=== PATIENT | female | born 1950 | race Caucasian/White ===

== ENCOUNTER 2022-09-30 10:16 | Outpatient (OUT) | payer MEDICARE, OTHER, SELFPAY ==
[2022-09-30 11:22] LABS: Chol HDL Ratio 3.9; Cholesterol 167 mg/dL (<=200); HDL Cholesterol 43 mg/dL (40-60); Thyroid Stimulating Hormone 0.905 uIU/mL (0.358-3.740); Triglycerides 176 mg/dL (<=150); VLDL CHOLESTEROL 35.2 mg/dL
== END 2022-09-30 10:17 | disposition home or self-care (01) ==
LOC: LAB 10:20
PROVIDERS: PCP Family Medicine; Visit Provider Family Medicine
DX: E66.9 Obesity, unspecified (principal); Z13.220 Encounter for screening for lipoid disorders
CPT/HCPCS: 36415; 80061; 84443

== ENCOUNTER 2022-09-30 10:23 | Outpatient (OUT) | payer MEDICARE, OTHER, SELFPAY ==
[2022-09-30 11:17] LABS: Alanine Aminotransferase 31 U/L (14-59); Albumin Globulin Ratio 0.9; Albumin Level 3.4 g/dL (3.4-5.0); Alkaline Phosphatase 95 U/L (46-116); Anion Gap 13.1; Aspartate Amino Transferase 19 U/L (15-37); Bilirubin Total 0.6 mg/dL (0.2-1.0); Calcium 8.8 mg/dL (8.5-10.1); Carbon Dioxide 28.2 mmol/L (21.0-32.0); Chloride 104 mmol/L (98-107); Estimated GFR (African America >60 (>=60); Estimated GFR (Non-African Ame >60 (>=60); Globulin 3.6 g/dL; Glucose 113 mg/dL (74-106); Potassium 4.3 mmol/L (3.5-5.1); Sodium 141 mmol/L (136-145)
[2022-09-30 11:46] LABS: Erythrocyte Sedimentation Rate 42 mm/hr (<=30)
[2022-09-30 11:57] LABS: Basophils Absolute Auto 0.1 10^3/uL (0.0-0.1); Basophils Percent Auto 0.9 % (0.2-2.0); Eosinophils Absolute Auto 0.4 10^3/uL (0.0-0.7); Eosinophils Percent Auto 6.1 % (0.9-7.0); Hematocrit 45.2 % (36.0-48.0); Immature Granulocytes Abs Auto 0.01 10^3/uL (0.00-0.03); Immature Granulocytes Pct Auto 0.2 % (0.0-0.5); Lymphocytes Absolute Auto 1.2 10^3/uL (1.2-3.8); Lymphocytes Percent Auto 18.6 % (20.5-60.0); Mean Corpuscular HGB Conc 33.2 g/dL (29.9-35.2); Mean Corpuscular Hemoglobin 28.4 pg (26.7-34.0); Mean Corpuscular Volume 85.4 fL (81.0-99.0); Mean Platelet Volume 10.3 fL (9.5-13.5); Monocytes Absolute Auto 0.4 10^3/uL (0.3-0.8); Monocytes Percent Auto 6.5 % (1.7-12.0); Neutrophils Absolute Auto 4.4 10^3/uL (1.4-6.5); Neutrophils Percent Auto 67.7 % (43.0-75.0); Platelet Count 243 10^3/uL (150-450); Red Blood Count 5.29 10^6/uL (4.20-5.40); Red Cell Distribution Width 15.4 % (11.0-15.0); White Blood Count 6.4 10^3/uL (4.0-11.0)
== END 2022-09-30 10:24 | disposition home or self-care (01) ==
PROVIDERS: PCP Family Medicine
DX: M05.79 Rheumatoid arthritis with rheumatoid factor 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 (principal); M15.0 Primary generalized (osteo)arthritis; Z79.899 Other long term (current) drug therapy; E66.9 Obesity, unspecified; Z13.220 Encounter for screening for lipoid disorders
CPT/HCPCS: 36415; 80053; 80061; 84443; 85025; 85652

== ENCOUNTER 2023-03-02 09:16 | Outpatient (OUT) | payer MEDICARE, OTHER, SELFPAY ==
[2023-03-02 09:36] LABS: Basophils Absolute Auto 0.1 10^3/uL (0.0-0.1); Basophils Percent Auto 0.7 % (0.2-2.0); Eosinophils Absolute Auto 0.5 10^3/uL (0.0-0.7); Eosinophils Percent Auto 6.1 % (0.9-7.0); Hematocrit 45.3 % (36.0-48.0); Hemoglobin 14.7 g/dL (12.0-16.0); Immature Granulocytes Abs Auto 0.02 10^3/uL (0.00-0.03); Immature Granulocytes Pct Auto 0.2 % (0.0-0.5); Lymphocytes Absolute Auto 1.6 10^3/uL (1.2-3.8); Lymphocytes Percent Auto 17.5 % (20.5-60.0); Mean Corpuscular HGB Conc 32.5 g/dL (29.9-35.2); Mean Corpuscular Hemoglobin 28.5 pg (26.7-34.0); Mean Corpuscular Volume 87.8 fL (81.0-99.0); Mean Platelet Volume 9.6 fL (9.5-13.5); Monocytes Absolute Auto 0.6 10^3/uL (0.3-0.8); Monocytes Percent Auto 6.5 % (1.7-12.0); Neutrophils Absolute Auto 6.1 10^3/uL (1.4-6.5); Platelet Count 225 10^3/uL (150-450); Red Blood Count 5.16 10^6/uL (4.20-5.40); Red Cell Distribution Width 14.6 % (11.0-15.0); White Blood Count 8.9 10^3/uL (4.0-11.0)
[2023-03-02 09:43] LABS: Erythrocyte Sedimentation Rate 61 mm/hr (<=30)
[2023-03-02 10:25] LABS: Alanine Aminotransferase 45 U/L (14-59); Albumin Globulin Ratio 0.9; Albumin Level 3.3 g/dL (3.4-5.0); Alkaline Phosphatase 98 U/L (46-116); Aspartate Amino Transferase 23 U/L (15-37); Bilirubin Total 0.5 mg/dL (0.2-1.0); Calcium 9.5 mg/dL (8.5-10.1); Carbon Dioxide 30.1 mmol/L (21.0-32.0); Chloride 101 mmol/L (98-107); Estimated GFR (African America >60 (>=60); Estimated GFR (Non-African Ame >60 (>=60); Globulin 3.8 g/dL; Glucose 97 mg/dL (74-106); Potassium 4.1 mmol/L (3.5-5.1); Sodium 137 mmol/L (136-145); Total Protein 7.1 g/dL (6.4-8.2)
== END 2023-03-02 09:17 | disposition home or self-care (01) ==
LOC: LAB 09:18
PROVIDERS: PCP Family Medicine; Visit Provider Internal Medicine Rheumatology
DX: M05.79 Rheumatoid arthritis with rheumatoid factor 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 (principal); M15.0 Primary generalized (osteo)arthritis; Z79.899 Other long term (current) drug therapy
CPT/HCPCS: 36415; 80053; 85025; 85652

== ENCOUNTER 2023-05-31 14:34 | Outpatient (OUT) | payer MEDICARE, OTHER, SELFPAY ==
[2023-05-31 14:49] LABS: Basophils Absolute Auto 0.1 10^3/uL (0.0-0.1); Basophils Percent Auto 0.7 % (0.2-2.0); Eosinophils Absolute Auto 0.5 10^3/uL (0.0-0.7); Eosinophils Percent Auto 4.9 % (0.9-7.0); Hematocrit 43.6 % (36.0-48.0); Hemoglobin 14.1 g/dL (12.0-16.0); Immature Granulocytes Abs Auto 0.04 10^3/uL (0.00-0.03); Immature Granulocytes Pct Auto 0.4 % (0.0-0.5); Lymphocytes Absolute Auto 1.9 10^3/uL (1.2-3.8); Lymphocytes Percent Auto 19.3 % (20.5-60.0); Mean Corpuscular HGB Conc 32.3 g/dL (29.9-35.2); Mean Corpuscular Volume 89.7 fL (81.0-99.0); Mean Platelet Volume 9.7 fL (9.5-13.5); Monocytes Absolute Auto 0.6 10^3/uL (0.3-0.8); Monocytes Percent Auto 6.7 % (1.7-12.0); Neutrophils Absolute Auto 6.5 10^3/uL (1.4-6.5); Platelet Count 229 10^3/uL (150-450); Red Blood Count 4.86 10^6/uL (4.20-5.40); Red Cell Distribution Width 15.1 % (11.0-15.0); White Blood Count 9.6 10^3/uL (4.0-11.0)
[2023-05-31 15:22] LABS: Erythrocyte Sedimentation Rate 64 mm/hr (<=30)
[2023-05-31 15:27] LABS: Alanine Aminotransferase 37 U/L (14-59); Albumin Globulin Ratio 0.9; Albumin Level 3.2 g/dL (3.4-5.0); Alkaline Phosphatase 99 U/L (46-116); Anion Gap 11.8; Aspartate Amino Transferase 18 U/L (15-37); BUN Creatinine Ratio 21.6; Bilirubin Total 0.5 mg/dL (0.2-1.0); Calcium 9.1 mg/dL (8.5-10.1); Carbon Dioxide 28.3 mmol/L (21.0-32.0); Chloride 105 mmol/L (98-107); Estimated GFR (African America >60 (>=60); Estimated GFR (Non-African Ame >60 (>=60); Globulin 3.7 g/dL; Glucose 126 mg/dL (74-106); Potassium 4.1 mmol/L (3.5-5.1); Sodium 141 mmol/L (136-145); Total Protein 6.9 g/dL (6.4-8.2)
== END 2023-05-31 14:35 | disposition home or self-care (01) ==
LOC: LAB 14:35
PROVIDERS: PCP Family Medicine; Visit Provider Internal Medicine Rheumatology
DX: M05.79 Rheumatoid arthritis with rheumatoid factor 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 (principal); M15.0 Primary generalized (osteo)arthritis; Z79.899 Other long term (current) drug therapy
CPT/HCPCS: 36415; 80053; 85025; 85652

== ENCOUNTER 2023-09-04 10:32 | Outpatient (OUT) | payer MEDICARE, OTHER, SELFPAY ==
[2023-09-04 11:15] LABS: Alanine Aminotransferase 26 U/L (14-59); Albumin Level 3.4 g/dL (3.4-5.0); Alkaline Phosphatase 93 U/L (46-116); Anion Gap 10.5; Aspartate Amino Transferase 18 U/L (15-37); BUN Creatinine Ratio 21.4; Bilirubin Total 0.7 mg/dL (0.2-1.0); Calcium 8.6 mg/dL (8.5-10.1); Carbon Dioxide 27.8 mmol/L (21.0-32.0); Chloride 108 mmol/L (98-107); Estimated GFR (African America >60 (>=60); Estimated GFR (Non-African Ame >60 (>=60); Globulin 3.5 g/dL; Glucose 110 mg/dL (74-106); Potassium 4.3 mmol/L (3.5-5.1); Sodium 142 mmol/L (136-145); Total Protein 6.9 g/dL (6.4-8.2)
[2023-09-04 11:18] LABS: Basophils Absolute Auto 0.1 10^3/uL (0.0-0.1); Basophils Percent Auto 0.9 % (0.2-2.0); Eosinophils Absolute Auto 0.3 10^3/uL (0.0-0.7); Eosinophils Percent Auto 5.1 % (0.9-7.0); Hematocrit 43.6 % (36.0-48.0); Hemoglobin 14.1 g/dL (12.0-16.0); Immature Granulocytes Abs Auto 0.02 10^3/uL (0.00-0.03); Immature Granulocytes Pct Auto 0.3 % (0.0-0.5); Lymphocytes Absolute Auto 1.1 10^3/uL (1.2-3.8); Lymphocytes Percent Auto 16.6 % (20.5-60.0); Mean Corpuscular HGB Conc 32.3 g/dL (29.9-35.2); Mean Corpuscular Hemoglobin 28.8 pg (26.7-34.0); Mean Corpuscular Volume 89.2 fL (81.0-99.0); Mean Platelet Volume 9.8 fL (9.5-13.5); Monocytes Absolute Auto 0.6 10^3/uL (0.3-0.8); Monocytes Percent Auto 8.4 % (1.7-12.0); Neutrophils Absolute Auto 4.6 10^3/uL (1.4-6.5); Neutrophils Percent Auto 68.7 % (43.0-75.0); Platelet Count 225 10^3/uL (150-450); Red Blood Count 4.89 10^6/uL (4.20-5.40); Red Cell Distribution Width 14.6 % (11.0-15.0); White Blood Count 6.7 10^3/uL (4.0-11.0)
[2023-09-04 12:24] LABS: Erythrocyte Sedimentation Rate 54 mm/hr (<=30)
== END 2023-09-04 10:33 | disposition home or self-care (01) ==
LOC: LAB 10:34
PROVIDERS: PCP Family Medicine; Visit Provider Internal Medicine Rheumatology
DX: M05.79 Rheumatoid arthritis with rheumatoid factor 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 (principal); M15.0 Primary generalized (osteo)arthritis; Z79.899 Other long term (current) drug therapy
CPT/HCPCS: 36415; 80053; 85025; 85652

== ENCOUNTER 2023-09-29 09:29 | Outpatient (OUT) | payer MEDICARE, OTHER, SELFPAY ==
--- OUTSIDE RECORDS SUMMARY | 2023-09-29 09:36 | XMS_ITS | CCD ---
Author Organization [facility] Care Team Providers Care Equipment Processor Name Role Phone MD Gonzalez Mcneal Attending Provider ELIZABET, DR CUNHA Admitting Unavailable MCNEAL, DR CUNHA Attending Unavailable NADERER, DR TYRELL Salazar Primary Care Unavailable MCNEAL, DR CUNHA Consulting Unavailable MISC, DR BARTHOLOMEW Admitting Unavailable MISC, DR BARTHOLOMEW Attending Unavailable NADERER, DR TYRELL Salazar Primary Care Unavailable MISC, DR BARTHOLOMEW Consulting Unavailable MISC, DR BARTHOLOMEW Admitting Unavailable MISC, DR BARTHOLOMEW Attending Unavailable NADERER, DR TYRELL Salazar Primary Care Unavailable MISC, DR BARTHOLOMEW Consulting Unavailable MCNEAL, DR CUNHA Admitting Unavailable MCNEAL, DR CUNHA Attending Unavailable NADERER, DR TYRELL Salazar Primary Care Unavailable MCNEAL, DR CUNHA Consulting Unavailable NADERER, TYRELL Salazar Primary Care Unavailable Tryell Bowens MD Primary Care Provider HIEN YIN Attending Unavailable NADLUBNA, TYRELL Attending Unavailable CIERAYASSINE Attending Unavailable OBERMEYERTERRENCE Referring Unavailable HIEN YIN Attending Unavailable Allergies Allergy Classification Reported Allergen(s) Allergy Type Date of Onset Reaction(s) Facility (3 sources) Amoxicillin Drug Allergy 08-09-2022 Diarrhea [facility] Healthcare Work Phone: Medications Current Medications Medication Drug Class(es) Dates Sig (Normalized) Sig (Original) bisoprolol fumarate 5 mg / hydroCHLOROthiazide 6.25 mg oral tablet (3 sources) Thiazide Diuretic, beta-Adrenergic Krystal take 1 tablet by mouth in the morning bisoprolol-hydroCH LOROthiazide (Ziac) 5-6.25 MG tablet Take 1 tablet by mouth in the morning. 0 Active diclofenac sodium 75 mg delayed release oral tablet (3 sources) Nonsteroidal Anti-inflammatory Drug take 1 tablet by mouth every twelve hours diclofenac (Voltaren) 75 MG EC tablet Take 75 mg by mouth every 12 (twelve) hours. 0 Active 2 ml dupilumab 150 mg/ml prefilled syringe (3 sources) Interleukin-4 Receptor alpha Antagonist dupilumab (Dupixent) 300 MG/2ML injection Inject 300 mg under the skin every 14 (fourteen) days. For eczema 0 Active folic acid 1 mg oral tablet (3 sources) take 1 tablet by mouth once daily folic acid (Folvite) 1 MG tablet Take 1 mg by mouth 1 (one) time each day at the same time. 0 Active methotrexate 2.5 mg oral tablet (3 sources) Folate Analog Metabolic Inhibitor take 1 tablet by mouth every week methotrexate 2.5 MG tablet Take 2.5 mg by mouth 1 (one) time per week. 0 Active predniSONE 5 mg oral tablet (3 sources) take 1 tablet by mouth once daily predniSONE (Deltasone) 5 MG tablet Take 5 mg by mouth 1 (one) time each day at the same time. 0 Active Problems Active Problems Problem Classification Problem Date Documented Da te Episodic/Chronic Allergic reactions (4 sources) Atopic dermatitis; Translations: [Intrinsic (allergic) eczema] Onset: 04-05-2023 04-05-2023 Chronic Diabetes mellitus without complication (4 sources) Prediabetes; Translations: [Prediabetes] Onset: 04-05-2023 04-05-2023 Episodic Disorders of lipid metabolism (5 sources) Hypertriglyceridemi a; Translations: [Pure hyperglyceridemia] Onset: 04-05-2023 04-05-2023 Chronic Essential hypertension (5 sources) Benign essential hypertension; Translations: [Essential (primary) hypertension] Onset: 04-05-2023 04-05-2023 Chronic Osteoarthritis (2 sources) Primary generalized (osteo)arthritis; Translations: [Unspecified osteoarthritis, unspecified site] Onset: 12-21-2021 Chronic Other aftercare (1 source) Other jail (current) drug therapy; Translations: [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] Onset: 07-03-2022 Episodic Other aftercare (4 sources) Patient encounter status; 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] Onset: 04-05-2023 04-05-2023 Episodic Other nutritional; endocrine; and metabolic disorders (4 sources) Body mass index 30+ - obesity; Translations: [Obesity, unspecified] Onset: 04-05-2023 04-05-2023 Chronic Other skin disorders (3 sources) Seborrheic keratosis; Translations: [Other seborrheic keratosis] Onset: 04-05-2023 04-05-2023 Episodic Other upper respiratory disease (5 sources) Allergic rhinitis due to pollen; Translations: [Allergic rhinitis due to pollen] Onset: 04-05-2023 04-05-2023 Chronic Rheumatoid arthritis and related disease (13 sources) Rheumatoid arthritis with rheumatoid factor 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; Translations: [Rheumatoid arthritis, unspecified] Onset: 11-23-2021 Chronic Past or Other Problems Problem Classification Problem Date Documented Da te Episodic/Chronic Acute and chronic tonsillitis (3 sources) Tonsil asymmetry; Translations: [Other chronic diseases of tonsils and adenoids] Onset: 10-12-2022 Resolved: 04-05-2023 10-12-2022 Chronic Neoplasms of unspecified nature or uncertain behavior (3 sources) Neoplasm of lymphoid system structure; Translations: [Neoplasm of unspecified behavior of digestive system] Onset: 08-15-2022 08-15-2022 Episodic Other congenital anomalies (3 sources) Talipes valgus; 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] Onset: 08-09-2022 Resolved: 08-09-2022 08-09-2022 Chronic Other connective tissue disease (3 sources) Deformity of lower limb; Translations: [Contracture of muscle, right lower leg] Onset: 08-09-2022 Resolved: 08-09-2022 08-09-2022 Episodic Other upper respiratory disease (3 sources) Epistaxis; Translations: [Epistaxis] Onset: 08-09-2022 Resolved: 04-05-2023 08-15-2022 Episodic Other upper respiratory disease (3 sources) Lesion of nose; Translations: [Other specified disorders of nose and nasal sinuses] Onset: 08-15-2022 Resolved: 04-05-2023 08-15-2022 Episodic Results Test Name Value Interpretation Reference Range Facility NM PET/CT SKULL-THIGH INITon 10-04-2022 NM PET/CT SKULL-THIGH INIT * * *Final Report* * * DATE OF EXAM: Oct 04 2022 11:04AM NRN [id number] - NM PET/CT SKULL-THIGH INIT / PROCEDURE REASON: tonisllar neoplasm * * * * Physician Interpretation * * * * RESULT: WHOLE (OR REGIONAL) BODY PET-CT SCAN CLINICAL HISTORY: Tonsillar cancer. INDICATION: Initial treatment strategy. TECHNIQUE: PET-CT scan: Approximately 60 minutes following the IV administration of F-18 FDG (10.8 mCi of F-18 FDG), PET and non contrast CT images were acquired from the vertex through proximal thigh. PET images were reconstructed with and without attenuation correction using attenuation coefficients. The blood glucose level before FDG injection is 110 mg/dL CT Radiation dose: Integrated Dose-length product (DLP) for this visit = 343 mGy*cm. CT Dose Reduction Employed: Automatic exposure control used (AED) COMPARISON: FDG PET-CT: None CORRELATION: None. RESULTS: Topogram review: Unremarkable, no acute findings. No retained foreign body. Head and Neck: No evidence of focal uptake to suggest FDG avid neoplastic process. Soft tissue prominence in the bilateral tonsil with mild FDG uptake of max SUV 6.8, probably inflammatory in nature but not excluding neoplasm. No FDG avid lymphadenopathy. Chest: No evidence of focal uptake to suggest FDG avid neoplastic process. No significant anatomical abnormality to the limits of low dose noncontrast CT scan. Abdomen and Pelvis: There is tiny focus of increased FDG uptake of max SUV 4.8 in the anterior dome of the liver without corresponding CT abnormality. Another tiny focus of increased FDG uptake in the inferior right lobe with max SUV 5.5. The finding is indeterminant and could represent processing artifact, however early metastases not excluded. Recommend follow-up or MR scan.. Extremities/Skeleton : No evidence of focal uptake to suggest FDG avid neoplastic process. Degenerative arthritic change. IMPRESSION: 1. HEAD and NECK: Mild uptake corresponding to soft tissue prominence and bilateral tonsil, neoplastic process not excluded. No FDG avid lymphadenopathy. 2. CHEST: No evidence of focal uptake to suggest FDG avid neoplastic process.. 3. ABDOMEN/PELVIS: Nonspecific tiny foci of uptake in the liver could represent processing artifact. However, the finding cannot exclude early metastases. Recommend follow-up or dedicated MR scan. 4. EXTREMITIES/SKELETON : No evidence of focal uptake to suggest FDG avid neoplastic process.. Transcribe Date/Time: Oct 04 2022 5:12P Dictated by: SUNI NUNEZ MD This examination was interpreted and the report reviewed and electronically signed by: SUNI NUNEZ MD on Oct 04 2022 6:00PM EST Thank you for allowing us to participate in the care of your patient. Should there be any questions regarding this interpretation, please call [phone]. If you are unable to reach us at the number above, please feel free to contact [facility] at [phone]. [id number] CN Normal [facility] CBC AUTO DIFFon 06-30-2022 BASO # 0.1 103/ul Normal 0.0-0.1 [facility] Comment on above: Performed By: #### C BC #### [facility] [address] [address] [address] Norm Melendrez Basophils/100 WBC (Bld) 0.7 % Normal 0.2-2.0 [facility] Comment on above: Performed By: #### C BC #### [facility] [address] [address] [address] Norm Melendrez EO # 0.4 103/ul Normal 0.0-0.7 [facility] Comment on above: Performed By: #### C BC #### [facility] [address] [address] [address] Norm Melendrez Eosinophils/100 WBC (Bld) 4.4 % Normal 0.9-7.0 [facility] Comment on above: Performed By: #### C BC #### [facility] [address] [address] [address] Norm Melendrez Erythrocyte distribution width (RBC) [Ratio] 15.0 % Normal 11.0-15.0 [facility] Comment on above: Performed By: #### C BC #### [facility] [address] [address] [address] Nomr Melendrez Hematocrit (Bld) [Volume fraction] 45.0 % Normal 36.0-48.0 [facility] Comment on above: Performed By: #### C BC #### [facility] [address] [address] [address] Norm Melendrez Hemoglobin (Bld) [Mass/Vol] 14.5 g/dL Normal 12.0-16.0 [facility] Comment on above: Performed By: #### C BC #### [facility] [address] [place] [address] Dr. Norm Melendrez IG # 0.03 10e3/ul Normal 0.00-0.03 [facility] Comment on above: Performed By: #### C BC #### [facility] [address] [place] [address] Dr. Norm Melendrez IG % 0.4 % Normal 0.0-0.5 [facility] Comment on above: Performed By: #### C BC #### [facility] [address] [place] [address] Dr. Norm Melendrez LYMPH # 1.4 103/ul Normal 1.2-3.8 [facility] Comment on above: Performed By: #### C BC #### [facility] [address] [place] [address] Dr. Norm Melendrez Lymphocytes/100 WBC (Bld) 17.2 % Critically low 20.5-60.0 [facility] Comment on above: Performed By: #### C BC #### [facility] [address] [place] [address] Dr. Norm Melendrez MANUAL DIFF REQ NO Normal [facility] Comment on above: Performed By: #### C BC #### [facility] [address] [place] [address] Dr. Norm Melendrez MCH (RBC) [Entitic mass] 28.0 pg Normal 26.7-34.0 [facility] Comment on above: Performed By: #### C BC #### [facility] [address] [place] [address] Dr. Norm Melendrez MCHC (RBC) [Mass/Vol] 32.2 g/dL Normal 29.9-35.2 [facility] Comment on above: Performed By: #### C BC #### [facility] [address] [place] [address] Dr. Norm Melendrez MCV (RBC) [Entitic vol] 86.9 fL Normal 81.0-99.0 [facility] Comment on above: Performed By: #### C BC #### [facility] [address] [address] [address] Norm Melendrez MONO # 0.5 103/ul Normal 0.3-0.8 [facility] Comment on above: Performed By: #### C BC #### [facility] [address] [address] [address] Norm Melendrez Monocytes/100 WBC (Bld) 6.6 % Normal 1.7-12.0 [facility] Comment on above: Performed By: #### C BC #### [facility] [address] [place] [address] Dr. Norm Melendrez NEUT # 5.8 103/ul Normal 1.4-6.5 [facility] Comment on above: Performed By: #### C BC #### [facility] [address] [place] [address] Dr. Norm Melendrez Neutrophils/100 WBC (Bld) 70.7 % Normal 43.0-75.0 [facility] Comment on above: Performed By: #### C BC #### [facility] [address] [place] [address] Dr. Norm Melendrez Platelet mean volume (Bld) [Entitic vol] 9.2 fL Critically low 9.5-13.5 [facility] Comment on above: Performed By: #### C BC #### [facility] [address] [place] [address] Dr. Norm Melendrez PLT 231 103/ul Normal 150-450 [facility] Comment on above: Performed By: #### C BC #### [facility] [address] [place] [address] Dr. Norm Melendrez RBC 5.18 106/ul Normal 4.20-5.40 [facility] Comment on above: Performed By: #### C BC #### [facility] [address] [place] [address] Dr. Norm Melendrez WBC 8.2 103/ul Normal 4.0-11.0 [facility] Comment on above: Performed By: #### C BC #### [facility] [address] [place] [address] Dr. Norm Melendrez PROF 14(COMP METB)on 023 Albumin [Mass/Vol] 3.4 g/dL Normal 3.4-5.0 [facility] Comment on above: Performed By: #### C MP #### [facility] [address] [place] [address] Dr. Norm Melendrez Albumin/Globulin [Mass ratio] 0.9 {ratio} Normal [facility] Comment on above: Performed By: #### C MP #### [facility] [address] [place] [address] Dr. Norm Melendrez ALP [Catalytic activity/Vol] 105 U/L Normal 46-116 [facility] Comment on above: Performed By: #### C MP #### [facility] [address] [place] [address] Dr. Norm Melendrez ALT [Catalytic activity/Vol] 48 U/L Normal 14-59 [facility] Comment on above: Performed By: #### C MP #### [facility] [address] [place] [address] Dr. Norm Melendrez Anion gap [Moles/Vol] 7.9 mmol/L Normal [facility] Comment on above: Performed By: #### C MP #### [facility] [address] [place] [address] Dr. Norm Melendrez AST [Catalytic activity/Vol] 22 U/L Normal 15-37 [facility] Comment on above: Performed By: #### C MP #### [facility] [address] [place] [address] Dr. Norm Melendrez Bilirubin [Mass/Vol] 0.4 mg/dL Normal 0.2-1.0 [facility] Comment on above: Performed By: #### C MP #### [facility] [address] [place] [address] Dr. Norm Melendrez Calcium [Mass/Vol] 8.9 mg/dL Normal 8.5-10.1 [facility] Comment on above: Performed By: #### C MP #### [facility] [address] [place], [place] [id number] Dr. Norm Melendrez Chloride [Moles/Vol] 108 mmol/L Critically high 98-107 [facility] Comment on above: Performed By: #### C MP #### [facility] [address] [address] [address] Norm Melendrez CO2 [Moles/Vol] 31.1 mmol/L Normal 21.0-32.0 [facility] Comment on above: Performed By: #### C MP #### [facility] [address] [place] [address] Dr. Norm Melendrez Creatinine [Mass/Vol] 0.88 mg/dL Normal 0.55-1.02 [facility] Comment on above: Performed By: #### C MP #### [facility] [address] [place] [address] Dr. Norm Melendrez EGFR-AF WALLISIAN >60 Normal >=60 [facility] Comment on above: Performed By: #### C MP #### [facility] [address] [place] [address] Dr. Norm Melendrez EGFR-NON AF WALLISIAN >60 Normal >=60 [facility] Comment on above: Performed By: #### C MP #### [facility] [address] [place] [address] Dr. Norm Melendrez Globulin (S) [Mass/Vol] 3.8 g/dL Normal [facility] Comment on above: Performed By: #### C MP #### [facility] [address] [place] [address] Dr. Norm Melendrez Glucose [Mass/Vol] 109 mg/dL Critically high 74-106 [facility] Comment on above: Performed By: #### C MP #### [facility] [address] [address] [address] Norm Melendrez Potassium [Moles/Vol] 4.0 mmol/L Normal 3.5-5.1 [facility] Comment on above: Performed By: #### C MP #### [facility] [address] [place] [address] Dr. Norm Melendrez Protein [Mass/Vol] 7.2 g/dL Normal 6.4-8.2 [facility] Comment on above: Performed By: #### C MP #### [facility] [address] [place] [address] Dr. Norm Melendrez Sodium [Moles/Vol] 143 mmol/L Normal 136-145 [facility] Comment on above: Performed By: #### C MP #### [facility] [address] [place] [address] Dr. Norm Melendrez Urea nitrogen [Mass/Vol] 16.0 mg/dL Normal 7.0-18.0 [facility] Comment on above: Performed By: #### C MP #### [facility] [address] [place] [address] Dr. Nomr Melendrez Urea nitrogen/Creatinine [Mass ratio] 18.2 mg/mg Normal [facility] Comment on above: Performed By: #### C MP #### [facility] [address] [place] [address] Dr. Norm Melendrez SED RATE WESTERGREN 2022 SED RATE 17 mm/hr Normal <=30 [facility] Comment on above: Performed By: #### S EDR #### [facility] [address] [place] [address] Dr. Norm Melendrez CBC AUTO DIFFon 03-31-2022 BASO # 0.1 103/ul Normal 0.0-0.1 [facility] Comment on above: Performed By: #### C BC #### [facility] [address] [place] [address] Dr. Norm Melendrez Basophils/100 WBC (Bld) 0.7 % Normal 0.2-2.0 [facility] Comment on above: Performed By: #### C BC #### [facility] [address] [place] [address] Dr. Norm Melendrez EO # 0.2 103/ul Normal 0.0-0.7 [facility] Comment on above: Performed By: #### C BC #### [facility] [address] [place] [address] Dr. Norm Melendrez Eosinophils/100 WBC (Bld) 3.0 % Normal 0.9-7.0 [facility] Comment on above: Performed By: #### C BC #### [facility] [address] [place] [address] Dr. Norm Melendrez Erythrocyte distribution width (RBC) [Ratio] 15.4 % Critically high 11.0-15.0 [facility] Comment on above: Performed By: #### C BC #### [facility] [address] [place] [address] Dr. Norm Melendrez Hematocrit (Bld) [Volume fraction] 44.8 % Normal 36.0-48.0 [facility] Comment on above: Performed By: #### C BC #### [facility] [address] [place] [address] Dr. Norm Melendrez Hemoglobin (Bld) [Mass/Vol] 14.6 g/dL Normal 12.0-16.0 [facility] Comment on above: Performed By: #### C BC #### [facility] [address] [place] [address] Dr. Norm Melendrez IG # 0.02 10e3/ul Normal 0.00-0.03 [facility] Comment on above: Performed By: #### C BC #### [facility] [address] [place] [address] Dr. Norm Melendrez IG % 0.3 % Normal 0.0-0.5 [facility] Comment on above: Performed By: #### C BC #### [facility] [address] [place] [address] Dr. Norm Melendrez LYMPH # 1.2 103/ul Normal 1.2-3.8 [facility] Comment on above: Performed By: #### C BC #### [facility] [address] [place] [address] Dr. Norm Melendrez Lymphocytes/100 WBC (Bld) 16.8 % Critically low 20.5-60.0 [facility] Comment on above: Performed By: #### C BC #### [facility] [address] [place] [address] Dr. Norm Melendrez MANUAL DIFF REQ NO Normal [facility] Comment on above: Performed By: #### C BC #### [facility] [address] [address] [address] Norm Melendrez MCH (RBC) [Entitic mass] 27.6 pg Normal 26.7-34.0 [facility] Comment on above: Performed By: #### C BC #### [facility] [address] [address] [address] Norm Melendrez MCHC (RBC) [Mass/Vol] 32.6 g/dL Normal 29.9-35.2 [facility] Comment on above: Performed By: #### C BC #### [facility] [address] [place] [address] Dr. Norm Melendrez MCV (RBC) [Entitic vol] 84.7 fL Normal 81.0-99.0 [facility] Comment on above: Performed By: #### C BC #### [facility] [address] [place] [address] Dr. Norm Melendrez MONO # 0.6 103/ul Normal 0.3-0.8 [facility] Comment on above: Performed By: #### C BC #### [facility] [address] [place] [address] Dr. Norm Melendrez Monocytes/100 WBC (Bld) 8.0 % Normal 1.7-12.0 [facility] Comment on above: Performed By: #### C BC #### [facility] [address] [place] [address] Dr. Norm Melendrez NEUT # 5.2 103/ul Normal 1.4-6.5 [facility] Comment on above: Performed By: #### C BC #### [facility] [address] [place] [address] Dr. Norm Melendrez Neutrophils/100 WBC (Bld) 71.2 % Normal 43.0-75.0 [facility] Comment on above: Performed By: #### C BC #### [facility] [address] [place] [address] Dr. Nrom Melendrez Platelet mean volume (Bld) [Entitic vol] 9.2 fL Critically low 9.5-13.5 [facility] Comment on above: Performed By: #### C BC #### [facility] [address] [place] [address] Dr. Norm Melendrez PLT 231 103/ul Normal 150-450 [facility] Comment on above: Performed By: #### C BC #### [facility] [address] [place] [address] Dr. Norm Melendrez RBC 5.29 106/ul Normal 4.20-5.40 [facility] Comment on above: Performed By: #### C BC #### [facility] [address] [place] [address] Dr. Norm Melendrez WBC 7.3 103/ul Normal 4.0-11.0 [facility] Comment on above: Performed By: #### C BC #### [facility] [address] [place] [address] Dr. Norm Melendrez PROF 14(COMP METB)on 023 Albumin [Mass/Vol] 3.5 g/dL Normal 3.4-5.0 [facility] Comment on above: Performed By: #### C MP #### [facility] [address] [place] [address] Dr. Norm Melendrez Albumin/Globulin [Mass ratio] 0.9 {ratio} Normal [facility] Comment on above: Performed By: #### C MP #### [facility] [address] [place] [address] Dr. Norm Melendrez ALP [Catalytic activity/Vol] 98 U/L Normal 46-116 [facility] Comment on above: Performed By: #### C MP #### [facility] [address] [place] [address] Dr. Norm Melendrez ALT [Catalytic activity/Vol] 33 U/L Normal 14-59 [facility] Comment on above: Performed By: #### C MP #### [facility] [address] [place] [address] Dr. Norm Melendrez Anion gap [Moles/Vol] 12.4 mmol/L Normal [facility] Comment on above: Performed By: #### C MP #### [facility] [address] [address] [address] Norm Melendrez AST [Catalytic activity/Vol] 29 U/L Normal 15-37 [facility] Comment on above: Performed By: #### C MP #### [facility] [address] [address] [address] Norm Melendrez Bilirubin [Mass/Vol] 0.4 mg/dL Normal 0.2-1.0 [facility] Comment on above: Performed By: #### C MP #### [facility] [address] [address] [address] Norm Melendrez Calcium [Mass/Vol] 9.5 mg/dL Normal 8.5-10.1 [facility] Comment on above: Performed By: #### C MP #### [facility] [address] [place] [address] Dr. Norm Melendrez Chloride [Moles/Vol] 103 mmol/L Normal 98-107 [facility] Comment on above: Performed By: #### C MP #### [facility] [address] [address] [address] Norm Melendrez CO2 [Moles/Vol] 28.6 mmol/L Normal 21.0-32.0 [facility] Comment on above: Performed By: #### C MP #### [facility] [address] [place] [address] Dr. Norm Melendrez Creatinine [Mass/Vol] 0.77 mg/dL Normal 0.55-1.02 [facility] Comment on above: Performed By: #### C MP #### [facility] [address] [place] [address] Dr. Norm Melendrez EGFR-AF WALLISIAN >60 Normal >=60 [facility] Comment on above: Performed By: #### C MP #### [facility] [address] [address] [address] Norm Melendrez EGFR-NON AF WALLISIAN >60 Normal >=60 [facility] Comment on above: Performed By: #### C MP #### [facility] [address] [place] [address] Dr. Norm Melendrez Globulin (S) [Mass/Vol] 3.7 g/dL Normal [facility] Comment on above: Performed By: #### C MP #### [facility] [address] [address] [address] Norm Melendrez Glucose [Mass/Vol] 97 mg/dL Normal 74-106 [facility] Comment on above: Performed By: #### C MP #### [facility] [address] [address] [address] Norm Melendrez Potassium [Moles/Vol] 4.0 mmol/L Normal 3.5-5.1 [facility] Comment on above: Performed By: #### C MP #### [facility] [address] [place] [address] Dr. Norm Melendrez Protein [Mass/Vol] 7.2 g/dL Normal 6.4-8.2 [facility] Comment on above: Performed By: #### C MP #### [facility] [address] [place] [address] Dr. Norm Melendrez Sodium [Moles/Vol] 140 mmol/L Normal 136-145 [facility] Comment on above: Performed By: #### C MP #### [facility] [address] [place] [address] Dr. Norm Melendrez Urea nitrogen [Mass/Vol] 11.0 mg/dL Normal 7.0-18.0 [facility] Comment on above: Performed By: #### C MP #### [facility] [address] [address] [address] Norm Melendrez Urea nitrogen/Creatinine [Mass ratio] 14.3 mg/mg Normal [facility] Comment on above: Performed By: #### C MP #### [facility] [address] [place] [address] Dr. Norm Melendrez SED RATE WESTERGRENon 2022 SED RATE 53 mm/hr Critically high <=30 [facility] Comment on above: Performed By: #### C MP #### [facility] [address] [place] [address] Dr. Norm Melendrez CBC AUTO DIFFon 11-23-2021 BASO # 0.1 103/ul Normal 0.0-0.1 [facility] Comment on above: Performed By: #### C BC #### [facility] [address] [address] [address] Norm Melendrez Basophils/100 WBC (Bld) 0.9 % Normal 0.2-2.0 [facility] Comment on above: Performed By: #### C BC #### [facility] [address] [place] [address] Dr. Norm Melendrez EO # 0.3 103/ul Normal 0.0-0.7 [facility] Comment on above: Performed By: #### C BC #### [facility] [address] [place] [address] Dr. Norm Melendrez Eosinophils/100 WBC (Bld) 4.1 % Normal 0.9-7.0 [facility] Comment on above: Performed By: #### C BC #### [facility] [address] [place] [address] Dr. Norm Melendrez Erythrocyte distribution width (RBC) [Ratio] 15.9 % Critically high 11.0-15.0 [facility] Comment on above: Performed By: #### C BC #### [facility] [address] [place] [address] Dr. Norm Melendrez Hematocrit (Bld) [Volume fraction] 44.9 % Normal 36.0-48.0 [facility] Comment on above: Performed By: #### C BC #### [facility] [address] [place] [address] Dr. Norm Melendrez Hemoglobin (Bld) [Mass/Vol] 14.2 g/dL Normal 12.0-16.0 [facility] Comment on above: Performed By: #### C BC #### [facility] [address] [place] [address] Dr. Norm Melendrez IG # 0.04 10e3/ul Critically high 0.00-0.03 [facility] Comment on above: Performed By: #### C BC #### [facility] [address] [place] [address] Dr. Norm Melendrez IG % 0.6 % Critically high 0.0-0.5 [facility] Comment on above: Performed By: #### C BC #### [facility] [address] [place] [address] Dr. Norm Melendrez LYMPH # 1.6 103/ul Normal 1.2-3.8 [facility] Comment on above: Performed By: #### C BC #### [facility] [address] [place] [address] Dr. Norm Melendrez Lymphocytes/100 WBC (Bld) 22.0 % Normal 20.5-60.0 [facility] Comment on above: Performed By: #### C BC #### [facility] [address] [place] [address] Dr. Norm Melendrez MANUAL DIFF REQ NO Normal [facility] Comment on above: Performed By: #### C BC #### [facility] [address] [place] [address] Dr. Norm Melendrez MCH (RBC) [Entitic mass] 27.5 pg Normal 26.7-34.0 [facility] Comment on above: Performed By: #### C BC #### [facility] [address] [place] [address] Dr. Norm Melendrez MCHC (RBC) [Mass/Vol] 31.6 g/dL Normal 29.9-35.2 [facility] Comment on above: Performed By: #### C BC #### [facility] [address] [place] [address] Dr. Norm Melendrez MCV (RBC) [Entitic vol] 86.8 fL Normal 81.0-99.0 [facility] Comment on above: Performed By: #### C BC #### [facility] [address] [place] [address] Dr. Norm Melendrez MONO # 0.5 103/ul Normal 0.3-0.8 [facility] Comment on above: Performed By: #### C BC #### [facility] [address] [place] [address] Dr. Norm Melendrez Monocytes/100 WBC (Bld) 7.4 % Normal 1.7-12.0 [facility] Comment on above: Performed By: #### C BC #### [facility] [address] [place] [address] Dr. Norm Melendrez NEUT # 4.6 103/ul Normal 1.4-6.5 [facility] Comment on above: Performed By: #### C BC #### [facility] [address] [place] [address] Dr. Norm Melendrez Neutrophils/100 WBC (Bld) 65.0 % Normal 43.0-75.0 [facility] Comment on above: Performed By: #### C BC #### [facility] [address] [place] [address] Dr. Norm Melendrez Platelet mean volume (Bld) [Entitic vol] 9.6 fL Normal 9.5-13.5 [facility] Comment on above: Performed By: #### C BC #### [facility] [address] [place] [address] Dr. Norm Melendrez PLT 237 103/ul Normal 150-450 [facility] Comment on above: Performed By: #### C BC #### [facility] [address] [place] [address] Dr. Norm Melendrez RBC 5.17 106/ul Normal 4.20-5.40 [facility] Comment on above: Performed By: #### C BC #### [facility] [address] [place] [address] Dr. Norm Melendrez WBC 7.0 103/ul Normal 4.0-11.0 [facility] Comment on above: Performed By: #### C BC #### [facility] [address] [place] [address] Dr. Norm Melendrez PROF 14(COMP METB)on 022 Albumin [Mass/Vol] 3.4 g/dL Normal 3.4-5.0 [facility] Comment on above: Performed By: #### C MP #### [facility] [address] [place] [address] Dr. Norm Melendrez Albumin/Globulin [Mass ratio] 0.9 {ratio} Normal [facility] Comment on above: Performed By: #### C MP #### [facility] [address] [address] [address] Norm Melendrez ALP [Catalytic activity/Vol] 101 U/L Normal 46-116 [facility] Comment on above: Performed By: #### C MP #### [facility] [address] [address] [address] Norm Melendrez ALT [Catalytic activity/Vol] 28 U/L Normal 14-59 [facility] Comment on above: Performed By: #### C MP #### [facility] [address] [address] [address] Norm Melendrez Anion gap [Moles/Vol] 12.9 mmol/L Normal [facility] Comment on above: Performed By: #### C MP #### [facility] [address] [address] [address] Norm Melendrez AST [Catalytic activity/Vol] 17 U/L Normal 15-37 [facility] Comment on above: Performed By: #### C MP #### [facility] [address] [address] [address] Norm Melendrez Bilirubin [Mass/Vol] 0.4 mg/dL Normal 0.2-1.0 [facility] Comment on above: Performed By: #### C MP #### [facility] [address] [address] [address] Norm Melendrez Calcium [Mass/Vol] 8.9 mg/dL Normal 8.5-10.1 [facility] Comment on above: Performed By: #### C MP #### [facility] [address] [address] [address] Norm Melendrez Chloride [Moles/Vol] 104 mmol/L Normal 98-107 [facility] Comment on above: Performed By: #### C MP #### [facility] [address] [address] [address] Norm Melendrez CO2 [Moles/Vol] 27.1 mmol/L Normal 21.0-32.0 [facility] Comment on above: Performed By: #### C MP #### [facility] [address] [address] [address] Norm Melendrez Creatinine [Mass/Vol] 0.86 mg/dL Normal 0.55-1.02 [facility] Comment on above: Performed By: #### C MP #### [facility] [address] [address] [address] Norm Melendrez EGFR-AF WALLISIAN >60 Normal >=60 [facility] Comment on above: Performed By: #### C MP #### [facility] [address] [address] [address] Norm Melendrez EGFR-NON AF WALLISIAN >60 Normal >=60 [facility] Comment on above: Performed By: #### C MP #### [facility] [address] [address] [address] Norm Melendrez Globulin (S) [Mass/Vol] 3.7 g/dL Normal [facility] Comment on above: Performed By: #### C MP #### [facility] [address] [place] [address] Dr. Norm Melendrez Glucose [Mass/Vol] 114 mg/dL Critically high 74-106 [facility] Comment on above: Performed By: #### C MP #### [facility] [address] [place] [address] Dr. Norm Melendrez Potassium [Moles/Vol] 4.0 mmol/L Normal 3.5-5.1 [facility] Comment on above: Performed By: #### C MP #### [facility] [address] [address] [address] Norm Melendrez Protein [Mass/Vol] 7.1 g/dL Normal 6.4-8.2 [facility] Comment on above: Performed By: #### C MP #### [facility] [address] [place] [address] Dr. Norm Melendrez Sodium [Moles/Vol] 140 mmol/L Normal 136-145 [facility] Comment on above: Performed By: #### C MP #### [facility] [address] [address] [address] Norm Melendrez Urea nitrogen [Mass/Vol] 13.0 mg/dL Normal 7.0-18.0 [facility] Comment on above: Performed By: #### C MP #### [facility] [address] [place] [address] Dr. Norm Melendrez Urea nitrogen/Creatinine [Mass ratio] 15.1 mg/mg Normal [facility] Comment on above: Performed By: #### C MP #### [facility] [address] [place] [address] Dr. Norm Melendrez SED RATE WESTERGRENon 2021 SED RATE 44 mm/hr Critically high <=30 [facility] Comment on above: Performed By: #### S EDR #### [facility] [address] [place] [address] Dr. Norm Melendrez CBC AUTO DIFFon 09-13-2021 BASO # 0.1 103/ul Normal 0.0-0.1 [facility] Comment on above: Performed By: #### C BC #### [facility] [address] [place] [address] Dr. Norm Melendrez Basophils/100 WBC (Bld) 0.8 % Normal 0.2-2.0 [facility] Comment on above: Performed By: #### C BC #### [facility] [address] [place] [address] Dr. Norm Melendrez EO # 0.2 103/ul Normal 0.0-0.7 [facility] Comment on above: Performed By: #### C BC #### [facility] [address] [place] [address] Dr. Norm Melendrez Eosinophils/100 WBC (Bld) 2.6 % Normal 0.9-7.0 [facility] Comment on above: Performed By: #### C BC #### [facility] [address] [place] [address] Dr. Norm Melendrez Erythrocyte distribution width (RBC) [Ratio] 16.6 % Critically high 11.0-15.0 [facility] Comment on above: Performed By: #### C BC #### [facility] [address] [place] [address] Dr. Norm Melendrez Hematocrit (Bld) [Volume fraction] 44.1 % Normal 36.0-48.0 [facility] Comment on above: Performed By: #### C BC #### [facility] [address] [place] [address] Dr. Norm Melendrez Hemoglobin (Bld) [Mass/Vol] 14.3 g/dL Normal 12.0-16.0 [facility] Comment on above: Performed By: #### C BC #### [facility] [address] [place] [address] Dr. Norm eMlendrez IG # 0.04 10e3/ul Critically high 0.00-0.03 [facility] Comment on above: Performed By: #### C BC #### [facility] [address] [place] [address] Dr. Norm Melendrez IG % 0.5 % Normal 0.0-0.5 [facility] Comment on above: Performed By: #### C BC #### [facility] [address] [place] [address] Dr. Norm Melendrez LYMPH # 1.5 103/ul Normal 1.2-3.8 [facility] Comment on above: Performed By: #### C BC #### [facility] [address] [place] [address] Dr. Norm Melendrez Lymphocytes/100 WBC (Bld) 17.2 % Critically low 20.5-60.0 [facility] Comment on above: Performed By: #### C BC #### [facility] [address] [place] [address] Dr. Norm Melendrez MANUAL DIFF REQ NO Normal [facility] Comment on above: Performed By: #### C BC #### [facility] [address] [place] [address] Dr. Norm Melendrez MCH (RBC) [Entitic mass] 27.0 pg Normal 26.7-34.0 [facility] Comment on above: Performed By: #### C BC #### [facility] [address] [place] [address] Dr. Norm Melendrez MCHC (RBC) [Mass/Vol] 32.4 g/dL Normal 29.9-35.2 [facility] Comment on above: Performed By: #### C BC #### [facility] [address] [place] [address] Dr. Norm Melendrez MCV (RBC) [Entitic vol] 83.4 fL Normal 81.0-99.0 [facility] Comment on above: Performed By: #### C BC #### [facility] [address] [place] [address] Dr. Norm Melendrez MONO # 0.6 103/ul Normal 0.3-0.8 [facility] Comment on above: Performed By: #### C BC #### [facility] [address] [place] [address] Dr. Norm Melendrez Monocytes/100 WBC (Bld) 7.0 % Normal 1.7-12.0 [facility] Comment on above: Performed By: #### C BC #### [facility] [address] [place] [address] Dr. Norm Melendrez NEUT # 6.1 103/ul Normal 1.4-6.5 [facility] Comment on above: Performed By: #### C BC #### [facility] [address] [place] [address] Dr. Norm Melendrez Neutrophils/100 WBC (Bld) 71.9 % Normal 43.0-75.0 [facility] Comment on above: Performed By: #### C BC #### [facility] [address] [place] [address] Dr. Norm Melendrez Platelet mean volume (Bld) [Entitic vol] 9.3 fL Critically low 9.5-13.5 [facility] Comment on above: Performed By: #### C BC #### [facility] [address] [place] [address] Dr. Norm Melendrez PLT 239 103/ul Normal 150-450 [facility] Comment on above: Performed By: #### C BC #### [facility] [address] [place] [address] Dr. Norm Melendrez RBC 5.29 106/ul Normal 4.20-5.40 [facility] Comment on above: Performed By: #### C BC #### [facility] [address] [place] [address] Dr. Norm Melendrez WBC 8.5 103/ul Normal 4.0-11.0 [facility] Comment on above: Performed By: #### C BC #### [facility] [address] [place] [address] Dr. Norm Melendrez PROF 14(COMP METB)on 022 Albumin [Mass/Vol] 3.4 g/dL Normal 3.4-5.0 [facility] Comment on above: Performed By: #### C MP #### [facility] [address] [place] [address] Dr. Norm Melendrez Albumin/Globulin [Mass ratio] 0.9 {ratio} Normal [facility] Comment on above: Performed By: #### C MP #### [facility] [address] [place] [address] Dr. Norm Melendrez ALP [Catalytic activity/Vol] 90 U/L Normal 46-116 [facility] Comment on above: Performed By: #### C MP #### [facility] [address] [place] [address] Dr. Norm Melendrez ALT [Catalytic activity/Vol] 25 U/L Normal 14-59 [facility] Comment on above: Performed By: #### C MP #### [facility] [address] [place] [address] Dr. Norm Melendrez Anion gap [Moles/Vol] 11.4 mmol/L Normal [facility] Comment on above: Performed By: #### C MP #### [facility] [address] [place] [address] Dr. Norm Melendrez AST [Catalytic activity/Vol] 17 U/L Normal 15-37 [facility] Comment on above: Performed By: #### C MP #### [facility] [address] [place] [address] Dr. Norm Melendrez Bilirubin [Mass/Vol] 0.4 mg/dL Normal 0.2-1.0 [facility] Comment on above: Performed By: #### C MP #### [facility] [address] [place] [address] Dr. Norm Melendrez Calcium [Mass/Vol] 9.1 mg/dL Normal 8.5-10.1 [facility] Comment on above: Performed By: #### C MP #### [facility] [address] [place] [address] Dr. Norm Melendrez Chloride [Moles/Vol] 106 mmol/L Normal 98-107 [facility] Comment on above: Performed By: #### C MP #### [facility] [address] [place] [address] Dr. Norm Melendrez CO2 [Moles/Vol] 26.8 mmol/L Normal 21.0-32.0 [facility] Comment on above: Performed By: #### C MP #### [facility] [address] [place] [address] Dr. Norm Melendrez Creatinine [Mass/Vol] 0.80 mg/dL Normal 0.55-1.02 [facility] Comment on above: Performed By: #### C MP #### [facility] [address] [place] [address] Dr. Norm Melendrez EGFR-AF WALLISIAN >60 Normal >=60 [facility] Comment on above: Performed By: #### C MP #### [facility] [address] [place] [address] Dr. Norm Melendrez EGFR-NON AF WALLISIAN >60 Normal >=60 [facility] Comment on above: Performed By: #### C MP #### [facility] [address] [place] [address] Dr. Norm Melendrez Globulin (S) [Mass/Vol] 3.7 g/dL Normal [facility] Comment on above: Performed By: #### C MP #### [facility] [address] [place] [address] Dr. Norm Melendrez Glucose [Mass/Vol] 110 mg/dL Critically high 74-106 [facility] Comment on above: Performed By: #### C MP #### [facility] [address] [address] [address] Norm Melendrez Potassium [Moles/Vol] 4.2 mmol/L Normal 3.5-5.1 [facility] Comment on above: Performed By: #### C MP #### [facility] [address] [address] [address] Norm Melendrez Protein [Mass/Vol] 7.1 g/dL Normal 6.4-8.2 [facility] Comment on above: Performed By: #### C MP #### [facility] [address] [address] [address] Norm Melendrez Sodium [Moles/Vol] 140 mmol/L Normal 136-145 [facility] Comment on above: Performed By: #### C MP #### [facility] [address] [address] [address] Norm Melendrez Urea nitrogen [Mass/Vol] 14.0 mg/dL Normal 7.0-18.0 [facility] Comment on above: Performed By: #### C MP #### [facility] [address] [address] [address] Norm Melendrez Urea nitrogen/Creatinine [Mass ratio] 17.5 mg/mg Normal [facility] Comment on above: Performed By: #### C MP #### [facility] [address] [address] [address] Norm Melendrez SED RATE [facility] 2021 SED RATE 31 mm/hr Critically high <=30 [facility] Comment on above: Performed By: #### C MP #### [facility] [address] [address] [address] Norm Melendrez LINO Antinuclear Antibodieson 05-31-2021 Antinuclear Abs, IFA Negative Normal . [facility] Comment on above: Result Comment: Nega tive <1:80 Borderline 1:80 Positive >1:80 ICAP nomenclature: AC-0 For more information about Hep-2 cell patterns use ANApatterns.org, the official website for the International Consensus on Antinuclear Antibody (ILNO) Patterns (ICAP). Performed at: [facility] Lab[address] [id number] Sub Arc Operator: Alin Negron PhD, Phone: [phone] PERFORMED BY: [place] [address] PATHOLOGIST PERISHABLE FREIGHT INSPECTOR TYRONE HOOPER M.D. Performed By: #### T 4F, CRP, TSH3, URIC, CBC, ESR, CMP, CK #### [address] #### LINO #### [facility] , Albumin [Mass/volume] in Ser um or PlasmaOrdered By: Alphonse Mcneal on 05-31-2021 Albumin [Mass/Vol] 3.5 g/dL 3.2-5.5 [facility] Aldolaseon 05-31-2021 Aldolase 2.6 U/L Low 3.3-10.3 [facility] Comment on above: Result Comment: Perf ormed at: [facility] Lab[address] [id number] Sub Arc Operator: Alin Negron PhD, Phone: [phone] PERFORMED BY: [place] [address] PATHOLOGIST PERISHABLE FREIGHT INSPECTOR TYRONE HOOPER M.D. Performed By: #### T 4F, CRP, TSH3, URIC, CBC, ESR, CMP, CK #### [address] #### LINO #### [facility] , Basophils Auto (Bld) [#/Vol] Ordered By: Alphonse Mcneal on 05-31-2021 Basophils (Bld) [#/Vol] 0.1 10*3/uL 0.0-0.2 [facility] Basophils/100 WBC Auto (Bld) Ordered By: Alphonse Mcneal on 05-31-2021 Basophils/100 WBC (Bld) 1.1 % [facility] Blood hemoglobin measurement (mass/volume)Ordered By: Alphonse Mcneal on 05-31-2021 Hemoglobin (Bld) [Mass/Vol] 13.7 g/dL 11.8-15.4 [facility] Blood leukocytes automated c ount (number/volume)Ordered By: Alphonse Mcneal on 05-31-2021 WBC (Bld) [#/Vol] 7.9 10*3/uL 4.5-11.0 [facility] C-Reactive Proteinon 022 C-Reactive Protein 1.4 mg/dL High 0.0-1.0 [facility] Comment on above: Performed By: #### T 4F, CRP, TSH3, URIC, CBC, ESR, CMP, CK #### [facility] [address] [place] [address] #### LINO #### [facility] , Complete Blood Count Auto Di ffon 05-31-2021 Basophils (Bld) [#/Vol] 0.1 10*3/uL Normal 0.0-0.2 [facility] Comment on above: Performed By: #### T 4F, CRP, TSH3, URIC, CBC, ESR, CMP, CK #### [facility] [address] [place] [address] [place] #### LINO #### [facility] , Basophils/100 WBC (Bld) 1.1 % Normal . [facility] Comment on above: Performed By: #### T 4F, CRP, TSH3, URIC, CBC, ESR, CMP, CK #### [facility] [address] [place] [address] [place] #### LINO #### [facility] , Eosinophils (Bld) [#/Vol] 0.6 10*3/uL High 0.0-0.45 [facility] Comment on above: Performed By: #### T 4F, CRP, TSH3, URIC, CBC, ESR, CMP, CK #### [facility] [address] [place] [address] [place] #### LINO #### [facility] , Eosinophils/100 WBC (Bld) 7.9 % Normal . [facility] Comment on above: Performed By: #### T 4F, CRP, TSH3, URIC, CBC, ESR, CMP, CK #### [address] #### LINO #### [facility] , Erythrocyte distribution width (RBC) [Ratio] 16.0 % High 11.9-15.3 [facility] Comment on above: Performed By: #### T 4F, CRP, TSH3, URIC, CBC, ESR, CMP, CK #### [address] #### LINO #### [facility] , Hematocrit (Bld) [Volume fraction] 42.1 % Normal 34.0-46.4 [facility] Comment on above: Performed By: #### T 4F, CRP, TSH3, URIC, CBC, ESR, CMP, CK #### [address] #### LINO #### [facility] , Hemoglobin (Bld) [Mass/Vol] 13.7 g/dL Normal 11.8-15.4 [facility] Comment on above: Performed By: #### T 4F, CRP, TSH3, URIC, CBC, ESR, CMP, CK #### [address] #### LINO #### [facility] , Lymphocytes (Bld) [#/Vol] 1.1 10*3/uL Normal 1.00-4.8 [facility] Comment on above: Performed By: #### T 4F, CRP, TSH3, URIC, CBC, ESR, CMP, CK #### [place] [address] [place] #### LINO #### [facility] , Lymphocytes/100 WBC (Bld) 14.3 % Normal . [facility] Comment on above: Performed By: #### T 4F, CRP, TSH3, URIC, CBC, ESR, CMP, CK #### [address] #### LINO #### [facility] , MCH (RBC) [Entitic mass] 25.7 pg Normal 24.7-34.3 [facility] Comment on above: Performed By: #### T 4F, CRP, TSH3, URIC, CBC, ESR, CMP, CK #### [facility] [address] [place] [address] #### LINO #### [facility] , MCV (RBC) [Entitic vol] 79.2 fL Low 80-100 [facility] Comment on above: Performed By: #### T 4F, CRP, TSH3, URIC, CBC, ESR, CMP, CK #### [address] #### LINO #### [facility] , Mean Corpuscular HGB Conc 32.4 g/dL Normal 32.0-35.0 [facility] Comment on above: Performed By: #### T 4F, CRP, TSH3, URIC, CBC, ESR, CMP, CK #### [address] #### LINO #### [facility] , Monocytes (Bld) [#/Vol] 0.5 10*3/uL Normal 0.0-0.8 [facility] Comment on above: Performed By: #### T 4F, CRP, TSH3, URIC, CBC, ESR, CMP, CK #### [place] [address] [place] #### LINO #### [facility] , Monocytes/100 WBC (Bld) 6.2 % Normal . [facility] Comment on above: Performed By: #### T 4F, CRP, TSH3, URIC, CBC, ESR, CMP, CK #### [place] [address] [place] #### LINO #### [facility] , Neutrophils (Bld) [#/Vol] 5.6 10*3/uL Normal 1.8-7.7 [facility] Comment on above: Performed By: #### T 4F, CRP, TSH3, URIC, CBC, ESR, CMP, CK #### [address] #### LINO #### [facility] , Neutrophils/100 WBC (Bld) 70.5 % Normal . [facility] Comment on above: Performed By: #### T 4F, CRP, TSH3, URIC, CBC, ESR, CMP, CK #### [address] #### LINO #### [facility] , Nucleated RBC/100 WBC (Bld) [Ratio] 0.1 % Normal 0-0.5 [facility] Comment on above: Performed By: #### T 4F, CRP, TSH3, URIC, CBC, ESR, CMP, CK #### [address] #### LINO #### [facility] , Platelet mean volume (Bld) [Entitic vol] 7.6 fL Normal 6.3-10.7 [facility] Comment on above: Performed By: #### T 4F, CRP, TSH3, URIC, CBC, ESR, CMP, CK #### [place] [address] [place] #### LINO #### [facility] , Platelets (Bld) [#/Vol] 283 10*3/uL Normal 150-450 [facility] Comment on above: Performed By: #### T 4F, CRP, TSH3, URIC, CBC, ESR, CMP, CK #### [place] [address] [place] #### LINO #### [facility] , RBC (Bld) [#/Vol] 5.32 10*6/uL High 3.60-5.00 [facility] Comment on above: Performed By: #### T 4F, CRP, TSH3, URIC, CBC, ESR, CMP, CK #### [facility] [address] [place] [address] [place] #### LINO #### [facility] , WBC (Bld) [#/Vol] 7.9 10*3/uL Normal 4.5-11.0 [facility] Comment on above: Performed By: #### T 4F, CRP, TSH3, URIC, CBC, ESR, CMP, CK #### [facility] [address] [place] [address] #### LINO #### [facility] , Comprehensive Metabolic Pane bianca 05-31-2021 Albumin [Mass/Vol] 3.5 g/dL Normal 3.2-5.5 [facility] Comment on above: Performed By: #### T 4F, CRP, TSH3, URIC, CBC, ESR, CMP, CK #### [facility] [address] [place] [address] #### LINO #### [facility] , Albumin/Globulin [Mass ratio] 1.1 {ratio} Normal [facility] Comment on above: Performed By: #### T 4F, CRP, TSH3, URIC, CBC, ESR, CMP, CK #### [facility] [address] [place] [address] [place] #### LINO #### [facility] , ALP [Catalytic activity/Vol] 92 U/L Normal 32-92 [facility] Comment on above: Performed By: #### T 4F, CRP, TSH3, URIC, CBC, ESR, CMP, CK #### [facility] [address] [place] [address] [place] #### LINO #### [facility] , ALT [Catalytic activity/Vol] 22 U/L Normal 10-60 [facility] Comment on above: Performed By: #### T 4F, CRP, TSH3, URIC, CBC, ESR, CMP, CK #### [facility] [address] [place] [address] #### LINO #### [facility] , AST [Catalytic activity/Vol] 19 U/L Normal 10-42 [facility] Comment on above: Performed By: #### T 4F, CRP, TSH3, URIC, CBC, ESR, CMP, CK #### [facility] [address] [place] [address] [place] #### LINO #### [facility] , Bilirubin [Mass/Vol] 0.3 mg/dL Normal 0.3-1.2 [facility] Comment on above: Performed By: #### T 4F, CRP, TSH3, URIC, CBC, ESR, CMP, CK #### [address] #### LINO #### [facility] , Calcium [Mass/Vol] 9.1 mg/dL Normal 8.2-10.2 [facility] Comment on above: Performed By: #### T 4F, CRP, TSH3, URIC, CBC, ESR, CMP, CK #### [facility] [address] [place] [address] [place] #### LINO #### [facility] , Chloride [Moles/Vol] 104 mmol/L Normal 95-114 [facility] Comment on above: Performed By: #### T 4F, CRP, TSH3, URIC, CBC, ESR, CMP, CK #### [facility] [address] [place] [address] [place] #### LINO #### [facility] , CO2 [Moles/Vol] 25.8 mmol/L Normal 22.0-30.0 [facility] Comment on above: Performed By: #### T 4F, CRP, TSH3, URIC, CBC, ESR, CMP, CK #### [facility] [address] [place] [address] [place] #### LINO #### [facility] , Creatinine [Mass/Vol] 0.69 mg/dL Normal 0.44-1.03 [facility] Comment on above: Performed By: #### T 4F, CRP, TSH3, URIC, CBC, ESR, CMP, CK #### [place] [address] [place] #### LINO #### [facility] , Estimated GFR ( Kaylee > 60 Normal [facility] Comment on above: Result Comment: GFR estimated reference range: According to KDOQI guidelines, <60 ml/min/1.73m2 is sufficient to diagnose a patient with chronic kidney disease. Performed By: #### T 4F, CRP, TSH3, URIC, CBC, ESR, CMP, CK #### [address] #### LINO #### [facility] , Estimated GFR (Non- Am > 60 [facility] Comment on above: Performed By: #### T 4F, CRP, TSH3, URIC, CBC, ESR, CMP, CK #### [address] #### LINO #### [facility] , Globulin (S) [Mass/Vol] 3.2 g/dL Normal [facility] Comment on above: Performed By: #### T 4F, CRP, TSH3, URIC, CBC, ESR, CMP, CK #### [place] [address] [place] #### LINO #### [facility] , Glucose [Mass/Vol] 91 mg/dL Normal 70-100 [facility] Comment on above: Result Comment: Hannah Glucose Reference Range is dependent on time and content of last meal. Glucose of more than 200 mg/dL in a nonstressed, ambulatory subject supports the diagnosis of Diabetes Mellitus. ADA recommended reference range Performed By: #### T 4F, CRP, TSH3, URIC, CBC, ESR, CMP, CK #### [address] [id number] [place] #### LINO #### [facility] , Potassium [Moles/Vol] 4.4 mmol/L Normal 3.5-5.1 [facility] Comment on above: Performed By: #### T 4F, CRP, TSH3, URIC, CBC, ESR, CMP, CK #### [facility] [address] [place] [address] [place] #### LINO #### [facility] , Protein [Mass/Vol] 6.7 g/dL Normal 6.1-7.9 [facility] Comment on above: Performed By: #### T 4F, CRP, TSH3, URIC, CBC, ESR, CMP, CK #### [facility] [address] [place] [address] #### LINO #### [facility] , Sodium [Moles/Vol] 138 mmol/L Normal 136-146 [facility] Comment on above: Performed By: #### T 4F, CRP, TSH3, URIC, CBC, ESR, CMP, CK #### [facility] [address] [place] [address] [place] #### LINO #### [facility] , Urea nitrogen [Mass/Vol] 20 mg/dL Normal 9-23 [facility] Comment on above: Performed By: #### T 4F, CRP, TSH3, URIC, CBC, ESR, CMP, CK #### [facility] [address] [place] [address] [place] #### LINO #### [facility] , Creatine Kinaseon 05-31-2021 CK [Catalytic activity/Vol] 42 U/L Normal 22-269 [facility] Comment on above: Result Comment: PERF ORMED BY: [place] [address] PATHOLOGIST PERISHABLE FREIGHT INSPECTOR TYRONE HOOPER M.D. Performed By: #### T 4F, CRP, TSH3, URIC, CBC, ESR, CMP, CK #### [facility] [address] [place] [address] #### LINO #### [facility] , Creatine kinase [Enzymatic a ctivity/volume] in Serum or PlasmaOrdered By: Alphonse Mcneal on 05-31-2021 CK [Catalytic activity/Vol] 42 U/L 22-269 [facility] Creatinine and Glomerular fi ltration rate.predicted panel (S/P/Bld)Ordered By: Alphonse Mcneal on 05-31-2021 Creatinine [Mass/Vol] 0.69 mg/dL 0.44-1.03 [facility] Eosinophils Auto (Bld) [#/Vo l]Ordered By: Alphonse Mcneal on 05-31-2021 Eosinophils (Bld) [#/Vol] 0.6 10*3/uL 0.0-0.45 [facility] Eosinophils/100 WBC Auto (Bl d)Ordered By: Alphonse Mcneal on 05-31-2021 Eosinophils/100 WBC (Bld) 7.9 % [facility] Erythrocyte Sedimentation Ra lakshmi 05-31-2021 ESR (Bld) [Velocity] 53 mm/h High 0-29 [facility] Comment on above: Result Comment: PERF ORMED BY: [place] [address] PATHOLOGIST PERISHABLE FREIGHT INSPECTOR TYRONE HOOPER M.D. Performed By: #### T 4F, CRP, TSH3, URIC, CBC, ESR, CMP, CK #### [facility] [address] [place] [address] #### LINO #### [facility] , Erythrocyte distribution wid th Auto (RBC) [Ratio]Ordered By: Alphonse Mcneal on 05-31-2021 Erythrocyte distribution width (RBC) [Ratio] 16.0 % 11.9-15.3 [facility] Erythrocyte sedimentation ra te by Photometric methodOrdered By: Alphonse Mcneal on 05-31-2021 ESR Photometric method (Bld) [Velocity] 53 mm/hr 0-29 [facility] Estimated glomerular filtrat ion rate (GFR) non- AmericanOrdered By: Alphonse Mcneal on 05-31-2021 GFR/1.73 sq M.predicted among non-blacks MDRD (S/P/Bld) [Vol rate/Area] > 60 mL/Min [facility] Free T4 (Free Thyroxine)on 0 05-31-2021 Free T4 [Mass/Vol] 1.02 ng/dL Normal 0.61-1.12 [facility] Comment on above: Performed By: #### T 4F, CRP, TSH3, URIC, CBC, ESR, CMP, CK #### [facility] [address] #### LINO #### [facility] , Globulin Calc (S) [Mass/Vol] Ordered By: Alphonse Mcneal on 05-31-2021 Globulin (S) [Mass/Vol] 3.2 g/dL [facility] Hematocrit Auto (Bld) [Volum e fraction]Ordered By: Alphonse Mcneal on 05-31-2021 Hematocrit (Bld) [Volume fraction] 42.1 % 34.0-46.4 [facility] - Hematology and Cell countsOrdered By: Alphonse Mcneal on 05-31-2021 Nucleated RBC/100 WBC (Bld) [Ratio] 0.1 % 0-0.5 [facility] Lymphocytes Auto (Bld) [#/Vo l]Ordered By: Alphonse Mcneal on 05-31-2021 Lymphocytes (Bld) [#/Vol] 1.1 10*3/uL 1.00-4.8 [facility] Lymphocytes/100 WBC Auto (Bl d)Ordered By: Alphonse Mcneal on 05-31-2021 Lymphocytes/100 WBC (Bld) 14.3 % [facility] MCH Auto (RBC) [Entitic mass ]Ordered By: Alphonse Mcneal on 05-31-2021 MCH (RBC) [Entitic mass] 25.7 pg 24.7-34.3 [facility] MCHC Auto (RBC) [Mass/Vol]Or dered By: Alphonse Mcneal on 05-31-2021 MCHC (RBC) [Mass/Vol] 32.4 g/dL 32.0-35.0 [facility] MCV Auto (RBC) [Entitic vol] Ordered By: Alphonse Mcneal on 05-31-2021 MCV (RBC) [Entitic vol] 79.2 fL 80-100 F [facility] Monocytes Auto (Bld) [#/Vol] Ordered By: Alphonse Mcneal on 05-31-2021 Monocytes (Bld) [#/Vol] 0.5 10*3/uL 0.0-0.8 [facility] Monocytes/100 WBC Auto (Bld) Ordered By: Alphonse Mcneal on 05-31-2021 Monocytes/100 WBC (Bld) 6.2 % F [facility] Neutrophils Auto (Bld) [#/Vo l]Ordered By: Alphonse Mcneal on 05-31-2021 Neutrophils (Bld) [#/Vol] 5.6 10*3/uL 1.8-7.7 [facility] Neutrophils/100 WBC Auto (Bl d)Ordered By: Alphonse Mcneal on 05-31-2021 Neutrophils/100 WBC (Bld) 70.5 % [facility] No Panel InformationOrdered By: Alphonse Mcneal on 05-31-2021 Estimated GFR () > 60 mL/Min [facility] Comment on above: GFR estimated refere nce range: According to KDOQI guidelines, <60 ml/min/1.73m2 is sufficient to diagnose a patient with chronic kidney disease. Pharmacy Creatinine Clearance (Chem N/A [facility] Platelet mean volume Auto (B ld) [Entitic vol]Ordered By: Alphonse Mcneal on 05-31-2021 Platelet mean volume (Bld) [Entitic vol] 7.6 fL 6.3-10.7 [facility] Platelets Auto (Bld) [#/Vol] Ordered By: Alphonse Mcneal on 05-31-2021 Platelets (Bld) [#/Vol] 283 10*3/uL 150-450 [facility] Protein [Mass/volume] in Ser um or PlasmaOrdered By: Alphonse Mcneal on 05-31-2021 Protein [Mass/Vol] 6.7 g/dL 6.1-7.9 [facility] RBC Auto (Bld) [#/Vol]Ordere d By: Alphonse Mcneal on 05-31-2021 RBC (Bld) [#/Vol] 5.32 10*6/uL 3.60-5.00 [facility] Serum or plasma C reactive p rotein measurement (mass/volume)Ordered By: Alphonse Mcneal on 05-31-2021 CRP [Mass/Vol] 1.4 mg/dL 0.0-1.0 [facility] Serum or plasma alanine kwan otransferase measurement without P-5'-P (enzymatic activiOrdered By: Alphonse Mcneal on 05-31-2021 ALT No additional P-5'-P [Catalytic activity/Vol] 22 U/L 10-60 [facility] Serum or plasma albumin/glob ulin mass ratioOrdered By: Alphonse Mcneal on 05-31-2021 Albumin/Globulin [Mass ratio] 1.1 {ratio} [facility] Serum or plasma alkaline lisa sphatase measurement (enzymatic activity/volume)Ordered By: Alphonse Mcneal on 05-31-2021 ALP [Catalytic activity/Vol] 92 U/L 32-92 [facility] Serum or plasma aspartate am inotransferase measurement (enzymatic activity/volume)Ordered By: Alphonse Mcneal on 05-31-2021 AST [Catalytic activity/Vol] 19 U/L 10-42 [facility] Serum or plasma calcium sharad urement (mass/volume)Ordered By: Alphonse Mcneal on 05-31-2021 Calcium [Mass/Vol] 9.1 mg/dL 8.2-10.2 [facility] Serum or plasma chloride sonya surement (moles/volume)Ordered By: Alphonse Mcneal on 05-31-2021 Chloride [Moles/Vol] 104 mmol/L 95-114 [facility] Serum or plasma glucose sharad urement (mass/volume)Ordered By: Alphonse Mcneal on 05-31-2021 Glucose [Mass/Vol] 91 mg/dL 70-100 [facility] Comment on above: ADA recommended refe rence rangeRandom Glucose Reference Range is dependent on time and content of last meal. Glucose of more than 200 mg/dL in a nonstressed, ambulatory subject supports the diagnosis of Diabetes Mellitus. Serum or plasma potassium me asurement (moles/volume)Ordered By: Alphosne Mcneal on 05-31-2021 Potassium [Moles/Vol] 4.4 mmol/L 3.5-5.1 [facility] Serum or plasma sodium measu rement (moles/volume)Ordered By: Alphonse Mcneal on 05-31-2021 Sodium [Moles/Vol] 138 mmol/L 136-146 [facility] Serum or plasma total biliru bin measurement (mass/volume)Ordered By: Alphonse Mcneal on 05-31-2021 Bilirubin [Mass/Vol] 0.3 mg/dL 0.3-1.2 [facility] Serum or plasma total carbon dioxide measurement (moles/volume)Ordered By: Alphonse Mcneal on 05-31-2021 CO2 [Moles/Vol] 25.8 mmol/L 22.0-30.0 [facility] Serum or plasma urea nitroge n measurement (mass/volume)Ordered By: Alphonse Mcneal on 05-31-2021 Urea nitrogen [Mass/Vol] 20 mg/dL 9-23 [facility] Serum or plasma uric acid me asurement (mass/volume)Ordered By: Alphonse Mcneal on 05-31-2021 Urate [Mass/Vol] 4.6 mg/dL 2.6-7.2 [facility] TSH DL <= 0.005 mIU/L QnOrde red By: Alphonse Mcneal on 05-31-2021 TSH Qn 1.44 m[IU]/L 0.45-5.33 [facility] Thyroid Stimulating Hormoneo n 05-31-2021 TSH Qn 1.44 m[IU]/L Normal 0.45-5.33 [facility] Comment on above: Result Comment: PERF ORMED BY: [place] [address] PATHOLOGIST PERISHABLE FREIGHT INSPECTOR TYRONE HOOPER M.D. Performed By: #### T 4F, CRP, TSH3, URIC, CBC, ESR, CMP, CK #### [place] [address] [place] #### LINO #### [facility] , Thyroxine (T4) free [Mass/vo lume] in Serum or PlasmaOrdered By: Alphonse Mcneal on 05-31-2021 Free T4 [Mass/Vol] 1.02 ng/dL 0.61-1.12 [facility] Uric Acidon 05-31-2021 Urate [Mass/Vol] 4.6 mg/dL Normal 2.6-7.2 [facility] Comment on above: Performed By: #### T 4F, CRP, TSH3, URIC, CBC, ESR, CMP, CK #### [place] [address] [place] #### LINO #### [facility] , XR hand BI 2Von 05-31-2021 XR hand BI 2V [facility] [place] [address] [place] [address] XRay Report Signed Patient: Cayetano Weeks MR#: [id number] : 1950 Acct:[id number] Age/Sex: 70 / F ADM Date: 05/31/21 Loc: ICXD Room: Type: [facility] Attending Dr: Gonzalez Mcneal MD Ordering Provider: Alphonse Mcneal MD Date of Service: 05/31/21 XR/XR hand BI 2V: POLYARTHRITIS,MEDS ([id number]) XR/XR wrist BI 2V: POLYARTHRITIS,MEDS ([id number]) XR/XR ankle BI 2V: POLYARTHRITIS,MEDS ([id number]) XR/XR chest 2V*: POLYARTHRITIS,MEDS Copies to: Alphonse Mcneal MD Chest, bilateral wrists, bilateral hands, and bilateral ankles 05/31/2021. CLINICAL DATA: Polyarthritis. CHEST FINDINGS: 2 views of the chest were obtained. No prior study is available for comparison. The cardiac silhouette is normal in size. The pulmonary vasculature is within normal limits. No pulmonary consolidation or collapse is identified. No pneumothorax or pleural effusion is seen. XR/XR chest 2V* IMPRESSION: No acute cardiopulmonary disease. BILATERAL WRISTS FINDINGS: 2 views of each of the right and left wrist were obtained. No acute fracture or dislocation is identified. Relatively mild and symmetrical degenerative changes are seen at both wrists. There is no evidence of carpal instability. No bony erosion or destruction is visualized. BILATERAL HANDS FINDINGS: 2 views of each of the right and left hands were obtained. No acute fracture or dislocation is identified. Mild and symmetrical degenerative changes are seen in both hands. No bony erosion or destruction is visualized. No significant soft tissue swelling is noted. IMPRESSION: Mild and symmetrical degenerative changes in the right and left wrists and hands. BILATERAL ANKLES FINDINGS: 2 views of each of the right and left ankles were obtained. No acute fracture or dislocation is identified. There are mild and symmetrical degenerative changes at both ankles. There is bilateral calcaneal spurring. No bony erosion or destruction is visualized. No localized soft tissue swelling is noted. IMPRESSION: Mild and symmetrical degenerative changes at the right and left ankles. Bilateral calcaneal spurring. Impression dictated by: Fox Fenton Jr., M.D.05/31/2021 2:44 PM Dictation Location: [place] [address] Transcribed By: [facility] 05/31/21 1444 Dictated By: Fox Fenton Jr, MD 05/31/21 1433 Signed By: 05/31/21 1444 [facility] Nursing Record Summary Primary Physician: Zora Stafford MD Finalized Date/Time: 06/11/20 12:29:23 Pt. Name: CAYETANO WEEKS/Sex: 1950 Female Med Rec #: [id number] Physician: Financial #: [id number] Pt. Type: A Room/Bed: / Admit/Disch: 06/10/20 05:45:00 - 06/10/20 10:06:00 Institution: [facility] OR Case Times Entry 1 Patient Times Patient In Room 06/10/20 07:27:00 Patient Out Room 06/10/20 08:15:00 Surgical Times Start Time 06/10/20 07:53:00 Stop Time 06/10/20 08:08:00 Last Modified By: Dottie Quintanilla RN 06/10/20 08:18:57 General Comments: IN ROOM TIME OUT AND BED CHECK COMPLETED [facility] OR Case Attendees Entry 1 Entry 2 Entry 3 Case Attendee Rivera CHURCHILL , Zora Freire MD , Tristin Baeza Role Performed Primary Surgeon Anesthesiologist [employer] Time In 06/10/20 07:27:00 06/10/20 07:27:00 06/10/20 07:27:00 Time Out 06/10/20 08:15:00 06/10/20 08:15:00 06/10/20 08:15:00 Procedure D and C Hysteroscopy(N/A) D and C Hysteroscopy(N/A) D and C Hysteroscopy(N/A) Attendee Comment Relief Reason Last Modified By: Dwight RN , Dottie Quintanilla RN , Dottie Shannon RN 06/10/20 08:20:42 06/10/20 08:20:42 06/10/20 08:20:42 Entry 4 Entry 5 Entry 6 Case Attendee Dwight BERNARD , Carson Finch Meagen B Role Performed transmission inspector First Scrub Assistive Personnel Time In 06/10/20 07:27:00 06/10/20 07:27:00 06/10/20 07:27:00 Time Out 06/10/20 08:15:00 06/10/20 08:15:00 06/10/20 08:15:00 Procedure D and C Hysteroscopy(N/A) D and C Hysteroscopy(N/A) D and C Hysteroscopy(N/A) Attendee Comment Relief Reason Last Modified By: Dwight RN Dottie RN, Jill E Mull RN, Jill E 06/10/20 08:20:42 06/10/20 08:20:42 06/10/20 08:20:42 Entry 7 Case Attendee Nayeli Sosa MD Role Performed Resident Time In 06/10/20 07:27:00 Time Out 06/10/20 08:15:00 Procedure D and C Hysteroscopy(N/A) Attendee Comment Relief Reason Last Modified By: Dottie Quintanilla RN 06/10/20 08:20:42 CO SA OR General Case Parimutuel Clerk 1 OR CO SA 12 ASA Class 2 Case Wound Class Clean Contaminated Specialty Gynecology Surgery Case Level Sales Support Specialist Major Diagnosis Preop Diagnosis N95.0 N85.00 N84 Postop Same As Preop Yes POSTMENOPAUSAL BLEEDING THICKENED ENDOMETRIUM ENDOMETRIAL POLYP Postop Diagnosis N95.0 N85.00 N84 POSTMENOPAUSAL BLEEDING THICKENED ENDOMETRIUM ENDOMETRIAL POLYP This is a down time No record. 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 CO SA OR Surgical Procedures Entry 1 Procedure D and C Hysteroscopy Primary Procedure Yes Modifiers N/A Procedure Wound Clean Contaminated Class Primary Surgeon Zora Stafford MD Surgical Service Gynecology Surgery Anesthesia Type General Procedure Performed HYSTEROSCOPIC POLYPECTOMY WITH MYOSURE, DILATION AND CURETTAGE Start 06/10/20 07:53:00 Stop 06/10/20 08:08:00 Last Modified By: Shannan Mayes RN 06/11/20 12:29:20 CO SA OR Catheters, Drains, and Tubes Entry 1 Device Type RED RUBBER Present on Arrival? No Location BLADDER Inserted By Dottie Quintanilla RN Comments 100ML URINE OBTAINED DC'd at End of Case? n/a Last Modified By: Dottie Quintanilla RN 06/10/20 07:45:50 CO SA OR Patient Positioning Entry 1 Abdomen Pre N/A Skin Condition Warm, Dry, Intact Procedure Before Body Position Lithotomy Pressure Points Yes Assessed? Right Arm Position On armboard Left Arm Position On armboard Arm Secured Right, Left Positioning Device Stirrups Fin Yellow Right Leg Position Other Left Leg Position Other Safety Strap Applied Yes Safety Strap Abdomen Location Positioned By Zora Stafford MD, Procedure D and C Hysteroscopy(N/A) Tristin Hurley Stiles MD [facility] Last Modified By: Dottie Quintanilla RN 06/10/20 08:20:02 CO SA OR Antithrombolytic Devices Entry 1 IPC Intermittent Right, Left IPC Size Knee Pneumatic Compression Unit ID Number [id number] JOSE DANIEL Hose Foot Pump Last Modified By: Dottie Quintanilla RN 06/10/20 07:34:24 CO SA OR Skin Prep Entry 1 Hair Removal Method None Skin Prep Prep Agents Chlorhexidine Gluconate Prep Site PERINEUM 4% Prep by Dottie Quintanilla RN Procedure D and C Hysteroscopy(N/A) Last Modified By: Dottie Quintanilla RN 06/10/20 07:34:48 CO SA OR Fire Risk Assessment Entry 1 Alcohol Based Prep n/a Solution Dry Time >3 Minutes or According to Manufactures Instructions. No Pooling Observed. (No Alcohol Prep used Select N/A) Fire Risk Factors Yes = 1, No or N/A = 0 Procedure No Open O2 Source No Site/Incision Above (Face Mask/Nasal Xyphoid Process Cannula) Ignition source Yes Fire Risk Total 1 (Cautery, Laser, Score Fiberoptic Light Source) Last Modified By: Dottie Quintanilla RN 06/10/20 07:43:53 Post-Care Text: Standard Fire Safety precautions - Score 1 or 2 Prep drying time - mi (more content not included)... Normal [facility] Glucose POCT (Uploaded)on Glucose [Mass/Vol] 127 mg/dL High 70-99 [facility] Comment on above: Result Comment: Suzanne tment ranges and critical values established by Patient Care Services. All follow-up actions were taken by Patient Care Services. Performed By: #### 2 430-8 #### [facility] POINT OF CARE PACU I Nursingon 06-10-2020 PACU I Nursing CO SA PACU I Nursing Record Summary Primary Physician: Zora Stafford MD Finalized Date/Time: 06/10/20 09:20:44 Pt. Name: CAYETANO WEEKS/Sex: 1950 Female Med Rec #: [id number] Physician: Financial #: [id number] Pt. Type: A Room/Bed: / Admit/Disch: 06/10/20 05:45:00 - Institution: CO SA OR Main PACU I Case Times Entry 1 In PACU I 06/10/20 08:16:00 Ready for PACU I 06/10/20 09:00:00 Discharge Discharge from PACU 06/10/20 09:10:00 PACU I Discharge NA I Delay Reason Last Modified By: Willow Rain RN 06/10/20 09:20:42 CO SA OR Main PACU I Case Attendees Entry 1 Case Attendee Willow Rain RN Role Performed RN Last Modified By: Willow Rain RN 06/10/20 08:35:44 Finalized By: Willow Rain RN Document Signatures Signed By: Willow Rain RN 06/10/20 09:20 Normal [facility] Patient Summaryon 06-10-2020 Patient Summary PATIENT DISCHARGE INSTRUCTIONS If you are having an emergency and are not able to reach your physician, CALL 911 or go to the nearest emergency room and take this document with you. [facility] Ann 06/10/20 08:38 [address] [place]. [address] PATIENT INFORMATION Name: CAYETANO WEEKS Address: [address] [place] [id number] Age: 69 Years Phone: [phone] : 1950 12:00 MRN: [id number] Sex: Female Race: White Ethnicity: Not Hispan/Lat Admitted From: Clinic or [facility] Medical Service: Obstetric Nurse Unit/Bed: (UT) [facility] N/A Admit Date: 06/10/2020 05:45 PCP: PhysicianJOSIE Unknown PHYSICIANS INVOLVED WITH CARE -------- Attending Physicians: Zora Stafford MD - Obstetrics, Gynecology Admitting Physician: None found Primary Care Physician:Physician, PCP Unknown,Family Practice,,, - Consults: None found YOU WERE TREATED IN THE HOSPITAL FOR: Endometrial polyp; Postmenopausal vaginal bleeding FOLLOW-UP APPOINTMENTS: Provider: Specialty: Address: Date: Zora Stafford MD Gynecology; Obstetrics [address] [place] [phone] (1) Two Weeks Provider: Specialty: Address: Date: PCP Unknown Physician Family Practice Follow-up as needed ALLERGIES: No Known Medication Allergies No Known Allergies MEASUREMENTS: Last Charted: Weight: Admission 94.90 kg /209 lbs 3 oz ( 06/10/20 06:34:00 ) MEDICATIONS For: CAYETANO WEEKS This is your list of medication(s). Keep it with you at all times. Your doctor may have changed doses, add, held or stopped some of your medications. Please share this information with your family doctor. Carry this list of medications with you in case of an emergency. Update it when medications are stopped, doses are changed, or new medications (including fuzd-zpb-hhnnqje products) are added. Ask your doctor if you have any questions. THESE ARE THE MEDICATIONS YOU SHOULD BE TAKING bisoprolol-hydroCHLO ROthiazide (Bisoprolol/hydroCHL OROthiazide 5 mg/6.25 mg) 1 Tab(s) By Mouth once a day. ibuprofen (ibuprofen 600 mg oral tablet) 1 Tab(s) By Mouth One Time Only as needed Pain - Mild. Refills: 0. loratadine (Claritin 24 Hour Allergy 10 mg oral tablet) 1 Tab(s) By Mouth once a day. multivitamin 1 Tab(s) By Mouth once a day. MEDICATION CHANGE DETAILS (Not your Final Home Medication List) During the course of your visit, your home medication list was updated with the most current information. The details of those changes are shown below: NEW MEDICATIONS [facility]/pharmacy #[id number], [address], [place] [id number], [phone] ibuprofen (ibuprofen 600 mg oral tablet) 1 Tab(s) By Mouth One Time Only as needed Pain - Mild. Refills: 0. Comment UPDATED MEDICATIONS None UNCHANGED MEDICATIONS Other Medications bisoprolol-hydroCHLO ROthiazide (Bisoprolol/hydroCHL OROthiazide 5 mg/6.25 mg) 1 Tab(s) By Mouth once a day. Comment loratadine (Claritin 24 Hour Allergy 10 mg oral tablet) 1 Tab(s) By Mouth once a day. Comment multivitamin 1 Tab(s) By Mouth once a day. Comment STOP TAKING THESE MEDICATIONS None DO NOT TAKE UNTIL YOU TALK TO YOUR DOCTOR None NON-MEDICATION PRESCRIPTION SCHEDULING PHONE NUMBER: ADVANCE DIRECTIVE/HEALTH CARE DECISIONS: Advance Directive/Health Care Decisions Executed by Patient: Yes Advance Directive/Health Care Decisions Type: Living Will, Medical Power of Qual Research Manager Copy of Advance Directive/Health Care Decisions on Chart: Patient/Family asked to provide copy SUICIDE HOTLINE: Your mental and emotional well-being are important. If you are in a mental health crisis, or having thoughts of suicide, please call the nationwide suicide hotline, anytime day or night, at 9-520-340-JPSH. It's easy to sign up for CO Everywhere: 1. Visit [email or web address] /CO Everywhere 2. Click on [place] for CO Everywhere 3. Verify your identity by entering your last name and date of (MM/DD/YYYY). 4. You'll be asked to set up a username and password. 5. Next, you'll create three security questions. Be sure to supply answers that are not easy for others to guess or discover. 6. If all information (first name, last name and date of ) matches what we have on file, we'll then send a PIN to your phone that you will be asked to enter. 7. When your Identity is verified, you'll be able to access your patient record 8. Once all of this is complete and you've successfully activated your account, you'll be redirected to the CO Everywhere login page. Login and check to see your results Questions? For help with account enrollment, call CO Everywhere Customer Support at [phone] (toll-free) PATIENT EDUCATI (more content not included)... Normal [facility] Post PACU Nursingon 06-11-19 Post PACU Nursing CO SA PACU II Nursing Record Summary Primary Physician: Zora Stafford MD Finalized Date/Time: 06/10/20 09:40:04 Pt. Name: CAYETANO WEEKS/Sex: 1950 Female Med Rec #: [id number] Physician: Financial #: [id number] Pt. Type: A Room/Bed: / Admit/Disch: 06/10/20 05:45:00 - Institution: CO SA OR PACU II Case Times Entry 1 In PACU II 06/10/20 09:15:00 Ready for PACU II 06/10/20 09:34:00 Discharge Discharge from PACU 06/10/20 09:35:00 II Last Modified By: Juliane Mcduffie RN 06/10/20 09:37:42 CO SA OR PACU II Case Attendees Entry 1 Case Attendee Juliane Mcduffie RN Role Performed RN Last Modified By: Juliane Mcduffie RN 06/10/20 09:37:54 Finalized By: Juliane Mcduffie RN Document Signatures Signed By: Juliane Mcduffie RN 06/10/20 09:40 Normal [facility] PreOp Nursingon 06-10-2020 PreOp Nursing CO SA PreOp Nursing Record Summary Primary Physician: Zora Stafford MD Finalized Date/Time: 06/10/20 07:30:51 Pt. Name: CAYETANO WEEKS/Sex: 1950 Female Med Rec #: [id number] Physician: Financial #: [id number] Pt. Type: A Room/Bed: / Admit/Disch: 06/10/20 05:45:00 - Institution: CO SA OR PreOp Case Times Entry 1 PreOp Case Times In Room Time 06/10/20 05:40:00 Out Room Time 06/10/20 07:26:00 Last Modified By: Dottie Quintanilla RN 06/10/20 07:30:44 CO SA OR PreOp Case Attendees Entry 1 Case Attendee Melinda Alexander RN Role Performed RN Last Modified By: Melinda Alexander RN 06/10/20 06:56:11 Finalized By: Dottie Quintanilla RN Document Signatures Signed By: Dottie Quintanilla RN 06/10/20 07:30 Normal [facility] Surgical Pathology Final Rep the medical center 06-10-2020 Pathology study CAYETANO WEEKS [id number] YRS F [id number] /BD SD93 01 ORDERING PHYSICIAN: ZORA STAFFORD 288 RESULT TRANSMITTED: 06/11/20 1505 S U R G I C A L P A T H O L O G Y R E P O R T CLINICAL INFORMATION: PREOP DIAGNOSIS: Postmenopausal bleeding. Endometrial polyp. POSTOP DIAGNOSIS: PROCEDURE: D AND C hysteroscopy, polypectomy with Myosure. TISSUE REMOVED: (A) Endometrial polyp. (B) Endometrial curettings. GROSS DESCRIPTION: (A) Received in formalin, labeled with the patient's identification and endometrial polyp is a 2.5 cm aggregate of newman-pink soft tissue. The specimen is submitted in toto in block A1. (ES/1C/MS/RT-BAG) (B) Received in formalin, labeled with the patient's identification and endometrial curettings is a Telfa pad containing a 3 cm aggregate of newman-pink soft tissue and blood-tinged mucoid material. The specimen is entirely submitted in block B1. (ES/1C/MS/RT-BAG) ZW :KEN 06/10/20 By: JAY ARGUETA M.D. (Electronic Signature) MICROSCOPIC: The technical component was performed at [facility], [address] [place] [address]. Microscopic examination was performed. Case resulted at [facility]. DIAGNOSIS: (A) Endometrial polyp, polypectomy: -- BENIGN ENDOMETRIAL POLYP. -- NEGATIVE FOR ATYPICAL HYPERPLASIA AND MALIGNANCY. (B) Endometrium, curettage: -- FRAGMENTS OF ENDOMETRIAL POLYP AND FOCAL SIMPLE ENDOMETRIAL HYPERPLASIA WITHOUT ATYPIA/BENIGN HYPERPLASIA. -- NEGATIVE FOR ATYPICAL HYPERPLASIA AND MALIGNANCY. JH2:JH2:JH204 END OF REPORT END OF REPORT Normal [facility] Coronavirus (COVID-19/SARS-C oV-2) [facility] 06-08-2020 Device Identifier [place] Fusion SARS-CoV-2 assay_Cortus SA. EUA Normal [facility] Comment on above: Performed By: #### 9 4532-9x6 #### 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 [facility] Comment on above: Performed By: #### 9 4532-9x6 #### [facility] [address] [place] [address] First test Y [facility] Comment on above: Performed By: #### 9 4532-9x6 #### [facility] [address] [place] [address] ICU N [facility] Comment on above: Performed By: #### 9 4532-9x6 #### [facility] [address] [place] [address] Illness or injury onset date and time N [facility] Comment on above: Performed By: #### 9 4532-9x6 #### [facility] [address] [place] [address] Patient was hospitalized because of this condition N [facility] Comment on above: Performed By: #### 9 4532-9x6 #### [facility] [address] [place] [address] status N [facility] Comment on above: Performed By: #### 9 4532-9x6 #### [facility] [address] [place] [address] Resides in congregate care setting N [facility] Comment on above: Performed By: #### 9 4532-9x6 #### ALSari [address] [address] SARS-CoV-2 (COVID-19) RNA CLEMENTINE+probe Ql (Resp) Not detected Normal NOTDET [facility] Comment on above: Result Comment: This test was performed via the Aptima SARS-CoV-2 Assay (Fitwall), a Nucleic Acid Amplification Test (NAAT), and has been authorized by the FDA under an Emergency Use Authorization (EUA). The assay is validated for nasopharyngeal (LAP POLISHER), nasal, and oropharyngeal (OP) swab specimens. The Limit of Detection is 600 NDU/mL (NAAT Detectable Units/mL) which is comparable to other nucleic acid amplification tests (rt-PCR,NAAT) currently being used to test for SARS-CoV-2. Detection of SARS-CoV-2 may be affected by the sample collection, transport methods and patient factors (e.g., presence of symptoms, and/or stage of infection); therefore a negative result does not rule out the possibility of infection. For updated information, refer to the Center for Disease Control website: www.cdc.gov/coronavirus. Performed By: #### 9 4532-9x6 #### [facility] [address] [place] [address] Symptomatic as defined by CDC N Normal [facility] Comment on above: Performed By: #### 9 4532-9x6 #### [facility] [address] [place] [address] Basic metabolic 2000 panelon 05-27-2020 Anion gap [Moles/Vol] 6.0 mmol/L Normal 6.0-18.0 [facility] Comment on above: Performed By: #### 2 4321-2, 34411-4, 61229-5k0 ####[facility], [address], [place]. Calcium [Mass/Vol] 9.0 mg/dL Normal 8.9-10.3 [facility] Comment on above: Performed By: #### 2 4321-2, 33405-7, 87760-5s4 ####[facility], [address] [place], [place]. Chloride [Moles/Vol] 105 mmol/L Normal 98-107 [facility] Comment on above: Performed By: #### 2 4321-2, 22652-8, 42131-0a4 ####[facility], [address], [place]. CO2 [Moles/Vol] 27 mmol/L Normal 22-32 [facility] Comment on above: Performed By: #### 2 4321-2, 96442-2, 44818-3e1 ####[facility], [address], [place]. Creatinine [Mass/Vol] 0.74 mg/dL Normal 0.66-1.30 [facility] Comment on above: Performed By: #### 2 4321-2, 64781-6, 76543-3n7 ####[facility], [address] [place], [place]. Glucose [Mass/Vol] 106 mg/dL High 70-99 [facility] Comment on above: Result Comment: U pdated ADA Reference Range A normal fasting glucose concentration is less than 100 mg/dL. An impaired fasting glucose concentration is 100-125 mg/dL. A provisional diagnosis of diabetes mellitus can be made when a fasting glucose concentration is greater than 125 mg/dL. Performed By: #### 2 432-2, 30100-6, 08433-3k1 ####[facility], [address] [place], [place]. Potassium [Moles/Vol] 3.9 mmol/L Normal 3.6-5.1 [facility] Comment on above: Performed By: #### 2 4321-2, 49684-7, 10849-9j2 ####[facility], [address] [place], [place]. Sodium [Moles/Vol] 138 mmol/L Normal 136-145 [facility] Comment on above: Performed By: #### 2 4321-2, 45252-7, 86229-9c3 ####[facility], [address] [place], [place]. Urea nitrogen (BldV) [Mass/Vol] 13 mg/dL Normal 8-20 [facility] Comment on above: Performed By: #### 2 4321-2, 46228-4, 18846-9p9 ####[facility], [address] [place], [place]. GFR/1.73 sq M.predicted (S/P /Bld) [Vol rate/Area]on 05-27-2020 GFR/1.73 sq M.predicted among blacks MDRD (S/P/Bld) [Vol rate/Area] mL/min/{1.73_m2} Normal [facility] Comment on above: Result Comment: The MDRD equation has not been validated for those over 70 years, women, patients with serious co-morbid conditions, or with extremes of body size, muscle mass of nutritional status. Performed By: #### 2 4321-2, 30095-4, 02141-9s7 #### [facility], [address] [place], [place]. GFRbbon 05-27-2020 GFR/1.73 sq M.predicted among non-blacks MDRD (S/P/Bld) [Vol rate/Area] mL/min/{1.73_m2} Normal [facility] Comment on above: Performed By: #### 2 4321-2, 70835-6, 58319-6d4 #### [facility], [address] [place] [address]. Hemogram and platelets WO di fferential panel (Bld)on 05-27-2020 Erythrocyte distribution width (RBC) [Entitic vol] 14.6 % Normal 11.0-14.8 [facility] Comment on above: Performed By: #### 2 4317-0 #### [facility], [address] [place], [place]. Hematocrit (Bld) [Volume fraction] 46.5 % High 35.0-45.0 [facility] Comment on above: Performed By: #### 2 4317-0 #### [facility], [address] [place], [place]. Hemoglobin (Bld) [Mass/Vol] 15.4 g/dL Normal 12.0-16.0 [facility] Comment on above: Performed By: #### 2 4317-0 #### [facility], [address] [place], [place]. MCH (RBC) [Entitic mass] 27.4 Picograms Normal 27.0-34.0 [facility] Comment on above: Performed By: #### 2 4317-0 #### [facility], [address] [place], [place]. MCHC (RBC) [Mass/Vol] 33.0 g/dL Normal 32.0-36.0 [facility] Comment on above: Performed By: #### 2 4316-0 #### [facility], [address] [place], [place]. MCV (RBC) [Entitic vol] 82.9 fL Normal 80.0-97.0 [facility] Comment on above: Performed By: #### 2 4316-0 #### [facility], [address], [place]. Platelet mean volume (Bld) [Entitic vol] 7.5 fL Normal 6.2-12.1 [facility] Comment on above: Performed By: #### 2 4316-0 #### [facility], [address] [place], [place]. Platelets (Bld) [#/Vol] 218 thou/mcL Normal 142-424 [facility] Comment on above: Performed By: #### 2 7-0 #### [facility], [address] [place], [place]. RBC (Bld) [#/Vol] 5.61 million/mcL High 3.80-5.10 [facility] Comment on above: Performed By: #### 2 7-0 #### [facility], [address] [place], [place]. WBC (Bld) [#/Vol] 7.5 thou/mcL Normal 4.6-10.2 [facility] Comment on above: Performed By: #### 2 4317-0 #### [facility], [address] [place], [place]. PT Coag (PPP) [Time]on 05-27 INR Coag (Bld) [Relative time] 1.08 {INR} Normal [facility] Comment on above: Result Comment: The recommended therapeutic INR range for most cardiac indications is 2.0-3.0. For high intensity therapy(ie.mechanical heart valves), the recommended range is 2.5-3.5. Performed By: #### 3 173-2, 5902-2 ####[facility], [facility] [address] [place], [place]. Prothrombin Timeon PT Coag (PPP) [Time] 14.3 s Normal 11.9-14.7 [facility] Comment on above: Performed By: #### 3 173-2, 5902-2 ####[facility], [facility] [address] [place], [place]. aPTT Coag (Bld) [Time]on aPTT Coag (PPP) [Time] 31.9 s Normal 23.3-35.3 [facility] Comment on above: Performed By: #### 3 173-2, 5902-2 ####[facility], [address] [place] [address]. Vital Signs Date Time Vital Sign Value Performing Clinician Allyssa ingram 04-05-2023 08:24-0500 Body height 154.9 cm Tyrell Bowens MD Work Phone: [facility] 04-05-2023 08:24-0500 Body mass index (BMI) [Ratio] 37.98 kg/m2 Tyrell Bowens MD Work Phone: [facility] 04-05-2023 08:24-0500 Body temperature 97.11 [degF] Tyrell Bowens MD Work Phone: [facility] 04-05-2023 08:24-0500 Body weight 91.17 kg Tyrell Bowens MD Work Phone: [facility] 04-05-2023 08:24-0500 Diastolic blood pressure 80 mm[Hg] Tyrell Bowens MD Work Phone: [facility] 04-05-2023 08:24-0500 Heart rate 86 /min Tyrell Bowens MD Work Phone: [facility] 04-05-2023 08:24-0500 SaO2% (BldA) [Mass fraction] 96 % Tyrell Bowens MD Work Phone: [facility] 04-05-2023 08:24-0500 Systolic blood pressure 130 mm[Hg] Tyrell Bowens MD Work Phone: [facility] Encounters Encounter Date Encounter Type Care Provider Facility Start: 08-02-2023 End: 08-02-2023 ambulatory HIEN H TIMMIS Not Available Start: 06-28-2023 End: 06-28-2023 ambulatory YASSINE VANG Not Available Start: 04-05-2023 Bamboo flowsheet Tyrell Bowens MD Work Phone: [facility] Start: 04-05-2023 Bamboo flowsheet Tyrell Bowens MD Work Phone: [facility] Start: 04-05-2023 End: 04-05-2023 Office outpatient visit 25 minutes Tyrell Bowens MD Work Phone: [facility] Comment on above: Essential hypertensi on, benign (CMS/HCC) (Primary Dx); Rheumatoid arthritis involving both hands with positive rheumatoid factor (CMS/HCC); Intrinsic eczema; Seasonal allergic rhinitis due to pollen; Dyslipidemia (CMS/HCC); Encounter for long-term (current) use of medications; Prediabetes; Obesity (BMI 30-39.9) Start: 04-05-2023 End: 04-05-2023 ambulatory TYRELL BOWENS Not Available Start: 01-04-2023 End: 01-04-2023 ambulatory HIEN H TIMMIS Not Available Start: 10-04-2022 End: 10-04-2022 ambulatory TYRELL BOWENS Facility:[facility] Start: 06-30-2022 End: 07-01-[address] DOCTOR GREEN Facility: Start: 03-31-2022 End: 04-01-[address] DOCTOR GREEN Facility:[facility] Start: 11-23-2021 End: 12-20-[address] ALPHONSE MCNEAL Facility:H1 Start: 09-13-2021 End: 09-17-[address] ALPHONSE MCNEAL Facility:[facility]1 Start: 05-31-2021 End: 05-31-2021 Patient encounter procedure MD Gonzalez Mcneal Work Phone: [facility] [address] Procedures Date Procedure Procedure Detail Performing Clinician Start: 05-31-2021 Plain X-ray of bilat eral wrists MD Gonzalez Mcneal Work Phone: Start: 05-31-2021 X-ray of both ankles MD Gonzalez Mcneal Work Phone: Start: 05-31-2021 Plain chest X-ray MD Kalli Mcneal Work Phone: Start: 05-31-2021 Plain X-ray of bilat eral hands MD Gonzalez Mcneal Work Phone: Start: 12-26-2017 Mammography Tyrell painting MD Work Phone: Plan of Treatment Date Care Activity Detail Author Start: 10-04-2023 End: 10-04-2023 Patient encounter procedure 10/04/2023 8:15 AM EDT Office Visit [facility] [address] [place] [phone] Tyrell Bowens MD [address] [place] [address] [facility] Start: 08-02-2023 End: 08-02-2023 Patient encounter procedure 08/02/2023 9:10 AM EDT Office Visit [facility] [address] [facility] [address] [place] [address] Hien Yin MD [address] [facility] [address] [place] [address] [facility] Start: 04-05-2023 End: 04-05-2024 Basic metabolic 1998 panel - Serum or Plasma Basic metabolic panel Lab Routine Essential hypertension, benign (CMS/HCC) Expected: 04/05/2023 (Approximate), Expires: 04/05/2024 [facility] Comment on above: Expected: 04/05/2023 (Approximate), Expires: 04/05/2024 Start: 04-05-2023 End: 04-05-2024 CBC W Auto Differential panel - Blood CBC and differential Lab Routine Encounter for long-term (current) use of medications Expected: 04/05/2023 (Approximate), Expires: 04/05/2024 [facility] Comment on above: Expected: 04/05/2023 (Approximate), Expires: 04/05/2024 Start: 04-05-2023 End: 04-05-2024 Hemoglobin A1c measurement Hemoglobin A1c Lab Routine Prediabetes Expected: 04/05/2023 (Approximate), Expires: 04/05/2024 [facility] Work Phone: Comment on above: Expected: 04/05/2023 (Approximate), Expires: 04/05/2024 Start: 04-05-2023 End: 04-05-2024 Hepatic function 2000 panel - Serum or Plasma Hepatic function panel Lab Routine Encounter for long-term (current) use of medications Expected: 04/05/2023 (Approximate), Expires: 04/05/2024 [facility] Comment on above: Expected: 04/05/2023 (Approximate), Expires: 04/05/2024 Start: 04-05-2023 End: 04-05-2024 Lipid 1996 panel - Serum or Plasma Lipid panel Lab Routine Encounter for long-term (current) use of medications Expected: 04/05/2023 (Approximate), Expires: 04/05/2024 [facility] Comment on above: Expected: 04/05/2023 (Approximate), Expires: 04/05/2024 Start: 04-05-2023 End: 04-05-2024 Thyrotropin [Units/volume] in Serum or Plasma TSH Lab Routine Obesity (BMI 30-39.9) Expected: 04/05/2023 (Approximate), Expires: 04/05/2024 [facility] Comment on above: Expected: 04/05/2023 (Approximate), Expires: 04/05/2024 Start: 04-05-2023 End: 04-05-2023 Patient encounter procedure 04/05/2023 8:15 AM EST Office Visit [facility] [address] [place] [address] Tyrell Bowens MD [address] [place] [phone] Arrived [facility] Comment on above: Arrived Start: 12-26-2018 Screening for malign ant neoplasm of breast Mammogram [facility] Start: 1950 Medicare Annual Wellness (AWV) Medicare Annual Wellness (AWV) [facility] Start: 1950 Screening for malign ant neoplasm of colon [facility] Aldolase measurement [facility] Work Phone: Homogenous nuclear A b pattern [Titer] in Serum [facility] Work Phone: Nuclear Ab [Titer] i n Serum [facility] Work Phone: Payers Date Payer Category Payer Unknown [employer] [id number] 2021-Present [address] [place] [address] [id number] 2013 Medicare MEDICARE MEDICAR E PART B [id number] 2013-Present [address] [address] [place] [address] Medicare [id number] 1959 Medicare [id number] 1959 Unknown [id number] 1950 Unknown [id number] 1948 Unknown [id number] 1948 Unknown [id number] 1948 Unknown [id number] 1948 Unknown [id number] 1948 Unknown [id number] 1948 Unknown [id number] 1948 Unknown [id number] Self-pay Self Pay [id number] Social History Date Type Detail Facility Tobacco smoking stat us ARIS Unknown if ever smoked [facility] Work Phone: Start: 1950 Sex Assigned At Female [facility] Start: 08-09-2022 Tobacco smoking status ARIS Never smoked tobacco [facility] Start: 08-09-2022 Tobacco use and exposure Smokeless tobacco non-user [facility] Start: 03-14-2023 End: 04-05-2023 Alcohol intake Ex-drinker (finding) [facility] Start: 03-29-2023 End: 04-05-2023 History of Social function [facility] Start: 03-29-2023 End: 04-05-2023 Humiliation, Afraid, Rape, and Kick questionnaire [HARK] [facility] Within the last year , have you been afraid of your partner or ex-partner? No [facility] Do you belong to any clubs or organizations such as religious groups, unions, fraternal or athletic groups, or school groups? Yes [facility] Are you now , , , , never or living with a partner? [facility] How often to you hav e a drink containing alcohol? 2-4 times a month [facility] How many standard dr inks containing alcohol do you have on a typical day? 1 or 2 [facility] How often do you hav e 6 or more drinks on 1 occasion? Never [facility] How hard is it for y ou to pay for the very basics like food, housing, medical care, and heating Not hard at all [facility] Do you feel stress - tense, restless, nervous, or anxious, or unable to sleep at night because your mind is troubled all the time - these days [OSQ] Not at all [facility] (I/We) worried wheth er (my/our) food would run out before (I/we) got money to buy more. Never true [facility] Start: 08-08-2022 Gender identity Identifies as female gender (finding) [facility] History of Present illness Narrative 04-05-2023 Tyrell Bowens MD - 04/05/2023 9:14 AM Mango Bowens MD - 04/05/2023 9:14 AM Mango Bowens MD - 04/05/2023 9:14 AM Mango Bowens MD - 04/05/2023 9:14 AM EST Note Date & Type Note Facility 04-05-2023 History of Presen t illness Narrative Associated Problem(s): Rheumatoid arthritis involving both hands with positive rheumatoid factor (CMS/HCC) Occasional flares and use prednisone PRN. Follow up with rheumatology. Associated Problem(s): Intrinsic eczema Skin clear with dupixent and follow with dermatology. Associated Problem(s): Essential hypertension, benign (CMS/HCC) BP controlled and monitor PRN. Associated Problem(s): Allergic rhinitis due to pollen Symptoms controlled with medication and continue. Subjective Patient ID: Sherry Weeks is a 72 y.o. female who presents for Follow-up (6 m). F/u HTN, allergies, arthritis, and eczema. Patient feels well today. Checking BP PRN and typically controlled. BP normal today. Taking medication daily and tolerating without side effects. Allergies controlled with medication. No congestion or rhinorrhea. No DILLON or sinus pressure. Ears not plugged or popping. Eczema stable. Following with dermatology and on dupixent which works well to clear skin. Occasional rashes and flares but mild. Uses steroid cream PRN which helps. RA stable. Occasional stiffness and pain in multiple joints. Taking methotrexate and much less pain. Following with rheumatology. Review of Systems Respiratory: Negative for cough, shortness of breath and wheezing. Cardiovascular: Negative for chest pain and palpitations. Gastrointestinal: Negative for abdominal pain, diarrhea, nausea and vomiting. Genitourinary: Negative for dysuria. Objective Physical Exam Constitutional: General: She is not in acute distress. Appearance: Normal appearance. HENT: Head: Normocephalic. Right Ear: Tympanic membrane normal. Left Ear: Tympanic membrane normal. Eyes: Extraocular Movements: Extraocular movements intact. Pupils: Pupils are equal, round, and reactive to light. Cardiovascular: Rate and Rhythm: Normal rate and regular rhythm. Heart sounds: No murmur heard. No friction rub. No gallop. Pulmonary: Effort: Pulmonary effort is normal. Breath sounds: Normal breath sounds. No wheezing, rhonchi or rales. Abdominal: General: Bowel sounds are normal. There is no distension. Palpations: Abdomen is soft. Tenderness: There is no abdominal tenderness. There is no guarding or rebound. Musculoskeletal: Cervical back: Neck supple. Right lower leg: No edema. Left lower leg: No edema. Neurological: Mental Status: She is alert. Assessment/Plan Problem List Items Addressed This Visit Essential hypertension, benign (CMS/HCC) - Primary BP controlled and monitor PRN. Relevant Orders Basic metabolic panel Dyslipidemia (CMS/HCC) Rheumatoid arthritis involving both hands with positive rheumatoid factor (CMS/HCC) Occasional flares and use prednisone PRN. Follow up with rheumatology. Allergic rhinitis due to pollen Symptoms controlled with medication and continue. Intrinsic eczema Skin clear with dupixent and follow with dermatology. Prediabetes Relevant Orders Hemoglobin A1c Encounter for long-term (current) use of medications Relevant Orders CBC and differential Hepatic function panel Lipid panel Obesity (BMI 30-39.9) Relevant Orders TSH documented in this encounter [facility] Progress note 10-04-2022 Note Date & Type Note Facility 10-04-2022 Note HNO ID: [id number] Author: Nory Slade RN Service: ? Author Type: Registered Nurse Type: Progress Notes Filed: 10/04/2022 9:14 AM Note Text: Radiology Service Progress Note DATE OF SERVICE: October 04, 2022 TIME: 9:13 AM PATIENT IDENTITY VERIFICATION COMPLETED USING TWO (2) STANDARD IDENTIFIERS: Name and Date of confirmed by patient verbally. FALL SCREENING: Has the patient had 2 falls in the last year or 1 fall with injury or currently using an Ambulatory Assistive Device (Walker, Cane, Wheelchair, Crutches, etc.)? No PATIENT GENDER DATA: Female. status: : No status: NO. EXAM: CT -CONTRAST INDUCED NEPHROPATHY RISK FACTORS: Not applicable CREATININE: No results found for: CREAT , EGFROTH , EGFRAA P.O.C.T. RESULTS: N/A October 04, 2022 TREATMENT: N/A IV SITE: Ambulatory: A peripheral IV was started in the Right antecubital site with a Angio cath: 22 gauge. IV SITE APPEARANCE: Clean,Dry and Intact SIGNATURE: Nory Slade RN PATIENT NAME: Cayetano Weeks DATE: October 04, 2022 TIME: 9:13 AM [facility] Progress note 10-04-2022 Note Date & Type Note Facility 10-04-2022 Note HNO ID: [id number] Author: Rimma Rey RT(R) Service: ? Author Type: Technologist Type: Progress Notes Filed: 10/04/2022 9:40 AM Note Text: RADIOLOGY SERVICE PROGRESS NOTE SERVICE DATE: 10/04/2022 SERVICE TIME: 9:38 AM PATIENT IDENTITY VERIFICATION COMPLETED USING TWO (2) STANDARD IDENTIFIERS: Name and Date of confirmed by patient verbally POST EXAM PIV STATUS: Discontinued PROCEDURE TYPE: NM INJECT: PET/CT BODY SCAN. 10.8 mCi F18 FDG. No other medications given.. ADMINISTRATION TIME: 911 PATIENT DISCHARGED TO: Ambulatory patient, left [place] department area. A Diagnostic radioactive procedure has taken place, with no further precautions necessary other than routine body substance precautions. More information regarding radiation safety can be found using this link: [email or web address] SIGNATURE: RT Bo(R) PATIENT NAME: Cayetano Weeks DATE: October 04, 2022 TIME: 9:38 AM PAGER/CONTACT #: [facility] Surgery Surgical operation note 06-10-2020 Note Date & Type Note Facility 06-10-2020 Surgery Surgical operation note DICTATED BY:ZORA STAFFORD MD SERVICE DATE:06/10/2020 PREOPERATIVE DIAGNOSES: 1. Postmenopausal bleeding. 2. Endometrial polyp. POSTOPERATIVE DIAGNOSES: 1. Postmenopausal bleeding. 2. Endometrial polyp. PROCEDURES: 1. Dilatation and curettage, hysteroscopy. 2. Polypectomy with MyoSure. SURGEON: Zora Stafford MD ANESTHESIA: General per LMA. LAP POLISHER: Nayeli Sosa MD ESTIMATED BLOOD LOSS: 5 mL INTRAVENOUS FLUIDS: 500 LR. FINDINGS: Endometrial polyp at the left cornua of the uterus. Otherwise, normal-appearing uterine cavity. The uterus sounded to approximately 8.5 cm. COMPLICATIONS: None. DESCRIPTION OF PROCEDURE: The patient was taken to the operating room. She was placed under general anesthesia and found to be adequate. She was then placed in the dorsal lithotomy position. The vagina and perineum were prepped and draped in usual sterile fashion. A weighted speculum was placed in the posterior fornix of the vagina and the cervix visualized. The anterior lip of the cervix was grasped with a single-tooth tenaculum. The uterus was sounded to approximately 8.5 cm. The cervix was then serially dilated with Cheng dilators to allow passage of an operative hysteroscope. The hysteroscope was then inserted and the uterine cavity surveyed. She did have a medium-sized endometrial polyp arising from the left cornua of the uterus. Otherwise, the cavity appeared rather atrophic. The MyoSure morcellator was then inserted into the operative channel and a polypectomy was performed. This specimen was sent for permanent pathology. The hysteroscope was then withdrawn and a sharp curettage was performed and this specimen was sent for permanent pathology as endometrial curettings. The hysteroscope was then inserted one additional time and the uterine cavity appeared normal. The hysteroscope was withdrawn and the tenaculum was removed under direct visualization. Tenaculum sites were hemostatic. All instruments were removed from the vagina. The patient tolerated the procedure well. Sponge, lap and needle counts were correct. CAYETANO WEEKS Birthdate: 1950 #: [id number] D/06/10/2020 08:23:39 T/06/10/2020 09:15:53 VOICE JOB ID:[id number] Austin thanks you for the opportunity to care for your patient. DID: [id number] [facility] Discharge summary 06-10-2020 Note Date & Type Note Facility 06-10-2020 Physician [facility] Discharge summary CLINICAL SUMMARY Please take this summary document to your follow up appointments. [facility] 06/10/20 08:38 [address] [place]. [address] PATIENT INFORMATION Name: CAYETANO WEEKS Address: [address] [place] [address] Age: 69 Years Phone: [phone] : 1950 12:00 MRN: [id number] Sex: Female Race: White Ethnicity: Not Hispan/Lat Admitted From: Clinic or [facility] Medical Service: Obstetric Nurse Unit/Bed: (UT) [facility] N/A Admit Date: 06/10/2020 05:45 PCP: Physician, PCP Unknown PHYSICIANS INVOLVED WITH CARE Attending Physicians: Rivera CHURCHILL , Zora Mckeon - Obstetrics, Gynecology Admitting Physician: None found Primary Care Physician:Physician, PCP Unknown,Family Practice,,, - Consults: None found DIAGNOSES: Endometrial polyp; Postmenopausal vaginal bleeding Problems Active Eczema HTN (hypertension) Allergies No Known Medication Allergies NKA Procedures Polypectomy (06/10/2020) MEASUREMENTS: Last Charted: Weight: Admission 94.90 kg /209 lbs 3 oz ( 06/10/20 06:34:00 ) VITAL SIGNS: Last Charted: Pulse Rate: 72 BPM (06/10 08:16) Blood Pressure: 123/86 mm Hg (06/10 08:16) Pain Score: 0(06/10 08:16) MENTAL STATUS: Level of Conciousness: Alert, Drowsy (06/10 08:16) Orientation: Oriented to person, Oriented to place, Oriented to purpose/situation (06/10 08:16) HOSPITAL COURSE SUMMARY: 06/10/20 07:26 Pt is a 69 yo woman with PMB and found to have an endometrial polyp. She underwent D and C/hysteroscopy and polypectomy with Myosure without complications. EBL 5. DC home from PACU in good condition. MEDICATIONS ORDERED / RECOMMENDED TO BE CONTINUED for: CAYETANO WEEKS bisoprolol-hydroCHLOROthiazide (Bisoprolol/hydroCHLOROthiazide 5 mg/6.25 mg) 1 Tab(s) By Mouth once a day. ibuprofen (ibuprofen 600 mg oral tablet) 1 Tab(s) By Mouth One Time Only as needed Pain - Mild. Refills: 0. loratadine (Claritin 24 Hour Allergy 10 mg oral tablet) 1 Tab(s) By Mouth once a day. multivitamin 1 Tab(s) By Mouth once a day. MEDICATION CHANGE DETAILS NEW MEDICATIONS [id number], [address], [place] [phone], [phone] ibuprofen (ibuprofen 600 mg oral tablet) 1 Tab(s) By Mouth One Time Only as needed Pain - Mild. Refills: 0. Comment UPDATED MEDICATIONS None UNCHANGED MEDICATIONS Other Medications bisoprolol-hydroCHLOROthiazide (Bisoprolol/hydroCHLOROthiazide 5 mg/6.25 mg) 1 Tab(s) By Mouth once a day. Comment loratadine (Claritin 24 Hour Allergy 10 mg oral tablet) 1 Tab(s) By Mouth once a day. Comment multivitamin 1 Tab(s) By Mouth once a day. Comment STOP TAKING THESE MEDICATIONS None DO NOT TAKE UNTIL YOU TALK TO YOUR DOCTOR None RECONCILING PROVIDER(S) 06/10/20 08:21:02 EDT Electronically Signed by Nayeli Sosa MD bisoprolol-hydroCHLOROthiazide (Bisoprolol/hydroCHLOROthiazide 5 mg/6.25 mg) ibuprofen (ibuprofen 600 mg oral tablet) loratadine (Claritin 24 Hour Allergy 10 mg oral tablet) multivitamin Inpatient Medication History (active at the time of summary): Do not administer these medications until re-evaluated by a provider at the next level of care. oxygen Nasal Cannula, FIO2/LPM: 2, Supplemental oxygen titration to maintain saturation greater than 90% Vasopressin (vasopressin) 20 Unit = 1 mL, Vag, Dedicated Regional Driver, x 30 Day(s) COMMENTS and SPECIAL INSTRUCTIONS: Send to OR 12 Lidocaine 1% Inj 2 mL PF (Xylocaine GEq) (lidocaine) 2 mg = 0.2 mL, IntraDermal, Inject, preop, PRN, See Comments Last Dose: 06/10/20 06:33:00 COMMENTS and SPECIAL INSTRUCTIONS: For skin wheal (intradermal) injection 0.2 mL PRN prior to starting IV Acetaminophen 325 mg Tab (Tylenol GEq) (Tylenol*) 650 mg = 2 Tab, PO, Tab, Q4h, PRN, Pain-Mild/Fever greater than 100. 4 (38C), x 30 Day(s), 06/10/20 8:19:00 EDT COMMENTS and SPECIAL INSTRUCTIONS: Maximum 4 Gm Acetaminophen/Day for Adults Ibuprofen 600 mg Tab (Motrin GEq) (Motrin*) 600 mg = 1 Tab, PO, Tab, Once, PRN, Pain - Mild, 06/10/20 8:19:00 EDT COMMENTS and SPECIAL INSTRUCTIONS: Maximum of 3200 mg / 24 hr FentaNYL 50 mcg/mL Inj 2 mL (Sublimaze GEq) (Sublimaze) 25 mcg = 0.5 mL, IV Push, Inject, Q5min, PRN, Pain - Moderate, x 6 Time(s)/Dose(s), 06/10/20 7:12:00 EDT COMMENTS and SPECIAL INSTRUCTIONS: in PACU ONLY - Maximum cumulative dose 150 mcg HYDROmorphone 0.5 mg/0.5 mL INJ 0.5 mL (Dilaudid GEq) (Dilaudid Inj*) 0.5 mg = 0.5 mL, IV Push, Inject, Q5min, PRN, Pain - Severe, x 6 Time(s)/Dose(s), 06/10/20 7:12:00 EDT COMMENTS and SPECIAL INSTRUCTIONS: in PACU ONLY; Ondansetron 2 mg/mL Inj 2 mL (Zofran GEq) (Zofran (more content not included)... [facility] Surgery Postoperative evaluation and management note 06-10-2020 Note Date & Type Note Facility 06-10-2020 Surgery Postoperative evaluation and management note Patient: CAYETANO WEEKS Age: 69 years Sex: Female : 1950 Associated Diagnoses: None Author: Nayeli Sosa MD Supervising Physician Comments Documentation By: Resident Physician. Operative Information Date of surgery: 06/10/20 07:53 . Preoperative Diagnosis: N95.0 N85.00 N84 POSTMENOPAUSAL BLEEDING THICKENED ENDOMETRIUM ENDOMETRIAL POLYP . Postoperative Diagnosis: N95.0 N85.00 N84 POSTMENOPAUSAL BLEEDING THICKENED ENDOMETRIUM ENDOMETRIAL POLYP . Procedure Performed: Primary Procedure: HYSTEROSCOPIC POLYPECTOMY WITH MYOSURE, DILATION AND CURETTAGE . Surgeon: Primary Surgeon: Zora Stafford MD Commanding Officer Motorized Squad(s): Nayeli Sosa MD , . Type of Anesthesia: Anesthesia Type: General . Estimated Blood Loss: Minimal less than 10mL. Procedure Findings: intrauterine polyp. Drain(s): Collection Device: RED RUBBER . Specimen(s) Removed: Specimen: 1. ENDOMETRIAL POLYP - PERMANENT - 2. ENDOMETRIAL CURETTINGS - PERMANENT . [facility] Anesthesiology Preoperative evaluation and management note 06-10-2020 Note Date & Type Note Facility 06-10-2020 Anesthesiology Preoperative evaluation and management note Patient: CAYETANO WEEKS MRN: [id number] Age: 69 years Sex: Female : 1950 Associated Diagnoses: None Author: Mouna CHURCHILL , William Mckeon Preoperative Information Diagnosis No diagnoses charted Planned Procedure Hysteroscopy Histories Past Medical History: Active Eczema HTN (hypertension) Social History: Smoking Status: Never smoked E-Cig/Vaped Last 90 Day..: No Surgical/Procedure History: Surgical/Procedure Hx Polypectomy ([id number]). Comments: 05/27/2020 09:32 NATHANIEL Ziegler RN , Nory Curry, 2008 Anesthesia History: No previous anesthetic complications Review of Systems Constitutional Cardiovascular Ear/Nose/Mouth/Throat Respiratory Gastrointestinal Hematology/Lymphatics Genitourinary Obstetric Neurologic Psychiatric Medications Allergies No Known Medication Allergies NKA All Medications Admission Med Reconciliation: Not Complete Home Medications: loratadine 10 mg = 1 Tab, PO, Daily,, Last Dose: 06/03/20 00:00 Still taking, as prescribed multivitamin 1 Tab, PO, Daily,,, Tab Last Dose: 06/03/20 00:00 Still taking, as prescribed bisoprolol-hydroCHLOROthiazide 1 Tab, PO, Tab, Daily,,, Tab Last Dose: 06/10/20 05:00 Still taking, as prescribed Inpatient Medications: Vasopressin 20 Unit = 1 mL, Vag, Dedicated Regional Driver x 30 Day(s) , Comment: Send to OR 12 Last Dose: Not Given Lidocaine 1% Inj 2 mL PF (Xylocaine GEq) 2 mg = 0.2 mL, IntraDermal, Inject, preop, PRN, See Comments , Comment: For skin wheal (intradermal) injection 0.2 mL PRN prior to starting IV Last Dose: 06/10/20 06:33:00 Current IV Orders: Lactated Ringers 1,000 mL 1,000 mL, 1,000 mL, 25 mL/hr, IV, Infusion Last Dose: 06/10/20 06:33:00 PONV Risk Factors (for General using volatile anesthetics) 1. Female ( x ) 2. Hx of PONV ( ) 3. Hx of motion sickness ( ) 4. Non smoker ( x ) 5. Opioids for post op pain ( x ) Physical Examination VS/Measurements: Last Charted Vital Signs Temperature: 98.9 (06/10 06:00) Pulse: 83 (06/10 06:00) Respiration: 18 (06/10 06:00) BP: 152/84 (06/10 06:00) Pulse Ox: 95 (06/10 06:00) Oxygen Delivery: Room air (06/10 06:00) Pain Score: 0 (06/10 06:00) , Measurements Height: 154.94 cm /61.00 in (Pt reported) (06/10/2020 06:34:00) Weight: 94.9 kg/ 209 lbs 3.5 oz (Actual) (06/10/2020 06:34:00) Body Surface Area: 2.02 m2 Body Mass Index: 39.53 . Mouth/Airway: Dental (from Forms) No dental information charted . Mallampati: Class 2. Respiratory: Right lung: Clear to auscultation. Left lung: Clear to auscultation. Cardiovascular: Rhythm: Regular. Arterial pulses: Positive. Results Review General results Laboratory Last 90 Days Chemistry 05/27/20 09:07, Sodium = 138 mMol/L 05/27/20 09:07, Potassium = 3.9 mMol/L 05/27/20 09:07, Chloride = 105 mMol/L 05/27/20 09:07, CO2 = 27 mMol/L 05/27/20 09:07, Glucose = 106 mg/dL H 05/27/20 09:07, BUN = 13 mg/dL 05/27/20 09:07, Creatinine = 0.74 mg/dL 05/27/20 09:07, Calcium Total = 9.0 mg/dL Hematology 05/27/20 09:07, WBC = 7.5 thou/mcL 05/27/20 09:07, RBC = 5.61 million/mcL H 05/27/20 09:07, Hb = 15.4 gm/dL 05/27/20 09:07, Hematocrit = 46.5 % H 05/27/20 09:07, Platelets = 218 thou/mcL 05/27/20 09:07, MCV = 82.9 FL 05/27/20 09:07, MCH = 27.4 Picograms 05/27/20 09:07, RDW = 14.6 % 05/27/20 09:07, MCHC = 33.0 gm/dL Coagulation 05/27/20 09:14, Partial Thromboplastin (aPTT) = 31.9 Sec 05/27/20 09:14, INR = 1.08 05/27/20 09:14, Prothrombintime (PT) = 14.3 Sec Other Labs 05/27/20 09:07, Anion Gap = 6.0 mMol/L 05/27/20 09:07, MPV = 7.5 FL 05/27/20 09:07, GFR Est. Non = >60 mL/min 05/27/20 09:07, GFR Est. = >60 mL/min 06/07/20 13:25, SARS-CoV-2 = NOTDET 06/07/20 13:25, First test = Y 06/07/20 13:25, Employed in healthcare = N 06/07/20 13:25, Symptomatic as defined by CDC = N 06/07/20 13:25, Date of onset = N 06/07/20 13:25, Hospitalized = N 06/07/20 13:25, ICU = N 06/07/20 13:25, Resides in congregate care setting = N 06/07/20 13:25, = N 06/07/20 13:25, Device Identifier = [employer] Fusion SARS-CoV-2 assay_[employer]. [facility] Point Of Care Tests Blood 06/10/20 06:27:00 Glucose POCT-LAB: 127 Comment: Diagnostic Tests Assessment ASA Classification 2. Oral intake status Nothing after midnight. Plan Anesthesia Discussion The patient was interviewed:: Yes. The patient was examined:: Yes. Informed Consent:: Obtained. The anesthetic plan, options, risks, and benefits were discussed:: With the patient. Anesthesia Preoperative Plan Proposed Anesthesia Type: General with Laryngeal Mask Airway. Monitoring/Anesthesia Considerations: Standard monitoring. [facility] Evaluation note Note Date & Type Note Facility Evaluation note No assessment information availa junior [facility] Work Phone: Evaluation note Note Date & Type Note Facility Evaluation note Diagnosis Essential hypertension, benign ([facility]/H[facility])- Primary Essential hypertension, benign Rheumatoid arthritis involving both hands with positive rheumatoid factor ([facility]/HCC) Intrinsic eczema Seasonal allergic rhinitis due to pollen Dyslipidemia ([facility]/HCC) Other and unspecified hyperlipidemia Encounter for long-term (current) use of medications Encounter for long-term (current) use of other medications Prediabetes Other abnormal glucose Obesity (BMI 30-39.9) documented in this encounter [facility] Summary Purpose Family History No Family History Records FoundNo Family History Records FoundNo Family History Records FoundNo Family History Records FoundNo Family History Records Found Advance Directives No Advanced Directives Records FoundNo Advanced Directives Records FoundNo Advanced Directives Records FoundNo Advanced Directives Records FoundNo Advanced Directives Records Found Procedure Findings Note Patient: PATRICIA WEEKSBelinda Viveros RN: ([facility])-[id number] Age: 69 years Sex: Female : 1950 Associated Diagnoses: None Author: Mouna CHURCHILL , William Mckeon Supervising Physician Comments Documentation By: Attending Physician. Subjective Subjective: Patient participated in the evaluation: Yes. Nausea: not present. Vomiting: not present. Pain: acceptable pain control. Objective Objective: Vital Signs: Last Charted Vital Signs Temperature: 97.5 (06/10 09:20) Pulse: 71 (06/10 09:20) Respiration: 15 (06/10 09:20) BP: 124/67 (06/10 09:20) Pulse Ox: 96 (06/10 09:20) Oxygen Delivery: Room air (06/10 09:00) Pain Score: 0 (06/10 09:00) . Mental Status: Unchanged from preanesthesia assessment. Postoperative hydration: adequate. Assessment Assessment: Airway patent: yes. Plan Plan: Postanesthesia Plan: post anesthetic surveillance concluded. Chief Complaint and Reason for Visit Chief Complaint POLYARTHRITIS,MEDS Additional Source Comments INFORMATION SOURCE (unrecogn ized section and content) DATE CREATED AUTHOR 06/13/2020 [facility] DATE CREATED AUTHOR AUTHOR'S ORGANIZ ИРИНА 06/17/2021 [facility] DATE CREATED AUTHOR AUTHOR'S ORGANIZ ATION 07/04/2022 [facility] DATE CREATED AUTHOR AUTHOR'S ORGANIZ ATION 10/05/2022 [facility] DATE CREATED AUTHOR AUTHOR'S ORGANIZ ATION 08/03/2023 [facility] EPIC Care Teams (unrecognized sec tion and content) Team Status: Inactive Member Role Status Dates Gonzalez Mcneal MD Attending Provider Active Equipment Processor Relationship Specialty Start Date End Date Tyrell Bowens MD [address] [place] [id number] PCP - General Family Medicine 03/13/23 Equipment Processor Relationship Specialty Start Date End Date Tyrell Bowens MD [address] [place] [id number] PCP - General Family Medicine 03/13/23 Goals (unrecognized section and content) Goals may be documented in a n alternate section Reason for Visit (unrecogniz ed section and content) Reason Comments Follow-up 6 m FOR RECORDS PERTAINING TO PATIENTS WHO ARE OR HAVE BEEN ENROLLED IN A CHEMICAL DEPENDENCY/SUBSTANCEABUSE PROGRAM, SOME INFORMATION MAY BE OMITTED. This clinical summary was aggregated from multiple sources. Caution should be exercised in using it in the provision of clinical care. This summary normalizes information from multiple sources, and as a consequence, information in this document may materially change the coding, format and clinical context of patient data. In addition, data may be omitted in some cases. CLINICAL DECISIONS SHOULD BE BASED ON THE PRIMARY CLINICAL RECORDS. [facility] [employer] provides no warranty or guarantee of the accuracy or completeness of information in this document.
[2023-09-29 10:17] LABS: Basophils Absolute Auto 0.1 10^3/uL (0.0-0.1); Basophils Percent Auto 0.8 % (0.2-2.0); Eosinophils Absolute Auto 0.5 10^3/uL (0.0-0.7); Eosinophils Percent Auto 7.2 % (0.9-7.0); Hematocrit 44.1 % (36.0-48.0); Hemoglobin 14.2 g/dL (12.0-16.0); Immature Granulocytes Abs Auto 0.02 10^3/uL (0.00-0.03); Immature Granulocytes Pct Auto 0.3 % (0.0-0.5); Lymphocytes Absolute Auto 1.2 10^3/uL (1.2-3.8); Lymphocytes Percent Auto 18.7 % (20.5-60.0); Mean Corpuscular HGB Conc 32.2 g/dL (29.9-35.2); Mean Corpuscular Hemoglobin 28.8 pg (26.7-34.0); Mean Corpuscular Volume 89.5 fL (81.0-99.0); Mean Platelet Volume 9.8 fL (9.5-13.5); Monocytes Absolute Auto 0.4 10^3/uL (0.3-0.8); Monocytes Percent Auto 6.4 % (1.7-12.0); Neutrophils Absolute Auto 4.2 10^3/uL (1.4-6.5); Neutrophils Percent Auto 66.6 % (43.0-75.0); Platelet Count 203 10^3/uL (150-450); Red Blood Count 4.93 10^6/uL (4.20-5.40); Red Cell Distribution Width 14.5 % (11.0-15.0); White Blood Count 6.3 10^3/uL (4.0-11.0)
[2023-09-29 11:17] LABS: Estimated Average Glucose 114 mg/dL; Glycohemoglobin A1C 5.6 % (4.5-6.2)
[2023-09-29 12:03] LABS: Alanine Aminotransferase 44 U/L (14-59); Albumin Level 3.2 g/dL (3.4-5.0); Alkaline Phosphatase 90 U/L (46-116); Anion Gap 11.2; Aspartate Amino Transferase 20 U/L (15-37); BUN Creatinine Ratio 25.6; Bilirubin Direct 0.1 mg/dL (0.0-0.2); Bilirubin Total 0.6 mg/dL (0.2-1.0); Calcium 8.9 mg/dL (8.5-10.1); Carbon Dioxide 27.8 mmol/L (21.0-32.0); Chloride 105 mmol/L (98-107); Chol HDL Ratio 3.8; Cholesterol 169 mg/dL (<=200); Estimated GFR (African America >60 (>=60); Estimated GFR (Non-African Ame >60 (>=60); Globulin 3.3 g/dL; Glucose 99 mg/dL (74-106); HDL Cholesterol 45 mg/dL (40-60); Sodium 140 mmol/L (136-145); Thyroid Stimulating Hormone 0.767 uIU/mL (0.358-3.740); Total Protein 6.5 g/dL (6.4-8.2); Triglycerides 160 mg/dL (<=150)
== END 2023-09-29 09:30 | disposition home or self-care (01) ==
LOC: LAB 09:31
PROVIDERS: PCP Family Medicine; Visit Provider Family Medicine
DX: R73.03 Prediabetes (principal); I10 Essential (primary) hypertension; Z79.899 Other long term (current) drug therapy; E66.9 Obesity, unspecified
CPT/HCPCS: 36415; 80048; 80061; 80076; 83036; 84443; 85025

== ENCOUNTER 2023-12-26 10:35 | Outpatient (OUT) | payer MEDICARE, OTHER, SELFPAY ==
--- OUTSIDE RECORDS SUMMARY | 2023-12-26 10:58 | XMS_ITS | CCD ---
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 Name Role Phone MD Gonzalez Mcneal Attending Provider ELIZABET, DR CUNHA Admitting Unavailable MCNEAL, DR CUNHA Attending Unavailable NADERER, DR TYRELL Salazar Primary Care Unavailable MCNEAL, DR CUNHA Consulting Unavailable MISC, DR BARTHOLOMEW Admitting Unavailable MISC, DR BARTHOLOMEW Attending Unavailable NADERER, DR TYRELL Salazar Primary Care Unavailable MISC, DR BARTHOLOMEW Consulting Unavailable MISC, DR BARTHOLOMEW Admitting Unavailable MISC, DR BARTHOLOMEW Attending Unavailable NADEREChula, DR TYRELL Salazar Primary Care Unavailable MISC, DR BARTHOLOMEW Consulting Unavailable MCNEAL, DR CUNHA Admitting Unavailable MCNEAL, DR CUNHA Attending Unavailable NADERER, DR TYRELL Salazar Primary Care Unavailable MCNEAL, DR CUNHA Consulting Unavailable NADEREChula, TYRELL Salazar Primary Care Unavailable Tyrell Bowens MD Primary Care Provider [phone] JIMI YIN Attending Unavailable TYRELL BOWENS Attending Unavailable YASSINE VANG Attending Unavailable OBERMEYTERRENCE JAY Referring Unavailable JIMI YIN Attending Unavailable JR. BEATRIZ, ZACKARY Vieira Attending TYRELL Shaw Attending Unavailable JR. BEATRIZ, ZACKARY Vieira Attending Unavaila Tyrell Hendrix Primary Care Provider [phone] TYRELL BOWENS Referring Unavailable TYRELL BOWENS Primary Care Unavailable Allergies Allergy Classification Reported Allergen(s) Allergy Type Date of Onset Reaction(s) Facility (3 sources) Amoxicillin Drug Allergy 08-09-2022 Diarrhea [facility] Work Phone: Medications Current Medications Medication Drug Class(es) Dates Sig (Normalized) Sig (Original) bisoprolol fumarate 5 mg / hydroCHLOROthiazide 6.25 mg oral tablet (3 sources) Thiazide Diuretic, beta-Adrenergic Krsytal take 1 tablet by mouth in the [...] 12-21-2021 Chronic Other aftercare (1 source) Other long term care phlebotomist (current) drug therapy; Translations: [OTH 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 CURRENT DRUG THERAPY] Onset: 07-03-2022 Episodic Other aftercare (4 sources) Patient encounter status; Translations: [Other long term care phlebotomist (current) drug therapy] Onset: 04-05-2023 04-05-2023 Episodic Other nutritional; endocrine; and metabolic disorders (4 sources) Body mass index 30+ - obesity; Translations: [Obesity, unspecified] Onset: 04-05-2023 04-05-2023 Chronic Other screening for suspected conditions (not mental disorders or infectious disease) (1 source) Encounter for screening mammogram for malignant neoplasm of breast; Translations: [Encounter for screening mammogram for malignant neoplasm of breast] Onset: 11-27-2023 Episodic Other skin disorders (3 sources) Seborrheic keratosis; [...] Test Name Value Interpretation Reference Range Facility MAMM SCREENING 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 Computer aided detection was utilized. FINDINGS: There are scattered areas of fibroglandular density. There are no suspicious masses, calcifications, or areas of architectural distortion. IMPRESSION: No mammographic evidence of malignancy. BI-RADS: BI-RADS 1 - Negative Recommendation: Routine screening mammogram in 1 year. Finalized by Dawna Awad MD on 11/27/2023 11:25 AM 1 b MAMM 1 YR Normal [facility] GLUCOSE, BLOOD (POC)on 10-04 Glucose [Mass/Vol] 110 mg/dL Abnormal 74 - 99 mg/dL [facility] Comment on above: Location:[facility], [address] [place] [address] , [place], [place], [facility] The Accu-Chek Inform II glucose meter has not been approved for testing on patients receiving intensive medical intervention or therapy and results from this point of care glucose test should not be used for patient management decisions in these cases. Inaccurate results may also occur from other interfering factors, such as N-acetylcysteine (blood concentrations of greater than 5mg/dL), galactose, extremes of hematocrit (<10 or >65), or high doses of ascorbic acid (vitamin C) greater than 3mg/dL. Consider alternate testing mechanisms (e.g. core lab, blood gas instrument) in the above situations. Interpretation and review of laboratory results Abnormal [facility] NM PET/CT SKULL-THIGH INITon 10-04-2022 NM PET/CT [...] any questions regarding this interpretation, please call [phone]. If you are unable to reach us at the number above, please feel free to contact [facility] at [phone]. [id number] CN Normal [facility] PET+CT Guidance for localiza tion of tumor of Skull base to mid-thigh-- W 18F-FDG Zan 10-04-2022 IMPRESSION: 1. HEAD and NECK: Mild uptake [...] any questions regarding this interpretation, please call [phone]. If you are unable to reach us at the number above, please feel free to contact [facility] at [phone]. DIVISION OF RADIOLOGY * * *Final Report* * * DATE [...] FDG avid neoplastic process. Degenerative arthritic change. DIVISION OF RADIOLOGY Provider, [facility] - 10/04/2022 * * *Final Report* * * DATE [...] FDG avid neoplastic process. Degenerative arthritic change. IMPRESSION IMPRESSION: 1. HEAD and NECK: Mild uptake [...] any questions regarding this interpretation, please call [phone]. If you are unable to reach us at the number above, please feel free to contact [facility] at [phone]. [facility] Radiology Study observation (narrative) Lala willoughby [facility] PET+CT Guidance for localiza tion of tumor of Skull base to mid-thigh-- W 18F-FDG IVOrdered By: Ccf Provider on 10-04-2022 [facility] CBC AUTO DIFFon 06-30-2022 BASO # 0.1 103/ul Normal 0.0-0.1 [facility] Comment on above: Performed By: #### C BC #### [facility] [address] [place] [address] Dr. Norm Melendrez Basophils/100 WBC (Bld) 0.7 % Normal 0.2-2.0 [facility] Comment on above: Performed By: #### C BC #### [facility] [address] [place] [address] Dr. Norm Melendrez EO # 0.4 103/ul Normal 0.0-0.7 [facility] Comment on above: Performed By: #### C BC #### [facility] [address] [place] [address] Dr. Norm Melendrez Eosinophils/100 WBC (Bld) 4.4 % Normal 0.9-7.0 [facility] Comment on above: Performed By: #### C BC #### [facility] [address] [place] [address] Dr. Norm Melendrez Erythrocyte distribution width (RBC) [Ratio] 15.0 % Normal 11.0-15.0 [facility] Comment on above: Performed By: #### C BC #### [facility] [address] [place] [address] Dr. Norm Melendrez Hematocrit (Bld) [Volume fraction] 45.0 % Normal 36.0-48.0 [facility] Comment on above: Performed By: #### C BC #### [facility] [address] [place] [address] Dr. Norm Melendrez Hemoglobin (Bld) [Mass/Vol] 14.5 g/dL Normal 12.0-16.0 [facility] Comment on above: Performed By: #### C BC #### [facility] [address] [place] [address] Dr. Norm Melendrez IG # 0.03 10e3/ul Normal 0.00-0.03 [facility] Comment on above: Performed By: #### C BC #### [facility] [address] [place] [address] Dr. Norm Melendrez IG % 0.4 % Normal 0.0-0.5 [facility] Comment on above: Performed By: #### C BC #### [facility] [address] [place] [address] Dr. Norm Melendrez LYMPH # 1.4 103/ul Normal 1.2-3.8 [facility] Comment on above: Performed By: #### C BC #### [facility] [address] [place] [address] Dr. Norm Melendrez Lymphocytes/100 WBC (Bld) 17.2 % Critically low 20.5-60.0 [facility] Comment on above: Performed By: #### C BC #### [facility] [address] [place] [address] Dr. Norm Melendrez MANUAL DIFF REQ NO Normal [facility] Comment on above: Performed By: #### C BC #### [facility] [address] [place] [address] Dr. Norm Melendrez MCH (RBC) [Entitic mass] 28.0 pg Normal 26.7-34.0 [facility] Comment on above: Performed By: #### C BC #### [facility] [address] [place] [address] Dr. Norm Melendrez MCHC (RBC) [Mass/Vol] 32.2 g/dL Normal 29.9-35.2 [facility] Comment on above: Performed By: #### C BC #### [facility] [address] [place] [address] Dr. Norm Melendrez MCV (RBC) [Entitic vol] 86.9 fL Normal 81.0-99.0 [facility] Comment on above: Performed By: #### C BC #### [facility] [address] [place] [address] Dr. Norm Melendrez MONO # 0.5 103/ul Normal 0.3-0.8 [facility] Comment on above: Performed By: #### C BC #### [facility] [address] [place] [address] Dr. Norm Melendrez Monocytes/100 WBC (Bld) 6.6 % Normal 1.7-12.0 [facility] Comment on above: Performed By: #### C BC #### [facility] [address] [place] [address] Dr. Norm Melendrez NEUT # 5.8 103/ul Normal 1.4-6.5 [facility] Comment on above: Performed By: #### C BC #### [facility] [address] [place] [address] Dr. Norm Melendrez Neutrophils/100 WBC (Bld) 70.7 % Normal 43.0-75.0 [facility] Comment on above: Performed By: #### C BC #### [facility] [address] [place] [address] Dr. Norm Melendrez Platelet mean volume (Bld) [Entitic vol] 9.2 fL Critically low 9.5-13.5 [facility] Comment on above: Performed By: #### C BC #### [facility] [address] [place] [address] Dr. Norm Melendrez PLT 231 103/ul Normal 150-450 [facility] Comment on above: Performed By: #### C BC #### [facility] [address] [place] [address] Dr. Norm Melendrez RBC 5.18 106/ul Normal 4.20-5.40 [facility] Comment on above: Performed By: #### C BC #### [facility] [address] [place] [address] Dr. Norm Melendrez WBC 8.2 103/ul Normal 4.0-11.0 [facility] Comment on above: Performed By: #### C BC #### [facility] [address] [place] [address] Dr. Norm Melendrez PROF 14(COMP METB)on 023 Albumin [Mass/Vol] 3.4 g/dL Normal 3.4-5.0 [facility] Comment on above: Performed By: #### C MP #### [facility] [address] [place] [address] Dr. Norm Melendrez Albumin/Globulin [Mass ratio] 0.9 {ratio} Normal [facility] Comment on above: Performed By: #### C MP #### [facility] [address] [address] [address] Norm Melendrez ALP [Catalytic activity/Vol] 105 U/L Normal 46-116 [facility] Comment on above: Performed By: #### C MP #### [facility] [address] [address] [address] Norm Melendrez ALT [Catalytic activity/Vol] 48 U/L Normal 14-59 [facility] Comment on above: Performed By: #### C MP #### [facility] [address] [address] [address] Norm Melendrez Anion gap [Moles/Vol] 7.9 mmol/L Normal [facility] Comment on above: Performed By: #### C MP #### [facility] [address] [place] [address] Dr. Norm Melendrez AST [Catalytic activity/Vol] 22 U/L Normal 15-37 [facility] Comment on above: Performed By: #### C MP #### [facility] [address] [address] [address] Norm Melendrez Bilirubin [Mass/Vol] 0.4 mg/dL Normal 0.2-1.0 [facility] Comment on above: Performed By: #### C MP #### [facility] [address] [address] [address] Norm Melendrez Calcium [Mass/Vol] 8.9 mg/dL Normal 8.5-10.1 [facility] Comment on above: Performed By: #### C MP #### [facility] [address] [address] [address] Norm Melendrez Chloride [Moles/Vol] 108 mmol/L Critically high 98-107 [facility] Comment on above: Performed By: #### C MP #### [facility] [address] [address] [address] Norm Melendrez CO2 [Moles/Vol] 31.1 mmol/L Normal 21.0-32.0 [facility] Comment on above: Performed By: #### C MP #### [facility] [address] [address] [address] Norm Melendrez Creatinine [Mass/Vol] 0.88 mg/dL Normal 0.55-1.02 [facility] Comment on above: Performed By: #### C MP #### [facility] [address] [address] [address] Norm Melendrez EGFR-AF FRENCH >60 Normal >=60 [facility] Comment on above: Performed By: #### C MP #### [facility] [address] [address] [address] Norm Melendrez EGFR-NON AF FRENCH >60 Normal >=60 [facility] Comment on above: Performed By: #### C MP #### [facility] [address] [address] [address] Norm Melendrez Globulin (S) [Mass/Vol] 3.8 g/dL Normal [facility] Comment on above: Performed By: #### C MP #### [facility] [address] [place] [address] Dr. Norm Melendrez Glucose [Mass/Vol] 109 mg/dL Critically high 74-106 [facility] Comment on above: Performed By: #### C MP #### [facility] [address] [place] [address] Dr. Norm Melendrez Potassium [Moles/Vol] 4.0 mmol/L Normal 3.5-5.1 [facility] Comment on above: Performed By: #### C MP #### [facility] [address] [place] [address] Dr. Norm Melendrez Protein [Mass/Vol] 7.2 g/dL Normal 6.4-8.2 [facility] Comment on above: Performed By: #### C MP #### [facility] [address] [place] [address] Dr. Norm Melendrez Sodium [Moles/Vol] 143 mmol/L Normal 136-145 [facility] Comment on above: Performed By: #### C MP #### [facility] [address] [place] [address] Dr. Norm Melendrez Urea nitrogen [Mass/Vol] 16.0 mg/dL Normal 7.0-18.0 [facility] Comment on above: Performed By: #### C MP #### [facility] [address] [place] [address] Dr. Norm Melendrez Urea nitrogen/Creatinine [Mass ratio] 18.2 mg/mg Normal [facility] Comment on above: Performed By: #### C MP #### [facility] [address] [place] [address] Dr. Norm Melendrez SED RATE WESTERGRENon 2022 SED RATE 17 mm/hr Normal <=30 [facility] Comment on above: Performed By: #### S EDR #### [facility] [address] [place] [address] Dr. Norm Melendrez CBC AUTO DIFFon 03-31-2022 BASO # 0.1 103/ul Normal 0.0-0.1 [facility] Comment on above: Performed By: #### C BC #### [facility] [address] [place] [address] Dr. Norm Melendrez Basophils/100 WBC (Bld) 0.7 % Normal 0.2-2.0 [facility] Comment on above: Performed By: #### C BC #### [facility] [address] [place] [address] Dr. Norm Melendrez EO # 0.2 103/ul Normal 0.0-0.7 [facility] Comment on above: Performed By: #### C BC #### [facility] [address] [place] [address] Dr. Norm Melendrez Eosinophils/100 WBC (Bld) 3.0 % Normal 0.9-7.0 [facility] Comment on above: Performed By: #### C BC #### [facility] [address] [place] [address] Dr. Norm Melendrez Erythrocyte distribution width (RBC) [Ratio] 15.4 % Critically high 11.0-15.0 [facility] Comment on above: Performed By: #### C BC #### [facility] [address] [place] [address] Dr. Norm Melendrez Hematocrit (Bld) [Volume fraction] 44.8 % Normal 36.0-48.0 [facility] Comment on above: Performed By: #### C BC #### [facility] [address] [place] [address] Dr. Norm Melendrez Hemoglobin (Bld) [Mass/Vol] 14.6 g/dL Normal 12.0-16.0 [facility] Comment on above: Performed By: #### C BC #### [facility] [address] [place] [address] Dr. oNrm Melendrez IG # 0.02 10e3/ul Normal 0.00-0.03 [facility] Comment on above: Performed By: #### C BC #### [facility] [address] [place] [address] Dr. Norm Melendrez IG % 0.3 % Normal 0.0-0.5 [facility] Comment on above: Performed By: #### C BC #### [facility] [address] [place] [address] Dr. Norm Melendrez LYMPH # 1.2 103/ul Normal 1.2-3.8 [facility] Comment on above: Performed By: #### C BC #### [facility] [address] [place] [address] Dr. Norm Melendrez Lymphocytes/100 WBC (Bld) 16.8 % Critically low 20.5-60.0 [facility] Comment on above: Performed By: #### C BC #### [facility] [address] [place] [address] Dr. Norm Melendrez MANUAL DIFF REQ NO Normal [facility] Comment on above: Performed By: #### C BC #### [facility] [address] [place] [address] Dr. Norm Melendrez MCH (RBC) [Entitic mass] 27.6 pg Normal 26.7-34.0 [facility] Comment on above: Performed By: #### C BC #### [facility] [address] [place] [address] Dr. Norm Melendrez MCHC (RBC) [Mass/Vol] 32.6 g/dL Normal 29.9-35.2 [facility] Comment on above: Performed By: #### C BC #### [facility] [address] [place] [address] Dr. Norm Melendrez MCV (RBC) [Entitic vol] 84.7 fL Normal 81.0-99.0 [facility] Comment on above: Performed By: #### C BC #### [facility] [address] [place] [address] Dr. Norm Melendrez MONO # 0.6 103/ul Normal 0.3-0.8 [facility] Comment on above: Performed By: #### C BC #### [facility] [address] [place] [address] Dr. Norm Melendrez Monocytes/100 WBC (Bld) 8.0 % Normal 1.7-12.0 [facility] Comment on above: Performed By: #### C BC #### [facility] [address] [place] [address] Dr. Norm Melendrez NEUT # 5.2 103/ul Normal 1.4-6.5 [facility] Comment on above: Performed By: #### C BC #### [facility] [address] [place] [address] Dr. Norm Melendrez Neutrophils/100 WBC (Bld) 71.2 % Normal 43.0-75.0 [facility] Comment on above: Performed By: #### C BC #### [facility] [address] [place] [address] Dr. Norm Melendrez Platelet mean volume (Bld) [Entitic vol] 9.2 fL Critically low 9.5-13.5 [facility] Comment on above: Performed By: #### C BC #### [facility] [address] [place] [address] Dr. Norm Melendrez PLT 231 103/ul Normal 150-450 [facility] Comment on above: Performed By: #### C BC #### [facility] [address] [place] [address] Dr. Norm Melendrez RBC 5.29 106/ul Normal 4.20-5.40 [facility] Comment on above: Performed By: #### C BC #### [facility] [address] [place] [address] Dr. Norm Melednrez WBC 7.3 103/ul Normal 4.0-11.0 [facility] Comment on above: Performed By: #### C BC #### [facility] [address] [place] [address] Dr. Norm Melendrez PROF 14(COMP METB)on 023 Albumin [Mass/Vol] 3.5 g/dL Normal 3.4-5.0 [facility] Comment on above: Performed By: #### C MP #### [facility] [address] [place] [address] Dr. Norm Melendrez Albumin/Globulin [Mass ratio] 0.9 {ratio} Normal [facility] Comment on above: Performed By: #### C MP #### [facility] [address] [place] [address] Dr. Norm Melendrez ALP [Catalytic activity/Vol] 98 U/L Normal 46-116 [facility] Comment on above: Performed By: #### C MP #### [facility] [address] [place] [address] Dr. Norm Melendrez ALT [Catalytic activity/Vol] 33 U/L Normal 14-59 [facility] Comment on above: Performed By: #### C MP #### [facility] [address] [place] [address] Dr. Norm Melendrez Anion gap [Moles/Vol] 12.4 mmol/L Normal [facility] Comment on above: Performed By: #### C MP #### [facility] [address] [place] [address] Dr. Norm Melendrez AST [Catalytic activity/Vol] 29 U/L Normal 15-37 [facility] Comment on above: Performed By: #### C MP #### [facility] [address] [place] [address] Dr. Norm Melendrez Bilirubin [Mass/Vol] 0.4 mg/dL Normal 0.2-1.0 [facility] Comment on above: Performed By: #### C MP #### [facility] [address] [place] [address] Dr. Norm Melendrez Calcium [Mass/Vol] 9.5 mg/dL Normal 8.5-10.1 [facility] Comment on above: Performed By: #### C MP #### [facility] [address] [place] [address] Dr. Norm Melendrez Chloride [Moles/Vol] 103 mmol/L Normal 98-107 [facility] Comment on above: Performed By: #### C MP #### [facility] [address] [place] [address] Dr. Norm Melendrez CO2 [Moles/Vol] 28.6 mmol/L Normal 21.0-32.0 [facility] Comment on above: Performed By: #### C MP #### [facility] [address] [place] [address] Dr. Norm Melendrez Creatinine [Mass/Vol] 0.77 mg/dL Normal 0.55-1.02 [facility] Comment on above: Performed By: #### C MP #### [facility] [address] [place] [address] Dr. Norm Melendrez EGFR-AF FRENCH >60 Normal >=60 [facility] Comment on above: Performed By: #### C MP #### [facility] [address] [place] [address] Dr. Norm Melendrez EGFR-NON AF FRENCH >60 Normal >=60 [facility] Comment on above: Performed By: #### C MP #### [facility] [address] [place] [address] Dr. Norm Melendrez Globulin (S) [Mass/Vol] 3.7 g/dL Normal [facility] Comment on above: Performed By: #### C MP #### [facility] [address] [place] [address] Dr. Norm Melendrez Glucose [Mass/Vol] 97 mg/dL Normal 74-106 [facility] Comment on above: Performed By: #### C MP #### [facility] [address] [address] [address] Norm Melendrez Potassium [Moles/Vol] 4.0 mmol/L Normal 3.5-5.1 [facility] Comment on above: Performed By: #### C MP #### [facility] [address] [address] [address] Norm Melendrez Protein [Mass/Vol] 7.2 g/dL Normal 6.4-8.2 [facility] Comment on above: Performed By: #### C MP #### [facility] [address] [address] [address] Norm Melendrez Sodium [Moles/Vol] 140 mmol/L Normal 136-145 [facility] Comment on above: Performed By: #### C MP #### [facility] [address] [address] [address] Norm Melendrez Urea nitrogen [Mass/Vol] 11.0 mg/dL Normal 7.0-18.0 [facility] Comment on above: Performed By: #### C MP #### [facility] [address] [address] [address] Norm Melendrez Urea nitrogen/Creatinine [Mass ratio] 14.3 mg/mg Normal [facility] Comment on above: Performed By: #### C MP #### [facility] [address] [address] [address] Norm Melendrez [facility] SED RATE 53 mm/hr Critically high <=30 [facility] Comment on above: Performed By: #### C MP #### [facility] [address] [address] [address] Norm Melendrez CBC AUTO DIFFon 11-23-2021 BASO # 0.1 103/ul Normal 0.0-0.1 [facility] Comment on above: Performed By: #### C BC #### [facility] [address] [address] [address] Norm Melendrez Basophils/100 WBC (Bld) 0.9 % Normal 0.2-2.0 [facility] Comment on above: Performed By: #### C BC #### [facility] [address] [address] [address] Norm Melendrez EO # 0.3 103/ul Normal 0.0-0.7 [facility] Comment on above: Performed By: #### C BC #### [facility] [address] [address] [address] Norm Melendrez Eosinophils/100 WBC (Bld) 4.1 % Normal 0.9-7.0 [facility] Comment on above: Performed By: #### C BC #### [facility] [address] [place] [address] Dr. Norm Melendrez Erythrocyte distribution width (RBC) [Ratio] 15.9 % Critically high 11.0-15.0 [facility] Comment on above: Performed By: #### C BC #### [facility] [address] [place] [address] Dr. Norm Melendrez Hematocrit (Bld) [Volume fraction] 44.9 % Normal 36.0-48.0 [facility] Comment on above: Performed By: #### C BC #### [facility] [address] [place] [address] Dr. Norm Melendrez Hemoglobin (Bld) [Mass/Vol] 14.2 g/dL Normal 12.0-16.0 [facility] Comment on above: Performed By: #### C BC #### [facility] [address] [place] [address] Dr. Norm Melendrez IG # 0.04 10e3/ul Critically high 0.00-0.03 [facility] Comment on above: Performed By: #### C BC #### [facility] [address] [place] [address] Dr. Norm Melendrez IG % 0.6 % Critically high 0.0-0.5 [facility] Comment on above: Performed By: #### C BC #### [facility] [address] [place] [address] Dr. Norm Melendrez LYMPH # 1.6 103/ul Normal 1.2-3.8 [facility] Comment on above: Performed By: #### C BC #### [facility] [address] [place] [address] Dr. Norm Melendrez Lymphocytes/100 WBC (Bld) 22.0 % Normal 20.5-60.0 [facility] Comment on above: Performed By: #### C BC #### [facility] [address] [place] [address] Dr. Norm Melendrez MANUAL DIFF REQ NO Normal [facility] Comment on above: Performed By: #### C BC #### [facility] [address] [place] [address] Dr. Norm Melendrez MCH (RBC) [Entitic mass] 27.5 pg Normal 26.7-34.0 [facility] Comment on above: Performed By: #### C BC #### [facility] [address] [place] [address] Dr. Norm Melendrez MCHC (RBC) [Mass/Vol] 31.6 g/dL Normal 29.9-35.2 [facility] Comment on above: Performed By: #### C BC #### [facility] [address] [place] [address] Dr. Norm Melendrez MCV (RBC) [Entitic vol] 86.8 fL Normal 81.0-99.0 [facility] Comment on above: Performed By: #### C BC #### [facility] [address] [place] [address] Dr. Norm Melendrez MONO # 0.5 103/ul Normal 0.3-0.8 [facility] Comment on above: Performed By: #### C BC #### [facility] [address] [place] [address] Dr. Norm Melendrez Monocytes/100 WBC (Bld) 7.4 % Normal 1.7-12.0 [facility] Comment on above: Performed By: #### C BC #### [facility] [address] [place] [address] Dr. Norm Melendrez NEUT # 4.6 103/ul Normal 1.4-6.5 [facility] Comment on above: Performed By: #### C BC #### [facility] [address] [place] [address] Dr. Norm Melendrez Neutrophils/100 WBC (Bld) 65.0 % Normal 43.0-75.0 [facility] Comment on above: Performed By: #### C BC #### [facility] [address] [place] [address] Dr. Norm Melendrez Platelet mean volume (Bld) [Entitic vol] 9.6 fL Normal 9.5-13.5 [facility] Comment on above: Performed By: #### C BC #### [facility] [address] [place] [address] Dr. Norm Melendrez PLT 237 103/ul Normal 150-450 [facility] Comment on above: Performed By: #### C BC #### [facility] [address] [place] [address] Dr. Norm Melendrez RBC 5.17 106/ul Normal 4.20-5.40 [facility] Comment on above: Performed By: #### C BC #### [facility] [address] [place] [address] Dr. Norm Melendrez WBC 7.0 103/ul Normal 4.0-11.0 [facility] Comment on above: Performed By: #### C BC #### [facility] [address] [place] [address] Dr. Norm Melendrez PROF 14(COMP METB)on 022 Albumin [Mass/Vol] 3.4 g/dL Normal 3.4-5.0 [facility] Comment on above: Performed By: #### C MP #### [facility] [address] [place] [address] Dr. Norm Melendrez Albumin/Globulin [Mass ratio] 0.9 {ratio} Normal [facility] Comment on above: Performed By: #### C MP #### [facility] [address] [place] [address] Dr. Norm Melendrez ALP [Catalytic activity/Vol] 101 U/L Normal 46-116 [facility] Comment on above: Performed By: #### C MP #### [facility] [address] [address] [address] Norm Melendrez ALT [Catalytic activity/Vol] 28 U/L Normal 14-59 [facility] Comment on above: Performed By: #### C MP #### [facility] [address] [place] [address] Dr. Norm Melendrez Anion gap [Moles/Vol] 12.9 mmol/L Normal [facility] Comment on above: Performed By: #### C MP #### [facility] [address] [address] [address] Norm Melendrez AST [Catalytic activity/Vol] 17 U/L Normal 15-37 [facility] Comment on above: Performed By: #### C MP #### [facility] [address] [place] [address] Dr. Norm Melendrez Bilirubin [Mass/Vol] 0.4 mg/dL Normal 0.2-1.0 [facility] Comment on above: Performed By: #### C MP #### [facility] [address] [place] [address] Dr. Norm Melendrez Calcium [Mass/Vol] 8.9 mg/dL Normal 8.5-10.1 [facility] Comment on above: Performed By: #### C MP #### [facility] [address] [place] [address] Dr. Norm Melendrez Chloride [Moles/Vol] 104 mmol/L Normal 98-107 [facility] Comment on above: Performed By: #### C MP #### [facility] [address] [place] [address] Dr. Norm Melendrez CO2 [Moles/Vol] 27.1 mmol/L Normal 21.0-32.0 [facility] Comment on above: Performed By: #### C MP #### [facility] [address] [place] [address] Dr. Norm Melendrez Creatinine [Mass/Vol] 0.86 mg/dL Normal 0.55-1.02 [facility] Comment on above: Performed By: #### C MP #### [facility] [address] [place] [address] Dr. Norm Melendrez EGFR-AF FRENCH >60 Normal >=60 [facility] Comment on above: Performed By: #### C MP #### [facility] [address] [address] [address] Norm Melendrez EGFR-NON AF FRENCH >60 Normal >=60 [facility] Comment on above: Performed By: #### C MP #### [facility] [address] [address] [address] Norm Melendrez Globulin (S) [Mass/Vol] 3.7 g/dL Normal [facility] Comment on above: Performed By: #### C MP #### [facility] [address] [address] [address] Norm Melendrez Glucose [Mass/Vol] 114 mg/dL Critically high 74-106 [facility] Comment on above: Performed By: #### C MP #### [facility] [address] [address] [address] Norm Melendrez Potassium [Moles/Vol] 4.0 mmol/L Normal 3.5-5.1 [facility] Comment on above: Performed By: #### C MP #### [facility] [address] [address] [address] Norm Melendrez Protein [Mass/Vol] 7.1 g/dL Normal 6.4-8.2 [facility] Comment on above: Performed By: #### C MP #### [facility] [address] [address] [address] Norm Melendrez Sodium [Moles/Vol] 140 mmol/L Normal 136-145 [facility] Comment on above: Performed By: #### C MP #### [facility] [address] [address] [address] Norm Melendrez Urea nitrogen [Mass/Vol] 13.0 mg/dL Normal 7.0-18.0 [facility] Comment on above: Performed By: #### C MP #### [facility] [address] [address] [address] Norm Melendrez Urea nitrogen/Creatinine [Mass ratio] 15.1 mg/mg Normal [facility] Comment on above: Performed By: #### C MP #### [facility] [address] [place] [address] Dr. Norm Melendrez SED RATE [facility] 2021 SED RATE 44 mm/hr Critically high <=30 [facility] Comment on above: Performed By: #### S EDR #### [facility] [address] [place] [address] Dr. Norm Melendrez CBC AUTO DIFFon 09-13-2021 BASO # 0.1 103/ul Normal 0.0-0.1 [facility] Comment on above: Performed By: #### C BC #### [facility] [address] [place] [address] Dr. Norm Melendrez Basophils/100 WBC (Bld) 0.8 % Normal 0.2-2.0 [facility] Comment on above: Performed By: #### C BC #### [facility] [address] [place] [address] Dr. Norm Melendrez EO # 0.2 103/ul Normal 0.0-0.7 [facility] Comment on above: Performed By: #### C BC #### [facility] [address] [place] [address] Dr. Norm Melendrez Eosinophils/100 WBC (Bld) 2.6 % Normal 0.9-7.0 [facility] Comment on above: Performed By: #### C BC #### [facility] [address] [place] [address] Dr. Norm Melendrez Erythrocyte distribution width (RBC) [Ratio] 16.6 % Critically high 11.0-15.0 [facility] Comment on above: Performed By: #### C BC #### [facility] [address] [place] [address] Dr. Norm Melendrez Hematocrit (Bld) [Volume fraction] 44.1 % Normal 36.0-48.0 [facility] Comment on above: Performed By: #### C BC #### [facility] [address] [place] [address] Dr. Norm Melendrez Hemoglobin (Bld) [Mass/Vol] 14.3 g/dL Normal 12.0-16.0 [facility] Comment on above: Performed By: #### C BC #### [facility] [address] [place] [address] Dr. Norm Melendrez IG # 0.04 10e3/ul Critically high 0.00-0.03 [facility] Comment on above: Performed By: #### C BC #### [facility] [address] [place] [address] Dr. Norm Melendrez IG % 0.5 % Normal 0.0-0.5 [facility] Comment on above: Performed By: #### C BC #### [facility] [address] [place] [address] Dr. Norm Melendrez LYMPH # 1.5 103/ul Normal 1.2-3.8 [facility] Comment on above: Performed By: #### C BC #### [facility] [address] [place] [address] Dr. Norm Melendrez Lymphocytes/100 WBC (Bld) 17.2 % Critically low 20.5-60.0 [facility] Comment on above: Performed By: #### C BC #### [facility] [address] [place] [address] Dr. Norm Melendrez MANUAL DIFF REQ NO Normal [facility] Comment on above: Performed By: #### C BC #### [facility] [address] [place] [address] Dr. Norm Melendrez MCH (RBC) [Entitic mass] 27.0 pg Normal 26.7-34.0 [facility] Comment on above: Performed By: #### C BC #### [facility] [address] [place] [address] Dr. Norm Melendrez MCHC (RBC) [Mass/Vol] 32.4 g/dL Normal 29.9-35.2 [facility] Comment on above: Performed By: #### C BC #### [facility] [address] [place] [address] Dr. Norm Melendrez MCV (RBC) [Entitic vol] 83.4 fL Normal 81.0-99.0 [facility] Comment on above: Performed By: #### C BC #### [facility] [address] [address] [address] Norm Melendrez MONO # 0.6 103/ul Normal 0.3-0.8 [facility] Comment on above: Performed By: #### C BC #### [facility] [address] [place] [address] Dr. Norm Melendrez Monocytes/100 WBC (Bld) 7.0 % Normal 1.7-12.0 [facility] Comment on above: Performed By: #### C BC #### [facility] [address] [place] [address] Dr. Norm Melendrez NEUT # 6.1 103/ul Normal 1.4-6.5 [facility] Comment on above: Performed By: #### C BC #### [facility] [address] [place] [address] Dr. Norm Melendrez Neutrophils/100 WBC (Bld) 71.9 % Normal 43.0-75.0 [facility] Comment on above: Performed By: #### C BC #### [facility] [address] [place] [address] Dr. Norm Melendrez Platelet mean volume (Bld) [Entitic vol] 9.3 fL Critically low 9.5-13.5 [facility] Comment on above: Performed By: #### C BC #### [facility] [address] [place] [address] Dr. Norm Melendrez PLT 239 103/ul Normal 150-450 [facility] Comment on above: Performed By: #### C BC #### [facility] [address] [place] [address] Dr. Norm Melendrez RBC 5.29 106/ul Normal 4.20-5.40 [facility] Comment on above: Performed By: #### C BC #### [facility] [address] [place] [address] Dr. Norm Melendrez WBC 8.5 103/ul Normal 4.0-11.0 [facility] Comment on above: Performed By: #### C BC #### [facility] [address] [place] [address] Dr. Norm Melendrez PROF 14(COMP METB)on 022 Albumin [Mass/Vol] 3.4 g/dL Normal 3.4-5.0 [facility] Comment on above: Performed By: #### C MP #### [facility] [address] [place] [address] Dr. Norm Melendrez Albumin/Globulin [Mass ratio] 0.9 {ratio} Normal [facility] Comment on above: Performed By: #### C MP #### [facility] [address] [place] [address] Dr. Norm Melendrez ALP [Catalytic activity/Vol] 90 U/L Normal 46-116 [facility] Comment on above: Performed By: #### C MP #### [facility] [address] [place] [address] Dr. Norm Melendrez ALT [Catalytic activity/Vol] 25 U/L Normal 14-59 [facility] Comment on above: Performed By: #### C MP #### [facility] [address] [place] [address] Dr. Norm Melendrez Anion gap [Moles/Vol] 11.4 mmol/L Normal [facility] Comment on above: Performed By: #### C MP #### [facility] [address] [place] [address] Dr. Norm Melendrez AST [Catalytic activity/Vol] 17 U/L Normal 15-37 [facility] Comment on above: Performed By: #### C MP #### [facility] [address] [place] [address] Dr. Norm Melendrez Bilirubin [Mass/Vol] 0.4 mg/dL Normal 0.2-1.0 [facility] Comment on above: Performed By: #### C MP #### [facility] [address] [place] [address] Dr. Norm Melendrez Calcium [Mass/Vol] 9.1 mg/dL Normal 8.5-10.1 [facility] Comment on above: Performed By: #### C MP #### [facility] [address] [address] [address] Norm Melendrez Chloride [Moles/Vol] 106 mmol/L Normal 98-107 [facility] Comment on above: Performed By: #### C MP #### [facility] [address] [address] [address] Norm Melendrez CO2 [Moles/Vol] 26.8 mmol/L Normal 21.0-32.0 [facility] Comment on above: Performed By: #### C MP #### [facility] [address] [address] [address] Norm Melendrez Creatinine [Mass/Vol] 0.80 mg/dL Normal 0.55-1.02 [facility] Comment on above: Performed By: #### C MP #### [facility] [address] [place] [address] Dr. Norm Melendrez EGFR-AF FRENCH >60 Normal >=60 [facility] Comment on above: Performed By: #### C MP #### [facility] [address] [place] [address] Dr. Norm Melendrez EGFR-NON AF FRENCH >60 Normal >=60 [facility] Comment on above: Performed By: #### C MP #### [facility] [address] [address] [address] Norm Melendrez Globulin (S) [Mass/Vol] 3.7 g/dL Normal [facility] Comment on above: Performed By: #### C MP #### [facility] [address] [address] [address] Norm Melendrez Glucose [Mass/Vol] 110 mg/dL Critically high 74-106 [facility] Comment on above: Performed By: #### C MP #### [facility] [address] [place] [address] Dr. Norm Melendrez Potassium [Moles/Vol] 4.2 mmol/L Normal 3.5-5.1 [facility] Comment on above: Performed By: #### C MP #### [facility] [address] [address] [address] Norm Melendrez Protein [Mass/Vol] 7.1 g/dL Normal 6.4-8.2 [facility] Comment on above: Performed By: #### C MP #### [facility] [address] [address] [address] Norm Melendrez Sodium [Moles/Vol] 140 mmol/L Normal 136-145 [facility] Comment on above: Performed By: #### C MP #### [facility] [address] [address] [address] Norm Melendrez Urea nitrogen [Mass/Vol] 14.0 mg/dL Normal 7.0-18.0 [facility] Comment on above: Performed By: #### C MP #### [facility] [address] [address] [address] Norm Melendrez Urea nitrogen/Creatinine [Mass ratio] 17.5 mg/mg Normal [facility] Comment on above: Performed By: #### C MP #### [facility] [address] [address] [address] Norm Melendrez SED RATE [facility] 2021 SED RATE 31 mm/hr Critically high <=30 [facility] Comment on above: Performed By: #### C MP #### [facility] [address] [place] [address] Dr. Norm Melendrez LINO Antinuclear Antibodieson 05-31-2021 Antinuclear Abs, IFA Negative Normal . [facility] Comment on above: Result Comment: Nega tive <1:80 Borderline 1:80 Positive >1:80 ICAP nomenclature: AC-0 For more information about Hep-2 cell patterns use ANApatterns.org, the official website for the International Consensus on Antinuclear Antibody (LINO) Patterns (ICAP). Performed at: - [facility] [id number] Carton Folder: Alin Negron PhD, Phone: [phone] PERFORMED BY: [facility] [place] [address] PATHOLOGIST STAFF ANTISUBMARINE OFFICER TYRONE HOOPER M.D. Performed By: #### T 4F, CRP, TSH3, URIC, CBC, ESR, CMP, CK #### [facility] [address] [place] [address] [place] #### LINO #### [facility] , Albumin [Mass/volume] in Ser um or PlasmaOrdered By: Alphonse Mcneal on 05-31-2021 Albumin [Mass/Vol] 3.5 g/dL 3.2-5.5 [facility] Aldolaseon 05-31-2021 Aldolase 2.6 U/L Low 3.3-10.[address] [facility] Comment on above: Result Comment: Perf ormed at: CB - [facility] [address] [id number] Carton Folder: Alin Negron PhD, Phone: [phone] PERFORMED BY: [place] [address] PATHOLOGIST STAFF ANTISUBMARINE OFFICER TYRONE HOOPER M.D. Performed By: #### T 4F, CRP, TSH3, URIC, CBC, ESR, CMP, CK #### [facility] [address] [place] [address] #### LINO #### [facility] , Basophils Auto (Bld) [#/Vol] Ordered By: Alphonse Mcneal on 05-31-2021 Basophils (Bld) [#/Vol] 0.1 10*3/uL 0.0-0.[address] [facility] Basophils/100 WBC Auto (Bld) Ordered By: Alphonse Mcneal on 05-31-2021 Basophils/100 WBC (Bld) 1.1 % F [facility] Blood hemoglobin measurement (mass/volume)Ordered By: Alphonse Mcneal on 05-31-2021 Hemoglobin (Bld) [Mass/Vol] 13.7 g/dL 11.8-15.[address] [facility] Blood leukocytes automated c ount (number/volume)Ordered By: Alphonse Mcneal on 05-31-2021 WBC (Bld) [#/Vol] 7.9 10*3/uL 4.5-11.0 [facility] C-Reactive Proteinon 022 C-Reactive Protein 1.4 mg/dL High 0.0-1.0 [facility] Comment on above: Performed By: #### T 4F, CRP, TSH3, URIC, CBC, ESR, CMP, CK #### [place] [address] [place] #### LINO #### [facility] , Complete Blood Count Auto Di ffon 05-31-2021 Basophils (Bld) [#/Vol] 0.1 10*3/uL Normal 0.0-0.[address] [facility] Comment on above: Performed By: #### T 4F, CRP, TSH3, URIC, CBC, ESR, CMP, CK #### [address] #### LINO #### [facility] , Basophils/100 WBC (Bld) 1.1 % Normal . [facility] Comment on above: Performed By: #### T 4F, CRP, TSH3, URIC, CBC, ESR, CMP, CK #### [address] #### LINO #### [facility] , Eosinophils (Bld) [#/Vol] 0.6 10*3/uL High 0.0-0.[address] [facility] Comment on above: Performed By: #### T 4F, CRP, TSH3, URIC, CBC, ESR, CMP, CK #### [place] [address] [place] #### LINO #### [facility] , Eosinophils/100 WBC (Bld) 7.9 % Normal . [facility] Comment on above: Performed By: #### T 4F, CRP, TSH3, URIC, CBC, ESR, CMP, CK #### [address] #### LINO #### [facility] , Erythrocyte distribution width (RBC) [Ratio] 16.0 % High 11.9-15.[address] [facility] Comment on above: Performed By: #### T 4F, CRP, TSH3, URIC, CBC, ESR, CMP, CK #### [facility] [address] [place] [address] #### LINO #### [facility] , Hematocrit (Bld) [Volume fraction] 42.1 % Normal 34.0-46.[address] [facility] Comment on above: Performed By: #### T 4F, CRP, TSH3, URIC, CBC, ESR, CMP, CK #### [address] #### LINO #### [facility] , Hemoglobin (Bld) [Mass/Vol] 13.7 g/dL Normal 11.8-15.[address] [facility] Comment on above: Performed By: #### T 4F, CRP, TSH3, URIC, CBC, ESR, CMP, CK #### [address] #### LINO #### [facility] , Lymphocytes (Bld) [#/Vol] 1.1 10*3/uL Normal 1.00-4.[address] [facility] Comment on above: Performed By: #### T 4F, CRP, TSH3, URIC, CBC, ESR, CMP, CK #### [address] #### LINO #### [facility] , Lymphocytes/100 WBC (Bld) 14.3 % Normal . [facility] Comment on above: Performed By: #### T 4F, CRP, TSH3, URIC, CBC, ESR, CMP, CK #### [place] [address] [place] #### LINO #### [facility] , MCH (RBC) [Entitic mass] 25.7 pg Normal 24.7-34.[address] [facility] Comment on above: Performed By: #### T 4F, CRP, TSH3, URIC, CBC, ESR, CMP, CK #### [facility] [address] [place] [address] #### LINO #### [facility] , MCV (RBC) [Entitic vol] 79.2 fL Low 80-100 F [facility] Comment on above: Performed By: #### T 4F, CRP, TSH3, URIC, CBC, ESR, CMP, CK #### [facility] [address] [place] [address] [place] #### LINO #### [facility] , Mean Corpuscular HGB Conc 32.4 g/dL Normal 32.0-35.[address] [facility] Comment on above: Performed By: #### T 4F, CRP, TSH3, URIC, CBC, ESR, CMP, CK #### [address] #### LINO #### [facility] , Monocytes (Bld) [#/Vol] 0.5 10*3/uL Normal 0.0-0.[address] [facility] Comment on above: Performed By: #### T 4F, CRP, TSH3, URIC, CBC, ESR, CMP, CK #### [facility] [address] [place] [address] #### LINO #### [facility] , Monocytes/100 WBC (Bld) 6.2 % Normal . [facility] Comment on above: Performed By: #### T 4F, CRP, TSH3, URIC, CBC, ESR, CMP, CK #### [place] [address] [place] #### LINO #### [facility] , Neutrophils (Bld) [#/Vol] 5.6 10*3/uL Normal 1.8-7.[address] [facility] Comment on above: Performed By: #### T 4F, CRP, TSH3, URIC, CBC, ESR, CMP, CK #### [place] [address] [place] #### LINO #### [facility] , Neutrophils/100 WBC (Bld) 70.5 % Normal . [facility] Comment on above: Performed By: #### T 4F, CRP, TSH3, URIC, CBC, ESR, CMP, CK #### [facility] [address] [place] [address] #### LINO #### [facility] , Nucleated RBC/100 WBC (Bld) [Ratio] 0.1 % Normal 0-0.[address] [facility] Comment on above: Performed By: #### T 4F, CRP, TSH3, URIC, CBC, ESR, CMP, CK #### [address] #### LINO #### [facility] , Platelet mean volume (Bld) [Entitic vol] 7.6 fL Normal 6.3-10.[address] [facility] Comment on above: Performed By: #### T 4F, CRP, TSH3, URIC, CBC, ESR, CMP, CK #### [address] #### LINO #### [facility] , Platelets (Bld) [#/Vol] 283 10*3/uL Normal 150-[address] [facility] Comment on above: Performed By: #### T 4F, CRP, TSH3, URIC, CBC, ESR, CMP, CK #### [facility] [address] [place] [address] [place] #### LINO #### [facility] , RBC (Bld) [#/Vol] 5.32 10*6/uL High 3.60-5.00 [facility] Comment on above: Performed By: #### T 4F, CRP, TSH3, URIC, CBC, ESR, CMP, CK #### [place] [address] [place] #### LINO #### [facility] , WBC (Bld) [#/Vol] 7.9 10*3/uL Normal 4.5-11.0 [facility] Comment on above: Performed By: #### T 4F, CRP, TSH3, URIC, CBC, ESR, CMP, CK #### [facility] [address] [place] [address] #### LINO #### [facility] , Comprehensive Metabolic Pane bianca 05-31-2021 Albumin [Mass/Vol] 3.5 g/dL Normal 3.2-5.5 [facility] Comment on above: Performed By: #### T 4F, CRP, TSH3, URIC, CBC, ESR, CMP, CK #### [address] #### LINO #### [facility] , Albumin/Globulin [Mass ratio] 1.1 {ratio} Normal [facility] Comment on above: Performed By: #### T 4F, CRP, TSH3, URIC, CBC, ESR, CMP, CK #### [address] #### LINO #### [facility] , ALP [Catalytic activity/Vol] 92 U/L Normal 32-[address] [facility] Comment on above: Performed By: #### T 4F, CRP, TSH3, URIC, CBC, ESR, CMP, CK #### [address] #### LINO #### [facility] , ALT [Catalytic activity/Vol] 22 U/L Normal 10-[address] [facility] Comment on above: Performed By: #### T 4F, CRP, TSH3, URIC, CBC, ESR, CMP, CK #### [facility] [address] [place] [address] [place] #### LINO #### [facility] , AST [Catalytic activity/Vol] 19 U/L Normal 10-[address] [facility] Comment on above: Performed By: #### T 4F, CRP, TSH3, URIC, CBC, ESR, CMP, CK #### [facility] [address] [place] [address] [place] #### LINO #### [facility] , Bilirubin [Mass/Vol] 0.3 mg/dL Normal 0.3-1.2 [facility] Comment on above: Performed By: #### T 4F, CRP, TSH3, URIC, CBC, ESR, CMP, CK #### [facility] [address] [place] [address] [place] #### LINO #### [facility] , Calcium [Mass/Vol] 9.1 mg/dL Normal 8.2-10.2 [facility] Comment on above: Performed By: #### T 4F, CRP, TSH3, URIC, CBC, ESR, CMP, CK #### [facility] [address] [place] [address] [place] #### LINO #### [facility] , Chloride [Moles/Vol] 104 mmol/L Normal 95-114 [facility] Comment on above: Performed By: #### T 4F, CRP, TSH3, URIC, CBC, ESR, CMP, CK #### [facility] [address] [place] [address] [place] #### LINO #### [facility] , CO2 [Moles/Vol] 25.8 mmol/L Normal 22.0-30.[address] [facility] Comment on above: Performed By: #### T 4F, CRP, TSH3, URIC, CBC, ESR, CMP, CK #### [facility] [address] [place] [address] [place] #### LINO #### [facility] , Creatinine [Mass/Vol] 0.69 mg/dL Normal 0.44-1.03 [facility] Comment on above: Performed By: #### T 4F, CRP, TSH3, URIC, CBC, ESR, CMP, CK #### [facility] [address] [place] [address] [place] #### LINO #### [facility] , Estimated GFR ( Kaylee > [address] [facility] Comment on above: Result Comment: GFR estimated reference range: According to KDOQI guidelines, <60 ml/min/1.73m2 is sufficient to diagnose a patient with chronic kidney disease. Performed By: #### T 4F, CRP, TSH3, URIC, CBC, ESR, CMP, CK #### [facility] [address] [place] [address] [place] #### LINO #### [facility] , Estimated GFR (Non- Am > 60 [facility] Comment on above: Performed By: #### T 4F, CRP, TSH3, URIC, CBC, ESR, CMP, CK #### [facility] [address] [place] [address] [place] #### LINO #### [facility] , Globulin (S) [Mass/Vol] 3.2 g/dL Normal [facility] Comment on above: Performed By: #### T 4F, CRP, TSH3, URIC, CBC, ESR, CMP, CK #### [place] [address] [place] #### LINO #### [facility] , Glucose [Mass/Vol] 91 mg/dL Normal 70-100 [facility] Comment on above: Result Comment: [place] Glucose Reference Range is dependent on time and content of last meal. Glucose of more than 200 mg/dL in a nonstressed, ambulatory subject supports the diagnosis of Diabetes Mellitus. ADA recommended reference range Performed By: #### T 4F, CRP, TSH3, URIC, CBC, ESR, CMP, CK #### [place] [address] [place] #### LINO #### [facility] , Potassium [Moles/Vol] 4.4 mmol/L Normal 3.5-5.1 [facility] Comment on above: Performed By: #### T 4F, CRP, TSH3, URIC, CBC, ESR, CMP, CK #### [place] [address] [place] #### LINO #### [facility] , Protein [Mass/Vol] 6.7 g/dL Normal 6.1-7.9 [facility] Comment on above: Performed By: #### T 4F, CRP, TSH3, URIC, CBC, ESR, CMP, CK #### [facility] [address] [place] [address] #### LINO #### [facility] , Sodium [Moles/Vol] 138 mmol/L Normal 136-146 [facility] Comment on above: Performed By: #### T 4F, CRP, TSH3, URIC, CBC, ESR, CMP, CK #### [facility] [address] [place] [address] #### LINO #### [facility] , Urea nitrogen [Mass/Vol] 20 mg/dL Normal 9-[address] [facility] Comment on above: Performed By: #### T 4F, CRP, TSH3, URIC, CBC, ESR, CMP, CK #### [facility] [address] [place] [address] #### LINO #### [facility] , Creatine Kinaseon 05-31-2021 CK [Catalytic activity/Vol] 42 U/L Normal 22-[address] [facility] Comment on above: Result Comment: PERF ORMED BY: [place] [address] PATHOLOGIST STAFF ANTISUBMARINE OFFICER TYRONE HOOPER M.D. Performed By: #### T 4F, CRP, TSH3, URIC, CBC, ESR, CMP, CK #### [facility] [address] [place] [address] [place] #### LINO #### [facility] , Creatine kinase [Enzymatic a ctivity/volume] in Serum or PlasmaOrdered By: Alphonse Mcneal on 05-31-2021 CK [Catalytic activity/Vol] 42 U/L 22-[address] [facility] Creatinine and Glomerular fi ltration rate.predicted panel (S/P/Bld)Ordered By: Alphonse Mcneal on 05-31-2021 Creatinine [Mass/Vol] 0.69 mg/dL 0.44-1.03 [facility] Eosinophils Auto (Bld) [#/Vo l]Ordered By: Alphonse Mcneal on 05-31-2021 Eosinophils (Bld) [#/Vol] 0.6 10*3/uL 0.0-0.[address] [facility] Eosinophils/100 WBC Auto (Bl d)Ordered By: Alphonse Mcneal on 05-31-2021 Eosinophils/100 WBC (Bld) 7.9 % [facility] Erythrocyte Sedimentation Ra lakshmi 05-31-2021 ESR (Bld) [Velocity] 53 mm/h High [facility] Comment on above: Result Comment: PERF ORMED BY: [place] [address] PATHOLOGIST STAFF ANTISUBMARINE OFFICER TYRONE HOOPER M.D. Performed By: #### T 4F, CRP, TSH3, URIC, CBC, ESR, CMP, CK #### [facility] [address] [place] [address] #### LINO #### [facility] , Erythrocyte distribution wid th Auto (RBC) [Ratio]Ordered By: Alphonse Mcneal on 05-31-2021 Erythrocyte distribution width (RBC) [Ratio] 16.0 % 11.9-15.[address] [facility] Erythrocyte sedimentation ra te by Photometric methodOrdered By: Alphonse Mcneal on 05-31-2021 ESR Photometric method (Bld) [Velocity] 53 mm/hr [facility] Estimated glomerular filtrat ion rate (GFR) non- AmericanOrdered By: Alphonse Mcneal on 05-31-2021 GFR/1.73 sq M.predicted among non-blacks MDRD (S/P/Bld) [Vol rate/Area] > 60 mL/Min [facility] Free T4 (Free Thyroxine)on 0 05-31-2021 Free T4 [Mass/Vol] 1.02 ng/dL Normal 0.61-1.12 [facility] Comment on above: Performed By: #### T 4F, CRP, TSH3, URIC, CBC, ESR, CMP, CK #### [facility] [address] #### LINO #### [facility] , Globulin Calc (S) [Mass/Vol] Ordered By: Alphonse Mcneal on 05-31-2021 Globulin (S) [Mass/Vol] 3.2 g/dL F [facility] Hematocrit Auto (Bld) [Volum e fraction]Ordered By: Alphonse Mcneal on 05-31-2021 Hematocrit (Bld) [Volume fraction] 42.1 % 34.0-46.[address] [facility] Laboratory - Hematology and Cell countsOrdered By: Alphonse Mcneal on 05-31-2021 Nucleated RBC/100 WBC (Bld) [Ratio] 0.1 % 0-0.[address] [facility] Lymphocytes Auto (Bld) [#/Vo l]Ordered By: Alphonse Mcneal on 05-31-2021 Lymphocytes (Bld) [#/Vol] 1.1 10*3/uL 1.00-4.[address] [facility] Lymphocytes/100 WBC Auto (Bl d)Ordered By: Alphonse Mcneal on 05-31-2021 Lymphocytes/100 WBC (Bld) 14.3 % [facility] MCH Auto (RBC) [Entitic mass ]Ordered By: Alphonse Mcneal on 05-31-2021 MCH (RBC) [Entitic mass] 25.7 pg 24.7-34.[address] [facility] MCHC Auto (RBC) [Mass/Vol]Or dered By: Alphonse Mcneal on 05-31-2021 MCHC (RBC) [Mass/Vol] 32.4 g/dL 32.0-35.0 [facility] MCV Auto (RBC) [Entitic vol] Ordered By: Alphonse Mcneal on 05-31-2021 MCV (RBC) [Entitic vol] 79.2 fL 80-100 F [facility] Monocytes Auto (Bld) [#/Vol] Ordered By: Alphonse Mcneal on 05-31-2021 Monocytes (Bld) [#/Vol] 0.5 10*3/uL 0.0-0.[address] [facility] Monocytes/100 WBC Auto (Bld) Ordered By: Alphonse Mcneal on 05-31-2021 Monocytes/100 WBC (Bld) 6.2 % F [facility] Neutrophils Auto (Bld) [#/Vo l]Ordered By: Alphonse Mcneal on 05-31-2021 Neutrophils (Bld) [#/Vol] 5.6 10*3/uL 1.8-7.[address] [facility] Neutrophils/100 WBC Auto (Bl d)Ordered By: Alphonse Mcneal on 05-31-2021 Neutrophils/100 WBC (Bld) 70.5 % [facility] No Panel InformationOrdered By: Alphonse Mcneal on 05-31-2021 Estimated GFR () > 60 mL/Min [facility] Comment on above: GFR estimated refere nce range: According to KDOQI guidelines, <60 ml/min/1.73m2 is sufficient to diagnose a patient with chronic kidney disease. Pharmacy Creatinine Clearance (Chem N/A [facility] Platelet mean volume Auto (B ld) [Entitic vol]Ordered By: Alphonse Mcneal on 05-31-2021 Platelet mean volume (Bld) [Entitic vol] 7.6 fL 6.3-10.[address] [facility] Platelets Auto (Bld) [#/Vol] Ordered By: Alphonse Mcneal on 05-31-2021 Platelets (Bld) [#/Vol] 283 10*3/uL 150-[address] [facility] Protein [Mass/volume] in Ser um or PlasmaOrdered By: Alphonse Mcneal on 05-31-2021 Protein [Mass/Vol] 6.7 g/dL 6.1-7.9 [facility] RBC Auto (Bld) [#/Vol]Ordere d By: Alphonse Mcneal on 05-31-2021 RBC (Bld) [#/Vol] 5.32 10*6/uL 3.60-5.00 [facility] Serum or plasma C reactive p rotein measurement (mass/volume)Ordered By: Alphonse Mcneal on 05-31-2021 CRP [Mass/Vol] 1.4 mg/dL 0.0-1.[address] [facility] Serum or plasma alanine kwan otransferase measurement without P-5'-P (enzymatic activiOrdered By: Alphonse Mcneal on 05-31-2021 ALT No additional P-5'-P [Catalytic activity/Vol] 22 U/L 10-[address] [facility] Serum or plasma albumin/glob ulin mass ratioOrdered By: Alphonse Mcneal on 05-31-2021 Albumin/Globulin [Mass ratio] 1.1 {ratio} [facility] Serum or plasma alkaline lisa sphatase measurement (enzymatic activity/volume)Ordered By: Alphonse Mcneal on 05-31-2021 ALP [Catalytic activity/Vol] 92 U/L 32-[address] [facility] Serum or plasma aspartate am inotransferase measurement (enzymatic activity/volume)Ordered By: Alphonse Mcneal on 05-31-2021 AST [Catalytic activity/Vol] 19 U/L 10-[address] [facility] Serum or plasma calcium sharad urement (mass/volume)Ordered By: Alphonse Mcneal on 05-31-2021 Calcium [Mass/Vol] 9.1 mg/dL 8.2-10.2 [facility] Serum or plasma chloride sonya surement (moles/volume)Ordered By: Alphonse Mcneal on 05-31-2021 Chloride [Moles/Vol] 104 mmol/L 95-114 [facility] Serum or plasma glucose sharad urement (mass/volume)Ordered By: Alphonse Mcnela on 05-31-2021 Glucose [Mass/Vol] 91 mg/dL 70-100 [facility] Comment on above: ADA recommended refe rence rangeRandom Glucose Reference Range is dependent on time and content of last meal. Glucose of more than 200 mg/dL in a nonstressed, ambulatory subject supports the diagnosis of Diabetes Mellitus. Serum or plasma potassium me asurement (moles/volume)Ordered By: Aplhonse Mcneal on 05-31-2021 Potassium [Moles/Vol] 4.4 mmol/L 3.5-5.1 [facility] Serum or plasma sodium measu rement (moles/volume)Ordered By: Alphonse Mcneal on 05-31-2021 Sodium [Moles/Vol] 138 mmol/L 136-146 [facility] Serum or plasma total biliru bin measurement (mass/volume)Ordered By: Alphonse Grijalvarow on 05-31-2021 Bilirubin [Mass/Vol] 0.3 mg/dL 0.3-1.2 [facility] Serum or plasma total carbon dioxide measurement (moles/volume)Ordered By: Alphonse Grijalvarow on 05-31-2021 CO2 [Moles/Vol] 25.8 mmol/L 22.0-30.[address] [facility] Serum or plasma urea nitroge n measurement (mass/volume)Ordered By: Alphonse Grijalvarow on 05-31-2021 Urea nitrogen [Mass/Vol] 20 mg/dL [address] [facility] Serum or plasma uric acid me asurement (mass/volume)Ordered By: Alphonse Elizabet on 05-31-2021 Urate [Mass/Vol] 4.6 mg/dL 2.6-7.[address] [facility] TSH DL <= 0.005 mIU/L QnOrde red By: Alphonsebella Mcneal on 05-31-2021 TSH Qn 1.44 m[IU]/L 0.45-5.[address] [facility] Thyroid Stimulating Hormoneo n 05-31-2021 TSH Qn 1.44 m[IU]/L Normal 0.45-5.[address] [facility] Comment on above: Result Comment: PERF ORMED BY: [place] [address] PATHOLOGIST STAFF ANTISUBMARINE OFFICER TYRONE HOOPER M.D. Performed By: #### T 4F, CRP, TSH3, URIC, CBC, ESR, CMP, CK #### [facility] [address] [place] [address] #### LINO #### [facility] , Thyroxine (T4) free [Mass/vo lume] in Serum or PlasmaOrdered By: Alphonse Grijalvarow on 05-31-2021 Free T4 [Mass/Vol] 1.02 ng/dL 0.61-1.12 [facility] Uric Acidon 05-31-2021 Urate [Mass/Vol] 4.6 mg/dL Normal 2.6-7.[address] [facility] Comment on above: Performed By: #### T 4F, CRP, TSH3, URIC, CBC, ESR, CMP, CK #### [facility] [address] [place] [address] [place] #### LINO #### [facility] , XR hand BI 2Von 05-31-2021 XR hand BI 2V [facility] [address] [place] [address] XRay Report Signed Patient: Cayetano Weeks MR#: [id number] : 1950 Acct:[id number] Age/Sex: 70 / F ADM Date: 05/31/21 Loc: ICXD Room: Type: [facility] Attending Dr: Gonzalez Mcneal MD Ordering Provider: Alphonse Mcneal MD Date of Service: 05/31/21 XR/XR hand BI 2V: POLYARTHRITIS,MEDS ([id number]) XR/XR wrist BI 2V: POLYARTHRITIS,MEDS ([id number]) XR/XR ankle BI 2V: POLYARTHRITIS,MEDS ([id number]) XR/XR chest 2V*: POLYARTHRITIS,MEDS Copies to: Alphonse [...] Fenton Jr., M.D.05/31/2021 2:44 PM Dictation Location: [place] [address] Transcribed By: [facility] 05/31/21 1444 Dictated By: Fox Fenton Jr, MD 05/31/21 1433 Signed By: 05/31/21 1444 [facility] OR Nursingon 06-11-2020 OR Nursing [facility] OR Nursing Record Summary Primary Physician: Chato Stafford MD Finalized Date/Time: 06/11/20 12:29:23 Pt. Name: CAYETANO WEEKS/Sex: 1950 Female Med Rec #: [id number] Physician: Financial #: [id number] Pt. Type: A Room/Bed: / Admit/Disch: 06/10/20 05:45:00 - 06/10/20 10:06:00 Institution: [facility] OR Case Times Entry 1 Patient Times Patient In Room 06/10/20 07:27:00 Patient Out Room 06/10/20 08:15:00 Surgical Times Start Time 06/10/20 07:53:00 Stop Time 06/10/20 08:08:00 Last Modified By: Dwight BERNARD , Dottie Quick 06/10/20 08:18:57 General Comments: IN ROOM TIME OUT AND BED CHECK COMPLETED [facility] OR Case Attendees Entry 1 Entry 2 Entry 3 Case Attendee Rivera CHURCHILL , Chato Freire MD , Tristin Baeza Role Performed Primary Surgeon Anesthesiologist Software Release Engineer Time In 06/10/20 07:27:00 06/10/20 07:27:00 06/10/20 07:27:00 Time Out 06/10/20 08:15:00 06/10/20 08:15:00 06/10/20 08:15:00 Procedure D and C Hysteroscopy(N/A) D and C Hysteroscopy(N/A) D and C Hysteroscopy(N/A) Attendee Comment Relief Reason Last Modified By: Dottie Quintanilla RN, RN , Dottie Quintanilla RN , Dottie Quick 06/10/20 08:20:42 06/10/20 08:20:42 06/10/20 08:20:42 Entry 4 Entry 5 Entry 6 Case Attendee Dottie Quintanilla RN, Sarkees Thomas, Meagen B Role Performed soaking pit operator First Scrub Assistive Personnel Time In 06/10/20 07:27:00 06/10/20 07:27:00 06/10/20 07:27:00 Time Out 06/10/20 08:15:00 06/10/20 08:15:00 06/10/20 08:15:00 Procedure D and C Hysteroscopy(N/A) D and C Hysteroscopy(N/A) D and C Hysteroscopy(N/A) Attendee Comment Relief Reason Last Modified By: Dottie Quintanilla RN, RN , Dottie Quintanilla RN , Dottie Quick 06/10/20 08:20:42 06/10/20 08:20:42 06/10/20 08:20:42 Entry 7 Case Attendee Nayeli Sosa MD Role Performed Resident Time In 06/10/20 07:27:00 Time Out 06/10/20 08:15:00 Procedure D and C Hysteroscopy(N/A) Attendee Comment Relief Reason Last Modified By: Dottie Quintanilla RN 06/10/20 08:20:42 [facility] OR General Case Weasand Trimmer 1 OR [facility] 12 ASA Class 2 Case Wound Class Clean Contaminated Specialty Gynecology Surgery Case Level Seater Grinder Major Diagnosis Preop Diagnosis N95.0 N85.00 N84 Postop Same As Preop Yes POSTMENOPAUSAL BLEEDING THICKENED ENDOMETRIUM ENDOMETRIAL POLYP Postop Diagnosis N95.0 N85.00 N84 POSTMENOPAUSAL BLEEDING THICKENED ENDOMETRIUM ENDOMETRIAL POLYP This is a down time No record. 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 [facility] OR Surgical Procedures Entry 1 Procedure D and C Hysteroscopy Primary Procedure Yes Modifiers N/A Procedure Wound Clean Contaminated Class Primary Surgeon Chato Stafford MD Surgical Service Gynecology Surgery Anesthesia [...] Yes Safety Strap Abdomen Location Positioned By Chato Stafford MD, Procedure D and C Hysteroscopy(N/A) Tristin Hurley Stiles MD [facility] Last Modified By: Dottie Quintanilla RN 06/10/20 08:20:02 [facility] OR Antithrombolytic Devices Entry 1 IPC Intermittent Right, Left IPC Size Knee Pneumatic Compression Unit ID Number [id number] JOSE DANIEL Hose Foot Pump Last Modified [...] - mi (more content not included)... Normal [facility] Glucose POCT (Uploaded)on Glucose [Mass/Vol] 127 mg/dL High 70-99 [facility] Comment on above: Result Comment: Suzanne tment ranges and critical values established by Patient Care Services. All follow-up actions were taken by Patient Care Services. Performed By: #### 2 430-8 #### [facility] PACU I Nursingon 06-10-2020 PACU I Nursing [facility] PACU I Nursing Record Summary Primary Physician: Chato Stafford MD Finalized Date/Time: 06/10/20 09:20:44 Pt. Name: PATRICIA WEEKSBelinda Carrillo/Sex: 1950 Female Med Rec #: [id number] Physician: Financial #: [id number] Pt. Type: A Room/Bed: / Admit/Disch: 06/10/20 [...] By: Willow Rain RN 06/10/20 09:20 Normal [facility] Patient Summaryon 06-10-2020 Patient Summary PATIENT DISCHARGE INSTRUCTIONS If you are having an emergency and are not able to reach your physician, CALL 911 or go to the nearest emergency room and take this document with you. [facility] 06/10/20 08:38 [address] [place] [address] PATIENT INFORMATION Name: CAYETANO WEEKS Address: [address] [place] [id number] Age: 69 Years Phone: [phone] : 1950 12:00 MRN: ([id number] Sex: Female Race: White Ethnicity: Not Hispan/Lat Admitted From: Clinic or [facility] Medical Service: Obstetric Nurse Unit/Bed: ([place]) [facility] N/A Admit Date: 06/10/2020 05:45 PCP: Physician, PCP Unknown PHYSICIANS INVOLVED WITH CARE -------- Attending Physicians: Rivera CHURCHILL , Chato Henriquez Obstetrics, Gynecology Admitting Physician: None found Primary Care Physician:Physician, PCP Unknown,Family Practice,,, - Consults: None found YOU WERE TREATED IN THE HOSPITAL FOR: Endometrial polyp; Postmenopausal vaginal bleeding FOLLOW-UP APPOINTMENTS: Provider: Specialty: Address: Date: Chato Stafford MD Gynecology; Obstetrics [address] [place] [phone] (1) Two Weeks Provider: Specialty: Address: [...] doses are changed, or new medications (including [id number] products) are added. Ask your doctor if [...] those changes are shown below: NEW MEDICATIONS [facility]/pharmacy #[id number], [address] [place], [place] [id number], [phone] ibuprofen (ibuprofen 600 mg oral tablet) 1 [...] Decisions Type: Living Will, Medical Power of Hat Blocking Operator Copy of Advance Directive/Health Care Decisions on Chart: Patient/Family asked to provide copy SUICIDE HOTLINE: Your mental and emotional well-being are important. If you are in a mental health crisis, or having thoughts of suicide, please call the nationwide suicide hotline, anytime day or night, at 5-136-950-CZBX. It's easy to sign up for [employer]: 1. Visit [facility] /[employer] 2. Click on [place] for [employer] 3. Verify your identity by entering your [...] your account, you'll be redirected to the [employer] login page. Login and check to see your results Questions? For help with account enrollment, call [employer] Customer Support at [phone] (toll-free) PATIENT EDUCATI (more content not included)... Normal [facility] Post PACU Nursingon 06-11-19 21 Post PACU Nursing [facility] PACU II Nursing Record Summary Primary Physician: Chato Stafford MD Finalized Date/Time: 06/10/20 09:40:04 Pt. Name: CAYETANO WEEKS/Sex: 1950 Female Med Rec #: [id number] Physician: Financial #: [id number] Pt. Type: A Room/Bed: / Admit/Disch: 06/10/20 05:45:00 - Institution: [facility] OR PACU II Case Times Entry 1 In PACU II 04/21/21 09:15:00 Ready for PACU II 06/10/20 09:34:00 Discharge Discharge from PACU 06/10/20 09:35:00 II Last Modified By: Juliane Mcduffie RN 06/10/20 09:37:42 [facility] OR PACU II Case Attendees Entry 1 Case Attendee Juliane Mcduffie RN Role Performed RN Last Modified By: Juliane Mcduffie RN 06/10/20 09:37:54 Finalized By: Juliane Mcduffie RN Document Signatures Signed By: Juliane Mcduffie RN 06/10/20 09:40 Normal [facility] PreOp Nursingon 06-10-2020 PreOp Nursing [facility] PreOp Nursing Record Summary Primary Physician: Chato Stafford MD Finalized Date/Time: 06/10/20 07:30:51 Pt. Name: CAYETANO WEEKS/Sex: 1950 Female Med Rec #: [id number] Physician: Financial #: [id number] Pt. Type: A Room/Bed: / Admit/Disch: 06/10/20 [...] By: Dottie Quintanilla RN 06/10/20 07:30 Normal [facility] Surgical Pathology Final Rep [facility] 06-10-2020 Pathology study CAYETANO WEEKS [id number] YRS F [id number] RM/BD SD93 01 ORDERING PHYSICIAN: CHATO STAFFORD 288 RESULT TRANSMITTED: 06/11/20 1505 S [...] was performed at [facility], [address] [place] [address]. Microscopic examination was performed. Case resulted at [facility]. DIAGNOSIS: (A) Endometrial polyp, polypectomy: -- BENIGN ENDOMETRIAL POLYP. -- NEGATIVE FOR ATYPICAL HYPERPLASIA AND MALIGNANCY. (B) Endometrium, curettage: -- FRAGMENTS OF ENDOMETRIAL POLYP AND FOCAL SIMPLE ENDOMETRIAL HYPERPLASIA WITHOUT ATYPIA/BENIGN HYPERPLASIA. -- NEGATIVE FOR ATYPICAL HYPERPLASIA AND MALIGNANCY. JH2:JH2:[id number] END OF REPORT END OF REPORT Normal [facility] Coronavirus (COVID-19/SARS-C oV-2) [facility] 06-08-2020 Device Identifier Sundance Fusion SARS-CoV-2 assay_[place]. EUA Normal [facility] Comment on above: Performed By: #### 9 4532-9x6 #### 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 [address] [place] [address] First test Y Normal [facility] Comment on above: Performed By: #### 9 4532-9x6 #### [facility] [address] [place] [address] ICU N [facility] Comment on above: Performed By: #### 9 4532-9x6 #### [facility] [address] [place] [address] Illness or injury onset date and time N [facility] Comment on above: Performed By: #### 9 4532-9x6 #### [facility] [address] [place] [address] Patient was hospitalized because of this condition N [facility] Comment on above: Performed By: #### 9 4532-9x6 #### [facility] [address] [place] [address] status N [facility] Comment on above: Performed By: #### 9 4532-9x6 #### [facility] [address] [place] [address] Resides in congregate care setting N [facility] Comment on above: Performed By: #### 9 4532-9x6 #### [facility] [address] [place], [place] [id number] SARS-CoV-2 (COVID-19) RNA CLEMENTINE+probe Ql (Resp) Not detected [facility] Comment on above: Result Comment: This test was performed via the Aptima SARS-CoV-2 Assay (Education Everytime), a Nucleic Acid Amplification Test (NAAT), and has been authorized by the FDA under an Emergency Use Authorization (EUA). The assay is validated for nasopharyngeal (ASSEMBLY MACHINE FEEDER), nasal, and oropharyngeal (OP) swab specimens. The [...] www.cdc.gov/coronavirus. Performed By: #### 9 4532-9x6 #### [facility] [address] [place] [address] Symptomatic as defined by CDC N Normal [facility] Comment on above: Performed By: #### 9 4532-9x6 #### [facility] [address] [place] [address] Basic metabolic 2000 panelon 05-27-2020 Anion gap [Moles/Vol] 6.0 mmol/L Normal 6.0-18.0 [facility] Comment on above: Performed By: #### 2 4321-2, 58881-0, 02740-2x4 ####[facility], [address], [place]. Calcium [Mass/Vol] 9.0 mg/dL Normal 8.9-10.3 [facility] Comment on above: Performed By: #### 2 4321-2, 51224-2, 50852-4i5 ####[facility], [address], [place]. Chloride [Moles/Vol] 105 mmol/L Normal 98-107 [facility] Comment on above: Performed By: #### 2 4321-2, 01624-3, 09415-3u5 ####[facility], [address], [place]. CO2 [Moles/Vol] 27 mmol/L Normal 22-32 [facility] Comment on above: Performed By: #### 2 4321-2, 51856-9, 84361-2o4 ####[facility], [address], [place]. Creatinine [Mass/Vol] 0.74 mg/dL Normal 0.66-1.30 [facility] Comment on above: Performed By: #### 2 4321-2, 66457-5, 53420-3s4 ####[facility], [address] [place], [place]. Glucose [Mass/Vol] 106 mg/dL High 70-99 [facility] Comment on above: Result Comment: U pdated ADA Reference Range A normal fasting glucose concentration is less than 100 mg/dL. An impaired fasting glucose concentration is 100-125 mg/dL. A provisional diagnosis of diabetes mellitus can be made when a fasting glucose concentration is greater than 125 mg/dL. Performed By: #### 2 4321-2, 19512-6, 37860-9k8 ####[facility], [address], [place]. Potassium [Moles/Vol] 3.9 mmol/L Normal 3.6-5.1 [facility] Comment on above: Performed By: #### 2 4321-2, 12010-1, 24798-7w0 ####[facility], [address], [place]. Sodium [Moles/Vol] 138 mmol/L Normal 136-145 [facility] Comment on above: Performed By: #### 2 4321-2, 24666-1, 79880-4v7 ####[facility], [address], [place]. Urea nitrogen (BldV) [Mass/Vol] 13 mg/dL Normal 8-20 [facility] Comment on above: Performed By: #### 2 4321-2, 79411-6, 18926-1j7 ####[facility], [address], [place]. GFR/1.73 sq M.predicted (S/P /Bld) [Vol rate/Area]on 05-27-2020 GFR/1.73 sq M.predicted among blacks MDRD (S/P/Bld) [Vol rate/Area] mL/min/{1.73_m2} Normal [facility] Comment on above: Result Comment: The MDRD equation has not been validated for those over 70 years, women, patients with serious co-morbid conditions, or with extremes of body size, muscle mass of nutritional status. Performed By: #### 2 4321-2, 88901-8, 20264-2b0 #### [facility], [address] [place], [place]. GFRbbon 05-27-2020 GFR/1.73 sq M.predicted among non-blacks MDRD (S/P/Bld) [Vol rate/Area] mL/min/{1.73_m2} Normal [facility] Comment on above: Performed By: #### 2 4321-2, 84683-0, 21204-2v6 #### [facility], [address] [place], [place]. Hemogram and platelets WO di fferential panel (Bld)on 05-27-2020 Erythrocyte distribution width (RBC) [Entitic vol] 14.6 % Normal 11.0-14.8 [facility] Comment on above: Performed By: #### 2 4317-0 #### [facility], [address] [place] [address]. Hematocrit (Bld) [Volume fraction] 46.5 % High 35.0-45.0 [facility] Comment on above: Performed By: #### 2 4317-0 #### [facility], [address] [place] [address]. Hemoglobin (Bld) [Mass/Vol] 15.4 g/dL Normal 12.0-16.0 [facility] Comment on above: Performed By: #### 2 4317-0 #### [facility], [facility] [place]. MCH (RBC) [Entitic mass] 27.4 Picograms Normal 27.0-34.0 [facility] Comment on above: Performed By: #### 2 4317-0 #### [facility], [address] [place]. MCHC (RBC) [Mass/Vol] 33.0 g/dL Normal 32.0-36.0 [facility] Comment on above: Performed By: #### 2 4317-0 #### [facility], [address], [place]. MCV (RBC) [Entitic vol] 82.9 fL Normal 80.0-97.0 M [facility] Comment on above: Performed By: #### 2 4317-0 #### [facility], [address]. Platelet mean volume (Bld) [Entitic vol] 7.5 fL Normal 6.2-12.1 [facility] Comment on above: Performed By: #### 2 4317-0 #### [facility], [address]. Platelets (Bld) [#/Vol] 218 thou/mcL Normal 142-424 [facility] Comment on above: Performed By: #### 2 4317-0 #### [facility], [address]. RBC (Bld) [#/Vol] 5.61 million/mcL High 3.80-5.10 [facility] Comment on above: Performed By: #### 2 4317-0 #### [facility], [address] [facility] [facility] [place]. WBC (Bld) [#/Vol] 7.5 thou/mcL Normal 4.6-10.2 [facility] Comment on above: Performed By: #### 2 4317-0 #### [facility], [address]. PT Coag (PPP) [Time]on 05-27 INR Coag (Bld) [Relative time] 1.08 {INR} Normal [facility] Comment on above: Result Comment: The recommended therapeutic INR range for most cardiac indications is 2.0-3.0. For high intensity therapy(ie.mechanical heart valves), the recommended range is 2.5-3.5. Performed By: #### 3 173-2, 5902-2 ####[facility], [address] [place], [place]. Prothrombin Timeon PT Coag (PPP) [Time] 14.3 s Normal 11.9-14.7 [facility] Comment on above: Performed By: #### 3 173-2, 5902-2 ####[facility], [address] [place], [place]. aPTT Coag (Bld) [Time]on aPTT Coag (PPP) [Time] 31.9 s Normal 23.3-35.[address] [facility] Comment on above: Performed By: #### 3 173-2, 5902-2 ####[facility], [address] [place], [place]. Vital Signs Date Time Vital Sign Value Performing Clinician Faci lity 04-05-2023 08:24-0500 Body height 154.9 cm Tyrell Bowens MD Work Phone: [facility] 04-05-2023 08:24-0500 Body mass index (BMI) [Ratio] 37.98 kg/m2 Tyrell Bowens MD Work Phone: [facility] 04-05-2023 08:24-0500 Body temperature 97.11 [degF] Tyrell Bowens MD Work Phone: [facility] 04-05-2023 08:24-0500 Body weight 91.17 kg Tyrell Bowens MD Work Phone: [facility] 04-05-2023 08:24-0500 Diastolic blood pressure 80 mm[Hg] Tyrell Bowens MD Work Phone: [facility] 04-05-2023 08:24-0500 Heart rate 86 /min Tyrell Bowens MD Work Phone: [facility] 04-05-2023 08:24-0500 SaO2% (BldA) [Mass fraction] 96 % Tyrell Bowens MD Work Phone: [facility] 04-05-2023 08:24-0500 Systolic blood pressure 130 mm[Hg] Tyrell Bowens MD Work Phone: [facility] Encounters Encounter Date Encounter Type Care Provider Facility Start: 11-27-2023 End: 11-27-2023 ambulatory TYRELL BOWENS [facility] Start: 10-30-2023 End: 10-30-2023 ambulatory ZACKARY GRAY Not Available Start: 10-04-2023 End: 10-04-2023 ambulatory TYRELL BOWENS Not Available Start: 10-02-2023 End: 10-02-2023 ambulatory ZACKARY GRAY Not Available Start: 08-02-2023 End: 08-02-2023 ambulatory JIMI H TIMMIS Not Available Start: 06-28-2023 End: 06-28-2023 ambulatory YASSINE THAPANER Not Available Start: 04-05-2023 [employer] flowsheet Tyrell Bowens MD Work Phone: [facility] Start: 04-05-2023 [facility] [employer] [facility] Tyrell Bowens MD Work Phone: [facility] Start: 04-05-2023 End: 04-05-2023 Office outpatient visit 25 minutes Tyrell Bowens MD Work Phone: [facility] Comment on above: Essential hypertensi on, benign (CMS/HCC) (Primary Dx); Rheumatoid arthritis involving both hands with positive rheumatoid factor (CMS/HCC); Intrinsic eczema; Seasonal allergic rhinitis due to pollen; Dyslipidemia (CMS/HCC); Encounter for long-term (current) use of medications; Prediabetes; Obesity (BMI 30-39.9) Start: 04-05-2023 End: 04-05-2023 ambulatory TYRELL BOWENS Not Available Start: 01-04-2023 End: 01-04-2023 ambulatory JIMI H TIMMIS Not Available Start: 10-04-2022 End: 10-04-2022 ambulatory TYRELL BOWENS Facility:[facility] Start: 10-04-2022 End: 10-04-2022 Subsequent hospital visit by physician Arrival Time Radiology Work Phone: [facility]iology [facility] Start: 06-30-2022 End: 07-01-[address] DOCTOR GREEN Facility:[facility] Start: 03-31-2022 End: 04-01-[address] DOCTOR GREEN Facility:[facility] Start: 11-23-2021 End: 12-20-[address] ALPHONSE MCNEAL Facility:[facility] Start: 09-13-2021 End: 09-17-[address] ALPHONSE MCNEAL Facility:[facility] Start: 05-31-2021 End: 05-31-2021 Patient encounter procedure MD Gonzalez Mcneal Work Phone: [facility] [address] Procedures Date Procedure Procedure Detail Performing Clinician Start: 10-04-[address] atten uation skull base mid-thigh [facility] Provider Start: 10-04-2022 Gluc bld gluc mntr d ev cleared fda spec home use [facility] Provider Start: 05-31-2021 Plain X-ray of bilat eral wrists MD Gonzalez Mcneal Work Phone: Start: 05-31-2021 X-ray of both ankles MD Gonzalez Mcneal Work Phone: Start: 05-31-2021 Plain chest X-ray MD Kalli Mcneal Work Phone: Start: 05-31-2021 Plain X-ray of bilat eral hands MD Gonzalez Mcneal Work Phone: Start: 12-26-2017 Mammography Tyrell jay MD Work Phone: Plan of Treatment Date Care Activity Detail Author Start: 10-22-2023 Covid-19 Vaccine ( season) Covid-19 Vaccine ( season) [facility] Start: 10-22-2023 Influenza vaccination Influenza Vacc ine (#1) [facility] Start: 10-04-2023 End: 10-04-2023 Patient encounter procedure 10/04/2023 8:15 AM EDT Office Visit [facility] [address] [place] [address] Tyrell Bowens MD [address] [place] [address] [facility] Start: 08-02-2023 End: 08-02-2023 Patient encounter procedure 08/02/2023 9:10 AM EDT [facility] [address] [place] [address] Jimi Yin MD [address] [place] [address] [facility] Start: 04-05-2023 End: 04-05-2024 Basic metabolic 1998 panel - Serum or Plasma Basic metabolic panel Lab Routine Essential hypertension, benign (CMS/HCC) Expected: 04/05/2023 (Approximate), Expires: 04/05/2024 [facility] Comment on above: Expected: 04/05/2023 (Approximate), Expires: 04/05/2024 Start: 04-05-2023 End: 04-05-2024 CBC W Auto Differential panel - Blood CBC and differential Lab Routine Encounter for long-term (current) use of medications Expected: 04/05/2023 (Approximate), Expires: 04/05/2024 [facility] Comment on above: Expected: 04/05/2023 (Approximate), Expires: 04/05/2024 Start: 04-05-2023 End: 04-05-2024 Hemoglobin A1c measurement Hemoglobin A1c Lab Routine Prediabetes Expected: 04/05/2023 (Approximate), Expires: 04/05/2024 [facility] Work Phone: Comment on above: Expected: 04/05/2023 (Approximate), Expires: 04/05/2024 Start: 04-05-2023 End: 04-05-2024 Hepatic function 2000 panel - Serum or Plasma Hepatic function panel Lab Routine Encounter for long-term (current) use of medications Expected: 04/05/2023 (Approximate), Expires: 04/05/2024 [facility] Comment on above: Expected: 04/05/2023 (Approximate), Expires: 04/05/2024 Start: 04-05-2023 End: 04-05-2024 Lipid 1996 panel - Serum or Plasma Lipid panel Lab Routine Encounter for long-term (current) use of medications Expected: 04/05/2023 (Approximate), Expires: 04/05/2024 [facility] Comment on above: Expected: 04/05/2023 (Approximate), Expires: 04/05/2024 Start: 04-05-2023 End: 04-05-2024 Thyrotropin [Units/volume] in Serum or Plasma TSH Lab Routine Obesity (BMI 30-39.9) Expected: 04/05/2023 (Approximate), Expires: 04/05/2024 [facility] Comment on above: Expected: 04/05/2023 (Approximate), Expires: 04/05/2024 Start: 04-05-2023 End: 04-05-2023 Patient encounter procedure 04/05/2023 8:15 AM EST Office [facility] [address] [place] [address] Tyrell Bowens MD [address] [place] [address] Arrived [facility] Comment on above: Arrived Start: 02-20-2023 Advance Directive Discussion Advance Directive Discussion [facility] Start: 07-11-2021 Urine microalbumin profile DTaP,Tdap,Td Vaccine (2 - Td or Tdap) [facility] Start: 12-26-2018 Screening for malign ant neoplasm of breast Mammogram [facility] Start: 2013 Screening for osteoporosis Bone Density Screening [facility] Start: 2008 RSV Vaccine (1 - 1-d ose 60+ series) RSV Vaccine (1 - 1-dose 60+ series) [facility] Start: 1993 Diabetes Screening Diabetes Screenin g [facility] Start: 1993 Lipid panel Lipid Screening [facility] Start: 1993 Screening for malign ant neoplasm of colon [facility] Start: 1988 Screening for malign ant neoplasm of breast Mammogram Screening [facility] Start: 1966 Anxiety Screening Anxiety Screening [facility] Start: 1966 Depression Screening Depression Scre ening [facility] Start: 1966 Hepatitis C screening Hepatitis C Sc rachelle [facility] Start: 1948 Medicare Annual Wellness (AWV) Medicare Annual Wellness (AWV) [facility] Start: 1948 Screening for malign ant neoplasm of colon [facility] Aldolase measurement [facility] Work Phone: Homogenous nuclear A b pattern [Titer] in Serum [facility] Work Phone: Nuclear Ab [Titer] i n Serum [facility] Work Phone: Immunizations Immunization Date Immunization Notes Care Provider Fa cility 11-13-2021 influenza virus vacc ine, unspecified formulation Arrival Radiology Work Phone: [facility] Payers Date Payer Category Payer Unknown [id number] 2013 Medicare [id number] 1959 Medicare [id number] 1959 Unknown [id number] 1948 Unknown [id number] 2.16.84 [id number] 1948 Unknown [id number] 2.16.84 0.1.159996.3.579.2.593 1948 Unknown [id number] 2.16.84 0.1.225557.3.579.2.593 1948 Unknown [id number] 2.16.84 0.1.601856.3.579.2.593 1948 Unknown [id number] 2.16.84 0.1.991840.3.579.2.1259 1948 Unknown [id number] 2.16.84 0.1.130549.3.579.2.1259 1948 Unknown [id number] 2.16.84 0.1.188663.3.579.2.1259 1948 Unknown [id number] 2.16.84 0.1.603199.3.579.2.9 1948 Unknown [id number] 2.16.84 0.1.211554.3.579.2.9 1948 Unknown [id number] 2.16.84 0.1.562856.3.579.2.1258 1948 Unknown [id number] 2.16.840. 1.748814.3.579.2.9 1948 Unknown [id number] 2.16.8 [id number] Self-pay Self Pay [id number] Social History Date Type Detail Facility Tobacco smoking stat us DEIS Unknown if ever smoked [facility] Work Phone: Start: 1950 Sex Assigned At Female [facility] Start: 08-09-2022 Tobacco smoking status DEIS Never smoked tobacco [facility] Start: 08-09-2022 [...] to any clubs or organizations such as jew groups, unions, fraternal or athletic groups, or [...] Identifies as female gender (finding) [facility] Tobacco smoking stat [facility] Tobacco smoking consumption unknown [facility] Start: 1950 Sex assigned at Not on file [facility] History of Present illness Narrative 04-05-2023 Tyrell [...] Relevant Orders TSH documented in this encounter [facility] Progress note 10-04-2022 Note Date & Type Note Facility 10-04-2022 Note HNO ID: [id number] Author: Nory Slade RN Service: ? Author [...] DATE: October 04, 2022 TIME: 9:13 AM [facility] Progress note 10-04-2022 Note Date & Type Note Facility 10-04-2022 Note HNO ID: [id number] Author: Rimma eRy RT(R) Service: ? Author Type: Technologist Type: [...] 911 PATIENT DISCHARGED TO: Ambulatory patient, left [place] department area. A Diagnostic radioactive procedure has taken place, with no further precautions necessary other than routine body substance precautions. More information regarding radiation safety can be found using this link: [email or web address] %[email or web address]-%20Diagnostic%20Nuclear%20Medicine%20 Procedures.[email or web address] SIGNATURE: RT Bo(R) PATIENT NAME: Caeytano Weeks DATE: October 04, 2022 TIME: 9:38 AM PAGER/CONTACT #: [facility] History of Present illness Narrative 10-04-2022 Nory Slade RN - 10/04/2022 9:15 AM Rimma Dobbs RT(R) - 10/04/2022 9:15 AM EDT Note Date & Type Note Facility 10-04-2022 History of Presen t illness Narrative Radiology Service Progress Note DATE OF SERVICE: [...] DATE: October 04, 2022 TIME: 9:13 AM RADIOLOGY SERVICE PROGRESS NOTE SERVICE DATE: 10/04/2022 SERVICE TIME: 9:38 AM PATIENT IDENTITY VERIFICATION COMPLETED USING TWO (2) STANDARD IDENTIFIERS: Name and Date of confirmed by patient verbally POST EXAM PIV STATUS: Discontinued PROCEDURE TYPE: NM INJECT: PET/CT BODY SCAN. 10.8 mCi F18 FDG. No other medications given.. ADMINISTRATION TIME: 0912 PATIENT DISCHARGED TO: Ambulatory patient, left [place] department area. A Diagnostic radioactive procedure has taken place, with no further precautions necessary other than routine body substance precautions. More information regarding radiation safety can be found using this link: [email or web address] [email or web address]-%20Diagnostic%20Nuclear%20Med icine%20Procedures.pdf SIGNATURE: RT Bo(R) PATIENT NAME: Cayetano Weeks DATE: October 04, 2022 TIME: 9:38 AM PAGER/CONTACT #: documented in this encounter [facility] Surgery Surgical operation note 06-10-2020 Note Date & Type Note Facility 06-10-2020 Surgery Surgical operation note DICTATED BY:CHATO STAFFORD MD SERVICE DATE:06/10/2020 PREOPERATIVE DIAGNOSES: 1. Postmenopausal bleeding. 2. Endometrial polyp. POSTOPERATIVE DIAGNOSES: 1. Postmenopausal bleeding. 2. Endometrial polyp. PROCEDURES: 1. Dilatation and curettage, hysteroscopy. 2. Polypectomy with MyoSure. SURGEON: Chato Stafford MD ANESTHESIA: General per LMA. CAFETERIA ASSISTANT: Nayeli Sosa MD ESTIMATED BLOOD LOSS: 5 [...] were correct. CAYETANO WEEKS Birthdate: 1950 #: [id number] D/06/10/2020 08:23:39 T/06/10/2020 09:15:53 VOICE JOB ID:[id number] Grimes thanks you for the opportunity to care for your patient. DID: [id number] [facility] Discharge summary 06-10-2020 Note Date & Type Note Facility 06-10-2020 Physician Hospital Discharge summary CLINICAL SUMMARY Please take this summary document to your follow up appointments. [facility] 06/10/20 08:38 [address] [place]. [address] PATIENT INFORMATION Name: TYRELL WEEKSJENNIE Address: [address] [place] [address] Age: 69 Years Phone: [phone] : 1950 12:00 MRN: [id number] Sex: Female Race: White Ethnicity: Not Hispan/Lat Admitted From: Clinic or [facility] Medical Service: Obstetric Nurse Unit/Bed: ([facility]) [facility] N[facility]A Admit Date: 06/10/2020 05:45 PCP: Physician, PCP Unknown PHYSICIANS INVOLVED WITH CARE Attending Physicians: Chato Stafford MD Obstetrics, Gynecology Admitting Physician: None found Primary [...] day. MEDICATION CHANGE DETAILS NEW MEDICATIONS [id number], [address] [place], [place] [id number], [phone] ibuprofen (ibuprofen 600 mg oral tablet) 1 [...] (vasopressin) 20 Unit = 1 mL, Vag, Director Of Psychiatry, x 30 Day(s) COMMENTS and SPECIAL INSTRUCTIONS: [...] (Zofran GEq) (Zofran (more content not included)... [facility] Surgery Postoperative evaluation and management note 06-10-2020 [...] DILATION AND CURETTAGE . Surgeon: Primary Surgeon: Chato Stafford MD . Pen Tender(s): Nayeli Sosa MD , . Type of Anesthesia: Anesthesia Type: General . Estimated Blood Loss: Minimal less than 10mL. Procedure Findings: intrauterine polyp. Drain(s): Collection Device: RED RUBBER . Specimen(s) Removed: Specimen: 1. ENDOMETRIAL POLYP - PERMANENT - 2. ENDOMETRIAL CURETTINGS - PERMANENT . [facility] Anesthesiology Preoperative evaluation and management note 06-10-2020 Note Date & Type Note Facility 06-10-2020 Anesthesiology Preoperative evaluation and management note Patient: CAYETANO WEEKS MRN: [id number] Age: 69 years Sex: Female : 1950 Associated Diagnoses: None Author: Mouna CHURCHILL , William Mckeon Preoperative Information Diagnosis No diagnoses charted Planned Procedure Hysteroscopy Histories Past Medical History: Active Eczema HTN (hypertension) Social History: Smoking Status: Never smoked E-Cig/Vaped Last 90 Day..: No Surgical/Procedure History: Surgical/Procedure Hx Polypectomy ([id number]). Comments: 05/27/2020 09:32 NATHANIEL Ziegler RN , [...] Vasopressin 20 Unit = 1 mL, Vag, Director Of Psychiatry x 30 Day(s) , Comment: Send to [...] = N 06/07/20 13:25, Device Identifier = Sundance Fusion SARS-CoV-2 assay_[place]. [facility] Point Of Care Tests Blood 06/10/20 [...] Laryngeal Mask Airway. Monitoring/Anesthesia Considerations: Standard monitoring. [facility] Evaluation note Note Date & Type Note Facility Evaluation note [facility] Work Phone: Evaluation note Note Date & Type Note Facility Evaluation note Diagnosis Essential hypertension, benign (CMS/HCC)- Primary Essential hypertension, benign Rheumatoid arthritis involving both hands with positive rheumatoid factor (CMS/HCC) Intrinsic eczema Seasonal allergic rhinitis due to pollen Dyslipidemia (CMS/HCC) Other and unspecified hyperlipidemia Encounter for long-term [...] Directives Records Found Procedure Findings Note Patient: CAYETANO WEEKS RN: ([id number] Age: 69 years Sex: Female : 1950 [...] section and content) DATE CREATED AUTHOR 06/13/2020 [facility] DATE CREATED AUTHOR AUTHOR'S ORGANIZ ATION 06/17/2021 [facility] DATE CREATED AUTHOR AUTHOR'S ORGANIZ ATION 07/04/2022 [facility] DATE CREATED AUTHOR AUTHOR'S ORGANIZ ATION 10/05/2022 [facility] DATE CREATED AUTHOR AUTHOR'S ORGANIZ ATION 10/31/2023 [facility] DATE CREATED AUTHOR AUTHOR'S ORGANIZ ATION 11/29/2023 [facility] Care Teams (unrecognized sec tion and content) Team Status: Inactive Member Role Status Dates Gonzalez Mcneal MD Attending Provider Active 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 Start Date End Date Tyrell Bowens MD [address] [place] [id number] PCP - General Family Medicine 03/13/23 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 Start Date End Date Tyrell Bowens MD [address] [place] [id number] PCP - General Family Medicine 03/13/23 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 Start Date End Date Tyrell Bowens [address] [place] [address] PCP - General Family Medicine 09/15/22 Goals (unrecognized section and content) Goals may be documented in a n alternate section Reason for Visit (unrecogniz ed section and content) Reason Comments Follow-up 6 m Reason Comments Radiology [place] Source Comments (unrecognize d section and content) In the event this informatio n is protected by the Federal Confidentiality of Alcohol and Drug Abuse Patient Records regulations: The Federal rules restrict any use of the information to criminally investigate or prosecute any alcohol or drug abuse patient.[facility] FOR RECORDS PERTAINING TO PATIENTS WHO ARE [...] BE BASED ON THE PRIMARY CLINICAL RECORDS. [facility]. provides no warranty or guarantee of the accuracy or completeness of information in this document.
[2023-12-26 11:04] LABS: Basophils Absolute Auto 0.1 10^3/uL (0.0-0.1); Basophils Percent Auto 1.3 % (0.2-2.0); Eosinophils Absolute Auto 0.5 10^3/uL (0.0-0.7); Hematocrit 41.8 % (36.0-48.0); Hemoglobin 13.5 g/dL (12.0-16.0); Immature Granulocytes Abs Auto 0.02 10^3/uL (0.00-0.03); Immature Granulocytes Pct Auto 0.3 % (0.0-0.5); Lymphocytes Absolute Auto 1.2 10^3/uL (1.2-3.8); Lymphocytes Percent Auto 18.7 % (20.5-60.0); Mean Corpuscular HGB Conc 32.3 g/dL (29.9-35.2); Mean Corpuscular Volume 89.7 fL (81.0-99.0); Mean Platelet Volume 9.7 fL (9.5-13.5); Monocytes Absolute Auto 0.8 10^3/uL (0.3-0.8); Monocytes Percent Auto 12.1 % (1.7-12.0); Neutrophils Absolute Auto 3.8 10^3/uL (1.4-6.5); Neutrophils Percent Auto 59.6 % (43.0-75.0); Platelet Count 210 10^3/uL (150-450); Red Blood Count 4.66 10^6/uL (4.20-5.40); Red Cell Distribution Width 15.3 % (11.0-15.0); White Blood Count 6.4 10^3/uL (4.0-11.0)
[2023-12-26 11:16] LABS: Erythrocyte Sedimentation Rate 113 mm/hr (<=30)
[2023-12-26 15:23] LABS: Alanine Aminotransferase 28 U/L (14-59); Albumin Level 3.4 g/dL (3.4-5.0); Alkaline Phosphatase 94 U/L (46-116); Anion Gap 13.7; Aspartate Amino Transferase 16 U/L (15-37); BUN Creatinine Ratio 23.3; Bilirubin Total 0.5 mg/dL (0.2-1.0); Carbon Dioxide 26.3 mmol/L (21.0-32.0); Chloride 107 mmol/L (98-107); Estimated GFR (African America >60 (>=60 mL/min/1.73m^2); Estimated GFR (Non-African Ame >60 (>=60 mL/min/1.73m^2); Globulin 3.4 g/dL; Glucose 107 mg/dL (74-106); Sodium 143 mmol/L (136-145); Total Protein 6.8 g/dL (6.4-8.2)
== END 2023-12-26 10:36 | disposition home or self-care (01) ==
LOC: LAB 10:39
PROVIDERS: PCP Family Medicine; Visit Provider Internal Medicine Rheumatology
DX: M05.79 Rheumatoid arthritis with rheumatoid factor 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 (principal); M15.0 Primary generalized (osteo)arthritis; Z79.899 Other long term (current) drug therapy
CPT/HCPCS: 36415; 80053; 85025; 85652

== ENCOUNTER 2024-04-11 10:43 | Outpatient (OUT) | payer MEDICARE, OTHER, SELFPAY ==
[2024-04-11 11:04] LABS: Basophils Percent Auto 0.3 % (0.2-2.0); Eosinophils Absolute Auto 0.2 10^3/uL (0.0-0.7); Eosinophils Percent Auto 1.8 % (0.9-7.0); Hematocrit 43.8 % (36.0-48.0); Hemoglobin 14.4 g/dL (12.0-16.0); Immature Granulocytes Abs Auto 0.04 10^3/uL (0.00-0.03); Immature Granulocytes Pct Auto 0.4 % (0.0-0.5); Lymphocytes Absolute Auto 1.3 10^3/uL (1.2-3.8); Lymphocytes Percent Auto 12.9 % (20.5-60.0); Mean Corpuscular HGB Conc 32.9 g/dL (29.9-35.2); Mean Corpuscular Hemoglobin 29.2 pg (26.7-34.0); Mean Corpuscular Volume 88.8 fL (81.0-99.0); Mean Platelet Volume 9.8 fL (9.5-13.5); Monocytes Absolute Auto 0.4 10^3/uL (0.3-0.8); Monocytes Percent Auto 4.2 % (1.7-12.0); Neutrophils Absolute Auto 7.9 10^3/uL (1.4-6.5); Neutrophils Percent Auto 80.4 % (43.0-75.0); Platelet Count 214 10^3/uL (150-450); Red Blood Count 4.93 10^6/uL (4.20-5.40); Red Cell Distribution Width 14.4 % (11.0-15.0); White Blood Count 9.8 10^3/uL (4.0-11.0)
--- OUTSIDE RECORDS SUMMARY | 2024-04-11 11:06 | XMS_ITS | CCD ---
Author Organization [facility] Care Team Providers Care Track Watchman Name Role Phone MD Gonzalez Mcneal Attending [...] Unavailable NADERER, TYRELL Salazar Primary Care Unavailable Tyrell Bowens MD Primary Care Provider Tyrell Bowens Primary Care Provider TYRELL BOWENS Referring Unavailable TYRELL BOWENS Primary Care Unavailable JIMI YIN Attending Unavailable NADLUBNA, TYRELL Attending Unavailable YASSINE VANG Attending Unavailable OBERMEYTERRENCE JAY Referring Unavailable JIMI YIN Attending Unavailable JR. BRANDON GEORGE C Attending Unavaila TYRELL Echeverria Attending Unavailable JR. BRANDON GEORGE C Attending Unavaila junior BRANDON JR., GEORGE C Attending Unavaila ble Allergies Allergy Classification Reported Allergen(s) Allergy Type Date of Onset Reaction(s) Facility (13 sources) Amoxicillin Drug Allergy 08-09-2022 Diarrhea [facility] Work Phone: Medications Current Medications Medication Drug Class(es) Dates Sig (Normalized) Sig (Original) bisoprolol fumarate 5 mg / hydroCHLOROthiazide 6.25 mg oral tablet (13 sources) Thiazide Diuretic, beta-Adrenergic Krystal Start: 01-08-2024 take 1 tablet by mouth once daily bisoprolol-hydroC HLOROthiazide (Ziac) 5-6.25 MG tablet Indications: Benign essential hypertension (CMS/HCC) , Essential (primary) hypertension (CMS/HCC) TAKE 1 TABLET BY MOUTH EVERY DAY 90 tablet 3 01/08/2024 Active End: 01-08-2024 take 1 tablet by mouth in the morning bisoprolol-hydroCHLOROthiazide (Ziac) 5- 6.25 MG tablet Take 1 tablet by mouth in the morning. 01/08/2024 Discontinued diclofenac sodium 75 mg delayed release oral tablet (13 sources) Nonsteroidal Anti-inflammatory Drug take 1 tablet by mouth every twelve hours diclofenac (Voltaren) 75 MG EC tablet Take 75 mg by mouth every 12 (twelve) hours. Active 2 ml dupilumab 150 mg/ml prefilled syringe (13 sources) Interleukin-4 Receptor alpha Antagonist dupilumab (Dupixent) 300 MG/2ML injection Inject 300 mg under the skin every 14 (fourteen) days. For eczema Active folic acid 1 mg oral tablet (13 sources) take 1 tablet by mouth once daily folic acid (Folvite) 1 MG tablet Take 1 mg by mouth 1 (one) time each day at the same time. Active methotrexate 2.5 mg oral tablet (13 sources) Folate Analog Metabolic Inhibitor take 1 tablet by mouth every week methotrexate 2.5 MG tablet Take 2.5 mg by mouth 1 (one) time per week. Active predniSONE 5 mg oral tablet (13 sources) take 1 tablet by mouth once daily predniSONE (Deltasone) 5 MG tablet Take 5 mg by mouth 1 (one) time each day at the same time. Active Problems Active Problems Problem Classification Problem Date Documented Da te Episodic/Chronic Allergic reactions (14 sources) Atopic dermatitis; Translations: [Intrinsic (allergic) eczema] Onset: 04-05-2023 04-05-2023 Chronic Disorders of lipid metabolism (15 sources) Hypertriglyceridemi a; Translations: [Pure hyperglyceridemia] Onset: 04-05-2023 04-05-2023 Chronic Essential hypertension (15 sources) Benign essential hypertension; Translations: [Essential (primary) hypertension] Onset: 04-05-2023 04-05-2023 Chronic Osteoarthritis (2 sources) Primary generalized (osteo)arthritis; Translations: [Unspecified osteoarthritis, unspecified site] Onset: 12-21-2021 Chronic Other aftercare (1 source) Other mcfp (current) drug therapy; Translations: [OTH INTERPRETIVE NATURALIST CURRENT DRUG THERAPY] Onset: 07-03-2022 Episodic Other nervous system disorders (6 sources) Carpal tunnel syndrome of right wrist; Translations: [Carpal tunnel syndrome, right upper limb] 01-02-2024 Chronic Other nutritional; endocrine; and metabolic disorders (14 sources) Body mass index 30+ - obesity; Translations: [Obesity, unspecified] Onset: 04-05-2023 04-05-2023 Chronic Other screening for suspected conditions (not mental disorders or infectious disease) (1 source) Encounter for screening mammogram for malignant neoplasm of breast; Translations: [Encounter for screening mammogram for malignant neoplasm of breast] Onset: 11-27-2023 Episodic Other upper respiratory disease (15 sources) Allergic rhinitis due to pollen; Translations: [Allergic rhinitis due to pollen] Onset: 04-05-2023 04-05-2023 Chronic Rheumatoid arthritis and related disease (20 sources) Rheumatoid arthritis with rheumatoid factor 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; Translations: [Rheumatoid arthritis, unspecified] Onset: 11-23-2021 Chronic Past or Other Problems Problem Classification Problem Date Documented Da te Episodic/Chronic Acute and chronic tonsillitis (13 sources) Tonsil asymmetry; Translations: [Other chronic diseases of tonsils and adenoids] Onset: 10-12-2022 Resolved: 04-05-2023 10-12-2022 Chronic Diabetes mellitus without complication (14 sources) Prediabetes; Translations: [Prediabetes] Onset: 04-05-2023 04-05-2023 Episodic Mood disorders (2 sources) Mood disorders Onset: 01-25-2024 01-25-2024 Neoplasms of unspecified nature or uncertain behavior (13 sources) Neoplasm of lymphoid system structure; Translations: [Neoplasm of unspecified behavior of digestive system] Onset: 08-15-2022 08-15-2022 Episodic Other aftercare (7 sources) Patient encounter status; Translations: [Other remote computer terminal operator (current) drug therapy] Onset: 04-05-2023 04-05-2023 Episodic Other aftercare (7 sources) Long-term current use of drug therapy; Translations: [Other mcfp (current) drug therapy] Onset: 04-05-2023 04-05-2023 Episodic Other congenital anomalies (3 sources) Talipes valgus; 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] Onset: 08-09-2022 Resolved: 08-09-2022 08-09-2022 Chronic Other congenital anomalies (10 sources) Talipes valgus of right foot; 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] Onset: 08-09-2022 Resolved: 08-09-2022 08-09-2022 Chronic Other connective tissue disease (13 sources) Deformity of lower limb; Translations: [Contracture of muscle, right lower leg] Onset: 08-09-2022 Resolved: 08-09-2022 08-09-2022 Episodic Other skin disorders (13 sources) Seborrheic keratosis; Translations: [Other seborrheic keratosis] Onset: 04-05-2023 04-05-2023 Episodic Other upper respiratory disease (13 sources) Epistaxis; Translations: [Epistaxis] Onset: 08-09-2022 Resolved: 04-05-2023 08-15-2022 Episodic Other upper respiratory disease (13 sources) Lesion of nose; Translations: [Other specified disorders of nose and nasal sinuses] Onset: 08-15-2022 Resolved: 04-05-2023 08-15-2022 Episodic Results Test Name Value Interpretation Reference Range Facility 36on 01-11-2024 36 Patient called to schedule a new patient appointment with our office. 03/05/24 Patient wants to be seen for: Right hand Patient had EMG done at Dr. Smith @ [facility] Patient has Not had any surgery or procedures on this body part Patient saw Dr. Brandon for this issues. They were referred to us from this provider. This appointment is not a second opionion This appointment IS NOT related to a work related injury Normal [facility] ALL CBC WITH AUTO DIFFon [facility]OPHILS ABSOLUTE [facility] Basophils/100 WBC (Bld) 1.3 % 0.2 - 2.0 % [facility] Eosinophils/100 WBC (Bld) 8 % High 0.9 - 7.0 % [facility] Erythrocyte distribution width (RBC) [Ratio] 15.3 % High 11.0 - 15.0 % [facility] Hematocrit (Bld) [Volume fraction] 41.8 % 36.0 - 48.0 % [facility] Hemoglobin (Bld) [Mass/Vol] 13.5 g/dL 12.0 - 16.0 g/dL [facility] IMMATURE GRANULOCYTES ABS AUTO 0.02 [facility] Immature granulocytes/100 WBC (Bld) 0.3 % 0.0 - 0.5 % [facility] Interpretation and review of laboratory results Abnormal [facility] LYMPHOCYTES ABSOLUTE AUTO 1.2 [facility] Lymphocytes/100 WBC (Bld) 18.7 % Low 20.5 - 60.0 % [facility] MCH (RBC) [Entitic mass] 29 pg 26.7 - 34.0 pg [facility] MCHC (RBC) [Mass/Vol] 32.3 g/dL 29.9 - 35.2 g/dL [facility] MCV (RBC) [Entitic vol] 89.7 fL 81.0 - 99.0 fL [facility] MONOCYTES ABSOLUTE AUTO 0.8 [facility] Monocytes/100 WBC (Bld) 12.1 % High 1.7 - 12.0 % [facility] NEUTROPHILS ABSOLUTE AUTO 3.8 [facility] Neutrophils/100 WBC (Bld) 59.6 % 43.0 - 75.0 % [facility] Platelet mean volume (Bld) [Entitic vol] 9.7 fL 9.5 - 13.5 fL [facility]H EO # 0.5 [facility] PLT 210 [facility] RBC 4.66 [facility] WBC 6.4 [facility] MAMM SCREENING BILATERAL W C medical administrative 11-27-2023 MAMM SCREENING BILATERAL W CAD MAMM SCREENING BILATERAL W CAD CAYETANO DIAZSHAWNA 1950 [id number] EXAM: MAMM SCREENING BILATERAL W CAD, 11/27/2023 [...] AM 1 b MAMM 1 YR Normal [facility] GLUCOSE, BLOOD (POC)on 10-04 Glucose [Mass/Vol] 110 mg/dL Abnormal 74 - 99 mg/dL [facility] Comment on above: Location:[facility], [address] [place] [address] [place], [place], [facility] The Accu-Chek Inform II glucose [...] Interpretation and review of laboratory results Abnormal [facility] NM PET/CT SKULL-THIGH INITon 10-04-2022 NM PET/CT [...] any questions regarding this interpretation, please call [phone]. If you are unable to reach us at the number above, please feel free to contact [facility]iology at [phone]. [id number] CN [facility] PET+CT Guidance for localiza tion of [...] any questions regarding this interpretation, please call [phone]. If you are unable to reach us at the number above, please feel [facility] [phone]. DIVISION OF RADIOLOGY * * *Final Report* [...] Degenerative arthritic change. DIVISION OF RADIOLOGY Provider, [facility] [place] - 10/04/2022 * * *Final Report* * [...] any questions regarding this interpretation, please call [phone]. If you are unable to reach us at the number above, please feel free to contact [facility] at [phone]. [facility] Radiology Study observation (narrative) [facility] PET+CT Guidance for localiza tion of tumor of Skull base to mid-thigh-- W [id number] IVOrdered By: Ccf Provider on 10-04-2022 [facility] CBC AUTO DIFFon 06-30-2022 BASO # 0.1 103/ul Normal 0.0-0.[address] [facility] Comment on above: Performed By: #### C BC #### [facility] [address] [place] [address] Dr. Norm Melendrez Basophils/100 WBC (Bld) 0.7 % Normal 0.2-2.[address] [facility] Comment on above: Performed By: #### C BC #### [facility] [address] [address] [address] Norm Melendrez EO # 0.4 103/ul Normal 0.0-0.[address] [facility] Comment on above: Performed By: #### C BC #### [facility] [address] [address] [address] Norm Melendrez Eosinophils/100 WBC (Bld) 4.4 % Normal 0.9-7.[address] [facility] Comment on above: Performed By: #### C BC #### [facility] [address] [place] [address] Dr. Norm Melendrez Erythrocyte distribution width (RBC) [Ratio] 15.0 % Normal 11.0-15.[address] [facility] Comment on above: Performed By: #### C BC #### [facility] [address] [place] [address] Dr. Norm Melendrez Hematocrit (Bld) [Volume fraction] 45.0 % Normal 36.0-48.[address] [facility] Comment on above: Performed By: #### C BC #### [facility] [address] [place] [address] Dr. Norm Melendrez Hemoglobin (Bld) [Mass/Vol] 14.5 g/dL Normal 12.0-16.[address] [facility] Comment on above: Performed By: #### C BC #### [facility] [address] [place] [address] Dr. Norm Melendrez IG # 0.03 10e3/ul Normal 0.00-0.[address] [facility] Comment on above: Performed By: #### C BC #### [facility] [address] [place] [address] Dr. Norm Melendrez IG % 0.4 % Normal 0.0-0.[address] [facility] Comment on above: Performed By: #### C BC #### [facility] [address] [place] [address] Dr. Norm Melendrez LYMPH # 1.4 103/ul Normal 1.2-3.[address] [facility] Comment on above: Performed By: #### C BC #### [facility] [address] [place] [address] Dr. Norm Melendrez Lymphocytes/100 WBC (Bld) 17.2 % Critically low 20.5-60.[address] [facility] Comment on above: Performed By: #### C BC #### [facility] [address] [place] [address] Dr. Norm Melendrez MANUAL DIFF REQ NO Normal [facility] Comment on above: Performed By: #### C BC #### [facility] [address] [address] [address] Norm Melendrez MCH (RBC) [Entitic mass] 28.0 pg Normal 26.7-34.[address] [facility] Comment on above: Performed By: #### C BC #### [facility] [address] [address] [address] Norm Melendrez MCHC (RBC) [Mass/Vol] 32.2 g/dL Normal 29.9-35.[address] [facility] Comment on above: Performed By: #### C BC #### [facility] [address] [address] [address] Norm Melendrez MCV (RBC) [Entitic vol] 86.9 fL Normal 81.0-99.[address] [facility] Comment on above: Performed By: #### C BC #### [facility] [address] [place] [address] Dr. Norm Melendrez MONO # 0.5 103/ul Normal 0.3-0.[address] [facility] Comment on above: Performed By: #### C BC #### [facility] [address] [place] [address] Dr. Norm Melendrez Monocytes/100 WBC (Bld) 6.6 % Normal 1.7-12.[address] [facility] Comment on above: Performed By: #### C BC #### [facility] [address] [place] [address] Dr. Norm Melendrez NEUT # 5.8 103/ul Normal 1.4-6.[address] [facility] Comment on above: Performed By: #### C BC #### [facility] [address] [place] [address] Dr. Norm Melendrez Neutrophils/100 WBC (Bld) 70.7 % Normal 43.0-75.0 [facility] Comment on above: Performed By: #### C BC #### [facility] [address] [place] [address] Dr. Norm Melendrez Platelet mean volume (Bld) [Entitic vol] 9.2 fL Critically low 9.5-13.5 [facility] Comment on above: Performed By: #### C BC #### [facility] [address] [address] [address] Norm Melendrez PLT 231 103/ul Normal 150-[address] [facility] Comment on above: Performed By: #### C BC #### [facility] [address] [place] [address] Dr. Norm Melendrez RBC 5.18 106/ul Normal 4.20-5.[address] [facility] Comment on above: Performed By: #### C BC #### [facility] [address] [place] [address] Dr. Norm Melendrez WBC 8.2 103/ul Normal 4.0-11.[address] [facility] Comment on above: Performed By: #### C BC #### [facility] [address] [place] [address] Dr. Norm Melendrez PROF 14(COMP METB)on 023 Albumin [Mass/Vol] 3.4 g/dL Normal 3.4-5.0 [facility] Comment on above: Performed By: #### C MP #### [facility] [address] [place] [address] Dr. Norm Melendrez Albumin/Globulin [Mass ratio] 0.9 {ratio} Normal [facility] Comment on above: Performed By: #### C MP #### [facility] [address] [place] [address] Dr. Norm Melendrez ALP [Catalytic activity/Vol] 105 U/L Normal 46-116 [facility] Comment on above: Performed By: #### C MP #### [facility] [address] [place] [address] Dr. Norm Melendrez ALT [Catalytic activity/Vol] 48 U/L Normal 14-59 [facility] Comment on above: Performed By: #### C MP #### [facility] [address] [place] [address] Dr. Norm Melendrez Anion gap [Moles/Vol] 7.9 mmol/L Normal [facility] Comment on above: Performed By: #### C MP #### [facility] [address] [address] [address] Norm Melendrez AST [Catalytic activity/Vol] 22 U/L Normal 15-[address] [facility] Comment on above: Performed By: #### C MP #### [facility] [address] [place] [address] Dr. Norm Melendrez Bilirubin [Mass/Vol] 0.4 mg/dL Normal 0.2-1.[address] [facility] Comment on above: Performed By: #### C MP #### [facility] [address] [place] [address] Dr. Norm Melendrez Calcium [Mass/Vol] 8.9 mg/dL Normal 8.5-10.1 [facility] Comment on above: Performed By: #### C MP #### [facility] [address] [place] [address] Dr. Norm Melendrez Chloride [Moles/Vol] 108 mmol/L Critically high 98-[address] [facility] Comment on above: Performed By: #### C MP #### [facility] [address] [place] [address] Dr. Norm Melendrez CO2 [Moles/Vol] 31.1 mmol/L Normal 21.0-32.0 [facility] Comment on above: Performed By: #### C MP #### [facility] [address] [place] [address] Dr. Norm Melendrez Creatinine [Mass/Vol] 0.88 mg/dL Normal 0.55-1.[address] [facility] Comment on above: Performed By: #### C MP #### [facility] [address] [place] [address] Dr. Norm Melendrez EGFR-AF LITHUANIAN >60 Normal >=60 [facility] Comment on above: Performed By: #### C MP #### [facility] [address] [place] [address] Dr. Norm Melendrez EGFR-NON AF LITHUANIAN >60 Normal >=[address] [facility] Comment on above: Performed By: #### C MP #### [facility] [address] [place] [address] Dr. Norm Melendrez Globulin (S) [Mass/Vol] 3.8 g/dL Normal [facility] Comment on above: Performed By: #### C MP #### [facility] [address] [address] [address] Norm Melendrez Glucose [Mass/Vol] 109 mg/dL Critically high 74-106 [facility] Comment on above: Performed By: #### C MP #### [facility] [address] [address] [address] Norm Melendrez Potassium [Moles/Vol] 4.0 mmol/L Normal 3.5-5.[address] [facility] Comment on above: Performed By: #### C MP #### [facility] [address] [place] [address] Dr. Norm Melendrez Protein [Mass/Vol] 7.2 g/dL Normal 6.4-8.2 [facility] Comment on above: Performed By: #### C MP #### [facility] [address] [place] [address] Dr. Norm Melendrez Sodium [Moles/Vol] 143 mmol/L Normal 136-145 [facility] Comment on above: Performed By: #### C MP #### [facility] [address] [place] [address] Dr. Norm Melendrez Urea nitrogen [Mass/Vol] 16.0 mg/dL Normal 7.0-18.[address] [facility] Comment on above: Performed By: #### C MP #### [facility] [address] [address] [address] Norm Melendrez Urea nitrogen/Creatinine [Mass ratio] 18.2 mg/mg Normal [facility] Comment on above: Performed By: #### C MP #### [facility] [address] [address] [address] Norm Melendrez SED RATE WESTERGRENon 2022 SED RATE 17 mm/hr Normal <=[address] [facility] Comment on above: Performed By: #### S EDR #### [facility] [address] [place] [address] Dr. Norm Melendrez CBC AUTO DIFFon 03-31-2022 BASO # 0.1 103/ul Normal 0.0-0.[address] [facility] Comment on above: Performed By: #### C BC #### [facility] [address] [place] [address] Dr. Norm Melendrez Basophils/100 WBC (Bld) 0.7 % Normal 0.2-2.[address] [facility] Comment on above: Performed By: #### C BC #### [facility] [address] [place] [address] Dr. Norm Melendrez EO # 0.2 103/ul Normal 0.0-0.7 [facility] Comment on above: Performed By: #### C BC #### [facility] [address] [place] [address] Dr. Norm Melendrez Eosinophils/100 WBC (Bld) 3.0 % Normal 0.9-7.[address] [facility] Comment on above: Performed By: #### C BC #### [facility] [address] [place] [address] Dr. Norm Melendrez Erythrocyte distribution width (RBC) [Ratio] 15.4 % Critically high 11.0-15.[address] [facility] Comment on above: Performed By: #### C BC #### [facility] [address] [place] [address] Dr. Norm Melendrez Hematocrit (Bld) [Volume fraction] 44.8 % Normal 36.0-48.[address] [facility] Comment on above: Performed By: #### C BC #### [facility] [address] [place] [address] Dr. Norm Melendrez Hemoglobin (Bld) [Mass/Vol] 14.6 g/dL Normal 12.0-16.0 [facility] Comment on above: Performed By: #### C BC #### [facility] [address] [place] [address] Dr. Norm Melendrez IG # 0.02 10e3/ul Normal 0.00-0.[address] [facility] Comment on above: Performed By: #### C BC #### [facility] [address] [place] [address] Dr. Norm Melendrez IG % 0.3 % Normal 0.0-0.[address] [facility] Comment on above: Performed By: #### C BC #### [facility] [address] [place] [address] Dr. Norm Melendrez LYMPH # 1.2 103/ul Normal 1.2-3.[address] [facility] Comment on above: Performed By: #### C BC #### [facility] [address] [place] [address] Dr. Norm Melendrez Lymphocytes/100 WBC (Bld) 16.8 % Critically low 20.5-60.[address] [facility] Comment on above: Performed By: #### C BC #### [facility] [address] [place] [address] Dr. Norm Melendrez MANUAL DIFF REQ NO Normal [facility] Comment on above: Performed By: #### C BC #### [facility] [address] [place] [address] Dr. Norm Melendrez MCH (RBC) [Entitic mass] 27.6 pg Normal 26.7-34.[address] [facility] Comment on above: Performed By: #### C BC #### [facility] [address] [place] [address] Dr. Norm Melendrez MCHC (RBC) [Mass/Vol] 32.6 g/dL Normal 29.9-35.[address] [facility] Comment on above: Performed By: #### C BC #### [facility] [address] [place] [address] Dr. Norm Melendrez MCV (RBC) [Entitic vol] 84.7 fL Normal 81.0-99.[address] [facility] Comment on above: Performed By: #### C BC #### [facility] [address] [place] [address] Dr. Norm Melendrez MONO # 0.6 103/ul Normal 0.3-0.[address] [facility] Comment on above: Performed By: #### C BC #### [facility] [address] [place] [address] Dr. Norm Melendrez Monocytes/100 WBC (Bld) 8.0 % Normal 1.7-12.[address] [facility] Comment on above: Performed By: #### C BC #### [facility] [address] [place] [address] Dr. Norm Melendrez NEUT # 5.2 103/ul Normal 1.4-6.[address] [facility] Comment on above: Performed By: #### C BC #### [facility] [address] [place] [address] Dr. Norm Melendrez Neutrophils/100 WBC (Bld) 71.2 % Normal 43.0-75.[address] [facility] Comment on above: Performed By: #### C BC #### [facility] [address] [place] [address] Dr. Norm Melendrez Platelet mean volume (Bld) [Entitic vol] 9.2 fL Critically low 9.5-13.[address] [facility] Comment on above: Performed By: #### C BC #### [facility] [address] [place] [address] Dr. Norm Melendrez PLT 231 103/ul Normal 150-[address] [facility] Comment on above: Performed By: #### C BC #### [facility] [address] [place] [address] Dr. Norm Melendrez RBC 5.29 106/ul Normal 4.20-5.[address] [facility] Comment on above: Performed By: #### C BC #### [facility] [address] [place] [address] Dr. Norm Melendrez WBC 7.3 103/ul Normal 4.0-11.[address] [facility] Comment on above: Performed By: #### C BC #### [facility] [address] [place] [address] Dr. Norm Melendrez PROF 14(COMP METB)on 023 Albumin [Mass/Vol] 3.5 g/dL Normal 3.4-5.0 [facility] Comment on above: Performed By: #### C MP #### [facility] [address] [place] [address] Dr. Norm Melendrez Albumin/Globulin [Mass ratio] 0.9 {ratio} Normal [facility] Comment on above: Performed By: #### C MP #### [facility] [address] [address] [address] Norm Melendrez ALP [Catalytic activity/Vol] 98 U/L Normal 46-[address] [facility] Comment on above: Performed By: #### C MP #### [facility] [address] [address] [address] Norm Melendrez ALT [Catalytic activity/Vol] 33 U/L Normal 14-[address] [facility] Comment on above: Performed By: #### C MP #### [facility] [address] [address] [address] Norm Melednrez Anion gap [Moles/Vol] 12.4 mmol/L Normal Th e [facility] Comment on above: Performed By: #### C MP #### [facility] [address] [place] [address] Dr. Norm Melendrez AST [Catalytic activity/Vol] 29 U/L Normal 15-[address] [facility] Comment on above: Performed By: #### C MP #### [facility] [address] [place] [address] Dr. Norm Melendrez Bilirubin [Mass/Vol] 0.4 mg/dL Normal 0.2-1.[address] [facility] Comment on above: Performed By: #### C MP #### [facility] [address] [place] [address] Dr. Norm Melendrez Calcium [Mass/Vol] 9.5 mg/dL Normal 8.5-10.1 [facility] Comment on above: Performed By: #### C MP #### [facility] [address] [place] [address] Dr. Norm Melendrez Chloride [Moles/Vol] 103 mmol/L Normal 98-[address] [facility] Comment on above: Performed By: #### C MP #### [facility] [address] [address] [address] Norm Melendrez CO2 [Moles/Vol] 28.6 mmol/L Normal 21.0-32.0 [facility] Comment on above: Performed By: #### C MP #### [facility] [address] [address] [address] Norm Melendrez Creatinine [Mass/Vol] 0.77 mg/dL Normal 0.55-1.02 [facility] Comment on above: Performed By: #### C MP #### [facility] [address] [address] [address] Norm Melendrez EGFR-AF LITHUANIAN >60 Normal >=60 [facility] Comment on above: Performed By: #### C MP #### [facility] [address] [address] [address] Norm Melendrez EGFR-NON AF LITHUANIAN >60 Normal >=[address] [facility] Comment on above: Performed By: #### C MP #### [facility] [address] [place] [address] Dr. Norm Melendrez Globulin (S) [Mass/Vol] 3.7 g/dL Normal [facility] Comment on above: Performed By: #### C MP #### [facility] [address] [place] [address] Dr. Norm Melendrez Glucose [Mass/Vol] 97 mg/dL Normal 74-106 [facility] Comment on above: Performed By: #### C MP #### [facility] [address] [place] [address] Dr. Norm Melendrez Potassium [Moles/Vol] 4.0 mmol/L Normal 3.5-5.1 [facility] Comment on above: Performed By: #### C MP #### [facility] [address] [address] [address] Norm Melendrez Protein [Mass/Vol] 7.2 g/dL Normal 6.4-8.2 [facility] Comment on above: Performed By: #### C MP #### [facility] [address] [place] [address] Dr. Norm Melendrez Sodium [Moles/Vol] 140 mmol/L Normal 136-145 [facility] Comment on above: Performed By: #### C MP #### [facility] [address] [place] [address] Dr. Norm Melendrez Urea nitrogen [Mass/Vol] 11.0 mg/dL Normal 7.0-18.[address] [facility] Comment on above: Performed By: #### C MP #### [facility] [address] [place] [address] Dr. Norm Melendrez Urea nitrogen/Creatinine [Mass ratio] 14.3 mg/mg Normal [facility] Comment on above: Performed By: #### C MP #### [facility] [address] [place] [address] Dr. Norm Melendrez SED RATE WESTERGRENon 2022 SED RATE 53 mm/hr Critically high <=30 [facility] Comment on above: Performed By: #### C MP #### [facility] [address] [place] [address] Dr. Norm Melendrez CBC AUTO DIFFon 11-23-2021 BASO # 0.1 103/ul Normal 0.0-0.[address] [facility] Comment on above: Performed By: #### C BC #### [facility] [address] [place] [address] Dr. Norm Melendrez Basophils/100 WBC (Bld) 0.9 % Normal 0.2-2.[address] [facility] Comment on above: Performed By: #### C BC #### [facility] [address] [place] [address] Dr. Norm Melendrez EO # 0.3 103/ul Normal 0.0-0.[address] [facility] Comment on above: Performed By: #### C BC #### [facility] [address] [place] [address] Dr. Norm Melendrez Eosinophils/100 WBC (Bld) 4.1 % Normal 0.9-7.[address] [facility] Comment on above: Performed By: #### C BC #### [facility] [address] [place] [address] Dr. Norm Melendrez Erythrocyte distribution width (RBC) [Ratio] 15.9 % Critically high 11.0-15.[address] [facility] Comment on above: Performed By: #### C BC #### [facility] [address] [place] [address] Dr. Norm Melendrez Hematocrit (Bld) [Volume fraction] 44.9 % Normal 36.0-48.[address] [facility] Comment on above: Performed By: #### C BC #### [facility] [address] [place] [address] Dr. Norm Melendrez Hemoglobin (Bld) [Mass/Vol] 14.2 g/dL Normal 12.0-16.0 [facility] Comment on above: Performed By: #### C BC #### [facility] [address] [place] [address] Dr. Norm Melendrez IG # 0.04 10e3/ul Critically high 0.00-0.03 [facility] Comment on above: Performed By: #### C BC #### [facility] [address] [place] [address] Dr. Norm Melendrez IG % 0.6 % Critically high 0.0-0.5 [facility] Comment on above: Performed By: #### C BC #### [facility] [address] [place] [address] Dr. Norm Melendrez LYMPH # 1.6 103/ul Normal 1.2-3.[address] [facility] Comment on above: Performed By: #### C BC #### [facility] [address] [place] [address] Dr. Norm Melendrez Lymphocytes/100 WBC (Bld) 22.0 % Normal 20.5-60.0 [facility] Comment on above: Performed By: #### C BC #### [facility] [address] [place] [address] Dr. Norm Melendrez MANUAL DIFF REQ NO Normal [facility] Comment on above: Performed By: #### C BC #### [facility] [address] [place] [address] Dr. Norm Melendrez MCH (RBC) [Entitic mass] 27.5 pg Normal 26.7-34.[address] [facility] Comment on above: Performed By: #### C BC #### [facility] [address] [place] [address] Dr. Norm Melendrez MCHC (RBC) [Mass/Vol] 31.6 g/dL Normal 29.9-35.[address] [facility] Comment on above: Performed By: #### C BC #### [facility] [address] [place] [address] Dr. Norm Melendrez MCV (RBC) [Entitic vol] 86.8 fL Normal 81.0-99.[address] [facility] Comment on above: Performed By: #### C BC #### [facility] [address] [place] [address] Dr. Norm Melendrez MONO # 0.5 103/ul Normal 0.3-0.[address] [facility] Comment on above: Performed By: #### C BC #### [facility] [address] [place] [address] Dr. Norm Melendrez Monocytes/100 WBC (Bld) 7.4 % Normal 1.7-12.[address] [facility] Comment on above: Performed By: #### C BC #### [facility] [address] [place] [address] Dr. Norm Melendrez NEUT # 4.6 103/ul Normal 1.4-6.[address] [facility] Comment on above: Performed By: #### C BC #### [facility] [address] [place] [address] Dr. Norm Melendrez Neutrophils/100 WBC (Bld) 65.0 % Normal 43.0-75.[address] [facility] Comment on above: Performed By: #### C BC #### [facility] [address] [place] [address] Dr. Norm Melendrez Platelet mean volume (Bld) [Entitic vol] 9.6 fL Normal 9.5-13.5 [facility] Comment on above: Performed By: #### C BC #### [facility] [address] [place] [address] Dr. Norm eMlendrez PLT 237 103/ul Normal 150-450 [facility] Comment on above: Performed By: #### C BC #### [facility] [address] [place] [address] Dr. Norm Melendrez RBC 5.17 106/ul Normal 4.20-5.40 [facility] Comment on above: Performed By: #### C BC #### [facility] [address] [place] [address] Dr. Norm Melendrez WBC 7.0 103/ul Normal 4.0-11.[address] [facility] Comment on above: Performed By: #### C BC #### [facility] [address] [place] [address] Dr. Norm Melendrez PROF 14(COMP METB)on 022 Albumin [Mass/Vol] 3.4 g/dL Normal 3.4-5.0 [facility] Comment on above: Performed By: #### C MP #### [facility] [address] [place] [address] Dr. Norm Melendrez Albumin/Globulin [Mass ratio] 0.9 {ratio} Normal [facility] Comment on above: Performed By: #### C MP #### [facility] [address] [place] [address] Dr. Norm Melendrez ALP [Catalytic activity/Vol] 101 U/L Normal 46-[address] [facility] Comment on above: Performed By: #### C MP #### [facility] [address] [place] [address] Dr. Norm Melendrez ALT [Catalytic activity/Vol] 28 U/L Normal 14-[address] [facility] Comment on above: Performed By: #### C MP #### [facility] [address] [place] [address] Dr. Norm Melendrez Anion gap [Moles/Vol] 12.9 mmol/L Normal [facility] Comment on above: Performed By: #### C MP #### [facility] [address] [place] [address] Dr. Norm Melendrez AST [Catalytic activity/Vol] 17 U/L Normal 15-[address] [facility] Comment on above: Performed By: #### C MP #### [facility] [address] [place] [address] Dr. Norm Melendrez Bilirubin [Mass/Vol] 0.4 mg/dL Normal 0.2-1.[address] [facility] Comment on above: Performed By: #### C MP #### [facility] [address] [address] [address] Norm Melendrez Calcium [Mass/Vol] 8.9 mg/dL Normal 8.5-10.1 [facility] Comment on above: Performed By: #### C MP #### [facility] [address] [address] [address] Norm Melendrez Chloride [Moles/Vol] 104 mmol/L Normal 98-[address] [facility] Comment on above: Performed By: #### C MP #### [facility] [address] [address] [address] Norm Melendrez CO2 [Moles/Vol] 27.1 mmol/L Normal 21.0-32.0 [facility] Comment on above: Performed By: #### C MP #### [facility] [address] [address] [address] Norm Melendrez Creatinine [Mass/Vol] 0.86 mg/dL Normal 0.55-1.[address] [facility] Comment on above: Performed By: #### C MP #### [facility] [address] [address] [address] Norm Melendrez EGFR-AF LITHUANIAN >60 Normal >=60 [facility] Comment on above: Performed By: #### C MP #### [facility] [address] [place] [address] Dr. Norm Melendrez EGFR-NON AF LITHUANIAN >60 Normal >=[address] [facility] Comment on above: Performed By: #### C MP #### [facility] [address] [address] [address] Norm Melendrez Globulin (S) [Mass/Vol] 3.7 g/dL Normal [facility] Comment on above: Performed By: #### C MP #### [facility] [address] [place] [address] Dr. Norm Melendrez Glucose [Mass/Vol] 114 mg/dL Critically high 74-106 [facility] Comment on above: Performed By: #### C MP #### [facility] [address] [address] [address] Norm Melendrez Potassium [Moles/Vol] 4.0 mmol/L Normal 3.5-5.[address] [facility] Comment on above: Performed By: #### C MP #### [facility] [address] [address] [address] Norm Melendrez Protein [Mass/Vol] 7.1 g/dL Normal 6.4-8.2 [facility] Comment on above: Performed By: #### C MP #### [facility] [address] [address] [address] Norm Melendrez Sodium [Moles/Vol] 140 mmol/L Normal 136-145 [facility] Comment on above: Performed By: #### C MP #### [facility] [address] [address] [address] Norm Melendrez Urea nitrogen [Mass/Vol] 13.0 mg/dL Normal 7.0-18.[address] [facility] Comment on above: Performed By: #### C MP #### [facility] [address] [address] [address] Norm Melendrez Urea nitrogen/Creatinine [Mass ratio] 15.1 mg/mg Normal [facility] Comment on above: Performed By: #### C MP #### [facility] [address] [address] [address] Norm Melendrez SED RATE [facility] 2021 SED RATE 44 mm/hr Critically high <=30 [facility] Comment on above: Performed By: #### S EDR #### [facility] [address] [address] [address] Norm Melendrez CBC AUTO DIFFon 09-13-2021 BASO # 0.1 103/ul Normal 0.0-0.[address] [facility] Comment on above: Performed By: #### C BC #### [facility] [address] [address] [address] Norm Melendrez Basophils/100 WBC (Bld) 0.8 % Normal 0.2-2.[address] [facility] Comment on above: Performed By: #### C BC #### [facility] [address] [place] [address] Dr. Norm Melendrez EO # 0.2 103/ul Normal 0.0-0.7 [facility] Comment on above: Performed By: #### C BC #### [facility] [address] [place] [address] Dr. Norm Melendrez Eosinophils/100 WBC (Bld) 2.6 % Normal 0.9-7.[address] [facility] Comment on above: Performed By: #### C BC #### [facility] [address] [place] [address] Dr. Norm Melendrez Erythrocyte distribution width (RBC) [Ratio] 16.6 % Critically high 11.0-15.[address] [facility] Comment on above: Performed By: #### C BC #### [facility] [address] [place] [address] Dr. Norm Melendrez Hematocrit (Bld) [Volume fraction] 44.1 % Normal 36.0-48.[address] [facility] Comment on above: Performed By: #### C BC #### [facility] [address] [place] [address] Dr. Norm Melendrez Hemoglobin (Bld) [Mass/Vol] 14.3 g/dL Normal 12.0-16.[address] [facility] Comment on above: Performed By: #### C BC #### [facility] [address] [place] [address] Dr. Norm Melendrez IG # 0.04 10e3/ul Critically high 0.00-0.03 [facility] Comment on above: Performed By: #### C BC #### [facility] [address] [place] [address] Dr. Norm Melendrez IG % 0.5 % Normal 0.0-0.5 [facility] Comment on above: Performed By: #### C BC #### [facility] [address] [place] [address] Dr. Norm Melendrez LYMPH # 1.5 103/ul Normal 1.2-3.8 [facility] Comment on above: Performed By: #### C BC #### [facility] [address] [place] [address] Dr. Norm Melendrez Lymphocytes/100 WBC (Bld) 17.2 % Critically low 20.5-60.0 [facility] Comment on above: Performed By: #### C BC #### [facility] [address] [place] [address] Dr. Norm Melendrez MANUAL DIFF REQ NO Normal [facility] Comment on above: Performed By: #### C BC #### [facility] [address] [place] [address] Dr. Norm Melendrez MCH (RBC) [Entitic mass] 27.0 pg Normal 26.7-34.0 [facility] Comment on above: Performed By: #### C BC #### [facility] [address] [place] [address] Dr. Norm Melendrez MCHC (RBC) [Mass/Vol] 32.4 g/dL Normal 29.9-35.2 [facility] Comment on above: Performed By: #### C BC #### [facility] [address] [place] [address] Dr. Norm Melendrez MCV (RBC) [Entitic vol] 83.4 fL Normal 81.0-99.0 [facility] Comment on above: Performed By: #### C BC #### [facility] [address] [place] [address] Dr. Norm Melendrez MONO # 0.6 103/ul Normal 0.3-0.8 [facility] Comment on above: Performed By: #### C BC #### [facility] [address] [place] [address] Dr. Norm Melendrez Monocytes/100 WBC (Bld) 7.0 % Normal 1.7-12.0 [facility] Comment on above: Performed By: #### C BC #### [facility] [address] [place] [address] Dr. Norm Melendrez NEUT # 6.1 103/ul Normal 1.4-6.5 [facility] Comment on above: Performed By: #### C BC #### [facility] [address] [place] [address] Dr. Norm Melendrez Neutrophils/100 WBC (Bld) 71.9 % Normal 43.0-75.[address] [facility] Comment on above: Performed By: #### C BC #### [facility] [address] [place] [address] Dr. Norm Melendrez Platelet mean volume (Bld) [Entitic vol] 9.3 fL Critically low 9.5-13.[address] [facility] Comment on above: Performed By: #### C BC #### [facility] [address] [place] [address] Dr. Norm Melendrez PLT 239 103/ul Normal 150-450 [facility] Comment on above: Performed By: #### C BC #### [facility] [address] [place] [address] Dr. Norm Melendrez RBC 5.29 106/ul Normal 4.20-5.40 [facility] Comment on above: Performed By: #### C BC #### [facility] [address] [place] [address] Dr. Norm Melendrez WBC 8.5 103/ul Normal 4.0-11.0 [facility] Comment on above: Performed By: #### C BC #### [facility] [address] [place] [address] Dr. Norm Melendrez PROF 14(COMP METB)on 022 Albumin [Mass/Vol] 3.4 g/dL Normal 3.4-5.0 [facility] Comment on above: Performed By: #### C MP #### [facility] [address] [place] [address] Dr. Norm Melendrez Albumin/Globulin [Mass ratio] 0.9 {ratio} Normal [facility] Comment on above: Performed By: #### C MP #### [facility] [address] [place] [address] Dr. Norm Melendrez ALP [Catalytic activity/Vol] 90 U/L Normal 46-116 [facility] Comment on above: Performed By: #### C MP #### [facility] [address] [place] [address] Dr. Norm Melendrez ALT [Catalytic activity/Vol] 25 U/L Normal 14-[address] [facility] Comment on above: Performed By: #### C MP #### [facility] [address] [place] [address] Dr. Norm Melendrez Anion gap [Moles/Vol] 11.4 mmol/L Normal Th e [facility] Comment on above: Performed By: #### C MP #### [facility] [address] [address] [address] Norm Melendrez AST [Catalytic activity/Vol] 17 U/L Normal 15-[address] [facility] Comment on above: Performed By: #### C MP #### [facility] [address] [address] [address] Norm Melendrez Bilirubin [Mass/Vol] 0.4 mg/dL Normal 0.2-1.[address] [facility] Comment on above: Performed By: #### C MP #### [facility] [address] [place] [address] Dr. Norm Melendrez Calcium [Mass/Vol] 9.1 mg/dL Normal 8.5-10.1 [facility] Comment on above: Performed By: #### C MP #### [facility] [address] [place] [address] Dr. Norm Melendrez Chloride [Moles/Vol] 106 mmol/L Normal 98-[address] [facility] Comment on above: Performed By: #### C MP #### [facility] [address] [address] [address] Norm Melendrez CO2 [Moles/Vol] 26.8 mmol/L Normal 21.0-32.0 [facility] Comment on above: Performed By: #### C MP #### [facility] [address] [address] [address] Norm Melendrez Creatinine [Mass/Vol] 0.80 mg/dL Normal 0.55-1.[address] [facility] Comment on above: Performed By: #### C MP #### [facility] [address] [address] [address] Norm Melendrez EGFR-AF LITHUANIAN >60 Normal >=60 [facility] Comment on above: Performed By: #### C MP #### [facility] [address] [address] [address] Norm Melendrez EGFR-NON AF LITHUANIAN >60 Normal >=[address] [facility] Comment on above: Performed By: #### C MP #### [facility] [address] [address] [address] Norm Melendrez Globulin (S) [Mass/Vol] 3.7 g/dL Normal [facility] Comment on above: Performed By: #### C MP #### [facility] [address] [address] [address] Norm Melendrez Glucose [Mass/Vol] 110 mg/dL Critically high 74-106 [facility] Comment on above: Performed By: #### C MP #### [facility] [address] [address] [address] Norm Melendrez Potassium [Moles/Vol] 4.2 mmol/L Normal 3.5-5.[address] [facility] Comment on above: Performed By: #### C MP #### [facility] [address] [address] [address] Norm Melendrez Protein [Mass/Vol] 7.1 g/dL Normal 6.4-8.2 [facility] Comment on above: Performed By: #### C MP #### [facility] [address] [address] [address] Norm Melendrez Sodium [Moles/Vol] 140 mmol/L Normal 136-145 [facility] Comment on above: Performed By: #### C MP #### [facility] [address] [address] [address] Norm Melendrez Urea nitrogen [Mass/Vol] 14.0 mg/dL Normal 7.0-18.[address] [facility] Comment on above: Performed By: #### C MP #### [facility] [address] [address] [address] Norm Melendrez Urea nitrogen/Creatinine [Mass ratio] 17.5 mg/mg Normal [facility] Comment on above: Performed By: #### C MP #### [facility] [address] [address] [address] Norm Melendrez [facility] SED RATE 31 mm/hr Critically high <=30 [facility] Comment on above: Performed By: #### C #### [facility] [address] [address] [address] Norm Melendrez LNIO Antinuclear Antibodieson 05-31-2021 Antinuclear Abs, IFA Negative Normal . [facility] Comment on above: Result Comment: Nega tive <1:80 Borderline 1:80 Positive >1:80 ICAP nomenclature: AC-0 For more information about Hep-2 cell patterns use ANApatterns.org, the official website for the International Consensus on Antinuclear Antibody (LINO) Patterns (ICAP). Performed at: [address] [id number] Case Packer: Alin Negron PhD, Phone: [phone] PERFORMED BY: [place] [address] PATHOLOGIST REGISTERED NURSE CARDIOVASCULAR ICU TYRONE HOOPER M.D. Performed By: #### T 4F, CRP, TSH3, URIC, CBC, ESR, CMP, CK #### [address] #### LINO #### [facility] , Albumin [Mass/volume] in Ser um or PlasmaOrdered By: Alphonse Mcneal on 05-31-2021 Albumin [Mass/Vol] 3.5 g/dL 3.2-5.5 [facility] Aldolaseon 05-31-2021 Aldolase 2.6 U/L Low 3.3-10.3 [facility] Comment on above: Result Comment: Perf ormed at: [facility] [address] [id number] Case Packer: Alin Negron PhD, Phone: [phone] PERFORMED BY: [place] [address] PATHOLOGIST REGISTERED NURSE CARDIOVASCULAR ICU TYRONE HOOPER M.D. Performed By: #### T 4F, CRP, TSH3, URIC, CBC, ESR, CMP, CK #### [facility] [address] [place] [address] [place] #### LINO #### [facility] , Basophils Auto (Bld) [#/Vol] Ordered By: Alphonse Elizabet on 05-31-2021 Basophils (Bld) [#/Vol] 0.1 10*3/uL 0.0-0.2 [facility] Basophils/100 WBC Auto (Bld) Ordered By: Alphonse Mcneal on 05-31-2021 Basophils/100 WBC (Bld) 1.1 % [facility] Blood hemoglobin measurement (mass/volume)Ordered By: Alphonse Grijalvarow on 05-31-2021 Hemoglobin (Bld) [Mass/Vol] 13.7 g/dL 11.8-15.4 [facility] Blood leukocytes automated c ount (number/volume)Ordered By: Alphonsebella Mcneal on 05-31-2021 WBC (Bld) [#/Vol] 7.9 10*3/uL 4.5-11.0 [facility] C-Reactive Proteinon 022 C-Reactive Protein 1.4 mg/dL High 0.0-1.0 [facility] Comment on above: Performed By: #### T 4F, CRP, TSH3, URIC, CBC, ESR, CMP, CK #### [facility] [address] [place] [address] [place] #### LINO #### [facility] , Complete Blood Count Auto Di ffon 05-31-2021 Basophils (Bld) [#/Vol] 0.1 10*3/uL Normal 0.0-0.2 [facility] Comment on above: Performed By: #### T 4F, CRP, TSH3, URIC, CBC, ESR, CMP, CK #### [facility] [address] [place] [address] [place] #### LINO #### [facility] , Basophils/100 WBC (Bld) 1.1 % Normal . [facility] Comment on above: Performed By: #### T 4F, CRP, TSH3, URIC, CBC, ESR, CMP, CK #### [place] [address] [place] #### LINO #### [facility] , Eosinophils (Bld) [#/Vol] 0.6 10*3/uL High 0.0-0.45 [facility] Comment on above: Performed By: #### T 4F, CRP, TSH3, URIC, CBC, ESR, CMP, CK #### [place] [address] [place] #### LINO #### [facility] , Eosinophils/100 WBC (Bld) 7.9 % Normal . [facility] Comment on above: Performed By: #### T 4F, CRP, TSH3, URIC, CBC, ESR, CMP, CK #### [place] [address] [place] #### LINO #### [facility] , Erythrocyte distribution width (RBC) [Ratio] 16.0 % High 11.9-15.3 [facility] Comment on above: Performed By: #### T 4F, CRP, TSH3, URIC, CBC, ESR, CMP, CK #### [address] #### LINO #### [facility] , Hematocrit (Bld) [Volume fraction] 42.1 % Normal 34.0-46.4 [facility] Comment on above: Performed By: #### T 4F, CRP, TSH3, URIC, CBC, ESR, CMP, CK #### [place] [address] [place] #### LINO #### [facility] , Hemoglobin (Bld) [Mass/Vol] 13.7 g/dL Normal 11.8-15.4 [facility] Comment on above: Performed By: #### T 4F, CRP, TSH3, URIC, CBC, ESR, CMP, CK #### [address] #### LINO #### [facility] , Lymphocytes (Bld) [#/Vol] 1.1 10*3/uL Normal 1.00-4.8 [facility] Comment on above: Performed By: #### T 4F, CRP, TSH3, URIC, CBC, ESR, CMP, CK #### [place] [address] [place] #### LINO #### [facility] , Lymphocytes/100 WBC (Bld) 14.3 % Normal . [facility] Comment on above: Performed By: #### T 4F, CRP, TSH3, URIC, CBC, ESR, CMP, CK #### [address] #### LINO #### [facility] , MCH (RBC) [Entitic mass] 25.7 pg Normal 24.7-34.3 [facility] Comment on above: Performed By: #### T 4F, CRP, TSH3, URIC, CBC, ESR, CMP, CK #### [address] #### LINO #### [facility] , MCV (RBC) [Entitic vol] 79.2 fL Low 80-100 [facility] Comment on above: Performed By: #### T 4F, CRP, TSH3, URIC, CBC, ESR, CMP, CK #### [address] #### LINO #### [facility] , Mean Corpuscular HGB Conc 32.4 g/dL Normal 32.0-35.0 [facility] Comment on above: Performed By: #### T 4F, CRP, TSH3, URIC, CBC, ESR, CMP, CK #### [place] [address] [place] #### LINO #### [facility] , Monocytes (Bld) [#/Vol] 0.5 10*3/uL Normal 0.0-0.8 [facility] Comment on above: Performed By: #### T 4F, CRP, TSH3, URIC, CBC, ESR, CMP, CK #### [address] #### LINO #### [facility] , Monocytes/100 WBC (Bld) 6.2 % Normal . [facility] Comment on above: Performed By: #### T 4F, CRP, TSH3, URIC, CBC, ESR, CMP, CK #### [place] [address] [place] #### LINO #### [facility] , Neutrophils (Bld) [#/Vol] 5.6 10*3/uL Normal 1.8-7.7 [facility] Comment on above: Performed By: #### T 4F, CRP, TSH3, URIC, CBC, ESR, CMP, CK #### [address] #### LINO #### [facility] , Neutrophils/100 WBC (Bld) 70.5 % Normal . [facility] Comment on above: Performed By: #### T 4F, CRP, TSH3, URIC, CBC, ESR, CMP, CK #### [facility] [address] [place] [address] [place] #### LINO #### [facility] , Nucleated RBC/100 WBC (Bld) [Ratio] 0.1 % Normal 0-0.5 [facility] Comment on above: Performed By: #### T 4F, CRP, TSH3, URIC, CBC, ESR, CMP, CK #### [facility] [address] [place] [address] [place] #### LINO #### [facility] , Platelet mean volume (Bld) [Entitic vol] 7.6 fL Normal 6.3-10.7 [facility] Comment on above: Performed By: #### T 4F, CRP, TSH3, URIC, CBC, ESR, CMP, CK #### [facility] [address] [place] [address] [place] #### LINO #### [facility] , Platelets (Bld) [#/Vol] 283 10*3/uL Normal 150-450 [facility] Comment on above: Performed By: #### T 4F, CRP, TSH3, URIC, CBC, ESR, CMP, CK #### [facility] [address] [place] [address] [place] #### LINO #### [facility] , RBC (Bld) [#/Vol] 5.32 10*6/uL High 3.60-5.00 [facility] Comment on above: Performed By: #### T 4F, CRP, TSH3, URIC, CBC, ESR, CMP, CK #### [facility] [address] [place] [address] [place] #### LINO #### [facility] , WBC (Bld) [#/Vol] 7.9 10*3/uL Normal 4.5-11.0 [facility] Comment on above: Performed By: #### T 4F, CRP, TSH3, URIC, CBC, ESR, CMP, CK #### [address] #### LINO #### [facility] , Comprehensive Metabolic Pane bianca 05-31-2021 Albumin [Mass/Vol] 3.5 g/dL Normal 3.2-5.5 [facility] Comment on above: Performed By: #### T 4F, CRP, TSH3, URIC, CBC, ESR, CMP, CK #### [facility] [address] [place] [address] [place] #### LINO #### [facility] , Albumin/Globulin [Mass ratio] 1.1 {ratio} Normal [facility] Comment on above: Performed By: #### T 4F, CRP, TSH3, URIC, CBC, ESR, CMP, CK #### [facility] [address] [place] [address] #### LINO #### [facility] , ALP [Catalytic activity/Vol] 92 U/L Normal 32-92 [facility] Comment on above: Performed By: #### T 4F, CRP, TSH3, URIC, CBC, ESR, CMP, CK #### [facility] [address] [place] [address] [place] #### LINO #### [facility] , ALT [Catalytic activity/Vol] 22 U/L Normal 10-60 [facility] Comment on above: Performed By: #### T 4F, CRP, TSH3, URIC, CBC, ESR, CMP, CK #### [address] #### LINO #### [facility] , AST [Catalytic activity/Vol] 19 U/L Normal 10-42 [facility] Comment on above: Performed By: #### T 4F, CRP, TSH3, URIC, CBC, ESR, CMP, CK #### [facility] [address] [place] [address] [place] #### LINO #### [facility] , Bilirubin [Mass/Vol] 0.3 mg/dL Normal 0.3-1.2 [facility] Comment on above: Performed By: #### T 4F, CRP, TSH3, URIC, CBC, ESR, CMP, CK #### [facility] [address] [place] [address] [place] #### LION #### [facility] , Calcium [Mass/Vol] 9.1 mg/dL Normal 8.2-10.2 [facility] Comment on above: Performed By: #### T 4F, CRP, TSH3, URIC, CBC, ESR, CMP, CK #### [facility] [address] [place] [address] [place] #### LINO #### [facility] , Chloride [Moles/Vol] 104 mmol/L Normal 95-114 [facility] Comment on above: Performed By: #### T 4F, CRP, TSH3, URIC, CBC, ESR, CMP, CK #### [facility] [address] [place] [address] [place] #### LINO #### [facility] , CO2 [Moles/Vol] 25.8 mmol/L Normal 22.0-30.0 [facility] Comment on above: Performed By: #### T 4F, CRP, TSH3, URIC, CBC, ESR, CMP, CK #### [facility] [address] [place] [address] [place] #### LINO #### [facility] , Creatinine [Mass/Vol] 0.69 mg/dL Normal 0.44-1.03 [facility] Comment on above: Performed By: #### T 4F, CRP, TSH3, URIC, CBC, ESR, CMP, CK #### [place] [address] [place] #### LINO #### [facility] , Estimated GFR ( Kaylee > 60 [facility] Comment on above: Result Comment: GFR estimated reference range: According to KDOQI guidelines, <60 ml/min/1.73m2 is sufficient to diagnose a patient with chronic kidney disease. Performed By: #### T 4F, CRP, TSH3, URIC, CBC, ESR, CMP, CK #### [facility] [address] [place] [address] [place] #### LINO #### [facility] , Estimated GFR (Non- Am > 60 [facility] Comment on above: Performed By: #### T 4F, CRP, TSH3, URIC, CBC, ESR, CMP, CK #### [facility] [address] [place] [address] [place] #### LINO #### [facility] , Globulin (S) [Mass/Vol] 3.2 g/dL [facility] Comment on above: Performed By: #### T 4F, CRP, TSH3, URIC, CBC, ESR, CMP, CK #### [facility] [address] [place] [address] [place] #### LINO #### [facility] , Glucose [Mass/Vol] 91 mg/dL Normal 70-100 [facility] Comment on above: Result Comment: [facility] Glucose Reference Range is dependent on time and content of last meal. Glucose of more than 200 mg/dL in a nonstressed, ambulatory subject supports the diagnosis of Diabetes Mellitus. ADA recommended reference range Performed By: #### T 4F, CRP, TSH3, URIC, CBC, ESR, CMP, CK #### [place] [address] [place] #### LINO #### [facility] , Potassium [Moles/Vol] 4.4 mmol/L Normal 3.5-5.1 [facility] Comment on above: Performed By: #### T 4F, CRP, TSH3, URIC, CBC, ESR, CMP, CK #### [address] #### LINO #### [facility] , Protein [Mass/Vol] 6.7 g/dL Normal 6.1-7.9 [facility] Comment on above: Performed By: #### T 4F, CRP, TSH3, URIC, CBC, ESR, CMP, CK #### [facility] [address] [place] [address] [place] #### LINO #### [facility] , Sodium [Moles/Vol] 138 mmol/L Normal 136-146 [facility] Comment on above: Performed By: #### T 4F, CRP, TSH3, URIC, CBC, ESR, CMP, CK #### [place] [address] [place] #### LINO #### [facility] , Urea nitrogen [Mass/Vol] 20 mg/dL Normal 9-23 [facility] Comment on above: Performed By: #### T 4F, CRP, TSH3, URIC, CBC, ESR, CMP, CK #### [facility] [address] [place] [address] #### LINO #### [facility] , Creatine Kinaseon 05-31-2021 CK [Catalytic activity/Vol] 42 U/L Normal [facility] Comment on above: Result Comment: PERF ORMED BY: [place] [address] PATHOLOGIST REGISTERED NURSE CARDIOVASCULAR ICU TYRONE HOOPER M.D. Performed By: #### T 4F, CRP, TSH3, URIC, CBC, ESR, CMP, CK #### [facility] [address] [place] [address] #### LINO #### [facility] , Creatine kinase [Enzymatic a ctivity/volume] in Serum or PlasmaOrdered By: Alphonse Mcneal on 05-31-2021 CK [Catalytic activity/Vol] 42 U/L [facility] Creatinine and Glomerular fi ltration rate.predicted panel (S/P/Bld)Ordered By: Alphonse Mcneal on 05-31-2021 Creatinine [Mass/Vol] 0.69 mg/dL 0.44-1.03 [facility] Eosinophils Auto (Bld) [#/Vo l]Ordered By: Alphonse Mcneal on 05-31-2021 Eosinophils (Bld) [#/Vol] 0.6 10*3/uL 0.0-0.45 [facility] Eosinophils/100 WBC Auto (Bl d)Ordered By: Alphonse Mcneal on 05-31-2021 Eosinophils/100 WBC (Bld) 7.9 % [facility] Erythrocyte Sedimentation Ra lakshmi 05-31-2021 ESR (Bld) [Velocity] 53 mm/h High 0-29 [facility] Comment on above: Result Comment: PERF ORMED BY: [place] [address] PATHOLOGIST REGISTERED NURSE CARDIOVASCULAR ICU TYRONE HOOPER M.D. Performed By: #### T 4F, CRP, TSH3, URIC, CBC, ESR, CMP, CK #### [facility] [address] [place] [address] [place] #### LINO #### [facility] , Erythrocyte distribution wid th Auto (RBC) [Ratio]Ordered By: Alphonse Mcneal on 05-31-2021 Erythrocyte distribution width (RBC) [Ratio] 16.0 % 11.9-15.3 [facility] Erythrocyte sedimentation ra te by Photometric methodOrdered By: Alphonse Mcneal on 05-31-2021 ESR Photometric method (Bld) [Velocity] 53 mm/hr 0-29 [facility] Estimated glomerular filtrat ion rate (GFR) non- AmericanOrdered By: Alphonse Mcneal on 05-31-2021 GFR/1.73 sq M.predicted among non-blacks MDRD (S/P/Bld) [Vol rate/Area] > 60 mL/Min [facility] Free T4 (Free Thyroxine)on 0 05-31-2021 Free T4 [Mass/Vol] 1.02 ng/dL Normal 0.61-1.12 [facility] Comment on above: Performed By: #### T 4F, CRP, TSH3, URIC, CBC, ESR, CMP, CK #### [facility] [address] [place] [address] #### LINO #### [facility] , Globulin Calc (S) [Mass/Vol] Ordered By: Alphonse Mcneal on 05-31-2021 Globulin (S) [Mass/Vol] 3.2 g/dL [facility] Hematocrit Auto (Bld) [Volum e fraction]Ordered By: Alphonse Mcneal on 05-31-2021 Hematocrit (Bld) [Volume fraction] 42.1 % 34.0-46.4 [facility] - Hematology and Cell countsOrdered By: Alphonse Mcneal on 05-31-2021 Nucleated RBC/100 WBC (Bld) [Ratio] 0.1 % 0-0.5 [facility] Lymphocytes Auto (Bld) [#/Vo l]Ordered By: Alphonse Mcneal on 05-31-2021 Lymphocytes (Bld) [#/Vol] 1.1 10*3/uL 1.00-4.8 [facility] Lymphocytes/100 WBC Auto (Bl d)Ordered By: Alphonse Mcneal on 05-31-2021 Lymphocytes/100 WBC (Bld) 14.3 % [facility] MCH Auto (RBC) [Entitic mass ]Ordered By: Alphonse Mcneal on 05-31-2021 MCH (RBC) [Entitic mass] 25.7 pg 24.7-34.3 [facility] MCHC Auto (RBC) [Mass/Vol]Or dered By: Alphonse Mcneal on 05-31-2021 MCHC (RBC) [Mass/Vol] 32.4 g/dL 32.0-35.0 [facility] MCV Auto (RBC) [Entitic vol] Ordered By: Alphonse Mcneal on 05-31-2021 MCV (RBC) [Entitic vol] 79.2 fL 80-100 [facility] Monocytes Auto (Bld) [#/Vol] Ordered By: Alphonse Mcneal on 05-31-2021 Monocytes (Bld) [#/Vol] 0.5 10*3/uL 0.0-0.8 [facility] Monocytes/100 WBC Auto (Bld) Ordered By: Alphonse Mcneal on 05-31-2021 Monocytes/100 WBC (Bld) 6.2 % [facility] Neutrophils Auto (Bld) [#/Vo l]Ordered By: Alphonse Mcneal on 05-31-2021 Neutrophils (Bld) [#/Vol] 5.6 10*3/uL 1.8-7.7 [facility] Neutrophils/100 WBC Auto (Bl d)Ordered By: Alphonse Mcneal on 05-31-2021 Neutrophils/100 WBC (Bld) 70.5 % [facility] No Panel InformationOrdered By: Alphonse Mcneal on 05-31-2021 Estimated GFR () > 60 mL/Min [facility] Comment on above: GFR estimated refere nce range: According to KDOQI guidelines, <60 ml/min/1.73m2 is sufficient to diagnose a patient with chronic kidney disease. Pharmacy Creatinine Clearance (Chem N/A [facility] Platelet mean volume Auto (B ld) [Entitic vol]Ordered By: Alphonse Mcneal on 05-31-2021 Platelet mean volume (Bld) [Entitic vol] 7.6 fL 6.3-10.7 [facility] Platelets Auto (Bld) [#/Vol] Ordered By: Alphonse Mcneal on 05-31-2021 Platelets (Bld) [#/Vol] 283 10*3/uL 150-450 [facility] Protein [Mass/volume] in Ser um or PlasmaOrdered By: Alphonse Mcneal on 05-31-2021 Protein [Mass/Vol] 6.7 g/dL 6.1-7.9 [facility] RBC Auto (Bld) [#/Vol]Ordere d By: Alphonse Mcneal on 05-31-2021 RBC (Bld) [#/Vol] 5.32 10*6/uL 3.60-5.00 [facility] Serum or plasma C reactive p rotein measurement (mass/volume)Ordered By: Alphonse Mcneal on 05-31-2021 CRP [Mass/Vol] 1.4 mg/dL 0.0-1.0 [facility] Serum or plasma alanine kwan otransferase measurement without P-5'-P (enzymatic activiOrdered By: Alphonse Mcneal on 05-31-2021 ALT No additional P-5'-P [Catalytic activity/Vol] 22 U/L 10-60 [facility] Serum or plasma albumin/glob ulin mass ratioOrdered By: Alphonse Mcneal on 05-31-2021 Albumin/Globulin [Mass ratio] 1.1 {ratio} [facility] Serum or plasma alkaline lisa sphatase measurement (enzymatic activity/volume)Ordered By: Alphonse Mcneal on 05-31-2021 ALP [Catalytic activity/Vol] 92 U/L 32-92 [facility] Serum or plasma aspartate am inotransferase measurement (enzymatic activity/volume)Ordered By: Alphonse Mcneal on 05-31-2021 AST [Catalytic activity/Vol] 19 U/L 10-42 [facility] Serum or plasma calcium sharad urement (mass/volume)Ordered By: Alphonse Mcneal on 05-31-2021 Calcium [Mass/Vol] 9.1 mg/dL 8.2-10.2 [facility] Serum or plasma chloride sonya surement (moles/volume)Ordered By: Alphonse Mcneal on 05-31-2021 Chloride [Moles/Vol] 104 mmol/L 95-114 [facility] Serum or plasma glucose sharad urement (mass/volume)Ordered By: Alphonse Mcneal on 05-31-2021 Glucose [Mass/Vol] 91 mg/dL 70-100 [facility] Comment on above: ADA recommended refe rence rangeRandom Glucose Reference Range is dependent on time and content of last meal. Glucose of more than 200 mg/dL in a nonstressed, ambulatory subject supports the diagnosis of Diabetes Mellitus. Serum or plasma potassium me asurement (moles/volume)Ordered By: Alphonse Mcneal on 05-31-2021 Potassium [Moles/Vol] 4.4 mmol/L 3.5-5.1 [facility] Serum or plasma sodium measu rement (moles/volume)Ordered By: Alphonse Mcneal on 05-31-2021 Sodium [Moles/Vol] 138 mmol/L 136-146 [facility] Serum or plasma total biliru bin measurement (mass/volume)Ordered By: Alphonse Mcneal on 05-31-2021 Bilirubin [Mass/Vol] 0.3 mg/dL 0.3-1.2 [facility] Serum or plasma total carbon dioxide measurement (moles/volume)Ordered By: Alphonse Mcneal on 05-31-2021 CO2 [Moles/Vol] 25.8 mmol/L 22.0-30.0 [facility] Serum or plasma urea nitroge n measurement (mass/volume)Ordered By: Alphonse Mcneal on 05-31-2021 Urea nitrogen [Mass/Vol] 20 mg/dL 9-23 [facility] Serum or plasma uric acid me asurement (mass/volume)Ordered By: Alphonse Mcneal on 05-31-2021 Urate [Mass/Vol] 4.6 mg/dL 2.6-7.2 [facility] TSH DL <= 0.005 mIU/L QnOrde red By: Alphonse Mcneal on 05-31-2021 TSH Qn 1.44 m[IU]/L 0.45-5.33 [facility] Thyroid Stimulating Hormoneo n 05-31-2021 TSH Qn 1.44 m[IU]/L Normal 0.45-5.33 [facility] Comment on above: Result Comment: PERF ORMED BY: [place] [address] PATHOLOGIST REGISTERED NURSE CARDIOVASCULAR ICU TYRONE HOOPER M.D. Performed By: #### T 4F, CRP, TSH3, URIC, CBC, ESR, CMP, CK #### [facility] [address] [place] [address] #### LINO #### [facility] , Thyroxine (T4) free [Mass/vo lume] in Serum or PlasmaOrdered By: Alphonse Mcneal on 05-31-2021 Free T4 [Mass/Vol] 1.02 ng/dL 0.61-1.12 [facility] Uric Acidon 05-31-2021 Urate [Mass/Vol] 4.6 mg/dL Normal 2.6-7.2 [facility] Comment on above: Performed By: #### T 4F, CRP, TSH3, URIC, CBC, ESR, CMP, CK #### [facility] [address] [place] [address] #### LINO #### [facility] , XR hand BI 2Von 05-31-2021 XR hand BI 2V [facility] [place] [address] [place] [address] XRay Report Signed Patient: Cayetano Weeks MR#: [id number] : 1950 Acct:[id number] Age/Sex: 70 / F ADM Date: 05/31/21 Loc: ICXD Room: Type: [facility] Attending Dr: Gonzalez Mcneal MD Ordering Provider: Alphonse Mcneal MD Date of Service: 05/31/21 XR/XR hand BI 2V: POLYARTHRITIS,MEDS ([id number]) XR/XR wrist BI 2V: POLYARTHRITIS,MEDS ([id number]) XR/XR ankle BI 2V: POLYARTHRITIS,MEDS ([id number]) XR/XR chest 2V*: POLYARTHRITIS,MEDS Copies to: Alphonse [...] Fenton Jr., M.D.05/31/2021 2:44 PM Dictation Location: [place] [address] Transcribed By: [facility] 05/31/21 1444 Dictated By: Fox Fenton Jr, MD 05/31/21 1433 Signed By: 05/31/21 1444 [facility] OR [facility] 06-11-2020 OR Nursing CO SA OR Nursing Record Summary Primary Physician: Chato Stafford MD Finalized Date/Time: 06/11/20 12:29:23 Pt. Name: PATRICIA WEEKSBelinda Cooley/Sex: 1950 Female Med Rec #: [id number] Physician: Financial #: [id number] Pt. Type: A Room/Bed: / Admit/Disch: 06/10/20 [...] Tristin Baeza Role Performed Primary Surgeon Anesthesiologist Housing Counselor Time In 06/10/20 07:27:00 06/10/20 07:27:00 06/10/20 07:27:00 Time Out 06/10/20 08:15:00 06/10/20 08:15:00 06/10/20 08:15:00 Procedure D and C Hysteroscopy(N/A) D and C Hysteroscopy(N/A) D and C Hysteroscopy(N/A) Attendee Comment Relief Reason Last Modified By: Dottie Quintanilla RN, RN , Dottie Shannon RN 06/10/20 08:20:42 06/10/20 08:20:42 06/10/20 08:20:42 Entry 4 Entry 5 Entry 6 Case Attendee Dwight BERNARD , Carson Finch Meagen B Role Performed voice pathologist First Scrub Assistive Personnel Time In 06/10/20 07:27:00 06/10/20 07:27:00 06/10/20 07:27:00 Time Out 06/10/20 08:15:00 06/10/20 08:15:00 06/10/20 08:15:00 Procedure D and C Hysteroscopy(N/A) D and C Hysteroscopy(N/A) D and C Hysteroscopy(N/A) Attendee Comment Relief Reason Last Modified By: Dottie Quintanilla RN, RN, Jill E Mull RN, Jill E 06/10/20 08:20:42 06/10/20 08:20:42 06/10/20 08:20:42 Entry 7 Case Attendee Nayeli Sosa MD Role Performed Resident Time In 06/10/20 07:27:00 Time Out 06/10/20 08:15:00 Procedure D and C Hysteroscopy(N/A) Attendee Comment Relief Reason Last Modified By: Dottie Quintanilla RN 06/10/20 08:20:42 CO SA OR General Case Education Administrative Assistant 1 OR CO SA 12 ASA Class 2 Case Wound Class Clean Contaminated Specialty Gynecology Surgery Case Level Target Setter Major Diagnosis Preop Diagnosis N95.0 N85.00 N84 Postop Same As Preop Yes POSTMENOPAUSAL BLEEDING THICKENED ENDOMETRIUM ENDOMETRIAL POLYP Postop Diagnosis N95.0 N85.00 N84 POSTMENOPAUSAL BLEEDING THICKENED ENDOMETRIUM ENDOMETRIAL POLYP This is a down time No record. Last Modified By: Shannan Mayes RN 06/11/20 12:28:48 General Comments: specialty reflects procedure performed.fernandez elias se supervisor [place]. [place] SA OR Surgical Procedures Entry 1 [...] D and C Hysteroscopy(N/A) Tristin Hurley Stiles MD, [facility] Last Modified By: Dottie Quintanilla RN 06/10/20 08:20:02 CO SA OR Antithrombolytic Devices Entry 1 IPC Intermittent Right, Left IPC Size Knee Pneumatic Compression Unit ID Number [id number] JOSE DANIEL Hose Foot Pump Last Modified [...] - mi (more content not included)... Normal [facility] Glucose POCT (Uploaded)on Glucose [Mass/Vol] 127 mg/dL High 70-99 [facility] Comment on above: Result Comment: Suzanne tment ranges and critical values established by Patient Care Services. All follow-up actions were taken by Patient Care Services. Performed By: #### 2 430-8 #### [facility] PACU I Nursingon 06-10-2020 PACU I Nursing [place] SA PACU I Nursing Record Summary Primary Physician: Chato Stafford MD Finalized Date/Time: 06/10/20 09:20:44 Pt. Name: CAYETANO WEEKS./Sex: 1950 Female Med Rec #: [id number] Physician: Financial #: [id number] Pt. Type: A Room/Bed: / Admit/Disch: 06/10/20 05:45:00 - Institution: [place] SA OR Main PACU I Case Times [...] By: Willow Rain RN 06/10/20 09:20 Normal [facility] Patient Summaryon 06-10-2020 Patient Summary PATIENT DISCHARGE INSTRUCTIONS If you are having an emergency and are not able to reach your physician, CALL 911 or go to the nearest emergency room and take this document with you. [facility] 06/10/20 08:38 [address] [place]. [address] PATIENT INFORMATION Name: CAYETANO WEEKS Address: [address] [place] [id number] Age: 69 Years Phone: [phone] : 1950 12:00 MRN: [id number] Sex: Female Race: White Ethnicity: Not Hispan/Lat Admitted From: Clinic or [facility] Medical Service: Obstetric Nurse Unit/Bed: ([place]) [facility] N/A Admit Date: 06/10/2020 05:45 PCP: Physician, PCP Unknown PHYSICIANS INVOLVED WITH CARE -------- Attending Physicians: Rivera CHURCHILL , Chato Mckeon - Obstetrics, Gynecology Admitting Physician: None found Primary Care Physician:Physician, PCP Unknown,Family Practice,,, - Consults: None found YOU WERE TREATED IN THE HOSPITAL FOR: Endometrial polyp; Postmenopausal vaginal bleeding FOLLOW-UP APPOINTMENTS: Provider: Specialty: Address: Date: Chato Stafford MD Gynecology; Obstetrics [address] [place], [place] [address] (1) Two Weeks Provider: Specialty: Address: Date: [...] doses are changed, or new medications (including yywy-yiy-istypvs products) are added. Ask your doctor if [...] those changes are shown below: NEW MEDICATIONS [id number], [address], [place] [id number], [phone] ibuprofen (ibuprofen 600 mg oral tablet) 1 [...] Decisions Type: Living Will, Medical Power of Analysis Internship Copy of Advance Directive/Health Care Decisions on Chart: Patient/Family asked to provide copy SUICIDE HOTLINE: Your mental and emotional well-being are important. If you are in a mental health crisis, or having thoughts of suicide, please call the nationwide suicide hotline, anytime day or night, at 3-683-947-LXPJ. It's easy to sign up for [employer]: 1. Visit [email or web address] /[email or web address] 2. Click on [place] for [employer] 3. Verify your identity by entering your [...] your account, you'll be redirected to the [employer] login page. Login and check to see your results Questions? For help with account enrollment, call [employer] Customer Support at [phone] (toll-free) PATIENT EDUCATI (more content not included)... Normal [facility] Post PACU Nursingon 06-11-19 Post PACU Nursing CO SA PACU II Nursing Record Summary Primary Physician: Chato Stafford MD Finalized Date/Time: 06/10/20 09:40:04 Pt. Name: CAYETANO WEEKS/Sex: 1950 Female Med Rec #: [id number] Physician: Financial #: [id number] Pt. Type: A Room/Bed: / Admit/Disch: 06/10/20 [...] By: Juliane Mcduffie RN 06/10/20 09:40 Normal [facility] PreOp Nursingon 06-10-2020 PreOp Nursing CO SA PreOp Nursing Record Summary Primary Physician: Chato Stafford MD Finalized Date/Time: 06/10/20 07:30:51 Pt. Name: CAYETANO WEEKS/Sex: 1950 Female Med Rec #: [id number] Physician: Financial #: [id number] Pt. Type: A Room/Bed: / Admit/Disch: 06/10/20 [...] By: Dottie Quintanilla RN 06/10/20 07:30 Normal [facility] Surgical Pathology Final Rep elisabeth 06-10-2020 Pathology study CAYETANO WEEKS [id number] 69 YRS F [id number] / SD93 01 ORDERING PHYSICIAN: CHATO STAFFORD 288 [...] block B1. (ES/1C/MS/RT-BAG) ZW :KEN 06/10/20 By: BELLA ARGUETA M.D. (Electronic Signature) MICROSCOPIC: The technical component was performed at [facility], [address] [place] [address]. Microscopic examination was performed. Case resulted at [facility]. DIAGNOSIS: (A) Endometrial polyp, polypectomy: -- BENIGN ENDOMETRIAL POLYP. -- NEGATIVE FOR ATYPICAL HYPERPLASIA AND MALIGNANCY. (B) Endometrium, curettage: -- FRAGMENTS OF ENDOMETRIAL POLYP AND FOCAL SIMPLE ENDOMETRIAL HYPERPLASIA WITHOUT ATYPIA/BENIGN HYPERPLASIA. -- NEGATIVE FOR ATYPICAL HYPERPLASIA AND MALIGNANCY. JH2:JH2:JH204/ END OF REPORT END OF REPORT [facility] Coronavirus (COVID-19/SARS-C oV-2) [facility] 06-08-2020 Device Identifier [place] Fusion SARS-CoV-2 assay_[employer]. EUA [facility] Comment on above: Performed By: #### 9 4532-9x6 #### [facility] [address] [place] [address] Employed in healthcare N [facility] Comment on above: Performed By: #### 9 453-9x6 #### [facility] [address] [place] [address] First test Y [facility] Comment on above: Performed By: #### 9 4531-9x6 #### [facility] [address] [place] [address] ICU N [facility] Comment on above: Performed By: #### 9 4532-9x6 #### [facility] [address] [place] [address] Illness or injury onset date and time N [facility] Comment on above: Performed By: #### 9 4531-9x6 #### [facility] [address] [place] [address] Patient was hospitalized because of this condition N [facility] Comment on above: Performed By: #### 9 4532-9x6 #### [facility] [address] [place] [address] status N [facility] Comment on above: Performed By: #### 9 4532-9x6 #### [facility] [address] [place] [address] Resides in congregate care setting N [facility] Comment on above: Performed By: #### 9 4532-9x6 #### [facility] [address] [place] [address] SARS-CoV-2 (COVID-19) RNA CLEMENTINE+probe Ql (Resp) Not detected Normal NOTDET [facility] Comment on above: Result Comment: This test was performed via the Aptima SARS-CoV-2 Assay (DoubleVerify), a Nucleic Acid Amplification Test (NAAT), and has been authorized by the FDA under an Emergency Use Authorization (EUA). The assay is validated for nasopharyngeal (B OPERATOR), nasal, and oropharyngeal (OP) swab specimens. The [...] www.cdc.gov/coronavirus. Performed By: #### 9 4532-9x6 #### [address] [address] Symptomatic as defined by CDC N Normal [facility] Comment on above: Performed By: #### 9 4532-9x6 #### [address] [address] Basic metabolic 2000 panelon 05-27-2020 Anion gap [Moles/Vol] 6.0 mmol/L Normal 6.0-18.0 [facility] Comment on above: Performed By: #### 2 4321-2, 93961-4, 66437-7s7 ####[facility], [address] [place] [address]. Calcium [Mass/Vol] 9.0 mg/dL Normal 8.9-10.3 [facility] Comment on above: Performed By: #### 2 4321-2, 23327-4, 06071-7q5 ####[facility], [address] [place], [place]. Chloride [Moles/Vol] 105 mmol/L Normal 98-107 [facility] Comment on above: Performed By: #### 2 4321-2, 25495-0, 25126-5k5 ####[facility], [address] [place], [place]. CO2 [Moles/Vol] 27 mmol/L Normal 22-32 [facility] Comment on above: Performed By: #### 2 1-2, 43112-2, 10351-0k8 ####[facility], [address], [place]. Creatinine [Mass/Vol] 0.74 mg/dL Normal 0.66-1.30 [facility] Comment on above: Performed By: #### 2 4320-2, 72137-7, 12183-8m5 ####[facility], [address] [place], [place]. Glucose [Mass/Vol] 106 mg/dL High 70-99 [facility] Comment on above: Result Comment: U pdated ADA Reference Range A normal fasting glucose concentration is less than 100 mg/dL. An impaired fasting glucose concentration is 100-125 mg/dL. A provisional diagnosis of diabetes mellitus can be made when a fasting glucose concentration is greater than 125 mg/dL. Performed By: #### 2 432-2, 64482-9, 43535-0o0 ####[facility], [address] [place], [place]. Potassium [Moles/Vol] 3.9 mmol/L Normal 3.6-5.1 [facility] Comment on above: Performed By: #### 2 432-2, 00351-5, 75909-8q4 ####[facility], [address] [place], [place]. Sodium [Moles/Vol] 138 mmol/L Normal 136-145 [facility] Comment on above: Performed By: #### 2 4321-2, 82755-4, 13288-1t0 ####[facility], [address] [place], [place]. Urea nitrogen (BldV) [Mass/Vol] 13 mg/dL Normal 8-20 [facility] Comment on above: Performed By: #### 2 4321-2, 44386-9, 41004-0v3 ####[facility], [address] [place] [address]. GFR/1.73 sq M.predicted (S/P /Bld) [Vol rate/Area]on 05-27-2020 GFR/1.73 sq M.predicted among blacks MDRD (S/P/Bld) [Vol rate/Area] mL/min/{1.73_m2} Normal [facility] Comment on above: Result Comment: The MDRD equation has not been validated for those over 70 years, women, patients with serious co-morbid conditions, or with extremes of body size, muscle mass of nutritional status. Performed By: #### 2 4321-2, 24111-0, 62113-5i6 #### [facility], [address] [place] [address]. GFRbbon 05-27-2020 GFR/1.73 sq M.predicted among non-blacks MDRD (S/P/Bld) [Vol rate/Area] mL/min/{1.73_m2} Normal [facility] Comment on above: Performed By: #### 2 4321-2, 20219-6, 23100-0q2 #### [facility], [address] [place], [place]. Hemogram and platelets WO di fferential panel (Bld)on 05-27-2020 Erythrocyte distribution width (RBC) [Entitic vol] 14.6 % Normal 11.0-14.8 [facility] Comment on above: Performed By: #### 2 4317-0 #### [facility], [address] [place] [address] [place]. Hematocrit (Bld) [Volume fraction] 46.5 % High 35.0-45.0 [facility] Comment on above: Performed By: #### 2 7-0 #### [facility], [address], [place]. Hemoglobin (Bld) [Mass/Vol] 15.4 g/dL Normal 12.0-16.0 [facility] Comment on above: Performed By: #### 2 7-0 #### [facility], [address]. MCH (RBC) [Entitic mass] 27.4 Picograms Normal 27.0-34.0 [facility] Comment on above: Performed By: #### 2 4316-0 #### [facility], [address] [facility]. MCHC (RBC) [Mass/Vol] 33.0 g/dL Normal 32.0-36.0 [facility] Comment on above: Performed By: #### 2 4316-0 #### [facility], [address]. MCV (RBC) [Entitic vol] 82.9 fL Normal 80.0-97.0 [facility] Comment on above: Performed By: #### 2 7-0 #### [facility], [address]. Platelet mean volume (Bld) [Entitic vol] 7.5 fL Normal 6.2-12.1 [facility] Comment on above: Performed By: #### 2 7-0 #### [facility], [address]. Platelets (Bld) [#/Vol] 218 thou/mcL Normal 142-424 [facility] Comment on above: Performed By: #### 2 7-0 #### [facility], [address] [facility]. RBC (Bld) [#/Vol] 5.61 million/mcL High 3.80-5.10 [facility] Comment on above: Performed By: #### 2 4317-0 #### [facility], [address]. WBC (Bld) [#/Vol] 7.5 thou/mcL Normal 4.6-10.2 [facility] Comment on above: Performed By: #### 2 4317-0 #### [facility], [address] [place], [place]. PT Coag (PPP) [Time]on 05-27 INR Coag (Bld) [Relative time] 1.08 {INR} Normal [facility] Comment on above: Result Comment: The recommended therapeutic INR range for most cardiac indications is 2.0-3.0. For high intensity therapy(ie.mechanical heart valves), the recommended range is 2.5-3.5. Performed By: #### 3 173-2, 5902-2 ####[facility], [address] [place], [place]. Prothrombin Timeon PT Coag (PPP) [Time] 14.3 s Normal 11.9-14.7 [facility] Comment on above: Performed By: #### 3 173-2, 5902-2 ####[facility], [address] [facility] [place]. aPTT Coag (Bld) [Time]on aPTT Coag (PPP) [Time] 31.9 s Normal 23.3-35.3 Mo [facility] Comment on above: Performed By: #### 3 173-2, 5902-2 ####[facility], [address] [place]. Vital Signs Date Time Vital Sign Value Performing Clinician Allyssa ingram 01-25-2024 10:37-0500 Body height 154.9 cm Tyrell Bowens MD Work Phone: [facility] 01-25-2024 10:37-0500 Body mass index (BMI) [Ratio] 37.98 kg/m2 Tyrell Bowens MD Work Phone: [facility] 01-25-2024 10:37-0500 Body temperature 97.5 [degF] Tyrell Bowens MD Work Phone: [facility] 01-25-2024 10:37-0500 Body weight 91.17 kg Tyrell Bowens MD Work Phone: [facility] 01-25-2024 10:37-0500 Diastolic blood pressure 72 mm[Hg] Tyrell Bowens MD Work Phone: [facility] 01-25-2024 10:37-0500 Heart rate 74 /min Tyrell Bowens MD Work Phone: [facility] 01-25-2024 10:37-0500 Respiratory rate 22 /min Tyrell Bowens MD Work Phone: [facility] 01-25-2024 10:37-0500 SaO2% (BldA) [Mass fraction] 95 % Tyrell Bowens MD Work Phone: [facility] 01-25-2024 10:37-0500 Systolic blood pressure 126 mm[Hg] Tyrell Bowens MD Work Phone: [facility] 04-05-2023 08:24-0500 Body height 154.9 cm Tyrell Bowens MD Work Phone: [facility] 04-05-2023 08:24-0500 Body mass index (BMI) [Ratio] 37.98 kg/m2 Tyrell Bowens MD Work Phone: [facility] 04-05-2023 08:24-0500 Body temperature 97.11 [degF] Tyrell Bowens MD Work Phone: [facility] 04-05-2023 08:24-0500 Body weight 91.17 kg Tyrell Bowens MD Work Phone: [facility] 04-05-2023 08:24-0500 Diastolic blood pressure 80 mm[Hg] Tyrell Bowens MD Work Phone: [facility] 04-05-2023 08:24-0500 Heart rate 86 /min Tyrell Bowens MD Work Phone: [facility] 04-05-2023 08:24-0500 SaO2% (BldA) [Mass fraction] 96 % Tyrell Bowens MD Work Phone: [facility] 04-05-2023 08:24-0500 Systolic blood pressure 130 mm[Hg] Tyrell Bowens MD Work Phone: [facility] Encounters Encounter Date Encounter Type Care Provider Facility Start: 01-25-2024 End: 01-25-2024 Bamboo flowsheet Tyrell Bowens MD Work Phone: [facility] Start: 01-25-2024 End: 01-25-2024 Bamboo flowsheet Tyrell Bowens MD Work Phone: [facility] Start: 01-25-2024 End: 01-25-2024 Patient encounter procedure Tyrell Bowens MD Work Phone: [facility] Work Phone: Start: 01-25-2024 End: 01-25-2024 Postop follow up visit related to original px Tyrell Bowens MD Work Phone: [facility] Comment on above: Medicare annual well ness visit, subsequent (Primary Dx) Start: 01-01-2024 End: 01-01-2024 Bambotorri Biodesyjoanna Brandon DO Work Phone: [facility] Start: 01-01-2024 End: 01-01-2024 Sandra Brandon DO Work Phone: [facility] Start: 01-01-2024 End: 01-01-2024 Office outpatient visit 25 minutes Jr. Zackary Brandon DO Work Phone: [facility] Comment on above: Carpal tunnel syndro me of right wrist (Primary Dx) Start: 01-01-2024 End: 01-01-2024 ambulatory ZACKARY GRAY Not Available Start: 12-26-2023 End: 12-26-2023 Clinisync Result Encounter Generic External Data Provider [facility] External Department Unsolicited Start: 12-26-2023 End: 12-26-2023 Clinisync Result Encounter Generic External Data Provider [facility] External Department Unsolicited Start: 11-27-2023 End: 11-27-2023 ambulatory TYRELL BOWENS [facility] Start: 10-30-2023 End: 10-30-2023 Sandra Brandon DO Work Phone: [facility] Start: 10-30-2023 End: 10-30-2023 Bambonifacio Brandon DO Work Phone: [facility] Start: 10-30-2023 End: 10-30-2023 Office outpatient visit 25 minutes Jr. Zackary Brandon DO Work Phone: [facility] Comment on above: Carpal tunnel syndro me of right wrist (Primary Dx) Start: 10-30-2023 End: 10-30-2023 ambulatory ZACKARY GRAY Not Available Start: 10-04-2023 End: 10-04-2023 ambulatory TYRELL BOWENS Not Available Start: 10-02-2023 End: 10-02-2023 ambulatory ZACKARY GRAY Not Available Start: 08-02-2023 End: 08-02-2023 ambulatory JIMI LESLIESHENA Not Available Start: 06-28-2023 End: 06-28-2023 ambulatory [...] Start: 01-04-2023 End: 01-04-2023 ambulatory JIMI H ANNAMARIA Not Available Start: 10-04-2022 End: 10-04-2022 ambulatory TYRELL BOWENS Facility:[facility] Start: 10-04-2022 End: 10-04-2022 Subsequent hospital visit [...] encounter procedure MD Gonzalez Mcneal Work Phone: [facility] [address] Procedures Date Procedure Procedure Detail Performing Clinician Start: 12-26-2023 ALL CBC WITH AUTO DIFF Generic External Data Provider Start: 10-04-[address] atten uation [...] Treatment Date Care Activity Detail Author Start: 10-16-2026 Screening for malign ant neoplasm of colon [facility] Start: 08-12-2024 End: 08-12-2024 Patient encounter procedure 08/12/2024 8:00 AM EDT Office Visit [facility] [address] [place] [phone] Tyrell Bowens MD [address] [place] [phone] [facility] Start: 01-25-2024 End: 01-25-2024 Patient encounter procedure [facility] Comment on above: Arrived Start: 01-01-2024 End: 01-01-2024 Patient encounter procedure 01/01/2024 1:30 PM EST Office Visit [facility] [address] [place] [phone] Jr. Zackary Brandon, DO [address] [facility] [address] [place] [address] [facility] Start: 10-30-2023 End: 10-30-2023 Patient encounter procedure 10/30/2023 1:15 PM EDT Office Visit [facility] [address] [place] [place] [phone] Jr. Zackary Brandon, DO [address] [facility] [address] [place] [address] Arrived [facility] Comment on above: Arrived Start: 10-22-2023 Covid-19 Vaccine (7 - 2023-24 season) Covid-19 Vaccine ( season) [facility] Start: 10-22-2023 Influenza vaccination Influenza Vacc ine (#1) [facility] Start: 10-04-2023 End: 10-04-2023 Patient encounter procedure 10/04/2023 8:15 AM EDT Office Visit [facility] [address] [place] [address] Tyrell Bowens MD [address] [place] [address] [facility] Start: 08-02-2023 End: 08-02-2023 Patient encounter procedure 08/02/2023 9:10 AM EDT Office Visit [facility] [address] [place] [address] Jimi Yin MD [address] [place] [address] [facility] Start: 04-05-2023 End: 04-05-2024 Basic metabolic 1998 panel - Serum or Plasma Basic metabolic panel Lab Routine Essential hypertension, benign (CMS/HCC) Expected: 04/05/2023 (Approximate), Expires: 04/05/2024 [facility] Comment on above: Expected: 04/05/2023 (Approximate), Expires: 04/05/2024 Start: 04-05-2023 End: 04-05-2024 CBC W Auto Differential panel - Blood CBC and differential Lab Routine Encounter for long-term (current) use of medications Expected: 04/05/2023 (Approximate), Expires: 04/05/2024 [facility] Comment on above: Expected: 04/05/2023 (Approximate), Expires: 04/05/2024 Start: 04-05-2023 End: 04-05-2024 Hemoglobin A1c measurement Hemoglobin A1c Lab Routine Prediabetes Expected: 04/05/2023 (Approximate), Expires: 04/05/2024 [facility] Work Phone: Comment on above: Expected: 04/05/2023 (Approximate), Expires: 04/05/2024 Start: 04-05-2023 End: 04-05-2024 Hepatic function 2000 panel - Serum or Plasma Hepatic function panel Lab Routine Encounter for long-term (current) use of medications Expected: 04/05/2023 (Approximate), Expires: 04/05/2024 [facility] Comment on above: Expected: 04/05/2023 (Approximate), Expires: 04/05/2024 Start: 04-05-2023 End: 04-05-2024 Lipid 1996 panel - Serum or Plasma Lipid panel Lab Routine Encounter for long-term (current) use of medications Expected: 04/05/2023 (Approximate), Expires: 04/05/2024 [facility] Comment on above: Expected: 04/05/2023 (Approximate), Expires: 04/05/2024 Start: 04-05-2023 End: 04-05-2024 Thyrotropin [Units/volume] in Serum or Plasma TSH Lab Routine Obesity (BMI 30-39.9) Expected: 04/05/2023 (Approximate), Expires: 04/05/2024 [facility] Comment on above: Expected: 04/05/2023 (Approximate), Expires: 04/05/2024 Start: 04-05-2023 End: 04-05-2023 Patient encounter procedure 04/05/2023 8:15 AM EST Office Visit [facility] [address] [place] [address] Tyrell Bowens MD [address] [place] [address] Arrived [facility] Comment on above: Arrived Start: 02-20-2023 Advance Directive Discussion Advance Directive Discussion [facility] Start: 07-11-2021 Urine microalbumin profile DTaP,Tdap,Td Vaccine (2 - Td or Tdap) [facility] Start: 12-26-2018 Screening for malign ant neoplasm of breast Mammogram [facility] Start: 2013 Screening for osteoporosis Bone Density Screening [facility] Start: 2008 RSV Vaccine (1 - 1-d ose 60+ series) RSV Vaccine (1 - 1-dose 60+ series) [facility] Start: 1993 Diabetes Screening Diabetes Screenin g [facility] Start: 1993 Lipid panel Lipid Screening [facility] Start: 1993 Screening for malign ant neoplasm of colon [facility] Start: 1988 Screening for malign ant neoplasm of breast Mammogram Screening [facility] Start: 1966 Anxiety Screening Anxiety Screening [facility] Start: 1966 Depression Screening Depression Scre ening [facility] Start: 1966 Hepatitis C screening Hepatitis C Sc reening [facility] Start: 1948 Medicare Annual Wellness (AWV) Medicare Annual Wellness (AWV) [facility] Start: 1948 Screening for malign ant neoplasm of colon [facility] Aldolase measurement [facility] Work Phone: Homogenous nuclear A b pattern [Titer] in Serum [facility] Work Phone: Nuclear Ab [Titer] i n Serum [facility] Work Phone: Immunizations Immunization Date Immunization Notes Care Provider Fa cility 10-27-2023 influenza virus vacc ine, unspecified formulation Jr. Stepanic DO Work Phone: [facility] 11-13-2021 influenza virus vacc ine, unspecified formulation [facility] Work Phone: [facility] Payers Date Payer Category Payer Private Health Insurance [employer] [id number] 2021 Unknown [id number] 2013 Medicare [id number] 1959 Medicare [id number] 1959 Unknown [id number] 1948 Unknown [id number] 593 1948 Unknown [id number]. 593 1948 Unknown [id number]. 593 1948 Unknown [id number]. 593 1948 Unknown [id number] [id number]. 1286 1948 Unknown [id number] 1259 1950 Unknown [id number] 1259 1950 Unknown [id number]. 1259 1950 Unknown [id number]. 1259 1950 Unknown [id number]. 1259 1950 Unknown [id number]. 1259 1950 Unknown [id number]. 1259 1950 Unknown [id number]. 1259 Self-pay Self Pay [id number] Social History Date Type Detail Facility [facility] Work Phone: Start: 1950 Sex Assigned At Female [facility] Start: 08-09-2022 Tobacco smoking status NHIS Never smoked tobacco [facility] Start: 08-09-2022 Tobacco use and exposure Smokeless tobacco non-user [facility] Start: 03-14-2023 End: 10-30-2023 Alcohol intake Ex-drinker (finding) [facility] Start: 03-29-2023 End: 10-30-2023 History of Social function [facility] Start: 03-29-2023 End: 10-30-2023 Humiliation, Afraid, Rape, and Kick questionnaire [HARK] [facility] Within the last year , have you been afraid of your partner or ex-partner? No [facility] Do you belong to any clubs or organizations such as restorationism groups, unions, fraternal or athletic groups, or [...] gender (finding) [facility] consumption unknown [facility] Start: 1950 Sex assigned at Not on file [facility] Notes 06-10-2020 to 01-25-2024 Tyrell Bowens MD - 01/25/2024 11:39 AM Mango Bowens MD - 01/25/2024 10:15 AM ESTJr. Zackary Vieira Aleksandr, DO - 01/01/2024 1:30 PM ESTJr. Zackary Vieira Aleksandr, DO - 10/30/2023 1:15 PM EDT Note Date & Type Note Facility 01-25-2024 History of Presen t illness Narrative Associated Problem(s): Medicare annual wellness visit, subsequent Reviewed labs. Discussed proper diet and regular aerobic exercise. Need aerobic exercise 5-6 days a week for 30 minutes at a time. Smaller portions and limit total calories. Cologuard normal in September 2023. Tetanus every 10 years. Advised not to smoke. Images from the original note were not included. Subjective Patient ID: Sherry Weeks is a 73 y.o. female who presents for Medicare Annual Wellness Visit Subsequent (Wellness/). Presents for medicare annual wellness visit. Patient feels well today. Weight unchanged over the past year. Tries to stay active around the house but no regular exercise. Tries to watch diet and eat healthy. Increased fruits and vegetables. Smaller portions and limits snacking. Tries to limit total daily calories. Reviewed labs. Review of Systems Respiratory: Negative for cough, [...] There is no guarding or rebound. Musculoskeletal: General: No swelling or tenderness. Cervical back: Neck supple. Right lower leg: No edema. Left lower leg: No edema. Skin: Findings: No erythema or rash. Neurological: General: No focal deficit present. Mental Status: She is alert and oriented to person, place, and time. Cranial Nerves: No cranial nerve deficit. Motor: No weakness. Gait: Gait normal. Assessment/Plan Problem List Items Addressed This Visit Medicare annual wellness visit, subsequent - Primary Reviewed labs. Discussed proper diet and regular aerobic exercise. Need aerobic exercise 5-6 days a week for 30 minutes at a time. Smaller portions and limit total calories. Tetanus every 10 years. Advised not to smoke. documented in this encounter [facility] 01-01-2024 History of Presen t illness Narrative Images from the original note were not included. HISTORY OF PRESENT ILLNESS: EST PT Cayetano Weeks is an 73 y.o. @ female. EST PT RECHECK RT CTS -CONTINUES TO HAVE N/T RT THUMB/IF/MF RT UE EMG 06/28/23 LINO (IN MEDIA) NO CORTISONE INJ NO PREDNISONE (PT DOES HAVE RX FOR PREDNISONE BUT ONLY TAKES FOR RA FLARE) BRACE SOME WEAKNESS- OCCASIONAL DIFFICULTY GRIPPING- SOME STIFFNESS- WEARS BRACE HS- +DICLOFENAC- PT IS RT HAND DOMINANT PT HAS RHEUMATOID ARTHRITIS ALLERGIES: Allergies Allergen Reactions Amoxicillin Diarrhea HOME MEDICATIONS: Current Outpatient Medications Medication Instructions bisoprolol-hydroCHLOROthiazide (Ziac) 5-6.25 MG tablet 1 tablet, Oral, Daily diclofenac (VOLTAREN) 75 mg, Oral, Every 12 hours dupilumab (DUPIXENT) 300 mg, Subcutaneous, Every 14 days, For eczema folic acid (FOLVITE) 1 mg, Oral, Every 24 hours methotrexate 2.5 mg, Oral, Weekly predniSONE (DELTASONE) 5 mg, Oral, Every 24 hours PHYSICAL EXAM: Hand/Wrist Musculoskeletal Exam Inspection Right Erythema: none Ecchymosis: none Edema: none Deformity: mild Inspection additional comments: MILD THENAR ATROPHY Palpation Right Right hand palpation is normal. Wrist tenderness to palpation: carpal canal Palpation additional comments: palpable / audible click noted to palmar aspect of (R) wrist Range of Motion Right Hand Right hand range of motion is normal. Range of motion additional comments: ABLE TO MAKE FULL FIST Strength Right Hand Right hand strength is normal. Strength additional comments: 5/5 EQUAL ARTIST REPRESENTATIVE STRENGTH Neurovascular Right Right neurovascular exam is normal. Radial pulse: normal and 2+ Capillary refill: <3 sec Ulnar nerve sensory distribution: normal Median nerve sensory distribution: decreased Superficial radial nerve sensory distribution: normal Special Tests Right Phalen's: positive Tinel's - carpal tunnel: positive Vitals: There is no height or weight on file to calculate BMI. Tobacco Use: Low Risk (01/01/2024) Patient History Smoking Tobacco Use: Never Smokeless Tobacco Use: Never Passive Exposure: Not on file Alcohol Use: Not At Risk (03/29/2023) AUDIT-C Frequency of Alcohol Consumption: 2-4 times a month Average Number of Drinks: 1 or 2 Frequency of Binge Drinking: Never IMAGING: Procedures Orders Placed This Encounter Procedures Ambulatory referral to Orthopaedic Surgery Dr. Moralez / Dr. Degroot ; please call patient to schedule, thank you (R) CTR w/palpable / audible click noted to palmar aspect of (R) wrist ; evaluate and treat Standing Status: Future Standing Expiration Date: 06/30/2024 Referral Priority: Routine Referral Type: Consultation Referral Reason: Specialty Services Required Referred to Provider: Koby Moralez MD Requested Specialty: Orthopaedic Surgery Number of Visits Requested: 1 ASSESSMENT: ICD-10-CM 1. Carpal tunnel syndrome of right wrist G56.01 Ambulatory referral to Orthopaedic Surgery PLAN: We have answered all the patients questions and explained the patients condition, decision making and plan including the risks and benefits associated with said plan in layman''s terms in a language the patient could understand easily. If patient''s symptoms significantly worsen and they cannot get a hold of us or their family physician, we have recommended that the patient proceed to the nearest emergency department (room). Dr. Brandon obtained history and examined the patient, I am acting as scribe for Dr. Brandon/adrienne, PLAN: We have reviewed prior (R) UE EMG results ; carpal tunnel noted. After examination of her right hand today we are recommending a referral to Dr. Moralez / Dr. Degroot for further evaluation of palpable / audible click noted to palmar aspect of (R) wrist with patient's verbal agreeance. We have discussed her HEP and restrictions and will see her back on a prn basis. Zackary Brandon D.O. documented in this encounter [facility] 10-30-2023 History of Presen t illness Narrative Images from the original note were not included. HISTORY OF PRESENT ILLNESS: EST PT Cayetano Weeks is an 73 y.o. @ female. EST PT RECHECK RT CTS - S/P NIGHT SPLINTS/ICE- POSSIBLY DISCUSS INJ PRIOR TO UPCOMING CRUISE, RT UE EMG 06/28/23 LINO (IN MEDIA) NO CORTISONE INJ NO PREDNISONE (PT DOES HAVE RX FOR PREDNISONE BUT ONLY TAKES FOR RA FLARE) BRACE CONTINUES TO HAVE N/T RT THUMB/IF/MF- SOME OCCASIONAL DIFFICULTY GRASPING- +DICLOFENAC- PT IS RT HAND DOMINANT PT HAS RHEUMATOID ARTHRITIS ALLERGIES: Allergies Allergen Reactions Amoxicillin Diarrhea HOME MEDICATIONS: Current Outpatient Medications Medication Instructions bisoprolol-hydroCHLOROthiazide (Ziac) 5-6.25 MG tablet 1 tablet, Oral, Daily diclofenac (VOLTAREN) 75 mg, Oral, Every 12 hours dupilumab (DUPIXENT) 300 mg, Subcutaneous, Every 14 days, For eczema folic acid (FOLVITE) 1 mg, Oral, Every 24 hours methotrexate 2.5 mg, Oral, Weekly predniSONE (DELTASONE) 5 mg, Oral, Every 24 hours PHYSICAL EXAM: Hand/Wrist Musculoskeletal Exam Inspection Right Erythema: none Ecchymosis: none Edema: none Deformity: mild Inspection additional comments: MILD THENAR ATROPHY Palpation Right Right hand palpation is normal. Wrist tenderness to palpation: carpal canal Palpation additional comments: DENIES PAIN TO PALPATION OF HAND/ WRIST JOINT Range of Motion Right Hand Right hand range of motion is normal. Range of motion additional comments: ABLE TO MAKE FULL FIST Strength Right Hand Right hand strength is normal. Strength additional comments: 5/5 EQUAL ARTIST REPRESENTATIVE STRENGTH Neurovascular Right Right neurovascular exam is normal. Radial pulse: normal and 2+ Capillary refill: <3 sec Ulnar nerve sensory distribution: normal Median nerve sensory distribution: decreased Superficial radial nerve sensory distribution: normal Special Tests Right Phalen's: positive Tinel's - carpal tunnel: positive Vitals: There is no height or weight on file to calculate BMI. Tobacco Use: Low Risk (10/30/2023) Patient History Smoking Tobacco Use: Never Smokeless Tobacco Use: Never Passive Exposure: Not on file Alcohol Use: Not At Risk (03/29/2023) AUDIT-C Frequency of Alcohol Consumption: 2-4 times a month Average Number of Drinks: 1 or 2 Frequency of Binge Drinking: Never IMAGING: Procedures No orders of the defined types were placed in this encounter. ASSESSMENT: ICD-10-CM 1. Carpal tunnel syndrome of right wrist G56.01 PLAN: We have answered all the patients questions and explained the patients condition, decision making and plan including the risks and benefits associated with said plan in layman''s terms in a language the patient could understand easily. If patient''s symptoms significantly worsen and they cannot get a hold of us or their family physician, we have recommended that the patient proceed to the nearest emergency department (room). Dr. Brandon obtained history and examined the patient, I am acting as scribe for Dr. Brandon/adrienne, PLAN: We have reviewed prior (R) UE EMG results. After examination of her right hand today we will hold off on the thought of a cortisone injection secondary to symptoms being manageable and not wanting to increase symptoms prior to scheduled cruise. We are recommending that she continue to ice prior to hs. We have discussed her HEP and restrictions and will see her back in 2 months to reassess her right hand, if exam warrants we may recommend proceeding with a (R) CTR. Zackary Brandon D.O. documented in this encounter [facility] 04-05-2023 History of Presen t illness Narrative [...] Relevant Orders TSH documented in this encounter [facility] 10-04-2022 Note HNO ID: [id number] Author: Nory Slade RN Service: ? Author [...] DATE: October 04, 2022 TIME: 9:13 AM [facility] 10-04-2022 Note HNO ID: [id number] Author: Rimma Rey RT(R) Service: ? Author [...] 911 PATIENT DISCHARGED TO: Ambulatory patient, left [place] department area. A Diagnostic radioactive procedure has taken place, with no further precautions necessary other than routine body substance precautions. More information regarding radiation safety can be found using this link: [email or web address]%20Nuclear%20 Medicine%[email or web address].pdf SIGNATURE: RT Bo(R) PATIENT NAME: Cayetano Weeks DATE: October 04, 2022 TIME: 9:38 AM PAGER/CONTACT #: [facility] 10-04-2022 History of Presen t illness Narrative [...] 0912 PATIENT DISCHARGED TO: Ambulatory patient, left [place] department area. A Diagnostic radioactive procedure has taken place, with no further precautions necessary other than routine body substance precautions. More information regarding radiation safety can be found using this link: [email or web address] ic%20Nuclear%[email or web address] [email or web address] SIGNATURE: RT Bo([place]) PATIENT NAME: Cayetano Weeks DATE: October 04, 2022 TIME: 9:38 AM PAGER/CONTACT #: documented in this encounter [facility] 06-10-2020 Surgery Surgical operation note DICTATED BY:CHATO STAFFORD MD SERVICE DATE:06/10/2020 PREOPERATIVE DIAGNOSES: 1. Postmenopausal bleeding. 2. Endometrial polyp. POSTOPERATIVE DIAGNOSES: 1. Postmenopausal bleeding. 2. Endometrial polyp. PROCEDURES: 1. Dilatation and curettage, hysteroscopy. 2. Polypectomy with MyoSure. SURGEON: Chato Stafford MD ANESTHESIA: General per LMA. STICKER MACHINE OPERATOR: Nayeli Sosa MD ESTIMATED BLOOD LOSS: 5 [...] Sponge, lap and needle counts were correct. EMILYTYRELL MATOSJENNIE Birthdate: 1950 #: [id number] D/06/10/2020 08:23:39 T/06/10/2020 09:15:53 VOICE JOB ID:[id number] [place] thanks you for the opportunity to care for your patient. DID: [id number] [facility] 06-10-2020 Physician Hospita Discharge summary CLINICAL SUMMARY Please take this summary document to your follow up appointments. [facility] 06/10/20 08:38 [address] [place]. [address] PATIENT INFORMATION Name: CAYETANO WEEKS Address: [address] [place] [id number] Age: 69 Years Phone: [phone] : 1950 12:00 MRN: ([id number] Sex: Female Race: White Ethnicity: Not Hispan/Lat Admitted From: Clinic or [facility] Medical Service: Obstetric Nurse Unit/Bed: ([place]) [facility] N/A Admit Date: 06/10/2020 05:45 PCP: Physician, PCP Unknown PHYSICIANS INVOLVED WITH CARE Attending Physicians: Chato Stafford MD - Obstetrics, Gynecology Admitting Physician: [...] TO BE CONTINUED for: CAYETANO WEEKS bisoprolol-hydroCHLOROthiazide (Bisoprolol/hydroCHLOROthiazid e 5 mg/6.25 mg) 1 Tab(s) By Mouth once a day. ibuprofen (ibuprofen 600 mg oral tablet) 1 Tab(s) By Mouth One Time Only as needed Pain - Mild. Refills: 0. loratadine (Claritin 24 Hour Allergy 10 mg oral tablet) 1 Tab(s) By Mouth once a day. multivitamin 1 Tab(s) By Mouth once a day. MEDICATION CHANGE DETAILS NEW MEDICATIONS [id number], [address], [place] [id number], [phone] ibuprofen (ibuprofen 600 mg oral tablet) 1 Tab(s) By Mouth One Time Only as needed Pain - Mild. Refills: 0. Comment UPDATED MEDICATIONS None UNCHANGED MEDICATIONS Other Medications bisoprolol-hydroCHLOROthiazide (Bisoprolol/hydroCHLOROthiazid e 5 mg/6.25 mg) 1 Tab(s) By Mouth [...] Electronically Signed by Nayeli Sosa MD bisoprolol-hydroCHLOROthiazide (Bisoprolol/hydroCHLOROthiazid e 5 mg/6.25 mg) ibuprofen (ibuprofen 600 mg [...] (vasopressin) 20 Unit = 1 mL, Vag, Front Edger, x 30 Day(s) COMMENTS and SPECIAL INSTRUCTIONS: [...] (Zofran GEq) (Zofran (more content not included)... [facility] 06-10-2020 Surgery Postoperative evaluation and management note Patient: CAYETANO WEEKS MRN: [id number] Age: 69 years Sex: Female : 1950 [...] Surgeon: Primary Surgeon: Chato Stafford MD . Sales Route Driver Helper(s): Nayeli Sosa MD , . Type of Anesthesia: Anesthesia Type: General . Estimated Blood Loss: Minimal less than 10mL. Procedure Findings: intrauterine polyp. Drain(s): Collection Device: RED RUBBER . Specimen(s) Removed: Specimen: 1. ENDOMETRIAL POLYP - PERMANENT - 2. ENDOMETRIAL CURETTINGS - PERMANENT . [facility] 06-10-2020 Anesthesiology Preoperative evaluation and management note Patient: CAYETANO WEEKS MRN: [id number] Age: 69 years Sex: Female : 1950 Associated Diagnoses: None Author: William Freire MD Preoperative Information Diagnosis No diagnoses charted Planned Procedure Hysteroscopy Histories Past Medical History: Active Eczema HTN (hypertension) Social History: Smoking Status: Never smoked E-Cig/Vaped Last 90 Day..: No Surgical/Procedure History: Surgical/Procedure Hx Polypectomy ([id number]). Comments: 05/27/2020 09:32 NATHANIEL Ziegler RN , [...] Vasopressin 20 Unit = 1 mL, Vag, Front Edger x 30 Day(s) , Comment: Send to [...] = N 06/07/20 13:25, Device Identifier = [place] Fusion SARS-CoV-2 assay[employer]. [facility] Point Of Care Tests Blood 06/10/20 [...] Laryngeal Mask Airway. Monitoring/Anesthesia Considerations: Standard monitoring. [facility] Evaluation note No assessment inform [facility] Work Phone: Evaluation note Diagnosis Essential hypertension, benign (CMS/HCC)- Primary Essential hypertension, benign Rheumatoid arthritis involving both hands with positive rheumatoid factor (CMS/HCC) Intrinsic eczema Seasonal allergic rhinitis due to pollen Dyslipidemia (CMS/HCC) Other and unspecified hyperlipidemia Encounter for long-term (current) use of medications Encounter for long-term (current) use of other medications Prediabetes Other abnormal glucose Obesity (BMI 30-39.9) [facility] Essential hypertension, benign (CMS/HCC)- Primary Essential hypertension, benign Rheumatoid arthritis involving both hands with positive rheumatoid factor (CMS/HCC) Intrinsic eczema Seasonal allergic rhinitis due to pollen Dyslipidemia (CMS/HCC) Other and unspecified hyperlipidemia Encounter for long-term (current) use of medications Encounter for long-term (current) use of other medications Prediabetes Other abnormal glucose Obesity (BMI 30-39.9) Breast cancer screening by mammogram- Primary Essential hypertension, benign (CMS/HCC) Essential hypertension, benign Seasonal allergic rhinitis due to pollen Intrinsic eczema Rheumatoid arthritis involving both hands with positive rheumatoid factor (CMS/HCC) Colon cancer screening Special screening for malignant neoplasms, colon Hyperlipidemia, unspecified (CMS/HCC) Body mass index (BMI) 36.0-36.9, adult Carpal tunnel syndrome of right wrist- Primary [facility] Diagnosis Essential hypertension, benign (CMS/HCC)- Primary Essential hypertension, benign Rheumatoid arthritis involving both hands with positive rheumatoid factor (CMS/HCC) Intrinsic eczema Seasonal allergic rhinitis due to pollen Dyslipidemia (CMS/HCC) Other and unspecified hyperlipidemia Encounter for long-term (current) use of medications Encounter for long-term (current) use of other medications Prediabetes Other abnormal glucose Obesity (BMI 30-39.9) Breast cancer screening by mammogram- Primary Essential hypertension, benign (CMS/HCC) Essential hypertension, benign Seasonal allergic rhinitis due to pollen Intrinsic eczema Rheumatoid arthritis involving both hands with positive rheumatoid factor (CMS/HCC) Colon cancer screening Special screening for malignant neoplasms, colon Hyperlipidemia, unspecified (CMS/HCC) Body mass index (BMI) 36.0-36.9, adult Medicare annual wellness visit, subsequent- Primary [facility] Diagnosis Carpal tunnel syndrome of right wrist- Primary documented in this encounter [facility] Summary [...] Findings Note Patient: PATRICIA WEEKSBelinda Viveros RN: ([facility])-[id number] Age: 69 years Sex: Female : 1950 [...] section and content) DATE CREATED AUTHOR 06/13/2020 [facility] DATE CREATED AUTHOR AUTHOR'S ORGANIZ ATION 06/17/2021 [facility] DATE CREATED AUTHOR AUTHOR'S ORGANIZ ATION 07/04/2022 [facility] DATE CREATED AUTHOR AUTHOR'S ORGANIZ ATION 10/05/2022 [facility] DATE CREATED AUTHOR AUTHOR'S ORGANIZ ATION 11/29/2023 [facility] DATE CREATED AUTHOR AUTHOR'S ORGANIZ ATION 01/02/2024 [facility] DATE CREATED AUTHOR AUTHOR'S ORGANIZ ATION 01/14/2024 [facility] Care Teams (unrecognized sec tion and content) Team Status: Inactive Member Role Status Dates Gonzalez Mcneal MD Attending Provider Active Track Watchman Relationship Specialty Start Date End Date Tyrell Bowens MD [address] [place] [phone] PCP - General Family Medicine 03/13/23 Track Watchman Relationship Specialty Start Date End Date Tyrell Bowens MD [address] [place] [phone] PCP - General Family Medicine 03/13/23 Track Watchman Relationship Specialty Start Date End Date Tyrell Bowens [address] [place], [place] [phone] PCP - General Family Medicine 09/15/22 Track Watchman Relationship Specialty Start Date End Date Tyrell Bowens MD [address] [place] [phone] PCP - General Family Medicine 03/13/23 Track Watchman Relationship Specialty Start Date End Date Tyrell Bowens MD [address] [place] [phone] PCP - General Family Medicine 03/13/23 Track Watchman Relationship Specialty Start Date End Date Tyrell Bowens MD [address] [place] [phone] PCP - General Family Medicine 03/13/23 Track Watchman Relationship Specialty Start Date End Date Tyrell Bowens MD [address] [place] [phone] PCP - [facility] 03/13/23 Track Watchman Relationship Specialty Start Date End Date Tyrell Bowens MD [address] [place] [phone] PCP - [facility] 03/13/23 Track Watchman Relationship Specialty Start Date End Date Tyrell Bowens MD [address] [place] [phone] PCP - [facility] 03/13/23 Track Watchman Relationship Specialty Start Date End Date Tyrell Bowens MD [address] [place] [phone] PCP - [facility] 03/13/23 Goals (unrecognized section and content) Goals may be documented in a n alternate section Reason for Visit (unrecogniz ed section and content) Reason Comments Follow-up 6 m Reason Comments Radiology [place] Reason Comments Pain Reason Comments Medicare Annual Wellness Visit Subsequen t Wellness Source Comments (unrecognize d section and content) In the event this informatio n is protected by the Federal Confidentiality of Alcohol and Drug Abuse Patient Records regulations: The Federal rules restrict any use of the information to criminally investigate or prosecute any alcohol or drug abuse patient.[facility] FOR RECORDS PERTAINING TO PATIENTS WHO [...] BE BASED ON THE PRIMARY CLINICAL RECORDS. [facility] [employer] [facility]. provides no warranty or guarantee of the accuracy or completeness of information in this document.
[2024-04-11 11:34] LABS: Alanine Aminotransferase 30 U/L (14-59); Albumin Level 3.5 g/dL (3.4-5.0); Alkaline Phosphatase 90 U/L (46-116); Anion Gap 9.9; Aspartate Amino Transferase 20 U/L (15-37); BUN Creatinine Ratio 25.2; Bilirubin Total 0.6 mg/dL (0.2-1.0); Calcium 9.3 mg/dL (8.5-10.1); Carbon Dioxide 30.3 mmol/L (21.0-32.0); Chloride 106 mmol/L (98-107); Estimated GFR (African America >60 (>=60 mL/min/1.73m^2); Estimated GFR (Non-African Ame 50 (>=60 mL/min/1.73m^2); Globulin 3.4 g/dL; Glucose 127 mg/dL (74-106); Potassium 4.2 mmol/L (3.5-5.1); Sodium 142 mmol/L (136-145); Total Protein 6.9 g/dL (6.4-8.2)
[2024-04-11 11:42] LABS: Erythrocyte Sedimentation Rate 26 mm/hr (<=30)
== END 2024-04-11 10:44 | disposition home or self-care (01) ==
LOC: LAB 10:45
PROVIDERS: PCP Family Medicine; Visit Provider Internal Medicine Rheumatology
DX: M05.79 Rheumatoid arthritis with rheumatoid factor 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 (principal); M15.0 Primary generalized (osteo)arthritis; Z79.899 Other long term (current) drug therapy
CPT/HCPCS: 36415; 80053; 85025; 85652

== ENCOUNTER 2024-07-17 09:52 | Outpatient (OUT) | payer MEDICARE, OTHER, SELFPAY ==
--- OUTSIDE RECORDS SUMMARY | 2024-07-17 10:05 | XMS_ITS | CCD ---
Author Organization [facility] Care Team Providers Care Press Clippings Cutter And Paster Name Role Phone MD Gonzalez Mcneal Attending [...] Unavailable Tyrell Bowens MD Primary Care Provider Clementine, Tyrell Salazar Primary Care Provider TYRELL BOWENS Referring Unavailable TYRELL BOWENS Primary Care Unavailable JIMI YIN Attending Unavailable TYRELL BOWENS Attending Unavailable YASSINE VANG Attending Unavailable OBTERRENCE MARTINEZ Referring Unavailable JIMI YIN Attending Unavailable JR. BRANDON GEORGE C Attending Jose Fa TYRELL Echeverria Attending Unavailable JR. BRANDON GEORGE C Attending Unavaila junior BRANDON JR., GEORGE C Attending Unavaila KOBY Benjamin Attending Unavailable ZACKARY BRANDON Referring Unavailable Allergies Allergy Classification Reported Allergen(s) Allergy Type Date of Onset Reaction(s) Facility (14 sources) Amoxicillin Drug Allergy 08-09-2022 Diarrhea [facility] Work Phone: Medications Current Medications Medication Drug Class(es) Dates Sig (Normalized) Sig (Original) bisoprolol fumarate 5 mg / hydroCHLOROthiazide 6.25 mg oral tablet (14 sources) Thiazide Diuretic, beta-Adrenergic Krystal Start: 01-08-2024 [...] sodium 75 mg delayed release oral tablet (14 sources) Nonsteroidal Anti-inflammatory Drug take 1 tablet by mouth every twelve hours diclofenac (Voltaren) 75 MG EC tablet Take 75 mg by mouth every 12 (twelve) hours. Active 2 ml dupilumab 150 mg/ml prefilled syringe (14 sources) Interleukin-4 Receptor alpha Antagonist dupilumab (Dupixent) 300 MG/2ML injection Inject 300 mg under the skin every 14 (fourteen) days. For eczema Active folic acid 1 mg oral tablet (14 sources) take 1 tablet by mouth once daily folic acid (Folvite) 1 MG tablet Take 1 mg by mouth 1 (one) time each day at the same time. Active methotrexate 2.5 mg oral tablet (14 sources) Folate Analog Metabolic Inhibitor take 1 tablet by mouth every week methotrexate 2.5 MG tablet Take 2.5 mg by mouth 1 (one) time per week. Active predniSONE 5 mg oral tablet (14 sources) take 1 tablet by mouth once daily predniSONE (Deltasone) 5 MG tablet Take 5 mg by mouth 1 (one) time each day at the same time. Active Problems Active Problems Problem Classification Problem Date Documented Da te Episodic/Chronic Allergic reactions (15 sources) Atopic dermatitis; Translations: [Intrinsic (allergic) eczema] Onset: 04-05-2023 04-05-2023 Chronic Disorders of lipid metabolism (16 sources) Hypertriglyceridemi a; Translations: [Pure hyperglyceridemia] Onset: 04-05-2023 04-05-2023 Chronic Essential hypertension (16 sources) Benign essential hypertension; Translations: [Essential (primary) hypertension] Onset: 04-05-2023 04-05-2023 Chronic Osteoarthritis (2 sources) Primary generalized (osteo)arthritis; Translations: [Unspecified osteoarthritis, unspecified site] Onset: 12-21-2021 Chronic Other aftercare (1 source) Other [place] [facility] drug therapy; Translations: [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] Onset: 07-03-2022 Episodic Other nervous system disorders (6 sources) Carpal tunnel syndrome of right wrist; Translations: [Carpal tunnel syndrome, right upper limb] 01-02-2024 Chronic Other nervous system disorders (2 sources) Carpal tunnel syndrome, right upper limb; Translations: [Carpal tunnel syndrome, right upper limb] Onset: 04-09-2024 Chronic Other nutritional; endocrine; and metabolic disorders (15 sources) Body mass index 30+ - obesity; Translations: [Obesity, unspecified] Onset: 04-05-2023 04-05-2023 Chronic Other screening for suspected conditions (not mental disorders or infectious disease) (1 source) Encounter for screening mammogram for malignant neoplasm of breast; Translations: [Encounter for screening mammogram for malignant neoplasm of breast] Onset: 11-27-2023 Episodic Other upper respiratory disease (16 sources) Allergic rhinitis due to pollen; Translations: [Allergic rhinitis due to pollen] Onset: 04-05-2023 04-05-2023 Chronic Rheumatoid arthritis and related disease (20 sources) Rheumatoid arthritis with rheumatoid factor 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; Translations: [Rheumatoid arthritis, unspecified] Onset: 11-23-2021 Chronic Past or Other Problems Problem Classification Problem Date Documented Da te Episodic/Chronic Acute and chronic tonsillitis (14 sources) Tonsil asymmetry; Translations: [Other chronic diseases of tonsils and adenoids] Onset: 10-12-2022 Resolved: 04-05-2023 10-12-2022 Chronic Diabetes mellitus without complication (15 sources) Prediabetes; Translations: [Prediabetes] Onset: 04-05-2023 04-05-2023 Episodic Mood disorders (3 sources) Mood disorders Onset: 01-25-2024 01-25-2024 Neoplasms of unspecified nature or uncertain behavior (14 sources) Neoplasm of lymphoid system structure; Translations: [Neoplasm of unspecified behavior of digestive system] Onset: 08-15-2022 08-15-2022 Episodic Other aftercare (7 sources) Patient encounter status; 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] Onset: 04-05-2023 04-05-2023 Episodic Other aftercare (8 sources) Long-term current use of drug therapy; 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] Onset: 04-05-2023 04-05-2023 Episodic Other congenital anomalies (3 sources) Talipes valgus; 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] Onset: 08-09-2022 Resolved: 08-09-2022 08-09-2022 Chronic Other congenital anomalies (11 sources) Talipes valgus of right foot; 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] Onset: 08-09-2022 Resolved: 08-09-2022 08-09-2022 Chronic Other connective tissue disease (14 sources) Deformity of lower limb; Translations: [Contracture of muscle, right lower leg] Onset: 08-09-2022 Resolved: 08-09-2022 08-09-2022 Episodic Other skin disorders (14 sources) Seborrheic keratosis; Translations: [Other seborrheic keratosis] Onset: 04-05-2023 04-05-2023 Episodic Other upper respiratory disease (14 sources) Epistaxis; Translations: [Epistaxis] Onset: 08-09-2022 Resolved: 04-05-2023 08-15-2022 Episodic Other upper respiratory disease (14 sources) Lesion of nose; Translations: [Other specified disorders of nose and nasal sinuses] Onset: 08-15-2022 Resolved: 04-05-2023 08-15-2022 Episodic Results Test Name Value Interpretation Reference Range Facility ALL CBC WITH AUTO DIFFon BASOPHILS ABSOLUTE AUTO 0 [facility] Basophils/100 WBC (Bld) 0.3 % 0.2 - 2.0 % [facility] Eosinophils/100 WBC (Bld) 1.8 % 0.9 - 7.0 % [facility] Erythrocyte distribution width (RBC) [Ratio] 14.4 % 11.0 - 15.0 % [facility] Hematocrit (Bld) [Volume fraction] 43.8 % 36.0 - 48.0 % [facility] Hemoglobin (Bld) [Mass/Vol] 14.4 g/dL 12.0 - 16.0 g/dL [facility] IMMATURE GRANULOCYTES ABS AUTO 0.04 High [facility] Immature granulocytes/100 WBC (Bld) 0.4 % 0.0 - 0.5 % [facility] Interpretation and review of laboratory results Abnormal [facility] L[facility] Lymph[facility]/100 WBC (Bld) 12.9 % Low 20.5 - 60.0 % [facility] MCH (RBC) [Entitic mass] 29.2 pg 26.7 - 34.0 pg [facility] MCHC (RBC) [Mass/Vol] 32.9 g/dL 29.9 - 35.2 g/dL [facility] MCV (RBC) [Entitic vol] 88.8 fL 81.0 - 99.0 fL [facility] MONOCYTES ABSOLUTE AUTO 0.4 [facility] Monocytes/100 WBC (Bld) 4.2 % 1.7 - 12.0 % [facility] NEUTROPHILS ABSOLUTE AUTO 7.9 High [facility] Neutrophils/100 WBC (Bld) 80.4 % High 43.0 - 75.0 % [facility] Platelet mean volume (Bld) [Entitic vol] 9.8 fL 9.5 - 13.5 fL [facility] TBH EO # 0.2 [facility] TB PLT 214 [facility] TB RBC 4.93 [facility] TB WBC 9.8 [facility] Office Visiton 04-09-2024 Follow-up visit [id number] Cayetano Weeks 1950 F Date Provider Department Center 04/09/2024 KOBY WILLAMS [facility]THO MPORTHO No family history on file Level of Service:92629 [place] OFFICE/OUTPATIENT NEW LOW MDM 30 MINUTES (25) Reason for Visit and Comments: Pain [136] [facility] 36on 01-11-2024 36 Patient called to schedule a new patient appointment with our office. 03/05/24 Patient wants to be seen for: Right hand Patient had EMG done at Dr. Smith @ [facility] Patient has Not had any surgery or procedures on this body part Patient saw Dr. Brandon for this issues. They were referred to us from this provider. This appointment is not a second opionion This appointment IS NOT related to a work related injury [facility] ALL CBC WITH AUTO DIFFon BASOPHILS ABSOLUTE AUTO 0.1 [facility] Basophils/100 WBC (Bld) 1.3 % 0.2 - 2.0 % [facility] Eosinophils/100 WBC (Bld) 8 % High 0.9 - 7.0 % [facility] Erythrocyte distribution width (RBC) [Ratio] 15.3 % High 11.0 - 15.0 % [facility] Hematocrit (Bld) [Volume fraction] 41.8 % 36.0 - 48.0 % [facility] Hemoglobin (Bld) [Mass/Vol] 13.5 g/dL 12.0 - 16.0 g/dL [facility] IMMATURE GRANULOCYTES ABS AUTO 0.02 [facility] Immature granulocytes/100 WBC (Bld) 0.3 % 0.0 - 0.5 % [facility] Interpretation and review of laboratory results Abnormal [facility] LYMPHOCYTES ABSOLUTE AUTO 1.2 [facility] Lymphocytes/100 WBC (Bld) 18.7 % Low 20.5 - 60.0 % [facility] MCH (RBC) [Entitic mass] 29 pg 26.7 - 34.0 pg [facility] MCHC (RBC) [Mass/Vol] 32.3 g/dL 29.9 - 35.2 g/dL [facility] MCV (RBC) [Entitic vol] 89.7 fL 81.0 - 99.0 fL [facility] MONOCYTES ABSOLUTE AUTO 0.8 [facility] Monocytes/100 WBC (Bld) 12.1 % High 1.7 - 12.0 % [facility] NEUTROPHILS ABSOLUTE AUTO 3.8 [facility] Neutrophils/100 WBC (Bld) 59.6 % 43.0 - 75.0 % [facility] Platelet mean volume (Bld) [Entitic vol] 9.7 fL 9.5 - 13.5 fL [facility] RBC 4.66 [facility] TBH WBC 6.4 [facility] MAMM SCREENING 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 Comment on above: Location:[facility], [address] [place] [address] , [place], [place], [facility] The Accu-Chek Inform II glucose meter has [...] Interpretation and review of laboratory results Abnormal [facility] NM PET/CT SKULL-THIGH INITon 10-04-2022 NM PET/CT [...] any questions regarding this interpretation, please call [phone]. If you are unable to reach us at the number above, please feel free to contact [facility] eRadiology at [phone]. [id number] CN Normal [facility] PET+CT Guidance for localiza tion of [...] any questions regarding this interpretation, please call [phone]. If you are unable to reach us at the number above, please feel free to contact [facility]Radiology at [phone]. DIVISION OF RADIOLOGY * * *Final Report* [...] Degenerative arthritic change. DIVISION OF RADIOLOGY Provider, [facility] - 10/04/2022 * * *Final Report* * [...] any questions regarding this interpretation, please call [phone]. If you are unable to reach us at the number above, please feel free to contact [facility]Radiology at [phone]. [facility] Radiology Study observation (narrative) [facility] PET+CT Guidance for localiza tion of tumor of Skull base to mid-thigh-- W [id number] IVOrdered By: Ccf Provider on 10-04-2022 [facility] CBC AUTO DIFFon 06-30-2022 BASO # 0.1 103/ul Normal 0.0-0.1 [facility] Comment on above: Performed By: #### C BC #### [facility] [address], [place] [address] Dr. Norm Melendrez Basophils/100 WBC (Bld) 0.7 % Normal 0.2-2.0 [facility] Comment on above: Performed By: #### C BC #### [facility] [address], [place] [address] Dr. Norm Melendrez EO # 0.4 103/ul Normal 0.0-0.[address] [facility] Comment on above: Performed By: #### C BC #### [facility] [address] [place] [address] Dr. Norm Melendrez Eosinophils/100 WBC (Bld) 4.4 % Normal 0.9-7.0 [facility] Comment on above: Performed By: #### C BC #### [facility] [address] [place] [address] Dr. Norm Melendrez Erythrocyte distribution width (RBC) [Ratio] 15.0 % Normal 11.0-15.0 [facility] Comment on above: Performed By: #### C BC #### [facility] [address] [place] [address] Dr. Norm Melendrez Hematocrit (Bld) [Volume fraction] 45.0 % Normal 36.0-48.0 [facility] Comment on above: Performed By: #### C BC #### [facility] [address] [place] [address] Dr. Norm Melendrez Hemoglobin (Bld) [Mass/Vol] 14.5 g/dL Normal 12.0-16.[address] [facility] Comment on above: Performed By: #### C BC #### [facility] [address] [place] [address] Dr. Norm Melendrez IG # 0.03 10e3/ul Normal 0.00-0.[address] [facility] Comment on above: Performed By: #### C BC #### [facility] [address] [place] [address] Dr. Norm Melendrez IG % 0.4 % Normal 0.0-0.[address] [facility] Comment on above: Performed By: #### C BC #### [facility] [address] [place] [address] Dr. Norm Melendrez LYMPH # 1.4 103/ul Normal 1.2-3.[address] [facility] Comment on above: Performed By: #### C BC #### [facility] [address] [place] [address] Dr. Norm Melendrez Lymphocytes/100 WBC (Bld) 17.2 % Critically low 20.5-60.0 [facility] Comment on above: Performed By: #### C BC #### [facility] [address] [place] [address] Dr. Norm Melendrez MANUAL DIFF REQ NO Normal [facility] Comment on above: Performed By: #### C BC #### [facility] [address] [place] [address] Dr. Norm Melendrez MCH (RBC) [Entitic mass] 28.0 pg Normal 26.7-34.0 [facility] Comment on above: Performed By: #### C BC #### [facility] [address] [place] [address] Dr. Norm Melendrez MCHC (RBC) [Mass/Vol] 32.2 g/dL Normal 29.9-35.2 [facility] Comment on above: Performed By: #### C BC #### [facility] [address] [place] [address] Dr. Norm Mleendrez MCV (RBC) [Entitic vol] 86.9 fL Normal 81.0-99.0 [facility] Comment on above: Performed By: #### C BC #### [facility] [address] [place] [address] Dr. Norm Melendrez MONO # 0.5 103/ul Normal 0.3-0.8 [facility] Comment on above: Performed By: #### C BC #### [facility] [address] [place] [address] Dr. Norm Melendrez Monocytes/100 WBC (Bld) 6.6 % Normal 1.7-12.0 [facility] Comment on above: Performed By: #### C BC #### [facility] [address] [place] [address] Dr. Norm Melendrez NEUT # 5.8 103/ul Normal 1.4-6.5 [facility] Comment on above: Performed By: #### C BC #### [facility] [address] [place] [address] Dr. Norm Melendrez Neutrophils/100 WBC (Bld) 70.7 % Normal 43.0-75.0 [facility] Comment on above: Performed By: #### C BC #### [facility] [address] [place] [address] Dr. Norm Melendrez Platelet mean volume (Bld) [Entitic vol] 9.2 fL Critically low 9.5-13.5 [facility] Comment on above: Performed By: #### C BC #### [facility] [address] [place] [address] Dr. Norm Melendrez PLT 231 103/ul Normal 150-[address] [facility] Comment on above: Performed By: #### C BC #### [facility] [address] [place] [address] Dr. Norm Melendrez RBC 5.18 106/ul Normal 4.20-5.40 [facility] Comment on above: Performed By: #### C BC #### [facility] [address] [place] [address] Dr. Norm Melendrez WBC 8.2 103/ul Normal 4.0-11.0 [facility] Comment on above: Performed By: #### C BC #### [facility] [address] [place] [address] Dr. Norm Melendrez PROF 14(COMP METB)on 023 Albumin [Mass/Vol] 3.4 g/dL Normal 3.4-5.0 [facility] Comment on above: Performed By: #### C MP #### [facility] [address] [place] [address] Dr. Norm Melendrez Albumin/Globulin [Mass ratio] 0.9 {ratio} Normal [facility] Comment on above: Performed By: #### C MP #### [facility] [address] [place] [address] Dr. Norm Melendrez ALP [Catalytic activity/Vol] 105 U/L Normal 46-[address] [facility] Comment on above: Performed By: #### C MP #### [facility] [address] [place] [address] Dr. Norm Melendrez ALT [Catalytic activity/Vol] 48 U/L Normal 14-59 [facility] Comment on above: Performed By: #### C MP #### [facility] [address] [place] [address] [address] Norm Melendrez Anion gap [Moles/Vol] 7.9 mmol/L Normal [facility] Comment on above: Performed By: #### C MP #### [facility] [address] [place] [address] [address] Norm Melendrez AST [Catalytic activity/Vol] 22 U/L Normal 15-37 [facility] Comment on above: Performed By: #### C MP #### [facility] [address] [place] [address] [address] Norm Melendrez Bilirubin [Mass/Vol] 0.4 mg/dL Normal 0.2-1.0 [facility] Comment on above: Performed By: #### C MP #### [facility] [address] [place] [address] Dr. Norm Melendrez Calcium [Mass/Vol] 8.9 mg/dL Normal 8.5-10.1 [facility] Comment on above: Performed By: #### C MP #### [facility] [address] [place] [address] [address] Norm Melendrez Chloride [Moles/Vol] 108 mmol/L Critically high 98-107 [facility] Comment on above: Performed By: #### C MP #### [facility] [address] [place] [address] [address] Norm Melendrez CO2 [Moles/Vol] 31.1 mmol/L Normal 21.0-32.0 [facility] Comment on above: Performed By: #### C MP #### [facility] [address] [place] [address] [address] Norm Melendrez Creatinine [Mass/Vol] 0.88 mg/dL Normal 0.55-1.02 [facility] Comment on above: Performed By: #### C MP #### [facility] [address] [place] [address] [address] Norm Melendrez EGFR-AF UGANDAN >60 Normal >=60 [facility] Comment on above: Performed By: #### C MP #### [facility] [address] [place] [address] Dr. Norm Melendrez EGFR-NON AF UGANDAN >60 Normal >=60 [facility] Comment on above: Performed By: #### C MP #### [facility] [address] [place] [address] Dr. Norm Melendrez Globulin (S) [Mass/Vol] 3.8 g/dL Normal [facility] Comment on above: Performed By: #### C MP #### [facility] [address] [place] [address] [address] Norm Melendrez Glucose [Mass/Vol] 109 mg/dL Critically high 74-106 [facility] Comment on above: Performed By: #### C MP #### [facility] [address] [place] [address] Dr. Norm Melendrez Potassium [Moles/Vol] 4.0 mmol/L Normal 3.5-5.1 [facility] Comment on above: Performed By: #### C MP #### [facility] [address] [place] [address] Dr. Norm Melendrez Protein [Mass/Vol] 7.2 g/dL Normal 6.4-8.2 [facility] Comment on above: Performed By: #### C MP #### [facility] [address] [place] [address] Dr. Norm Melendrez Sodium [Moles/Vol] 143 mmol/L Normal 136-145 [facility] Comment on above: Performed By: #### C MP #### [facility] [address] [place] [address] Dr. Norm Melendrez Urea nitrogen [Mass/Vol] 16.0 mg/dL Normal 7.0-18.0 [facility] Comment on above: Performed By: #### C MP #### [facility] [address] [place] [address] Dr. Norm Melendrez Urea nitrogen/Creatinine [Mass ratio] 18.2 mg/mg Normal [facility] Comment on above: Performed By: #### C MP #### [facility] [address] [place] [address] Dr. Norm Melendrez SED RATE WESTERGRENon 2022 SED RATE 17 mm/hr Normal <=[address] [facility] Comment on above: Performed By: #### S EDR #### [facility] [address] [place] [address] Dr. Norm Melendrez CBC AUTO DIFFon 03-31-2022 BASO # 0.1 103/ul Normal 0.0-0.[address] [facility] Comment on above: Performed By: #### C BC #### [facility] [address] [place] [address] Dr. Norm Melendrez Basophils/100 WBC (Bld) 0.7 % Normal 0.2-2.[address] [facility] Comment on above: Performed By: #### C BC #### [facility] [address] [place] [address] Dr. Norm Melendrez EO # 0.2 103/ul Normal 0.0-0.[address] [facility] Comment on above: Performed By: #### C BC #### [facility] [address] [place] [address] Dr. Norm Melendrez Eosinophils/100 WBC (Bld) 3.0 % Normal 0.9-7.[address] [facility] Comment on above: Performed By: #### C BC #### [facility] [address] [place] [address] Dr. Norm Melendrez Erythrocyte distribution width (RBC) [Ratio] 15.4 % Critically high 11.0-15.[address] [facility] Comment on above: Performed By: #### C BC #### [facility] [address] [place] [address] Dr. Norm Melendrez Hematocrit (Bld) [Volume fraction] 44.8 % Normal 36.0-48.[address] [facility] Comment on above: Performed By: #### C BC #### [facility] [address] [place] [address] Dr. Norm Melendrez Hemoglobin (Bld) [Mass/Vol] 14.6 g/dL Normal 12.0-16.[address] [facility] Comment on above: Performed By: #### C BC #### [facility] [address] [place] [address] Dr. Norm Melendrez IG # 0.02 10e3/ul Normal 0.00-0.03 [facility] Comment on above: Performed By: #### C BC #### [facility] [address] [place] [address] Dr. Norm Melendrez IG % 0.3 % Normal 0.0-0.5 [facility] Comment on above: Performed By: #### C BC #### [facility] [address] [place] [address] Dr. Norm Melendrez LYMPH # 1.2 103/ul Normal 1.2-3.8 [facility] Comment on above: Performed By: #### C BC #### [facility] [address] [place] [address] Dr. Norm Melendrez Lymphocytes/100 WBC (Bld) 16.8 % Critically low 20.5-60.0 [facility] Comment on above: Performed By: #### C BC #### [facility] [address] [place] [address] Dr. Norm Melendrez MANUAL DIFF REQ NO Normal [facility] Comment on above: Performed By: #### C BC #### [facility] [address] [place] [address] Dr. Norm Melendrez MCH (RBC) [Entitic mass] 27.6 pg Normal 26.7-34.0 [facility] Comment on above: Performed By: #### C BC #### [facility] Laboratory [address] [place] [address] Dr. Norm Melendrez MCHC (RBC) [Mass/Vol] 32.6 g/dL Normal 29.9-35.[address] [facility] Comment on above: Performed By: #### C BC #### [facility] [address] [place] [address] Dr. Norm Melendrez MCV (RBC) [Entitic vol] 84.7 fL Normal 81.0-99.0 [facility] Comment on above: Performed By: #### C BC #### [facility] [address] [place] [address] Dr. Norm Melendrez MONO # 0.6 103/ul Normal 0.3-0.8 [facility] Comment on above: Performed By: #### C BC #### [facility] [address] [place] [address] Dr. Norm Melendrez Monocytes/100 WBC (Bld) 8.0 % Normal 1.7-12.0 [facility] Comment on above: Performed By: #### C BC #### [facility] [address] [place] [address] Dr. Norm Melendrez NEUT # 5.2 103/ul Normal 1.4-6.5 [facility] Comment on above: Performed By: #### C BC #### [facility] [address] [place] [address] Dr. Norm Melendrez Neutrophils/100 WBC (Bld) 71.2 % Normal 43.0-75.0 [facility] Comment on above: Performed By: #### C BC #### [facility] [address] [place] [address] Dr. Norm Melendrez Platelet mean volume (Bld) [Entitic vol] 9.2 fL Critically low 9.5-13.5 [facility] Comment on above: Performed By: #### C BC #### [facility] [address] [place] [address] Dr. Norm Melendrez PLT 231 103/ul Normal 150-[address] [facility] Comment on above: Performed By: #### C BC #### [facility] [address] [place] [address] Dr. Norm Melendrez RBC 5.29 106/ul Normal 4.20-5.[address] [facility] Comment on above: Performed By: #### C BC #### [facility] [address] [place] [address] Dr. Norm Melendrez WBC 7.3 103/ul Normal 4.0-11.[address] [facility] Comment on above: Performed By: #### C BC #### [facility] [address] [place] [address] Dr. Norm Melendrez PROF 14(COMP METB)on 023 Albumin [Mass/Vol] 3.5 g/dL Normal 3.4-5.0 [facility] Comment on above: Performed By: #### C MP #### [facility] [address] [place] [address] Dr. Norm Melendrez Albumin/Globulin [Mass ratio] 0.9 {ratio} Normal [facility] Comment on above: Performed By: #### C MP #### [facility] [address] [place] [address] Dr. Norm Melendrez ALP [Catalytic activity/Vol] 98 U/L Normal 46-116 [facility] Comment on above: Performed By: #### C MP #### [facility] [address] [place] [address] Dr. Norm Melendrez ALT [Catalytic activity/Vol] 33 U/L Normal 14-59 [facility] Comment on above: Performed By: #### C MP #### [facility] [address] [place] [address] Dr. Nrom Melendrez Anion gap [Moles/Vol] 12.4 mmol/L Normal [facility] Comment on above: Performed By: #### C MP #### [facility] [address] [place] [address] Dr. Norm Melendrez AST [Catalytic activity/Vol] 29 U/L Normal 15-37 [facility] Comment on above: Performed By: #### C MP #### [facility] [address] [place] [address] Dr. Norm Melendrez Bilirubin [Mass/Vol] 0.4 mg/dL Normal 0.2-1.0 [facility] Comment on above: Performed By: #### C MP #### [facility] [address] [place] [address] Dr. Norm Melendrez Calcium [Mass/Vol] 9.5 mg/dL Normal 8.5-10.1 [facility] Comment on above: Performed By: #### C MP #### [facility] [address] [place] [address] Dr. Norm Melendrez Chloride [Moles/Vol] 103 mmol/L Normal 98-107 [facility] Comment on above: Performed By: #### C MP #### [facility] [address] [address] [address] Norm Melendrez CO2 [Moles/Vol] 28.6 mmol/L Normal 21.0-32.0 [facility] Comment on above: Performed By: #### C MP #### [facility] [address] [address] [address] Norm Melendrez Creatinine [Mass/Vol] 0.77 mg/dL Normal 0.55-1.[address] [facility] Comment on above: Performed By: #### C MP #### [facility] [address] [address] [address] Norm Melendrez EGFR-AF UGANDAN >60 Normal >=60 [facility] Comment on above: Performed By: #### C MP #### [facility] [address] [place] [address] Dr. Norm Melendrez EGFR-NON AF UGANDAN >60 Normal >=[address] [facility] Comment on above: Performed By: #### C MP #### [facility] [address] [address] [address] Norm Melendrez Globulin (S) [Mass/Vol] 3.7 g/dL Normal [facility] Comment on above: Performed By: #### C MP #### [facility] [address] [address] [address] Norm Melendrez Glucose [Mass/Vol] 97 mg/dL Normal 74-106 [facility] Comment on above: Performed By: #### C MP #### [facility] [address] [address] [address] Norm Melendrez Potassium [Moles/Vol] 4.0 mmol/L Normal 3.5-5.[address] [facility] Comment on above: Performed By: #### C MP #### [facility] [address] [address] [address] Norm Melendrez Protein [Mass/Vol] 7.2 g/dL Normal 6.4-8.2 [facility] Comment on above: Performed By: #### C MP #### [facility] [address] [place] [address] Dr. Norm Melendrez Sodium [Moles/Vol] 140 mmol/L Normal 136-145 [facility] Comment on above: Performed By: #### C MP #### [facility] [address] [place] [address] Dr. Norm Melendrez Urea nitrogen [Mass/Vol] 11.0 mg/dL Normal 7.0-18.0 [facility] Comment on above: Performed By: #### C MP #### [facility] [address] [place] [address] Dr. Norm Melendrez Urea nitrogen/Creatinine [Mass ratio] 14.3 mg/mg Normal [facility] Comment on above: Performed By: #### C MP #### [facility] [address] [place] [address] Dr. Norm Melendrez SED RATE WESTERGRENon 2022 SED RATE 53 mm/hr Critically high <=30 [facility] Comment on above: Performed By: #### C MP #### [facility] [address] [place] [address] Dr. Norm Melendrez CBC AUTO DIFFon 11-23-2021 BASO # 0.1 103/ul Normal 0.0-0.1 [facility] Comment on above: Performed By: #### C BC #### [facility] [address] [place] [address] Dr. Norm Melendrez Basophils/100 WBC (Bld) 0.9 % Normal 0.2-2.0 [facility] Comment on above: Performed By: #### C BC #### [facility] [address] [place] [address] Dr. Norm Melendrez EO # 0.3 103/ul Normal 0.0-0.7 [facility] Comment on above: Performed By: #### C BC #### [facility] [address] [place] [address] Dr. Norm Melendrez Eosinophils/100 WBC (Bld) 4.1 % Normal 0.9-7.0 [facility] Comment on above: Performed By: #### C BC #### [facility] [address] [place] [address] Dr. Norm Melendrez Erythrocyte distribution width (RBC) [Ratio] 15.9 % Critically high 11.0-15.0 [facility] Comment on above: Performed By: #### C BC #### [facility] [address] [place] [address] Dr. Norm Melendrez Hematocrit (Bld) [Volume fraction] 44.9 % Normal 36.0-48.0 [facility] Comment on above: Performed By: #### C BC #### [facility] [address] [place] [address] Dr. Norm Melendrez Hemoglobin (Bld) [Mass/Vol] 14.2 g/dL Normal 12.0-16.0 [facility] Comment on above: Performed By: #### C BC #### [facility] [address] [place] [address] Dr. Norm Melendrez IG # 0.04 10e3/ul Critically high 0.00-0.03 [facility] Comment on above: Performed By: #### C BC #### [facility] [address] [place] [address] Dr. Norm Melendrez IG % 0.6 % Critically high 0.0-0.5 [facility] Comment on above: Performed By: #### C BC #### [facility] [address] [place] [address] Dr. Norm Melendrez LYMPH # 1.6 103/ul Normal 1.2-3.8 [facility] Comment on above: Performed By: #### C BC #### [facility] [address] [place] [address] Dr. Norm Melendrez Lymphocytes/100 WBC (Bld) 22.0 % Normal 20.5-60.0 [facility] Comment on above: Performed By: #### C BC #### [facility] [address] [place] [address] Dr. Norm Melendrez MANUAL DIFF REQ NO Normal [facility] Comment on above: Performed By: #### C BC #### [facility] [address] [place] [address] Dr. Norm Melendrez MCH (RBC) [Entitic mass] 27.5 pg Normal 26.7-34.[address] [facility] Comment on above: Performed By: #### C BC #### [facility] [address] [place] [address] Dr. Norm Melendrez MCHC (RBC) [Mass/Vol] 31.6 g/dL Normal 29.9-35.[address] [facility] Comment on above: Performed By: #### C BC #### [facility] [address] [place] [address] Dr. Norm Melendrez MCV (RBC) [Entitic vol] 86.8 fL Normal 81.0-99.[address] [facility] Comment on above: Performed By: #### C BC #### [facility] [address] [place] [address] Dr. Norm Melendrez MONO # 0.5 103/ul Normal 0.3-0.8 [facility] Comment on above: Performed By: #### C BC #### [facility] [address] [place] [address] Dr. Norm Melendrez Monocytes/100 WBC (Bld) 7.4 % Normal 1.7-12.[address] [facility] Comment on above: Performed By: #### C BC #### [facility] [address] [place] [address] Dr. Norm Melendrez NEUT # 4.6 103/ul Normal 1.4-6.[address] [facility] Comment on above: Performed By: #### C BC #### [facility] [address] [place] [address] Dr. Norm Melendrez Neutrophils/100 WBC (Bld) 65.0 % Normal 43.0-75.[address] [facility] Comment on above: Performed By: #### C BC #### [facility] [address] [place] [address] Dr. Norm Melendrez Platelet mean volume (Bld) [Entitic vol] 9.6 fL Normal 9.5-13.[address] [facility] Comment on above: Performed By: #### C BC #### [facility] [address] [place], [place] [id number] Dr. Norm Melendrez PLT 237 103/ul Normal 150-450 [facility] Comment on above: Performed By: #### C BC #### [facility] [address] [place] [address] Dr. Norm Melendrez RBC 5.17 106/ul Normal 4.20-5.40 [facility] Comment on above: Performed By: #### C BC #### [facility] [address] [place] [address] Dr. Norm Melendrez WBC 7.0 103/ul Normal 4.0-11.0 [facility] Comment on above: Performed By: #### C BC #### [facility] [address] [place] [address] Dr. Norm Melendrez PROF 14(COMP METB)on 022 Albumin [Mass/Vol] 3.4 g/dL Normal 3.4-5.0 [facility] Comment on above: Performed By: #### C MP #### [facility] [address] [place] [address] Dr. Norm Melendrez Albumin/Globulin [Mass ratio] 0.9 {ratio} Normal [facility] Comment on above: Performed By: #### C MP #### [facility] [address] [place] [address] Dr. Norm Melendrez ALP [Catalytic activity/Vol] 101 U/L Normal 46-[address] [facility] Comment on above: Performed By: #### C MP #### [facility] [address] [place] [address] Dr. Norm Melendrez ALT [Catalytic activity/Vol] 28 U/L Normal 14-59 [facility] Comment on above: Performed By: #### C MP #### [facility] [address] [place] [address] Dr. Norm Melendrez Anion gap [Moles/Vol] 12.9 mmol/L Normal [facility] Comment on above: Performed By: #### C MP #### [facility] [address] [place] [address] Dr. Norm Melendrez AST [Catalytic activity/Vol] 17 U/L Normal 15-37 [facility] Comment on above: Performed By: #### C MP #### [facility] [address] [address] [address] Norm Melendrez Bilirubin [Mass/Vol] 0.4 mg/dL Normal 0.2-1.0 [facility] Comment on above: Performed By: #### C MP #### [facility] [address] [address] [address] Norm Melendrez Calcium [Mass/Vol] 8.9 mg/dL Normal 8.5-10.1 [facility] Comment on above: Performed By: #### C MP #### [facility] [address] [address] [address] Norm Melendrez Chloride [Moles/Vol] 104 mmol/L Normal 98-107 [facility] Comment on above: Performed By: #### C MP #### [facility] [address] [place] [address] Dr. Norm Melendrez CO2 [Moles/Vol] 27.1 mmol/L Normal 21.0-32.0 [facility] Comment on above: Performed By: #### C MP #### [facility] [address] [place] [address] Dr. Norm Melendrez Creatinine [Mass/Vol] 0.86 mg/dL Normal 0.55-1.02 [facility] Comment on above: Performed By: #### C MP #### [facility] [address] [place] [address] Dr. Norm Melendrez EGFR-AF UGANDAN >60 Normal >=60 [facility] Comment on above: Performed By: #### C MP #### [facility] [address] [address] [address] Norm Melendrez EGFR-NON AF UGANDAN >60 Normal >=60 [facility] Comment on above: Performed By: #### C MP #### [facility] [address] [place] [address] Dr. Norm Melendrez Globulin (S) [Mass/Vol] 3.7 g/dL Normal [facility] Comment on above: Performed By: #### C MP #### [facility] [address] [address] [address] Norm Melendrez Glucose [Mass/Vol] 114 mg/dL Critically high 74-106 [facility] Comment on above: Performed By: #### C MP #### [facility] [address] [address] [address] Norm Melendrez Potassium [Moles/Vol] 4.0 mmol/L Normal 3.5-5.1 [facility] Comment on above: Performed By: #### C MP #### [facility] [address] [address] [address] Norm Melendrez Protein [Mass/Vol] 7.1 g/dL Normal 6.4-8.2 [facility] Comment on above: Performed By: #### C MP #### [facility] [address] [address] [address] Norm Melendrez Sodium [Moles/Vol] 140 mmol/L Normal 136-145 [facility] Comment on above: Performed By: #### C MP #### [facility] [address] [address] [address] Norm Melendrez Urea nitrogen [Mass/Vol] 13.0 mg/dL Normal 7.0-18.0 [facility] Comment on above: Performed By: #### C MP #### [facility] [address] [address] [address] Norm Melendrez Urea nitrogen/Creatinine [Mass ratio] 15.1 mg/mg Normal [facility] Comment on above: Performed By: #### C MP #### [facility] [address] [address] [address] Norm Melendrez SED RATE WESTERGRENon 2021 SED RATE 44 mm/hr Critically high <=30 [facility] Comment on above: Performed By: #### S EDR #### [facility] [address] [address] [address] Norm Melendrez CBC AUTO DIFFon 09-13-2021 BASO # 0.1 103/ul Normal 0.0-0.1 [facility] Comment on above: Performed By: #### C BC #### [facility] [address] [place] [address] Dr. Norm Melendrez Basophils/100 WBC (Bld) 0.8 % Normal 0.2-2.0 [facility] Comment on above: Performed By: #### C BC #### [facility] [address] [place] [address] Dr. Norm Melendrez EO # 0.2 103/ul Normal 0.0-0.7 [facility] Comment on above: Performed By: #### C BC #### [facility] [address] [place] [address] Dr. Norm Melendrez Eosinophils/100 WBC (Bld) 2.6 % Normal 0.9-7.0 [facility] Comment on above: Performed By: #### C BC #### [facility] [address] [place] [address] Dr. Norm Melendrez Erythrocyte distribution width (RBC) [Ratio] 16.6 % Critically high 11.0-15.0 [facility] Comment on above: Performed By: #### C BC #### [facility] [address] [place] [address] Dr. Norm Melendrez Hematocrit (Bld) [Volume fraction] 44.1 % Normal 36.0-48.0 [facility] Comment on above: Performed By: #### C BC #### [facility] [address] [place] [address] Dr. Norm Melendrez Hemoglobin (Bld) [Mass/Vol] 14.3 g/dL Normal 12.0-16.0 [facility] Comment on above: Performed By: #### C BC #### [facility] [address] [place] [address] Dr. Norm Melendrez IG # 0.04 10e3/ul Critically high 0.00-0.03 [facility] Comment on above: Performed By: #### C BC #### [facility] [address] [place] [address] Dr. Norm Melendrez IG % 0.5 % Normal 0.0-0.5 [facility] Comment on above: Performed By: #### C BC #### [facility] [address] [address] [address] Norm Melendrez LYMPH # 1.5 103/ul Normal 1.2-3.8 [facility] Comment on above: Performed By: #### C BC #### [facility] [address] [address] [address] Norm Melendrez Lymphocytes/100 WBC (Bld) 17.2 % Critically low 20.5-60.0 [facility] Comment on above: Performed By: #### C BC #### [facility] [address] [address] [address] Norm Melnedrez MANUAL DIFF REQ NO Normal [facility] Comment on above: Performed By: #### C BC #### [facility] [address] [place] [address] Dr. Norm Melendrez MCH (RBC) [Entitic mass] 27.0 pg Normal 26.7-34.0 [facility] Comment on above: Performed By: #### C BC #### [facility] [address] [place] [address] Dr. Norm Melendrez MCHC (RBC) [Mass/Vol] 32.4 g/dL Normal 29.9-35.2 [facility] Comment on above: Performed By: #### C BC #### [facility] [address] [place] [address] Dr. Norm Melendrez MCV (RBC) [Entitic vol] 83.4 fL Normal 81.0-99.0 [facility] Comment on above: Performed By: #### C BC #### [facility] [address] [place] [address] Dr. Norm Melendrez MONO # 0.6 103/ul Normal 0.3-0.8 [facility] Comment on above: Performed By: #### C BC #### [facility] [address] [place] [address] Dr. Norm Melendrez Monocytes/100 WBC (Bld) 7.0 % Normal 1.7-12.0 [facility] Comment on above: Performed By: #### C BC #### [facility] [address] [place] [address] Dr. Norm Melendrez NEUT # 6.1 103/ul Normal 1.4-6.[address] [facility] Comment on above: Performed By: #### C BC #### [facility] [address] [place] [address] Dr. Norm Melendrez Neutrophils/100 WBC (Bld) 71.9 % Normal 43.0-75.0 [facility] Comment on above: Performed By: #### C BC #### [facility] [address] [place] [address] Dr. Norm Melendrez Platelet mean volume (Bld) [Entitic vol] 9.3 fL Critically low 9.5-13.[address] [facility] Comment on above: Performed By: #### C BC #### [facility] [address] [place] [address] Dr. Norm Melendrez PLT 239 103/ul Normal 150-[address] [facility] Comment on above: Performed By: #### C BC #### [facility] [address] [place] [address] Dr. Norm Melendrez RBC 5.29 106/ul Normal 4.20-5.[address] [facility] Comment on above: Performed By: #### C BC #### [facility] [address] [place] [address] Dr. Norm Melendrez WBC 8.5 103/ul Normal 4.0-11.0 [facility] Comment on above: Performed By: #### C BC #### [facility] [address] [place] [address] Dr. Norm Melendrez PROF 14(COMP METB)on 022 Albumin [Mass/Vol] 3.4 g/dL Normal 3.4-5.0 [facility] Comment on above: Performed By: #### C MP #### [facility] [address] [place] [address] Dr. Norm Melendrez Albumin/Globulin [Mass ratio] 0.9 {ratio} Normal [facility] Comment on above: Performed By: #### C MP #### [facility] [address] [place] [address] Dr. Norm Melendrez ALP [Catalytic activity/Vol] 90 U/L Normal 46-116 [facility] Comment on above: Performed By: #### C MP #### [facility] [address] [place] [address] Dr. Norm Melendrez ALT [Catalytic activity/Vol] 25 U/L Normal 14-59 [facility] Comment on above: Performed By: #### C MP #### [facility] [address] [place] [address] Dr. Norm Melendrez Anion gap [Moles/Vol] 11.4 mmol/L Normal [facility] Comment on above: Performed By: #### C MP #### [facility] [address] [place] [address] Dr. Norm Melendrez AST [Catalytic activity/Vol] 17 U/L Normal 15-37 [facility] Comment on above: Performed By: #### C MP #### [facility] [address] [place] [address] Dr. Norm Melendrez Bilirubin [Mass/Vol] 0.4 mg/dL Normal 0.2-1.0 [facility] Comment on above: Performed By: #### C MP #### [facility] [address] [place] [address] Dr. Norm Melendrez Calcium [Mass/Vol] 9.1 mg/dL Normal 8.5-10.1 [facility] Comment on above: Performed By: #### C MP #### [facility] [address] [place] [address] Dr. Norm Melendrez Chloride [Moles/Vol] 106 mmol/L Normal 98-107 [facility] Comment on above: Performed By: #### C MP #### [facility] [address] [place] [address] Dr. Norm Melendrez CO2 [Moles/Vol] 26.8 mmol/L Normal 21.0-32.0 [facility] Comment on above: Performed By: #### C MP #### [facility] [address] [place] [address] Dr. Norm Melendrez Creatinine [Mass/Vol] 0.80 mg/dL Normal 0.55-1.02 [facility] Comment on above: Performed By: #### C MP #### [facility] [address] [address] [address] Norm Melendrez EGFR-AF UGANDAN >60 Normal >=60 [facility] Comment on above: Performed By: #### C MP #### [facility] [address] [address] [address] Norm Melendrez EGFR-NON AF UGANDAN >60 Normal >=60 [facility] Comment on above: Performed By: #### C MP #### [facility] [address] [address] [address] Norm Melendrez Globulin (S) [Mass/Vol] 3.7 g/dL Normal [facility] Comment on above: Performed By: #### C MP #### [facility] [address] [address] [address] Norm Melendrez Glucose [Mass/Vol] 110 mg/dL Critically high 74-106 [facility] Comment on above: Performed By: #### C MP #### [facility] [address] [address] [address] Norm Melendrez Potassium [Moles/Vol] 4.2 mmol/L Normal 3.5-5.1 [facility] Comment on above: Performed By: #### C MP #### [facility] [address] [address] [address] Norm Melendrez Protein [Mass/Vol] 7.1 g/dL Normal 6.4-8.2 [facility] Comment on above: Performed By: #### C MP #### [facility] [address] [address] [address] Norm Melendrez Sodium [Moles/Vol] 140 mmol/L Normal 136-145 [facility] Comment on above: Performed By: #### C MP #### [facility] [address] [address] [address] Norm Melendrez Urea nitrogen [Mass/Vol] 14.0 mg/dL Normal 7.0-18.0 [facility] Comment on above: Performed By: #### C MP #### [facility] [address] [address] [address] Norm Melendrez Urea nitrogen/Creatinine [Mass ratio] 17.5 mg/mg Normal [facility] Comment on above: Performed By: #### C MP #### [facility] [address] [place], [place] [address] Dr. Norm Melendrez SED RATE WESTERGRENon 2021 SED RATE 31 mm/hr Critically high <=30 [facility] Comment on above: Performed By: #### C MP #### [facility] [address] [address] [address] Norm Melendrez LINO Antinuclear Antibodieson 05-31-2021 Antinuclear Abs, IFA Negative Normal . [facility] Comment on above: Result Comment: Nega tive <1:80 Borderline 1:80 Positive >1:80 ICAP nomenclature: AC-0 For more information about Hep-2 cell patterns use ANApatterns.org, the official website for the International Consensus on Antinuclear Antibody (LINO) Patterns (ICAP). Performed at: [employer] [address] [id number] Director Of Research Center: Alin Negron PhD, Phone: [phone] PERFORMED BY: [place] [address] PATHOLOGIST VETERINARY LIVESTOCK INSPECTOR TYRONE HOOPER M.D. Performed By: #### T 4F, CRP, TSH3, URIC, CBC, ESR, CMP, CK #### [facility] [address] [place] [address] #### LINO #### [facility] , Albumin [Mass/volume] in Ser um or PlasmaOrdered By: Alphonse Mcneal on 05-31-2021 Albumin [Mass/Vol] 3.5 g/dL 3.2-5.5 [facility] Aldolaseon 05-31-2021 Aldolase 2.6 U/L Low 3.3-10.3 [facility] Comment on above: Result Comment: Perf ormed at: [facility] [address] [id number] Director Of Research Center: Alin Negron PhD, Phone: [phone] PERFORMED BY: [place] [address] PATHOLOGIST VETERINARY LIVESTOCK INSPECTOR TYRONE HOOPER M.D. Performed By: #### T 4F, CRP, TSH3, URIC, CBC, ESR, CMP, CK #### [facility] [address] [place] [address] [place] #### LINO #### [facility] , Basophils Auto (Bld) [#/Vol] Ordered By: Alphonse Mcneal on 05-31-2021 Basophils (Bld) [#/Vol] 0.1 10*3/uL 0.0-0.2 [facility] Basophils/100 WBC Auto (Bld) Ordered By: Alphonse Mcneal on 05-31-2021 Basophils/100 WBC (Bld) 1.1 % [facility] Blood hemoglobin measurement (mass/volume)Ordered By: Alphonse Mcneal on 05-31-2021 Hemoglobin (Bld) [Mass/Vol] 13.7 g/dL 11.8-15.4 [facility] Blood leukocytes automated c ount (number/volume)Ordered By: Alphonse Mcneal on 05-31-2021 WBC (Bld) [#/Vol] 7.9 10*3/uL 4.5-11.0 [facility] C-Reactive Proteinon 022 C-Reactive Protein 1.4 mg/dL High 0.0-1.0 [facility] Comment on above: Performed By: #### T 4F, CRP, TSH3, URIC, CBC, ESR, CMP, CK #### [facility] [address] [place] [address] [place] #### LINO #### [facility] , Complete Blood Count Auto Di ffon 05-31-2021 Basophils (Bld) [#/Vol] 0.1 10*3/uL Normal 0.0-0.2 [facility] Comment on above: Performed By: #### T 4F, CRP, TSH3, URIC, CBC, ESR, CMP, CK #### [address] #### LINO #### [facility] , Basophils/100 WBC (Bld) 1.1 % Normal . [facility] Comment on above: Performed By: #### T 4F, CRP, TSH3, URIC, CBC, ESR, CMP, CK #### [facility] [address] [place] [address] [place] #### LINO #### [facility] , Eosinophils (Bld) [#/Vol] 0.6 10*3/uL High 0.0-0.45 [facility] Comment on above: Performed By: #### T 4F, CRP, TSH3, URIC, CBC, ESR, CMP, CK #### [address] #### LINO #### [facility] , Eosinophils/100 WBC (Bld) 7.9 % Normal . [facility] Comment on above: Performed By: #### T 4F, CRP, TSH3, URIC, CBC, ESR, CMP, CK #### [place] [address] [place] #### LINO #### [facility] , Erythrocyte distribution width (RBC) [Ratio] 16.0 % High 11.9-15.3 [facility] Comment on above: Performed By: #### T 4F, CRP, TSH3, URIC, CBC, ESR, CMP, CK #### [place] [address] [place] #### LINO #### [facility] , Hematocrit (Bld) [Volume fraction] 42.1 % Normal 34.0-46.4 [facility] Comment on above: Performed By: #### T 4F, CRP, TSH3, URIC, CBC, ESR, CMP, CK #### [place] [address] [place] #### LINO #### [facility] , Hemoglobin (Bld) [Mass/Vol] 13.7 g/dL Normal 11.8-15.4 [facility] Comment on above: Performed By: #### T 4F, CRP, TSH3, URIC, CBC, ESR, CMP, CK #### [address] #### LINO #### [facility] , Lymphocytes (Bld) [#/Vol] 1.1 10*3/uL Normal 1.00-4.8 [facility] Comment on above: Performed By: #### T 4F, CRP, TSH3, URIC, CBC, ESR, CMP, CK #### [address] #### LINO #### [facility] , Lymphocytes/100 WBC (Bld) 14.3 % Normal . [facility] Comment on above: Performed By: #### T 4F, CRP, TSH3, URIC, CBC, ESR, CMP, CK #### [address] #### LINO #### [facility] , MCH (RBC) [Entitic mass] 25.7 pg Normal 24.7-34.3 [facility] Comment on above: Performed By: #### T 4F, CRP, TSH3, URIC, CBC, ESR, CMP, CK #### [place] [address] [place] #### LINO #### [facility] , MCV (RBC) [Entitic vol] 79.2 fL Low 80-100 [facility] Comment on above: Performed By: #### T 4F, CRP, TSH3, URIC, CBC, ESR, CMP, CK #### [place] [address] [place] #### LINO #### [facility] , Mean Corpuscular HGB Conc 32.4 g/dL Normal 32.0-35.0 [facility] Comment on above: Performed By: #### T 4F, CRP, TSH3, URIC, CBC, ESR, CMP, CK #### [facility] [address] [place] [address] #### LINO #### [facility] , Monocytes (Bld) [#/Vol] 0.5 10*3/uL Normal 0.0-0.8 [facility] Comment on above: Performed By: #### T 4F, CRP, TSH3, URIC, CBC, ESR, CMP, CK #### [place] [address] [place] #### LINO #### [facility] , Monocytes/100 WBC (Bld) 6.2 % Normal . [facility] Comment on above: Performed By: #### T 4F, CRP, TSH3, URIC, CBC, ESR, CMP, CK #### [place] [address] [place] #### LINO #### [facility] , Neutrophils (Bld) [#/Vol] 5.6 10*3/uL Normal 1.8-7.7 [facility] Comment on above: Performed By: #### T 4F, CRP, TSH3, URIC, CBC, ESR, CMP, CK #### [address] #### LINO #### [facility] , Neutrophils/100 WBC (Bld) 70.5 % Normal . [facility] Comment on above: Performed By: #### T 4F, CRP, TSH3, URIC, CBC, ESR, CMP, CK #### [facility] [address] [place] [address] [place] #### LINO #### [facility] , Nucleated RBC/100 WBC (Bld) [Ratio] 0.1 % Normal 0-0.5 [facility] Comment on above: Performed By: #### T 4F, CRP, TSH3, URIC, CBC, ESR, CMP, CK #### [address] #### LINO #### [facility] , Platelet mean volume (Bld) [Entitic vol] 7.6 fL Normal 6.3-10.7 [facility] Comment on above: Performed By: #### T 4F, CRP, TSH3, URIC, CBC, ESR, CMP, CK #### [facility] [address] [place] [address] [place] #### LINO #### [facility] , Platelets (Bld) [#/Vol] 283 10*3/uL Normal 150-450 [facility] Comment on above: Performed By: #### T 4F, CRP, TSH3, URIC, CBC, ESR, CMP, CK #### [address] #### LINO #### [facility] , RBC (Bld) [#/Vol] 5.32 10*6/uL High 3.60-5.00 [facility] Comment on above: Performed By: #### T 4F, CRP, TSH3, URIC, CBC, ESR, CMP, CK #### [address] #### LINO #### [facility] , WBC (Bld) [#/Vol] 7.9 10*3/uL Normal 4.5-11.0 [facility] Comment on above: Performed By: #### T 4F, CRP, TSH3, URIC, CBC, ESR, CMP, CK #### [place] [address] [place] #### LINO #### [facility] , Comprehensive Metabolic Pane bianca 05-31-2021 Albumin [Mass/Vol] 3.5 g/dL Normal 3.2-5.5 [facility] Comment on above: Performed By: #### T 4F, CRP, TSH3, URIC, CBC, ESR, CMP, CK #### [facility] [address] [place] [address] #### LINO #### [facility] , Albumin/Globulin [Mass ratio] 1.1 {ratio} Normal [facility] Comment on above: Performed By: #### T 4F, CRP, TSH3, URIC, CBC, ESR, CMP, CK #### [facility] [address] [place] [address] [place] #### LINO #### [facility] , ALP [Catalytic activity/Vol] 92 U/L Normal 32-92 [facility] Comment on above: Performed By: #### T 4F, CRP, TSH3, URIC, CBC, ESR, CMP, CK #### [facility] [address] [place] [address] #### LINO #### [facility] , ALT [Catalytic activity/Vol] 22 U/L Normal 10-60 [facility] Comment on above: Performed By: #### T 4F, CRP, TSH3, URIC, CBC, ESR, CMP, CK #### [facility] [address] [place] [address] #### LINO #### [facility] , AST [Catalytic activity/Vol] 19 U/L Normal 10-42 [facility] Comment on above: Performed By: #### T 4F, CRP, TSH3, URIC, CBC, ESR, CMP, CK #### [facility] [address] [place] [address] [place] #### LINO #### [facility] , Bilirubin [Mass/Vol] 0.3 mg/dL Normal 0.3-1.2 [facility] Comment on above: Performed By: #### T 4F, CRP, TSH3, URIC, CBC, ESR, CMP, CK #### [facility] [address] [place] [address] [place] #### LINO #### [facility] , Calcium [Mass/Vol] 9.1 mg/dL Normal 8.2-10.2 [facility] Comment on above: Performed By: #### T 4F, CRP, TSH3, URIC, CBC, ESR, CMP, CK #### [facility] [address] [place] [address] #### LINO #### [facility] , Chloride [Moles/Vol] 104 mmol/L Normal 95-114 [facility] Comment on above: Performed By: #### T 4F, CRP, TSH3, URIC, CBC, ESR, CMP, CK #### [facility] [address] [place] [address] #### LINO #### [facility] , CO2 [Moles/Vol] 25.8 mmol/L Normal 22.0-30.0 [facility] Comment on above: Performed By: #### T 4F, CRP, TSH3, URIC, CBC, ESR, CMP, CK #### [facility] [address] [place] [address] #### LINO #### [facility] , Creatinine [Mass/Vol] 0.69 mg/dL Normal 0.44-1.03 [facility] Comment on above: Performed By: #### T 4F, CRP, TSH3, URIC, CBC, ESR, CMP, CK #### [facility] [address] [place] [address] #### LINO #### [facility] , Estimated GFR ( Kaylee > 60 [facility] Comment on above: Result Comment: GFR estimated reference range: According to KDOQI guidelines, <60 ml/min/1.73m2 is sufficient to diagnose a patient with chronic kidney disease. Performed By: #### T 4F, CRP, TSH3, URIC, CBC, ESR, CMP, CK #### [facility] [address] [place] [address] [place] #### LINO #### [facility] , Estimated GFR (Non- Am > 60 [facility] Comment on above: Performed By: #### T 4F, CRP, TSH3, URIC, CBC, ESR, CMP, CK #### [address] #### LINO #### [facility] , Globulin (S) [Mass/Vol] 3.2 g/dL Normal [facility] Comment on above: Performed By: #### T 4F, CRP, TSH3, URIC, CBC, ESR, CMP, CK #### [place] [address] [place] #### LINO #### [facility] , Glucose [Mass/Vol] 91 mg/dL Normal 70-100 [facility] Comment on above: Result Comment: [facility] Glucose Reference Range is dependent on time and content of last meal. Glucose of more than 200 mg/dL in a nonstressed, ambulatory subject supports the diagnosis of Diabetes Mellitus. ADA recommended reference range Performed By: #### T 4F, CRP, TSH3, URIC, CBC, ESR, CMP, CK #### [place] [address] [place] #### LINO #### [facility] , Potassium [Moles/Vol] 4.4 mmol/L Normal 3.5-5.1 [facility] Comment on above: Performed By: #### T 4F, CRP, TSH3, URIC, CBC, ESR, CMP, CK #### [place] [address] [place] #### LINO #### [facility] , Protein [Mass/Vol] 6.7 g/dL Normal 6.1-7.9 [facility] Comment on above: Performed By: #### T 4F, CRP, TSH3, URIC, CBC, ESR, CMP, CK #### [place] [address] [place] #### LINO #### [facility] , Sodium [Moles/Vol] 138 mmol/L Normal 136-146 [facility] Comment on above: Performed By: #### T 4F, CRP, TSH3, URIC, CBC, ESR, CMP, CK #### [facility] [address] [place] [address] [place] #### LINO #### [facility] , Urea nitrogen [Mass/Vol] 20 mg/dL Normal 9-23 [facility] Comment on above: Performed By: #### T 4F, CRP, TSH3, URIC, CBC, ESR, CMP, CK #### [facility] [address] [place] [address] [place] #### LINO #### [facility] , Creatine Kinaseon 05-31-2021 CK [Catalytic activity/Vol] 42 U/L Normal - [facility] Comment on above: Result Comment: PERF ORMED BY: [place] [address] PATHOLOGIST VETERINARY LIVESTOCK INSPECTOR TYRONE HOOPER M.D. Performed By: #### T 4F, CRP, TSH3, URIC, CBC, ESR, CMP, CK #### [facility] [address] [place] [address] #### LINO #### [facility] , Creatine kinase [Enzymatic a ctivity/volume] in Serum or PlasmaOrdered By: Alphonse Mcneal on 05-31-2021 CK [Catalytic activity/Vol] 42 U/L 22-269 [facility] Creatinine and Glomerular fi ltration rate.predicted panel (S/P/Bld)Ordered By: Alphonse Mcneal on 05-31-2021 Creatinine [Mass/Vol] 0.69 mg/dL 0.44-1.03 [facility] Eosinophils Auto (Bld) [#/Vo l]Ordered By: Alphonse Mcneal on 05-31-2021 Eosinophils (Bld) [#/Vol] 0.6 10*3/uL 0.0-0.45 [facility] Eosinophils/100 WBC Auto (Bl d)Ordered By: Alphonse Mcneal on 05-31-2021 Eosinophils/100 WBC (Bld) 7.9 % [facility] Erythrocyte Sedimentation Ra lakshmi 05-31-2021 ESR (Bld) [Velocity] 53 mm/h High 0- [facility] Comment on above: Result Comment: PERF ORMED BY: [place] [address] PATHOLOGIST VETERINARY LIVESTOCK INSPECTOR TYRONE HOOPER M.D. Performed By: #### T 4F, CRP, TSH3, URIC, CBC, ESR, CMP, CK #### [facility] [address] [place] [address] [place] #### LINO #### [facility] , Erythrocyte distribution wid th Auto (RBC) [Ratio]Ordered By: Alphonse Mcneal on 05-31-2021 Erythrocyte distribution width (RBC) [Ratio] 16.0 % 11.9-15.3 [facility] Erythrocyte sedimentation ra te by Photometric methodOrdered By: Alphonse Mcneal on 05-31-2021 ESR Photometric method (Bld) [Velocity] 53 mm/hr - [facility] Estimated glomerular filtrat ion rate (GFR) non- AmericanOrdered By: Alphonse Mcneal on 05-31-2021 GFR/1.73 sq M.predicted among non-blacks MDRD (S/P/Bld) [Vol rate/Area] > 60 mL/Min [facility] Free T4 (Free Thyroxine)on 0 05-31-2021 Free T4 [Mass/Vol] 1.02 ng/dL Normal 0.61-1.12 [facility] Comment on above: Performed By: #### T 4F, CRP, TSH3, URIC, CBC, ESR, CMP, CK #### [facility] [address] [place] [address] [place] #### LINO #### [facility] , Globulin Calc (S) [Mass/Vol] Ordered By: Alphonse Mcneal on 05-31-2021 Globulin (S) [Mass/Vol] 3.2 g/dL [facility] Hematocrit Auto (Bld) [Volum e fraction]Ordered By: Alphonse Mcneal on 05-31-2021 Hematocrit (Bld) [Volume fraction] 42.1 % 34.0-46.4 [facility] Laboratory - Hematology and Cell countsOrdered By: Alphonse Mcneal on 05-31-2021 Nucleated RBC/100 WBC (Bld) [Ratio] 0.1 % 0-0.5 [facility] Lymphocytes Auto (Bld) [#/Vo l]Ordered By: Alphonse Mcneal on 05-31-2021 Lymphocytes (Bld) [#/Vol] 1.1 10*3/uL 1.00-4.8 [facility] Lymphocytes/100 WBC Auto (Bl d)Ordered By: Alphonse Mcneal on 05-31-2021 Lymphocytes/100 WBC (Bld) 14.3 % [facility] MCH Auto (RBC) [Entitic mass ]Ordered By: Alphonse Mcneal on 05-31-2021 MCH (RBC) [Entitic mass] 25.7 pg 24.7-34.3 [facility] MCHC Auto (RBC) [Mass/Vol]Or dered By: Alphonse Mcneal on 05-31-2021 MCHC (RBC) [Mass/Vol] 32.4 g/dL 32.0-35.0 [facility] MCV Auto (RBC) [Entitic vol] Ordered By: Alphonse Mcneal on 05-31-2021 MCV (RBC) [Entitic vol] 79.2 fL 80-100 [facility] Monocytes Auto (Bld) [#/Vol] Ordered By: Alphonse Mcneal on 05-31-2021 Monocytes (Bld) [#/Vol] 0.5 10*3/uL 0.0-0.8 [facility] Monocytes/100 WBC Auto (Bld) Ordered By: Alphonse Mcneal on 05-31-2021 Monocytes/100 WBC (Bld) 6.2 % [facility] Neutrophils Auto (Bld) [#/Vo l]Ordered By: Alphonse Mcneal on 05-31-2021 Neutrophils (Bld) [#/Vol] 5.6 10*3/uL 1.8-7.7 [facility] Neutrophils/100 WBC Auto (Bl d)Ordered By: Alphonse Mcneal on 05-31-2021 Neutrophils/100 WBC (Bld) 70.5 % [facility] No Panel InformationOrdered By: Alphonse Mcneal on 05-31-2021 Estimated GFR () > 60 mL/Min [facility] Comment on above: GFR estimated refere nce range: According to KDOQI guidelines, <60 ml/min/1.73m2 is sufficient to diagnose a patient with chronic kidney disease. Pharmacy Creatinine Clearance (Chem N/A [facility] Platelet mean volume Auto (B ld) [Entitic vol]Ordered By: Alphonse Mcneal on 05-31-2021 Platelet mean volume (Bld) [Entitic vol] 7.6 fL 6.3-10.7 [facility] Platelets Auto (Bld) [#/Vol] Ordered By: Alphonse Mcneal on 05-31-2021 Platelets (Bld) [#/Vol] 283 10*3/uL 150-450 [facility] Protein [Mass/volume] in Ser um or PlasmaOrdered By: Alphonse Mcneal on 05-31-2021 Protein [Mass/Vol] 6.7 g/dL 6.1-7.9 [facility] RBC Auto (Bld) [#/Vol]Ordere d By: Alphonse Mcneal on 05-31-2021 RBC (Bld) [#/Vol] 5.32 10*6/uL 3.60-5.00 [facility] Serum or plasma C reactive p rotein measurement (mass/volume)Ordered By: Alphonse Mcneal on 05-31-2021 CRP [Mass/Vol] 1.4 mg/dL 0.0-1.0 [facility] Serum or plasma alanine kwan otransferase measurement without P-5'-P (enzymatic activiOrdered By: Alphonse Mcneal on 05-31-2021 ALT No additional P-5'-P [Catalytic activity/Vol] 22 U/L 10-60 [facility] Serum or plasma albumin/glob ulin mass ratioOrdered By: Alphonse Mcneal on 05-31-2021 Albumin/Globulin [Mass ratio] 1.1 {ratio} [facility] Serum or plasma alkaline lisa sphatase measurement (enzymatic activity/volume)Ordered By: Alphonse Mcneal on 05-31-2021 ALP [Catalytic activity/Vol] 92 U/L 32-92 [facility] Serum or plasma aspartate am inotransferase measurement (enzymatic activity/volume)Ordered By: Alphonse Mcneal on 05-31-2021 AST [Catalytic activity/Vol] 19 U/L 10-42 [facility] Serum or plasma calcium sharad urement (mass/volume)Ordered By: Alphonse Mcneal on 05-31-2021 Calcium [Mass/Vol] 9.1 mg/dL 8.2-10.2 [facility] Serum or plasma chloride sonya surement (moles/volume)Ordered By: Alphonse Mcneal on 05-31-2021 Chloride [Moles/Vol] 104 mmol/L 95-114 [facility] Serum or plasma glucose sharad urement (mass/volume)Ordered By: Alphonse Mcneal on 05-31-2021 Glucose [Mass/Vol] 91 mg/dL 70-100 [facility] Comment on above: ADA recommended refe rence rangeRandom Glucose Reference Range is dependent on time and content of last meal. Glucose of more than 200 mg/dL in a nonstressed, ambulatory subject supports the diagnosis of Diabetes Mellitus. Serum or plasma potassium me asurement (moles/volume)Ordered By: Alphonse Mcneal on 05-31-2021 Potassium [Moles/Vol] 4.4 mmol/L 3.5-5.1 [facility] Serum or plasma sodium measu rement (moles/volume)Ordered By: Alphonse Mcneal on 05-31-2021 Sodium [Moles/Vol] 138 mmol/L 136-146 [facility] Serum or plasma total biliru bin measurement (mass/volume)Ordered By: Alphonse Mcneal on 05-31-2021 Bilirubin [Mass/Vol] 0.3 mg/dL 0.3-1.2 [facility] Serum or plasma total carbon dioxide measurement (moles/volume)Ordered By: Alphonse Mcneal on 05-31-2021 CO2 [Moles/Vol] 25.8 mmol/L 22.0-30.0 [facility] Serum or plasma urea nitroge n measurement (mass/volume)Ordered By: Alphonse Mcneal on 05-31-2021 Urea nitrogen [Mass/Vol] 20 mg/dL 9-23 [facility] Serum or plasma uric acid me asurement (mass/volume)Ordered By: Alphonse Mcneal on 05-31-2021 Urate [Mass/Vol] 4.6 mg/dL 2.6-7.2 [facility] TSH DL <= 0.005 mIU/L QnOrde red By: Alphonse Mcneal on 05-31-2021 TSH Qn 1.44 m[IU]/L 0.45-5.33 [facility] Thyroid Stimulating Hormoneo n 05-31-2021 TSH Qn 1.44 m[IU]/L Normal 0.45-5.33 [facility] Comment on above: Result Comment: PERF ORMED BY: [place] [address] PATHOLOGIST VETERINARY LIVESTOCK INSPECTOR TYRONE HOOPER M.D. Performed By: #### T 4F, CRP, TSH3, URIC, CBC, ESR, CMP, CK #### [address] #### LINO #### [facility] , Thyroxine (T4) free [Mass/vo lume] in Serum or PlasmaOrdered By: Alphonse Mcneal on 05-31-2021 Free T4 [Mass/Vol] 1.02 ng/dL 0.61-1.12 [facility] Uric Acidon 05-31-2021 Urate [Mass/Vol] 4.6 mg/dL Normal 2.6-7.2 [facility] Comment on above: Performed By: #### T 4F, CRP, TSH3, URIC, CBC, ESR, CMP, CK #### [address] #### LINO #### [facility] , XR hand BI 2Von 05-31-2021 XR hand BI 2V [facility] [place] [address] XRay Report Signed Patient: Cayetano Weeks MR#: [id number] : 1950 Acct:[id number] Age/Sex: 70 / F ADM Date: 05/31/21 Loc: ICXD Room: Type: REG CLI Attending Dr: Gonzalez Mcneal MD Ordering Provider: Alphonse Mcneal MD Date of Service: 05/31/21 XR/XR hand BI 2V: POLYARTHRITIS,MEDS ([id number]) XR/XR wrist BI 2V: POLYARTHRITIS,MEDS ([id number]) XR/XR ankle BI 2V: POLYARTHRITIS,MEDS ([id number]) XR/XR chest 2V*: POLYARTHRITIS,MEDS Copies to: Alphonse [...] Fenton Jr., M.D.05/31/2021 2:44 PM Dictation Location: [place] [address] Transcribed By: CRUZ 05/31/21 [id number] Dictated By: Fox Fenton Jr, MD 05/31/21 1433 Signed By: 05/31/21 1444 [facility] OR Nursingon 06-11-2020 OR Nursing [facility] SA OR Nursing Record Summary Primary Physician: Chato Stafford MD Finalized Date/Time: 06/11/20 12:29:23 Pt. Name: CAYETANO WEEKS./Sex: 1950 Female Med Rec #: [id number] Physician: Financial #: [id number] Pt. Type: A Room/Bed: / Admit/Disch: 06/10/20 [...] 1 Entry 2 Entry 3 Case Attendee Chato Stafford MD, MD , Tristin Baeza Role Performed Primary Surgeon Anesthesiologist Conference Specialist Time In 06/10/20 07:27:00 06/10/20 07:27:00 06/10/20 [...] , Carson Finch Meagen B Role Performed general road supervisor First Scrub Assistive Personnel Time In 06/10/20 [...] 06/10/20 08:20:42 CO [facility] OR General Case Crane Rigger 1 OR CO SA 12 ASA Class 2 Case Wound Class Clean Contaminated Specialty Gynecology Surgery Case Level Flap Lining Binder Major Diagnosis Preop Diagnosis N95.0 N85.00 N84 Postop Same As Preop Yes POSTMENOPAUSAL BLEEDING THICKENED ENDOMETRIUM ENDOMETRIAL POLYP Postop Diagnosis N95.0 N85.00 N84 POSTMENOPAUSAL BLEEDING THICKENED ENDOMETRIUM ENDOMETRIAL POLYP This is a down time No record. 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 [facility] OR Surgical Procedures Entry 1 Procedure D and C Hysteroscopy Primary Procedure Yes Modifiers N/A Procedure Wound Clean Contaminated Class Primary Surgeon Rivera CHURCHILL , Chato Mckeon Surgical Service Gynecology Surgery Anesthesia Type General [...] Yes Safety Strap Abdomen Location Positioned By Rivera CHURCHILL , Chato Mckeon, Procedure D and C Hysteroscopy(N/A) Tristin Hurley Stiles MD, Nayeli Last Modified By: Dottie Quintanilla RN 06/10/20 08:20:02 CO SA OR Antithrombolytic Devices Entry 1 IPC Intermittent Right, Left IPC Size Knee Pneumatic Compression Unit ID Number [id number] JOSE DANIEL Hose Foot Pump Last Modified [...] - mi (more content not included)... Normal [facility] Glucose POCT (Uploaded)on Glucose [Mass/Vol] 127 mg/dL High 70-99 [facility] Comment on above: Result Comment: Suzanne tment [...] CAYETANO WEEKS/Sex: 1950 Female Med Rec #: [id number] Physician: Financial #: [id number] Pt. Type: A Room/Bed: / Admit/Disch: 06/10/20 [...] By: Willow Rain RN 06/10/20 09:20 Normal [facility] Patient Summaryon 06-10-2020 Patient Summary PATIENT DISCHARGE INSTRUCTIONS If you are having an emergency and are not able to reach your physician, CALL 911 or go to the nearest emergency room and take this document with you. [place] 06/10/20 08:38 [address] [place]. [address] PATIENT INFORMATION Name: CAYETANO WEEKS Address: [address] [place] [phone] Age: 69 Years Phone: [phone] : 1950 12:00 MRN: ([id number] Sex: Female Race: White Ethnicity: Not Hispan/Lat Admitted From: Clinic or [facility] Medical Service: Obstetric Nurse [facility]: [facility] N[facility] Admit Date: 06/10/2020 05:45 PCP: Physician, PCP Unknown PHYSICIANS INVOLVED WITH CARE -------- Attending Physicians: Chato Stafford MD Obstetrics, Gynecology Admitting Physician: None found Primary Care Physician:Physician, PCP Unknown,Family Practice,,, - Consults: None found YOU WERE TREATED IN THE HOSPITAL FOR: Endometrial polyp; Postmenopausal vaginal bleeding FOLLOW-UP APPOINTMENTS: Provider: Specialty: Address: Date: Chato Stafford MD Gynecology; Obstetrics [address] [place] [address] (1) Two Weeks Provider: Specialty: Address: Date: [...] doses are changed, or new medications (including lroj-wud-psghrsc products) are added. Ask your doctor if [...] changes are shown below: NEW MEDICATIONS [id number], [address], [place] [id number], [phone] ibuprofen (ibuprofen 600 mg oral tablet) 1 [...] Decisions Type: Living Will, Medical Power of Advisory Application Developer Copy of Advance Directive/Health Care Decisions on Chart: Patient/Family asked to provide copy SUICIDE HOTLINE: Your mental and emotional well-being are important. If you are in a mental health crisis, or having thoughts of suicide, please call the nationwide suicide hotline, anytime day or night, at 6-903-191-QTGO. It's easy to sign up for [employer]: 1. Visit Physician Practice [email or web address] /[facility] 2. Click on Roggen for myHealth 3. Verify your identity by entering your [...] your account, you'll be redirected to the [employer] login page. Login and check to see your results Questions? For help with account enrollment, call [employer] Customer Support at [phone] (toll-free) PATIENT EDUCATI (more content not included)... Normal [facility] Post PACU Nursingon 06-11-19 Post PACU Nursing CO SA PACU II Nursing Record Summary Primary Physician: Chato Stafford MD Finalized Date/Time: 06/10/20 09:40:04 Pt. Name: DESICAYETANOO.B./Sex: 1950 Female Med Rec #: [id number] Physician: Financial #: [id number] Pt. Type: A Room/Bed: / Admit/Disch: 06/10/20 [...] By: Juliane Mcduffie RN 06/10/20 09:40 Normal [facility] PreOp Nursingon 06-10-2020 PreOp Nursing CO SA PreOp Nursing Record Summary Primary Physician: Chato Stafford MD Finalized Date/Time: 06/10/20 07:30:51 Pt. Name: PATRICIA WEEKSBelinda Mahan./Sex: 1950 Female Med Rec #: [id number] Physician: Financial #: [id number] Pt. Type: A Room/Bed: / Admit/Disch: 06/10/20 [...] By: Dottie Quintanilla RN 06/10/20 07:30 Normal [facility] Surgical Pathology Final Rep [facility] 06-10-2020 Pathology study CAYETANO WEEKS [id number] YRS F [id number] / [id number] 01 ORDERING PHYSICIAN: CHATO STAFFORD [...] entirely submitted in block B1. (ES/1C/MS/RT-BAG) ZW :JN 06/10/20 By: BELLA ARGUETA M.D. (Electronic Signature) MICROSCOPIC: The technical component was performed at [facility], [address] [place] [address]. Microscopic examination was performed. Case resulted at [facility]. DIAGNOSIS: (A) Endometrial polyp, polypectomy: -- BENIGN ENDOMETRIAL POLYP. -- NEGATIVE FOR ATYPICAL HYPERPLASIA AND MALIGNANCY. (B) Endometrium, curettage: -- FRAGMENTS OF ENDOMETRIAL POLYP AND FOCAL SIMPLE ENDOMETRIAL HYPERPLASIA WITHOUT ATYPIA/BENIGN HYPERPLASIA. -- NEGATIVE FOR ATYPICAL HYPERPLASIA AND MALIGNANCY. JH2:JH2:JH204 END OF REPORT END OF REPORT [facility] Coronavirus (COVID-19/SARS-C oV-2) [facility] 06-08-2020 Device Identifier Bradford Fusion SARS-CoV-2 assay_Neronote. EUA [facility] Comment on above: Performed By: #### 9 4532-9x6 #### [facility] [address] [place] [address] Employed in healthcare N [facility] Comment on above: Performed By: #### 9 4532-9x6 #### [facility] [address] [place] [address] First test Y [facility] Comment on above: Performed By: #### 9 4532-9x6 #### [facility] [address] [place] [address] ICU N [facility] Comment on above: Performed By: #### 9 4532-9x6 #### [facility] [address] [place] [address] Illness or injury onset date and time N [facility] Comment on above: Performed By: #### 9 4532-9x6 #### [facility] [address] [place] [address] Patient was hospitalized because of this condition N [facility] Comment on above: Performed By: #### 9 4532-9x6 #### [facility] [place] [address] status N Normal [facility] Comment on above: Performed By: #### 9 4532-9x6 #### [facility] [address] [place] [address] Resides in congregate care setting N [facility] Comment on above: Performed By: #### 9 4532-9x6 #### [address] [address] SARS-CoV-2 (COVID-19) RNA CLEMENTINE+probe Ql (Resp) Not detected Normal NOTDET [facility] Comment on above: Result Comment: This test was performed via the VAYAVYA [employer] SARS-CoV-2 Assay ([employer]), a Nucleic Acid Amplification Test (NAAT), and has been authorized by the FDA under an Emergency Use Authorization (EUA). The assay is validated for nasopharyngeal (GROUND WATER TECHNICIAN), nasal, and oropharyngeal (OP) swab specimens. The [...] www.cdc.gov/coronavirus. Performed By: #### 9 4532-9x6 #### [facility] [address] [place] [address] Symptomatic as defined by CDC N [facility] Comment on above: Performed By: #### 9 4532-9x6 #### [address] [address] Basic metabolic 2000 panelon 05-27-2020 Anion gap [Moles/Vol] 6.0 mmol/L Normal 6.0-18.0 [facility] Comment on above: Performed By: #### 2 4321-2, 86857-9, 62573-0z6 ####[facility], [address], [place]. Calcium [Mass/Vol] 9.0 mg/dL Normal 8.9-10.3 [facility] Comment on above: Performed By: #### 2 4321-2, 92257-8, 67575-1g5 ####[facility], [address], [place]. Chloride [Moles/Vol] 105 mmol/L Normal 98-107 [facility] Comment on above: Performed By: #### 2 4321-2, 15088-6, 79601-5c3 ####[facility], [address], [place]. CO2 [Moles/Vol] 27 mmol/L Normal 22-32 [facility] Comment on above: Performed By: #### 2 1-2, 26701-0, 55815-1z1 ####[facility], [address], [place]. Creatinine [Mass/Vol] 0.74 mg/dL Normal 0.66-1.30 Penny [facility] Comment on above: Performed By: #### 2 1-2, 72209-2, 20772-7k9 ####[facility], [address], [place]. Glucose [Mass/Vol] 106 mg/dL High 70-99 [facility] Comment on above: Result Comment: U pdated ADA Reference Range A normal fasting glucose concentration is less than 100 mg/dL. An impaired fasting glucose concentration is 100-125 mg/dL. A provisional diagnosis of diabetes mellitus can be made when a fasting glucose concentration is greater than 125 mg/dL. Performed By: #### 2 4321-2, 21263-4, 80981-5s8 ####[facility], [address], [place]. Potassium [Moles/Vol] 3.9 mmol/L Normal 3.6-5.1 Penny [facility] Comment on above: Performed By: #### 2 432-2, 92269-3, 43868-4r6 ####[facility], [address] [place], [place]. Sodium [Moles/Vol] 138 mmol/L Normal 136-145 [facility] Comment on above: Performed By: #### 2 4320-2, 73948-8, 90154-6e5 ####[facility], [address], [place]. Urea nitrogen (BldV) [Mass/Vol] 13 mg/dL Normal 8-20 [facility] Comment on above: Performed By: #### 2 1-2, 53144-7, 74208-5c9 ####[facility], [address]. GFR/1.73 sq M.predicted (S/P /Bld) [Vol rate/Area]on 05-27-2020 GFR/1.73 sq M.predicted among blacks MDRD (S/P/Bld) [Vol rate/Area] mL/min/{1.73_m2} Normal [facility] Comment on above: Result Comment: The MDRD equation has not been validated for those over 70 years, women, patients with serious co-morbid conditions, or with extremes of body size, muscle mass of nutritional status. Performed By: #### 2 432-2, 67752-7, 48120-7s6 #### [facility], [address]. GFRbbon 05-27-2020 GFR/1.73 sq M.predicted among non-blacks MDRD (S/P/Bld) [Vol rate/Area] mL/min/{1.73_m2} Normal [facility] Comment on above: Performed By: #### 2 4321-2, 11875-9, 96438-0d7 #### [facility], [address]. Hemogram and platelets WO di fferential panel (Bld)on 05-27-2020 Erythrocyte distribution width (RBC) [Entitic vol] 14.6 % Normal 11.0-14.8 [facility] Comment on above: Performed By: #### 2 4317-0 #### [facility], [address], [place]. Hematocrit (Bld) [Volume fraction] 46.5 % High 35.0-45.0 [facility] Comment on above: Performed By: #### 2 4316-0 #### [facility], [address] [place], [place]. Hemoglobin (Bld) [Mass/Vol] 15.4 g/dL Normal 12.0-16.0 [facility] Comment on above: Performed By: #### 2 4316-0 #### [facility], [address], [place]. MCH (RBC) [Entitic mass] 27.4 Picograms Normal 27.0-34.0 [facility] Comment on above: Performed By: #### 2 4316-0 #### [facility], [address] [place], [place]. MCHC (RBC) [Mass/Vol] 33.0 g/dL Normal 32.0-36.0 Penny [facility] Comment on above: Performed By: #### 2 7-0 #### [facility], [address] [place], [place]. MCV (RBC) [Entitic vol] 82.9 fL Normal 80.0-97.0 [facility] Comment on above: Performed By: #### 2 7-0 #### [facility], [address] [place], [place]. Platelet mean volume (Bld) [Entitic vol] 7.5 fL Normal 6.2-12.1 [facility] Comment on above: Performed By: #### 2 7-0 #### [facility], [address] [place], [place]. Platelets (Bld) [#/Vol] 218 thou/mcL Normal 142-424 [facility] Comment on above: Performed By: #### 2 4317-0 #### [facility], [address] [place], [place]. RBC (Bld) [#/Vol] 5.61 million/mcL High 3.80-5.10 [facility] Comment on above: Performed By: #### 2 4317-0 #### [facility], [address] [place], [place]. WBC (Bld) [#/Vol] 7.5 thou/mcL Normal 4.6-10.2 [facility] Comment on above: Performed By: #### 2 4317-0 #### [facility], [address] [place], [place]. PT Coag (PPP) [Time]on 05-27 INR Coag (Bld) [Relative time] 1.08 {INR} Normal [facility] Comment on above: Result Comment: The recommended therapeutic INR range for most cardiac indications is 2.0-3.0. For high intensity therapy(ie.mechanical heart valves), the recommended range is 2.5-3.5. Performed By: #### 3 173-2, 5902-2 ####[facility], [address] [place], [place]. Prothrombin Timeon PT Coag (PPP) [Time] 14.3 s Normal 11.9-14.7 [facility] Comment on above: Performed By: #### 3 173-2, 5902-2 ####[facility], [address] [place], [place]. aPTT Coag (Bld) [Time]on aPTT Coag (PPP) [Time] 31.9 s Normal 23.3-35.3 [facility] Comment on above: Performed By: #### 3 173-2, 5902-2 ####[facility], [address] [place], [place]. Vital Signs Date Time Vital Sign Value Performing Clinician Allyssa ingram 01-25-2024 10:37-0500 Body height 154.9 cm Tyrell Bowens MD Work Phone: [facility] 01-25-2024 10:37-0500 Body mass index (BMI) [Ratio] 37.98 kg/m2 Tyrell Bowens MD Work Phone: [facility] 01-25-2024 10:37-0500 Body temperature 97.5 [degF] Tyrell Bowens MD Work Phone: [facility] 01-25-2024 10:37-0500 Body weight 91.17 kg Tyrell Bowens MD Work Phone: [facility] 01-25-2024 10:37-0500 Diastolic blood pressure 72 mm[Hg] Tyrell Bowens MD Work Phone: [facility] 01-25-2024 10:37-0500 Heart rate 74 /min Tyrell Bowens MD Work Phone: [facility] 01-25-2024 10:37-0500 Respiratory rate 22 /min Tyrell Bowens MD Work Phone: [facility] 01-25-2024 10:37-0500 SaO2% (BldA) [Mass fraction] 95 % Tyrell Bowens MD Work Phone: [facility] 01-25-2024 10:37-0500 Systolic blood pressure 126 mm[Hg] Tyrell Bowens MD Work Phone: [facility] 04-05-2023 08:24-0500 Body height 154.9 cm Tyrell Bowens MD Work Phone: [facility] 04-05-2023 08:24-0500 Body mass index (BMI) [Ratio] 37.98 kg/m2 Tyrell Bowens MD Work Phone: [facility] 04-05-2023 08:24-0500 Body temperature 97.11 [degF] Tyrell Bowens MD Work Phone: [facility] 04-05-2023 08:24-0500 Body weight 91.17 kg Tyrell Bowens MD Work Phone: [facility] 04-05-2023 08:24-0500 Diastolic blood pressure 80 mm[Hg] Tyrell Bowens MD Work Phone: [facility] 04-05-2023 08:24-0500 Heart rate 86 /min Tyrell Bowens MD Work Phone: [facility] 04-05-2023 08:24-0500 SaO2% (BldA) [Mass fraction] 96 % Tyrell Bowens MD Work Phone: [facility] 04-05-2023 08:24-0500 Systolic blood pressure 130 mm[Hg] Tyrell Bowens MD Work Phone: [facility] Healthcare Encounters Encounter Date Encounter Type Care Provider Facility Start: 04-11-2024 End: 04-11-2024 Clinisync Result Encounter Generic External Data Provider [facility] External Department Unsolicited Start: 04-11-2024 End: 04-11-2024 Clinisync Result Encounter Generic External Data Provider [facility] External Department Unsolicited Start: 04-09-[address] [facility] Start: 01-25-2024 End: 01-25-2024 Bamboo flowsheet Tyrell Bowens MD Work Phone: [facility] Start: 01-25-2024 End: 01-25-2024 Bamboo flowsheet Tyrell Bowens MD Work Phone: [facility] Start: 01-25-2024 End: 01-25-2024 Patient encounter procedure Tyrell Bowens MD Work Phone: [facility] Healthcare Work Phone: Start: 01-25-2024 End: 01-25-2024 Postop follow up visit related to original px Tyrell Bowens MD [facility] Phone[facility] Comment on above: Medicare annual well ness visit, subsequent (Primary Dx) Start: 01-01-2024 End: 01-01-2024 Bamboo flowsheet Jr. Zackary Vieira Stepmisael DO Work Phone: [facility] Start: 01-01-2024 End: 01-01-2024 Bamboo flowsheet Jr. Zackary Vieira Stepanic DO Work Phone: [facility] Start: 01-01-2024 End: 01-01-2024 Office outpatient visit 25 minutes Jr. Zackary Brandon DO Work Phone: [facility] Comment on above: Carpal tunnel syndro me of right wrist (Primary Dx) Start: 01-01-2024 End: 01-01-2024 ambulatory ZACKARY GRAY Not Available Start: 12-26-2023 End: 12-26-2023 Clinisync Result Encounter Generic External Data Provider [facility] External Department Unsolicited Start: 12-26-2023 End: 12-26-2023 Clinisync Result Encounter Generic External Data Provider [facility] External Department Unsolicited Start: 11-27-2023 End: 11-27-2023 ambulatory TYRELL BOWENS [facility] Start: 10-30-2023 End: 10-30-2023 Bamboo flowsheet JrSari Vieira Stepmisael DO Work Phone: [facility] Start: 10-30-2023 End: 10-30-2023 Bamboo flowsheet Jr. Zackary Vieira Stepanic DO Work Phone: [facility] Start: 10-30-2023 End: 10-30-2023 Office outpatient visit 25 minutes Jr. Zackary Brandon DO Work Phone: [facility] Comment on above: Carpal tunnel syndro me of right wrist (Primary Dx) Start: 10-30-2023 End: 10-30-2023 ambulatory ZACKARY GRAY Not Available Start: 10-04-2023 End: 10-04-2023 ambulatory TYRELL BOWENS Not Available Start: 10-02-2023 End: 10-02-2023 ambulatory ZACKARY GRAYMISAEL Not Available Start: 08-02-2023 End: 08-02-2023 ambulatory JIMI LESLIEMIS Not Available Start: 06-28-2023 End: 06-28-2023 ambulatory YASSINE VANG Not Available Start: 04-05-2023 [email or web address] flowsheet Tyrell Bowens MD Work Phone: [facility] [...] Available Start: 01-04-2023 End: 01-04-2023 ambulatory JIMI PARSONSS Not Available Start: 10-04-2022 End: 10-04-2022 ambulatory TYRELL BOWENS Facility:[facility] Start: 10-04-2022 End: 10-04-2022 Subsequent hospital [...] encounter procedure MD Gonzalez Mcneal Work Phone: [facility] [address] Procedures Date Procedure Procedure Detail Performing Clinician Start: 04-11-2024 ALL CBC WITH AUTO DIFF Generic External Data Provider Start: 12-26-2023 ALL CBC WITH AUTO DIFF [...] for malign ant neoplasm of colon [facility] Start: 01-24-2025 Medicare Annual Wellness (AWV) Medicare Annual Wellness (AWV) [facility] Start: 08-20-2024 End: 08-20-2024 Patient encounter procedure 08/20/2024 9:00 AM EDT [facility] [address] [place] [phone] Tyrell Bowens MD [address] [place] [phone] [facility] Start: 08-12-2024 End: 08-12-2024 Patient encounter procedure 08/12/2024 8:00 AM EDT Office Visit NEFTALI JAV[facility] [address] [place] [address] Tyrell Bowens MD [address] [place] [phone] [facility] Start: 01-25-2024 End: 01-25-2024 Patient encounter procedure [facility] Comment on above: Arrived Start: 01-01-2024 End: 01-01-2024 Patient encounter procedure 01/01/2024 1:30 PM EST Office Visit [facility] [address] [place] [phone] Jr. Zackary Brandon, DO [address] [place] [address] [facility] Start: 10-30-2023 End: 10-30-2023 Patient encounter procedure 10/30/2023 1:15 PM EDT Office Visit [facility] [address] [place] [phone] Jr. Zackary Brandon, DO [address] [facility] [address] [place] [address] Arrived [facility] Comment on above: Arrived Start: 10-22-2023 Covid-19 Vaccine ( season) Covid-19 Vaccine ( season) [facility] Start: 10-22-2023 Influenza vaccination Influenza Vacc ine (#1) [facility] Start: 10-04-2023 End: 10-04-2023 Patient encounter procedure 10/04/2023 8:15 AM EDT Office Visit [facility] [address] [place] [phone] Tyrell Bowens MD [address] [place] [phone] [facility] Start: 08-02-2023 End: 08-02-2023 Patient encounter procedure 08/02/2023 9:10 AM EDT Office Visit [facility] [address] [facility] [address] [place] [address] Jimi Yin MD [address] [facility] [address] [place] [address] [facility] Start: 04-05-2023 End: 04-05-2024 Basic metabolic 1998 panel - Serum or Plasma Basic metabolic panel Lab Routine Essential hypertension, benign (CMS/HCC) Expected: 04/05/2023 (Approximate), Expires: 04/05/2024 [facility] Comment on above: Expected: 04/05/2023 (Approximate), Expires: 04/05/2024 Start: 04-05-2023 End: 04-05-2024 CBC W Auto Differential panel - Blood CBC and differential Lab Routine Encounter for long-term (current) use of medications Expected: 04/05/2023 (Approximate), Expires: 04/05/2024 [facility] Comment on above: Expected: 04/05/2023 (Approximate), Expires: 04/05/2024 Start: 04-05-2023 End: 04-05-2024 Hemoglobin A1c measurement Hemoglobin A1c Lab Routine Prediabetes Expected: 04/05/2023 (Approximate), Expires: 04/05/2024 [facility] Work Phone: Comment on above: Expected: 04/05/2023 (Approximate), Expires: 04/05/2024 Start: 04-05-2023 End: 04-05-2024 Hepatic function 2000 panel - Serum or Plasma Hepatic function panel Lab Routine Encounter for long-term (current) use of medications Expected: 04/05/2023 (Approximate), Expires: 04/05/2024 [facility] Comment on above: Expected: 04/05/2023 (Approximate), Expires: 04/05/2024 Start: 04-05-2023 End: 04-05-2024 Lipid 1996 panel - Serum or Plasma Lipid panel Lab Routine Encounter for long-term (current) use of medications Expected: 04/05/2023 (Approximate), Expires: 04/05/2024 [facility] Comment on above: Expected: 04/05/2023 (Approximate), Expires: 04/05/2024 Start: 04-05-2023 End: 04-05-2024 Thyrotropin [Units/volume] in Serum or Plasma TSH Lab Routine Obesity (BMI 30-39.9) Expected: 04/05/2023 (Approximate), Expires: 04/05/2024 [facility] Comment on above: Expected: 04/05/2023 (Approximate), Expires: 04/05/2024 Start: 04-05-2023 End: 04-05-2023 Patient encounter procedure 04/05/2023 8:15 AM EST Office Visit [facility] [address] [place] [phone] Tyrell Bowens MD [address] [place] [phone] Arrived [facility] Comment on above: Arrived Start: 02-20-2023 Advance Directive Discussion Advance Directive Discussion [facility] Start: 07-11-2021 Urine microalbumin profile DTaP,Tdap,Td Vaccine (2 - Td or Tdap) [facility] Start: 12-26-2018 Screening for malign ant neoplasm of breast Mammogram [facility] Start: 2013 Screening for osteoporosis Bone Density Screening [facility] Start: 2008 RSV Vaccine (1 - 1-d ose 60+ series) RSV Vaccine (1 - 1-dose 60+ series) [facility] Start: 1993 Diabetes Screening Diabetes Screenin g [facility] Start: 1993 Lipid panel Lipid Screening [facility] Start: 1993 Screening for malign ant neoplasm of colon [facility] Start: 1988 Screening for malign ant neoplasm of breast Mammogram Screening [facility] Start: 1966 Anxiety Screening Anxiety Screening [facility] Start: 1966 Depression Screening Depression Scre ening [facility] Start: 1966 Hepatitis C screening Hepatitis C Sc rachelle [facility] Start: 1950 Medicare Annual Wellness (AWV) Medicare Annual Wellness (AWV) [facility] Start: 1950 Screening for malign ant neoplasm of colon [facility] Aldolase measurement [facility] Work Phone: Homogenous nuclear A b pattern [Titer] in [facility] Work Phone: Nuclear Ab [Titer] i n Serum [facility] Work Phone: Immunizations Immunization Date Immunization Notes Care Provider Fa cility 10-27-2023 influenza virus vacc ine, unspecified formulation Jr. Stepanic DO Work Phone: [facility] 11-13-2021 influenza virus vacc ine, unspecified formulation [facility] Work Phone: [facility] Payers Date Payer Category Payer Private Health Insurance [employer] [id number] 2021 Unknown [id number] 2013 Medicare [id number] 1959 Medicare [id number] 1959 Unknown [id number] 1948 Unknown [id number] 2.16.840.1.992731.3.579.2. 593 1948 Unknown [id number] 2.16.840.1.995212.3.579.2. 593 1948 Unknown [id number] 2.16.840.1.883147.3.579.2. 593 1948 Unknown [id number] 2.16.840.1.338814.3.579.2. 593 1948 Unknown [id number] 2.16.840.1.807820.3.579.2. 1286 1948 Unknown [id number] 2.16.840.1.011980.3.579.2. 1259 1948 Unknown [id number] 2.16.840.1.869470.3.579.2. 1259 1948 Unknown [id number] 2.16.840.1.963391.3.579.2. 1259 1948 Unknown [id number] 2.16.840.1.753062.3.579.2. 1259 1948 Unknown [id number] 2.16.840.1.570220.3.579.2. 1259 1948 Unknown [id number] 2.16.840.1.792226.3.579.2. 1259 1948 Unknown [id number] 2.16.840.1.587120.3.579.2. 1259 1948 Unknown [id number] 2.16.840.1.756665.3.579.2. 1259 Self-pay Self Pay [id number] Social History Date Type Detail Facility Tobacco smoking stat us [facility] Unknown if ever smoked [facility] Work Phone: Start: 1950 Sex Assigned At Female [facility] Start: 08-09-2022 Tobacco smoking status NHIS Never smoked tobacco [facility] Start: 08-09-2022 Tobacco use and exposure Smokeless tobacco non-user [facility] Start: 03-14-2023 End: 01-25-2024 Alcohol intake Ex-drinker (finding) [facility] Start: 03-29-2023 End: 01-25-2024 History of Social function [facility] Start: 03-29-2023 End: 01-25-2024 Humiliation, Afraid, Rape, and Kick questionnaire [HARK] [facility] Within the last year , have you been afraid of your partner or ex-partner? No [facility] Do you belong to any clubs or organizations such as temple groups, unions, fraternal or athletic groups, or [...] gender (finding) [facility] Tobacco smoking stat [facility] Tobacco smoking consumption unknown [facility] Start: 1950 Sex assigned at Not on file [facility] Clinical Notes 06-10-2020 to 04-09-2024 Tyrell Bowens MD - 01/25/2024 11:39 AM Mango Bowens MD - 01/25/2024 10:15 AM Jae. Zackary Brandon, - 01/01/2024 1:30 PM ESTJr. Zackary Brandon, DO - 10/30/2023 1:15 PM EDT Note Date & Type Note Facility 04-09-2024 Note Orthopedic Surgery Subjective Chief complaint: Chief Complaint Patient presents with ??? Right Hand - Pain Cayetano Weeks is a 73 y.o. year old female presenting for evaluation of carpal tunnel syndrome in her right hand. She is a [id number] female who has a history of rheumatoid arthritis, and over the past years had developing symptoms consistent with carpal tunnel syndrome. Her primary care physician has provided her with night splints which have alleviated her nighttime symptoms. She does still get some numbness during the day when using her hands. In addition to the numbness she has occasional pain or a feeling of catching in her long finger. She has been doing some stretching exercises. Recently, an EMG was performed which showed evidence of mild carpal tunnel syndrome. Her treating orthopedic surgeon was planning on doing a carpal tunnel release but when she stated she was having some clicking or catching referred her to us. Previous Treatments: Splinting, stretching History No past surgical history on file. No past medical history on file. Objective General: Body mass index is 37.98 kg/m???. No acute distress, comfortable Respiratory: Unlabored breathing with normal rate, no cough Cardiovascular: Warm well perfused extremities Psych: Appropriate mood behavior Hand/Wrist Musculoskeletal Exam Inspection Right Right hand/wrist inspection is normal. Palpation Right Middle tenderness to palpation: A1 barbi Ring tenderness to palpation: A1 barbi Range of Motion Right Hand Right hand range of motion is normal. Strength Right Hand Right hand strength is normal. Thumb opposition: 5/5. Finger abduction: 5/5. Neurovascular Right Capillary refill: brisk Ulnar nerve sensory distribution: normal Median nerve sensory distribution: decreased Superficial radial nerve sensory distribution: normal Special Tests Right Phalen's: negative Tinel's - carpal tunnel: positive Tinel's - cubital tunnel: negative Imaging: No imaging Assessment/Plan Cayetano Weeks is a 73 y.o. year old female with carpal tunnel syndrome of the right hand PLAN: We talked about options for treatment. I think with her history of rheumatoid arthritis it would be reasonable to try a corticosteroid injection to see if we can get rid of the symptoms of the carpal tunnel and the trigger digits. She was very much agreeable with this and would prefer to avoid surgical treatment for as long as possible. I did the injection today and was well-tolerated. We will see her back as needed if her symptoms recur. [facility] 04-09-2024 Note Patient ID: Sherry sanchez is a 73 y.o. female. Steroid Injections for carpal tunnel syndrome on 04/09/2024 8:42 PM Indications: (Carpal tunnel symptoms) Details: 25 G needle, volar approach Medications: 2 mL triamcinolone acetonide (Kenalog-10) 10 mg/mL; 3 mL lidocaine (PF) 10 mg/mL (1 %) Outcome: tolerated well, no immediate complications After discussing the treatment options, and the risks and benefits of a corticosteroid injection, verbal consent to proceed was obtained. In the clinic today, the benefits, risks and potential side effects of the injection were discussed, and verbal consent was given. The area just proximal to the right wrist crease was prepped with Betadine. Using a 25-gauge needle, the carpal tunnel was carefully injected with a combination of 2 mL of Kenalog 10 mg/mL and 3 mL of 1% plain lidocaine. The area was wiped clean with alcohol and dressed with a Band-Aid. Instructions were given to be cautious as the hand most likely will be numb for the next couple hours, and to apply ice to the site later today. Procedure, treatment alternatives, risks and benefits explained, specific risks discussed. Consent was given by the patient. Immediately prior to procedure a time out was called to verify the correct patient, procedure, equipment, system support specialist and site/side marked as required. [facility] 01-25-2024 History of Presen t illness Narrative [...] not to smoke. documented in this encounter [facility] 01-01-2024 History of Presen t illness Narrative [...] is normal. Strength additional comments: 5/5 EQUAL SURFACE SUPPLY BREATHING APPARATUS STRENGTH Neurovascular Right Right neurovascular exam is [...] Zackary Brandon D.O. documented in this encounter [facility] 10-30-2023 History of Presen t illness Narrative [...] is normal. Strength additional comments: 5/5 EQUAL SURFACE SUPPLY BREATHING APPARATUS STRENGTH Neurovascular Right Right neurovascular exam is [...] I am acting as scribe for Dr. Brandon/[facility], PLAN: We have reviewed prior (R) UE [...] Zackary Brandon D.O. documented in this encounter [facility] 04-05-2023 History of Presen t illness Narrative [...] Relevant Orders TSH documented in this encounter [facility] 10-04-2022 Note HNO ID: [id number] Author: Nory Slade RN Service: ? Author [...] DATE: October 04, 2022 TIME: 9:[address] [facility] 10-04-2022 Note HNO ID: [id number] Author: Rimma Rey RT(R) Service: ? Author [...] 0912 PATIENT DISCHARGED TO: Ambulatory patient, left [place] department area. A Diagnostic radioactive procedure has taken place, with no further precautions necessary other than routine body substance precautions. More information regarding radiation safety can be found using this link: [email or web address]%20Nuclear%20 Medicine%[email or web address].pdf SIGNATURE: RT Bo(R) PATIENT NAME: Cayetano Weeks DATE: October 04, 2022 TIME: 9:38 AM PAGER/CONTACT #: [facility] 10-04-2022 History of Presen t illness [...] 0912 PATIENT DISCHARGED TO: Ambulatory patient, left [place] department area. A Diagnostic radioactive procedure has taken place, with no further precautions necessary other than routine body substance precautions. More information regarding radiation safety can be found using this link: [email or web address] [email or web address] ic%20Nuclear%20Medicine%20Proc edures.pdf SIGNATURE: RT Bo([place]) PATIENT NAME: Cayetano Weeks DATE: October 04, 2022 TIME: 9:38 AM PAGER/CONTACT #: documented in this encounter [facility] 06-10-2020 Surgery Surgical operation note DICTATED BY:CHATO STAFFORD MD SERVICE DATE:06/10/2020 PREOPERATIVE DIAGNOSES: 1. Postmenopausal bleeding. 2. Endometrial polyp. POSTOPERATIVE DIAGNOSES: 1. Postmenopausal bleeding. 2. Endometrial polyp. PROCEDURES: 1. Dilatation and curettage, hysteroscopy. 2. Polypectomy with MyoSure. SURGEON: Chato Stafford MD ANESTHESIA: General per LMA. ELECTRIC TRUCK CRANE OPERATOR: Nayeli Sosa MD ESTIMATED BLOOD LOSS: [...] were correct. CAYETANO WEEKS Birthdate: 1950 #: [id number] D/06/10/2020 08:23:39 T/06/10/2020 09:15:53 VOICE JOB ID:[id number] Speed thanks you for the opportunity to care for your patient. DID: [id number] [facility] 06-10-2020 Physician Hospita l Discharge summary CLINICAL SUMMARY Please take this summary document to your follow up appointments. Luis Pierre 06/10/20 08:38 [address] [place]. [address] PATIENT INFORMATION Name: CAYETANO WEEKS Address: [address] [facility] [address] Age: 69 Years Phone: [phone] : 1950 12:00 MRN: [facility])-[id number] Sex: Female Race: White Ethnicity: Not Hispan/Lat Admitted From: Clinic or [facility] Medical Service: Obstetric Nurse [facility]Bed: ([facility] Admit Date: 06/10/2020 05:45 PCP: [...] ORDERED / RECOMMENDED TO BE CONTINUED for: DESI PATRICIABelinda bisoprolol-hydroCHLOROthiazide (Bisoprolol/hydroCHLOROthiazid e 5 mg/6.25 mg) 1 Tab(s) By Mouth once a day. ibuprofen (ibuprofen 600 mg oral tablet) 1 Tab(s) By Mouth One Time Only as needed Pain - Mild. Refills: 0. loratadine (Claritin 24 Hour Allergy 10 mg oral tablet) 1 Tab(s) By Mouth once a day. multivitamin 1 Tab(s) By Mouth once a day. MEDICATION CHANGE DETAILS NEW MEDICATIONS [id number], [address], [place] [id number], [phone] ibuprofen (ibuprofen 600 mg oral tablet) 1 [...] (vasopressin) 20 Unit = 1 mL, Vag, Sludge Control Operator, x 30 Day(s) COMMENTS and SPECIAL INSTRUCTIONS: [...] (Zofran GEq) (Zofran (more content not included)... [facility] 06-10-2020 Surgery Postoperative evaluation and management note Patient: CAYETANO WEEKS MRN: ([facility])-[id number] Age: 69 years Sex: Female : 1950 [...] Surgeon: Primary Surgeon: Chato Stafford MD . Extension Worker(s): Nayeli Sosa MD , . Type of Anesthesia: Anesthesia Type: General . Estimated Blood Loss: Minimal less than 10mL. Procedure Findings: intrauterine polyp. Drain(s): Collection Device: RED RUBBER . Specimen(s) Removed: Specimen: 1. ENDOMETRIAL POLYP - PERMANENT - 2. ENDOMETRIAL CURETTINGS - PERMANENT . [facility] 06-10-2020 Anesthesiology Preoperative evaluation and management note Patient: CAYETANO WEEKS MRN: ([id number] Age: 69 years Sex: Female : 1950 Associated Diagnoses: None Author: William Freire MD Preoperative Information Diagnosis No diagnoses charted Planned Procedure Hysteroscopy Histories Past Medical History: Active Eczema HTN (hypertension) Social History: Smoking Status: Never smoked E-Cig/Vaped Last 90 Day..: No Surgical/Procedure History: Surgical/Procedure Hx Polypectomy ([id number]). Comments: 05/27/2020 09:32 EDT - Toney BERNARD , Nory Curry, 2008 Anesthesia History: No [...] Vasopressin 20 Unit = 1 mL, Vag, Sludge Control Operator x 30 Day(s) , Comment: Send to [...] = N 06/07/20 13:25, Device Identifier = Ross Fusion SARS-CoV-2 assay_Neronote. EU[facility] Point Of Care Tests Blood 06/10/20 [...] Laryngeal Mask Airway. Monitoring/Anesthesia Considerations: Standard monitoring. [facility] Evaluation note No assessment inform ation [facility] Work Phone: Evaluation note Diagnosis Essential [...] right wrist- Primary documented in this encounter [facility] Healthcare Summary Purpose Family History No Family [...] Found Procedure Findings Note Patient: PATRICIA WEEKSBelinda Jackeline RN: ([facility])-[id number] Age: 69 years Sex: Female : 1950 [...] section and content) DATE CREATED AUTHOR 06/13/2020 [facility] DATE CREATED AUTHOR AUTHOR'S ORGANIZ ATION 06/17/2021 [facility] DATE CREATED AUTHOR AUTHOR'S ORGANIZ ATION 07/04/2022 [facility] DATE CREATED AUTHOR AUTHOR'S ORGANIZ ATION 10/05/[address] [facility] DATE CREATED AUTHOR AUTHOR'S ORGANIZ ATION 11/29/[address] [facility] DATE CREATED AUTHOR AUTHOR'S ORGANIZ ATION 01/02/2024 [facility] DATE CREATED AUTHOR AUTHOR'S ORGANIZ ATION 04/15/2024 [facility] Care Teams (unrecognized sec tion and content) Team Status: Inactive Member Role Status Dates Gonzalez Mcneal MD Attending Provider 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 Relationship Specialty Start Date End Date Tyrell Bowens MD [address] [place] [address] PCP - General Family Medicine 03/13/23 [employer] Relationship Specialty Start Date End Date Tyrell Bowens MD [address] [place] [address] PCP - General Family Medicine 03/13/23 [employer] Relationship Specialty Start Date End Date Tyrell Bowens [address] [place] [address] PCP - General Family Medicine 09/15/22 [employer] Relationship Specialty Start Date End Date Tyrell Bowens MD [address] [place] [address] PCP - General Family Medicine 03/13/23 [employer] P[employer] Relationship Specialty Start Date End Date Tyrell Bowens MD [address] [place] [address] PCP - General Family Medicine 03/13/23 [employer] Paster Relationship Specialty Start Date End Date Tyrell Bowens MD [address] [place] [address] PCP - General Family Medicine 03/13/23 [employer] Relationship Specialty Start Date End Date Tyrell Bowens MD [address] [place] [address] PCP - General Family Medicine 03/13/23 [employer] P[employer] Relationship Specialty Start Date End Date Tyrell Bowens MD [address] [place] [address] PCP - General Family Medicine 03/13/23 [employer] Paster Relationship Specialty Start Date End Date Tyrell Bowens MD [address] [place] [address] PCP - General Family Medicine 03/13/23 [employer] Paster Relationship Specialty Start Date End Date Tyrell Bowens MD [address] [place] [address] PCP - General Family Medicine 03/13/23 [employer] Paster Relationship Specialty Start Date End Date Tyrell Bowens MD [address] [place] [address] PCP - General Family Medicine 03/13/23 Goals [...] or prosecute any alcohol or drug abuse patient.[facility] FOR RECORDS PERTAINING TO PATIENTS WHO [...] BE BASED ON THE PRIMARY CLINICAL RECORDS. [employer] [facility]. provides no warranty or guarantee of the accuracy or completeness of information in this document.
[2024-07-17 10:10] LABS: Basophils Absolute Auto 0.1 10^3/uL (0.0-0.1); Basophils Percent Auto 0.9 % (0.2-2.0); Eosinophils Absolute Auto 0.3 10^3/uL (0.0-0.7); Eosinophils Percent Auto 3.9 % (0.9-7.0); Hematocrit 45.4 % (36.0-48.0); Immature Granulocytes Abs Auto 0.02 10^3/uL (0.00-0.03); Immature Granulocytes Pct Auto 0.3 % (0.0-0.5); Lymphocytes Absolute Auto 1.1 10^3/uL (1.2-3.8); Lymphocytes Percent Auto 15.6 % (20.5-60.0); Mean Corpuscular Hemoglobin 29.6 pg (26.7-34.0); Mean Corpuscular Volume 89.5 fL (81.0-99.0); Mean Platelet Volume 9.4 fL (9.5-13.5); Monocytes Absolute Auto 0.4 10^3/uL (0.3-0.8); Monocytes Percent Auto 6.5 % (1.7-12.0); Neutrophils Absolute Auto 4.9 10^3/uL (1.4-6.5); Neutrophils Percent Auto 72.8 % (43.0-75.0); Platelet Count 209 10^3/uL (150-450); Red Blood Count 5.07 10^6/uL (4.20-5.40); Red Cell Distribution Width 15.2 % (11.0-15.0); White Blood Count 6.8 10^3/uL (4.0-11.0)
[2024-07-17 10:13] LABS: Erythrocyte Sedimentation Rate 19 mm/hr (<=30)
[2024-07-17 11:14] LABS: Alanine Aminotransferase 36 U/L (14-59); Albumin Level 3.4 g/dL (3.4-5.0); Alkaline Phosphatase 101 U/L (46-116); Anion Gap 14.8; Aspartate Amino Transferase 16 U/L (15-37); BUN Creatinine Ratio 23.7; Bilirubin Total 0.7 mg/dL (0.2-1.0); Calcium 8.7 mg/dL (8.5-10.1); Carbon Dioxide 28.1 mmol/L (21.0-32.0); Chloride 105 mmol/L (98-107); Estimated GFR (African America >60 (>=60 mL/min/1.73m^2); Estimated GFR (Non-African Ame >60 (>=60 mL/min/1.73m^2); Globulin 3.5 g/dL; Glucose 131 mg/dL (74-106); Potassium 3.9 mmol/L (3.5-5.1); Sodium 144 mmol/L (136-145); Total Protein 6.9 g/dL (6.4-8.2)
== END 2024-07-17 09:53 | disposition home or self-care (01) ==
LOC: LAB 09:54
PROVIDERS: PCP Family Medicine; Visit Provider Internal Medicine Rheumatology
DX: M05.79 Rheumatoid arthritis with rheumatoid factor 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 (principal); M15.0 Primary generalized (osteo)arthritis; Z79.899 Other long term (current) drug therapy
CPT/HCPCS: 36415; 80053; 85025; 85652

== ENCOUNTER 2024-11-01 11:04 | Outpatient (OUT) | payer MEDICARE, OTHER, SELFPAY ==
--- OUTSIDE RECORDS SUMMARY | 2024-11-01 11:08 | XMS_ITS | Clinical Summary ---
Author Organization [facility] Address [address] [place] [address] Care Team Providers Care Surveillance Systems Analyst Name Role Phone Tyrell Spring MD Primary Care Provider [phone] Social History Tobacco Use Types Packs/Day Years Used Date Smoking Tobacco: Never Assessed Comments Unknown Sex and Gender Information Value Date Recorded Sex Assigned at Not on file Legal Sex Female 1:08 PM EDT Gender Identity Not on file Sexual Orientation Not on file Plan of Treatment Health Maintenance Due Date Last Done Comments Anxiety Screening 1968 Depression Screening 1968 Hepatitis C Screening 1966 Diabetes Screening 1993 Bone Density Screening 2013 DTaP,Tdap,Td Vaccine (2 - Td or Tdap) 07/11/2021 07/12/2011 RSV Vaccine (1 - 1-dose 75+ series) 10/20/2023 Advance Directive Discussion 02/21/2024 Influenza Vaccine (#1) 2024 , 10/23/2020, 11/15/2018, Additional history exists Pneumococcal Vaccine: 50+ Completed 10/13/2015, Shingrix Vaccine Completed 01/19/2019, , 10/25/2012 Insurance MEDICARE MMO MEDICARE SUPPLEMENT Care Teams Surveillance Systems Analyst Relationship Specialty Start Date End Date Tyrell Spring MD [address] [place] [address] PCP - General Family Medicine 09/15/22
--- OUTSIDE RECORDS SUMMARY | 2024-11-01 11:08 | XMS_ITS | Clinical Summary ---
Author Organization [employer] tem Address [id number] [address] [place] [address] Care Team Providers Care Vamper Name Role Phone Tyrell Spring MD Primary Care Provider [phone] Family History Medical History Relation Name Comments Breast cancer Neg Hx Social History Tobacco Use Types Packs/Day Years Used Date Smoking Tobacco: Never Assessed Childcare Answer Date Recorded Childcare Unknown 08/01/2018 Employment Answer Date Recorded Employment Unknown 08/01/2018 Purpose - Life Answer Date Recorded Purpose and direction in life Unknown Comments No Sex and Gender Information Value Date Recorded Sex Assigned at Not on file Legal Sex Female 11:40 AM EDT Gender Identity Not on file Sexual Orientation Not on file Last Filed Vital Signs Vital Sign Reading Time Taken Comments Blood Pressure - - Pulse - - Temperature - - Respiratory Rate - - Oxygen Saturation - - Inhaled Oxygen Concentration - - Weight 90.7 kg (200 lb) 12/26/2017 1:29 PM EST Height 154.9 cm (5' 1 ) 12/26/2017 1:29 PM EST Body Mass Index 37.79 12/26/2017 1:29 PM EST Plan of Treatment Health Maintenance Due Date Last Done Comments Depression Screening 1960 Tobacco Screening 1960 Fall Risk Screening 2013 DTaP,Tdap and Td Vaccines (2 - Td or Tdap) 07/11/2021 07/12/2011 COVID-19 Vaccine ( season) 2024 10/27/2023, 05/01/2023, 11/25/2022, Additional history exists Influenza Vaccine 10/21/2024 10/27/2023, , 11/13/2021, Additional history exists Zoster (Shingles) Vaccine Completed 2018, 11/15/2018, 10/25/2012 Medical Devices Not on file Insurance [employer] [place] Care Teams Vamper Relationship Specialty Start Date End Date Tyrell Spring MD PCP - General Family Medicine 11/27/23
--- OUTSIDE RECORDS SUMMARY | 2024-11-01 11:08 | XMS_ITS | Clinical Summary ---
Author Organization [facility] Address [address] [place] [address] Care Team Providers Care Compensation Agent Name Role Phone Tyrell Spring MD Primary Care Provider [phone] Allergies Active Allergy Reactions Criticality Noted Date Comments Amoxicillin Diarrhea 08/09/2022 Medications diclofenac (Voltaren) 75 MG EC tablet Take 75 mg by mouth every 12 (twelve) hours. Active folic acid (Folvite) 1 MG tablet Take 1 mg by mouth 1 (one) time each day at the same time. Active methotrexate 2.5 MG tablet Take 2.5 mg by mouth 1 (one) time per week. Active predniSONE (Deltasone) 5 MG tablet Take 5 mg by mouth 1 (one) time each day at the same time. Active dupilumab (Dupixent) 300 MG/2ML injection Inject 300 mg under the skin every 14 (fourteen) days. For eczema Active bisoprolol-hydroC HLOROthiazide (Ziac) 5-6.25 MG tabletIndications :Benign essential hypertension,Esse ntial (primary) hypertension TAKE 1 TABLET BY MOUTH EVERY DAY 90 tablet 3 01/08/2024 Active Active Problems Problem Noted Date Diagnosed Date Medicare annual wellness visit, subsequent 01/24 Assessment & Plan (01/25/2024 11:40 AM EST): Reviewed labs. Discussed proper diet and regular aerobic exercise. Need aerobic exercise 5-6 days a week for 30 minutes at a time. Smaller portions and limit total calories. Cologuard normal in September 2023. Tetanus every 10 years. Advised not to smoke. Essential hypertension, benign 04/05/2023 Assessment & Plan (08/20/2024 9:51 AM EDT): BP controlled and monitor PRN. Assessment & Plan (10/04/2023 9:08 AM EDT): BP controlled and monitor PRN. Assessment & Plan (04/05/2023 9:14 AM EST): BP controlled and monitor PRN. 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 Follow up with rheumatology. Assessment & Plan (10/04/2023 9:08 AM EDT): Occasional flares and use prednisone PRN. Follow up with rheumatology. Assessment & Plan (04/05/2023 9:14 AM EST): Occasional flares and use prednisone PRN. Follow up with rheumatology. Allergic rhinitis due to pollen 04/05/2023 Assessment & Plan (10/04/2023 9:08 AM EDT): Symptoms controlled with medication and continue. Assessment & Plan (04/05/2023 9:14 AM EST): Symptoms controlled with medication and continue. Keratosis, seborrheic 04/05/2023 Intrinsic eczema 04/05/2023 Assessment & Plan (08/20/2024 9:51 AM EDT): Skin clear with dupixent and follow with dermatology. Assessment & Plan (10/04/2023 9:08 AM EDT): Skin clear with dupixent and follow with dermatology. Assessment & Plan (04/05/2023 9:14 AM EST): Skin clear with dupixent and follow with dermatology. Prediabetes 04/05/2023 Assessment & Plan (08/20/2024 9:53 AM EDT): Monitor labs. Encounter for long-term (current) use of medicat ions 04/05/2023 Class 2 severe obesity due t o excess calories with serious comorbidity and body mass index (BMI) of 38.0 to 38.9 in adult 04/05/2023 Assessment & Plan (08/20/2024 9:52 AM EDT): Weight loss indicated. Tonsillar neoplasm 08/15/2022 Resolved Problems Problem Noted Date Diagnosed Date Resolved Date Tonsil asymmetry 10/12/2022 04/05/2023 Internal nasal lesion 08/15/20222023 Gastrocnemius equinus of rig ht lower extremity 08/09/2022 08/09/2022 Pes valgus of right foot 08/09/2022 Recurrent epistaxis 08/09/2022 04/05/19 24 Encounters Date Type Department Care Team Description 08/20/2024 9:00 AM EDT Office Visit [facility]] [address] [place] [id number] Tyrell Spring MD Essential hypertension, benign (Primary Dx); Rheumatoid arthritis involving both hands with positive rheumatoid factor (HCC); Intrinsic eczema; Class 2 severe obesity due to excess calories with serious comorbidity and body mass index (BMI) of 38.0 to 38.9 in adult ([facility]); Prediabetes 08/20/2024 Bamboo flowsheet [facility] [address] [place] [id number] Tyrell Spring MD 08/15/2024 Travel from Last 3 Months Family History Medical History Relation Name Comments No Known Problems Daughter Hypertension Father Luis Sexton Prostate cancer Father Luis Sexton Rashes / Skin problems Father Luis Rodriguezheaven Alzheimer's disease Mother Karon Asthma Mother Karon Dementia Mother Karon Hypertension Mother Karon Mental illness Mother Karon Migraines Mother Karon Rashes / Skin problems Mother Karon Relation Name Status Comments Daughter x2 Father Luis Sexton Mother Karon Social History Tobacco Use Types Packs/Day Years Used Date Smoking Tobacco: Never Smokeless Tobacco: Never Tobacco Cessation:Counseling Given: Not Answered Alcohol Use Standard Drinks/Week Comments Not Currently 0 (1 standard drink = 0.6 oz pur e alcohol) B1300 Health Literacy Answer Date Recor ded How often do you need to hav e someone help you when you read instructions, pamphlets, or other written material from your doctor or pharmacy? Never 08/15/2024 Humiliation, Afraid, Rape, and Kick questionnair e Answer Date Recorded Within the last year, have y ou been afraid of your partner or ex-partner? No 08/15/2024 Within the last year, have y ou been humiliated or emotionally abused in other ways by your partner or ex-partner? No Within the last year, have y ou been kicked, hit, slapped, or otherwise physically hurt by your partner or ex-partner? No 08/15/2024 Within the last year, have y ou been raped or forced to have any kind of sexual activity by your partner or ex-partner? No 08/15/2024 Social Connection and Isolat ion Panel [NHANES] Answer Date Recorded In a typical week, how many times do you talk on the phone with family, friends, or neighbors? More than three times a week 08/15/2024 How often do you get togethe r with friends or relatives? Three times a week 08/15/2024 How often do you attend chur or temple services? More than 4 times per year 08/15/2024 Do you belong to any clubs o r organizations such as zoroastrianism groups, unions, fraternal or athletic groups, or school groups? Yes 08/15/2024 How often do you attend meet ings of the clubs or organizations you belong to? More than 4 times per year 08/15/2024 Are you , , di vorced, , never , or living with a partner? 08/15/2024 AUDIT-C Answer Date Recorded Q1: How often do you have a drink containing alc ohol? 2-3 times a week 08/15/2024 Q2: How many drinks containi ng alcohol do you have on a typical day when you are drinking? Patient declined 08/15/2024 Q3: How often do you have si x or more drinks on one occasion? Never 08/15/2024 Overall Financial Resource Strain (CARDIA) Answe r Date Recorded How hard is it for you to pa y for the very basics like food, housing, medical care, and heating? Not hard at all 08/15/2024 PHQ-2 Answer Date Recorded Patient Health Questionnaire-2 Score 0 01/25/2024 [facility] - Occupational Stress Questionnaire Answer Date Recorded Do you feel stress - tense, restless, nervous, or anxious, or unable to sleep at night because your mind is troubled all the time - these days? Only a little 08/15/2024 Exercise Vital Sign Answer Date Recorde d On average, how many days pe r week do you engage in moderate to strenuous exercise (like a brisk walk)? 1 day 08/15/2024 On average, how many minutes do you engage in exercise at this level? 10 min 08/15/2024 Hunger Vital Sign Answer Date Recorded Within the past 12 months, y ou worried that your food would run out before you got the money to buy more. Never true 08/16/19 25 Within the past 12 months, t he food you bought just didn't last and you didn't have money to get more. Never true 08/15/2024 PRAPARE - Transportation Answer Date Re corded In the past 12 months, has l ack of transportation kept you from medical appointments or from getting medications? No 07/22 In the past 12 months, has l ack of transportation kept you from meetings, work, or from getting things needed for daily living? No 08/15/2024 Housing Stability Vital Sign Answer Bashir e Recorded In the last 12 months, was t here a time when you were not able to pay the mortgage or rent on time? No 03/29/2023 In the last 12 months, how many places have you lived? 1 03/29/2023 In the last 12 months, was t here a time when you did not have a steady place to sleep or slept in a detention (including now)? No 03/29/2023 Housing Stability Vital Sign Answer Bashir e Recorded In the last 12 months, was t here a time when you were not able to pay the mortgage or rent on time? No 08/15/2024 Number of Times Moved in the Last Year Not on fi le 08/15/2024 At any time in the past [address] [facility], were you homeless or living in a detention (including now)? No 08/15/2024 Comments Unknown Sex and Gender Information Value Date Recorded Sex Assigned at Female 08/08/2022 3:35 PM EDT Legal Sex Female 11:52 PM EDT Gender Identity Female 08/08/2022 3:35 PM EDT Sexual Orientation Not on file Last Filed Vital Signs Vital Sign Reading Time Taken Comments Blood Pressure 140/84 08/20/2024 9:10 AM EDT Pulse 77 08/20/2024 9:10 AM EDT Temperature 36.3 C (97.3 F) 08/20/2024 9:10 AM EDT Respiratory Rate 20 08/20/2024 9:10 AM EDT Oxygen Saturation 95% 08/20/2024 9:10 AM EDT Inhaled Oxygen Concentration - - Weight 91.6 kg (202 lb) 08/20/2024 9:10 AM EDT Height 154.9 cm (5' 1 ) 08/20/2024 9:10 AM EDT Body Mass Index 38.17 08/20/2024 9:10 AM EDT Plan of Treatment Health Maintenance Due Date Last Done Comments Influenza Vaccine (#1) 2024 4, 10/05/2022, 11/13/2021, Additional history exists Medicare Annual Wellness (AWV) 01/24/2025 01/25/2024 Pneumococcal Vaccine: 65+ Years Completed 6, 10/08/2014 Colorectal Cancer Screening Discontinued FIT-DNA Discontinued 10/17/2023 Mammogram Discontinued 11/27/2023, 08/2023, 12/26/2017, Additional history exists CT Colonography Discontinued Colonoscopy Discontinued FIT Discontinued FOBT Discontinued Sigmoidoscopy Discontinued Procedures Procedure Name Priority Date/Time Associated Diagnosis Comments BI MAMMOGRAM SCREENING TOMOSYNTHESIS BILATERAL 11/27/2023 11:26 AM EDT LAB COLOGUARD COLON CANCER SCREEN Routine 10/17/2023 8:05 AM EDT Colon cancer screening from Last 3 Months or Most Recently Relevant to Health Maintenance Results * Bilateral screening mammogram with tomosynthesis (11/27/2023 11:26 AM EDT) Anatomical Region Laterality Modality Breast Bilateral Mammography 11/27/2023 11:2 6 AM EDT Narrative 11/27/2023 11:25 AM EDT THIS EXAM WAS PERFORMED AT [facility] 1948 [id number] EXAM: MAMM SCREENING BILATERAL W CAD, 11/27/2023 [...] 11:25 AM 1 b MAMM 1 YR FDA Accredited Performing Facility: [facility] [address] [address] Procedure Note Radiology, Radiologist, - 11/27/2023 THIS EXAM WAS PERFORMED AT [facility] 1948 [id number] EXAM: MAMM SCREENING BILATERAL W CAD, 11/27/2023 8:50 AM CLINICAL INDICATIONS: Screening, Breast cancer screening by mammogram COMPARISON: Multiple prior mammograms were viewed for comparison datingback to 04/20/2010 TECHNIQUE: Bilateral digital tomosynthesis MLO and CC views of the breasts wereobtained, with creation of synthetic 2D views. Computer aided detectionwas utilized. FINDINGS: There are scattered areas of fibroglandular density. There are no suspicious masses, calcifications, or areas of architecturaldistortion. IMPRESSION: No mammographic evidence of malignancy. BI-RADS: BI-RADS 1 - Negative Recommendation: Routine screening mammogram in 1 year. Finalized by Dawna Awad MD on 11/27/2023 11:25 AM 1 b MAMM 1 YR FDA Accredited Performing Facility: [facility] [address] [facility] [address] Tyrell Spring MD IMG BI PROCEDURES Final Result * Cologuard?? colon cancer screening (10/17/2023 8:05 AM EDT) NONINV COLON CA DNA+OCC BLD SCRN STL-IMP Negative Negative 10/22/2023 8:10 AM EDT [facility] (CLIA #:[id number]) Comment: NEGATIVE TEST RESULT. A negative Cologuard result indicates a low likelihood that a colorectal cancer (CRC) or advanced adenoma (adenomatous polyps with more advanced pre-malignant features) is present. The chance that a person with a negative Cologuard test has a colorectal cancer is less than 1 in 1500 (negative predictive value >99.9%) or has an advanced adenoma is less than 5.3% (negative predictive value 94.7%). These data are based on a prospective cross-sectional study of 10,000 individuals at average risk for colorectal cancer who were screened with both Cologuard and colonoscopy. (Cony Rowan et al, N Engl J Med 2014;370(14):7013-0798) The normal value (reference range) for this assay is negative. COLOGUARD RE-SCREENING RECOMMENDATION: Periodic colorectal cancer screening is an important part of preventive healthcare for asymptomatic individuals at average risk for colorectal cancer. Following a negative Cologuard result, the [place] [employer] and U.S. Multi-Society Task Force screening guidelines recommend a Cologuard re-screening interval of 3 years. References: [place] [employer] Guideline for Colorectal Cancer Screening: https://www.cancer.org/cancer/tsgby-rspool-gewkjk/dgsdnafaz-mrlkpsekp-joklamf/ac s-rec ommendations.html.; Madeleine Chavez CR, Bill ChunK, Colorectal Cancer Screening: Recommendations for Physicians and Patients from the U.S. Multi-Society Task Force on Colorectal Cancer Screening , Am J Gastroenterology 2017; 112:2305-3033. TEST DESCRIPTION: Composite algorithmic analysis of stool DNA-biomarkers with hemoglobin immunoassay. Quantitative values of individual biomarkers are not reportable and are not associated with individual biomarker result reference ranges. Cologuard is intended for colorectal cancer screening of adults of either sex, 45 years or older, who are at average-risk for colorectal cancer (CRC). Cologuard has been approved for use by the U.S. FDA. The performance of Cologuard was established in a cross sectional study of average-risk adults aged 50-84. Cologuard performance in patients ages 45 to 49 years was estimated by sub-group analysis of near-age groups. Colonoscopies performed for a positive result may find as the most clinically significant lesion: colorectal cancer [4.0%], advanced adenoma (including sessile serrated polyps greater than or equal to 1cm diameter) [20%] or non- advanced adenoma [31%]; or no colorectal neoplasia [45%]. These estimates are derived from a prospective cross-sectional screening study of 10,000 individuals at average risk for colorectal cancer who were screened with both Cologuard and colonoscopy. (Cony Prakash al, N Engl J Med 2014;370(14):9637-3710.) Cologuard may produce a false negative or false positive result (no colorectal cancer or precancerous polyp present at colonoscopy follow up). A negative Cologuard test result does not guarantee the absence of CRC or advanced adenoma (pre-cancer). The current Cologuard screening interval is every 3 years. ([place] [employer] and U.S. Multi-Society Task Force). Cologuard performance data in a 10,000 patient pivotal study using colonoscopy as the reference method can be accessed at the following location: www.Questra.Dish.fm/results. Additional description of the Cologuard test process, warnings and precautions can be found at www.Kingnetrd.com. Stool specimen (specimen) 10/17/2023 8:05 AM EDT 10/18/2023 4:04 PM EDT Tyrell Spring MD LAB MOLECULAR DIAGNOSTICS ORDERA BLES Final Result [facility] (CLIA #:[id number]) [place] [address], [place] [phone] from Last 3 Months or Most Recently Relevant to Health Maintenance Insurance MEDICARE [employer] Care Teams Compensation Agent Relationship Specialty Start Date End Date Tyrell Spring MD PCP - General Family Medicine 03/13/23
--- OUTSIDE RECORDS SUMMARY | 2024-11-01 11:12 | XMS_ITS | CCD ---
Author Organization [facility] Care Team Providers Care Soil Science Technical Officer Name Role Phone MD Gonzalez Mcneal Attending [...] DR CUNHA Attending Unavailable NADERER, DR TYRELL Salazra Primary Care Unavailable MCNEAL, DR CUNHA Consulting Unavailable NADERER, TYRELL Salazar Primary Care Unavailable Tyrell Bowens MD Primary Care Provider Tyrell Bowens Primary Care Provider [phone] TYRELL BOWENS Referring Unavailable GOGO, TYRELL Primary Care Unavailable KOBY MORALEZ Attending Unavailable STEPMISAEL, ZACKARY Referring Unavailable NADEREChula, TYRELL Attending Unavailable JR. BEATRIZ, ZACKARY Vieira Attending Unavaila TYRELL Echeverria Attending Unavailable JR. BEATRIZ, ZACKARY Vieira Attending Unavaila junior BRANDON JR., ZACKARY Vieira Attending Unavaila TYRELL Echeverria Attending Unavailable Allergies Allergy Classification Reported Allergen(s) Allergy Type Date of Onset Reaction(s) Facility (18 sources) Amoxicillin Drug Allergy 08-09-2022 Diarrhea [facility] Work Phone: Medications Current Medications Medication Drug Class(es) Dates Sig (Normalized) Sig (Original) bisoprolol fumarate 5 mg / hydroCHLOROthiazide 6.25 mg oral tablet (18 sources) Thiazide Diuretic, beta-Adrenergic Krystal Start: 01-08-2024 take 1 tablet by mouth once daily bisoprolol-hydroC HLOROthiazide (Ziac) 5-6.25 MG tablet Indications: Benign essential hypertension , Essential (primary) hypertension TAKE 1 TABLET BY MOUTH EVERY DAY 90 tablet 3 01/08/2024 Active End: 01-08-2024 take 1 tablet by mouth in the morning bisoprolol-hydroCHLOROthiazide (Ziac) 5- 6.25 MG tablet Take 1 tablet by mouth in the morning. 01/08/2024 Discontinued diclofenac sodium 75 mg delayed release oral tablet (18 sources) Nonsteroidal Anti-inflammatory Drug take 1 tablet by mouth every twelve hours diclofenac (Voltaren) 75 MG EC tablet Take 75 mg by mouth every 12 (twelve) hours. Active 2 ml dupilumab 150 mg/ml prefilled syringe (18 sources) Interleukin-4 Receptor alpha Antagonist dupilumab (Dupixent) 300 MG/2ML injection Inject 300 mg under the skin every 14 (fourteen) days. For eczema Active folic acid 1 mg oral tablet (18 sources) take 1 tablet by mouth once daily folic acid (Folvite) 1 MG tablet Take 1 mg by mouth 1 (one) time each day at the same time. Active methotrexate 2.5 mg oral tablet (18 sources) Folate Analog Metabolic Inhibitor take 1 tablet by mouth every week methotrexate 2.5 MG tablet Take 2.5 mg by mouth 1 (one) time per week. Active predniSONE 5 mg oral tablet (18 sources) take 1 tablet by mouth once daily predniSONE (Deltasone) 5 MG tablet Take 5 mg by mouth 1 (one) time each day at the same time. Active Problems Active Problems Problem Classification Problem Date Documented Da te Episodic/Chronic Allergic reactions (20 sources) Atopic dermatitis; Translations: [Intrinsic (allergic) eczema] Onset: 04-05-2023 04-05-2023 Chronic Diabetes mellitus without complication (20 sources) Prediabetes; Translations: [Prediabetes] Onset: 04-05-2023 04-05-2023 Episodic Disorders of lipid metabolism (20 sources) Hypertriglyceridemi a; Translations: [Pure hyperglyceridemia] Onset: 04-05-2023 04-05-2023 Chronic Essential hypertension (20 sources) Benign essential hypertension; Translations: [Essential (primary) hypertension] Onset: 04-05-2023 04-05-2023 Chronic Osteoarthritis (2 sources) Primary generalized (osteo)arthritis; Translations: [Unspecified osteoarthritis, unspecified site] Onset: 12-21-2021 Chronic Other aftercare (1 source) Other senior living (current) drug therapy; Translations: [OTH ARCHITECTURAL DRAFTSPERSON CURRENT DRUG THERAPY] Onset: 07-03-2022 Episodic Other nervous system disorders (6 sources) Carpal tunnel syndrome of right wrist; Translations: [Carpal tunnel syndrome, right upper limb] 01-02-2024 Chronic Other nervous system disorders (2 sources) Carpal tunnel syndrome, right upper limb; Translations: [Carpal tunnel syndrome, right upper limb] Onset: 04-09-2024 Chronic Other nutritional; endocrine; and metabolic disorders (17 sources) Body mass index 30+ - obesity; Translations: [Obesity, unspecified] Onset: 04-05-2023 04-05-2023 Chronic Other nutritional; endocrine; and metabolic disorders (4 sources) Severe obesity; Translations: [Class 2 severe obesity due to excess calories with serious comorbidity and body mass index (BMI) of 38.0 to 38.9 in adult ([facility])] Onset: 04-05-2023 08-20-2024 Chronic Other screening for suspected conditions (not mental disorders or infectious disease) (1 source) Encounter for screening mammogram for malignant neoplasm of breast; Translations: [Encounter for screening mammogram for malignant neoplasm of breast] Onset: 11-27-2023 Episodic Other upper respiratory disease (20 sources) Allergic rhinitis due to pollen; Translations: [Allergic rhinitis due to pollen] Onset: 04-05-2023 04-05-2023 Chronic Rheumatoid arthritis and related disease (20 sources) Rheumatoid arthritis with rheumatoid factor 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; Translations: [Rheumatoid arthritis, unspecified] Onset: 11-23-2021 Chronic Past or Other Problems Problem Classification Problem Date Documented Da te Episodic/Chronic Acute and chronic tonsillitis (18 sources) Tonsil asymmetry; Translations: [Other chronic diseases of tonsils and adenoids] Onset: 10-12-2022 Resolved: 04-05-2023 10-12-2022 Chronic Mood disorders (7 sources) Mood disorders Onset: 01-25-2024 01-25-2024 Neoplasms of unspecified nature or uncertain behavior (18 sources) Neoplasm of lymphoid system structure; Translations: [Neoplasm of unspecified behavior of digestive system] Onset: 08-15-2022 08-15-2022 Episodic Other aftercare (7 sources) Patient encounter status; Translations: [Other senior living (current) drug therapy] Onset: 04-05-2023 04-05-2023 Episodic Other aftercare (12 sources) Long-term current use of drug therapy; Translations: [Other senior living (current) drug therapy] Onset: 04-05-2023 04-05-2023 Episodic Other congenital anomalies (3 sources) Talipes valgus; 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] Onset: 08-09-2022 Resolved: 08-09-2022 08-09-2022 Chronic Other congenital anomalies (15 sources) Talipes valgus of right foot; 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] Onset: 08-09-2022 Resolved: 08-09-2022 08-09-2022 Chronic Other connective tissue disease (18 sources) Deformity of lower limb; Translations: [Contracture of muscle, right lower leg] Onset: 08-09-2022 Resolved: 08-09-2022 08-09-2022 Episodic Other skin disorders (18 sources) Seborrheic keratosis; Translations: [Other seborrheic keratosis] Onset: 04-05-2023 04-05-2023 Episodic Other upper respiratory disease (18 sources) Epistaxis; Translations: [Epistaxis] Onset: 08-09-2022 Resolved: 04-05-2023 08-15-2022 Episodic Other upper respiratory disease (18 sources) Lesion of nose; Translations: [Other specified disorders of nose and nasal sinuses] Onset: 08-15-2022 Resolved: 04-05-2023 08-15-2022 Episodic Results Test Name Value Interpretation Reference Range Facility ALL CBC WITH AUTO DIFFon BASOPHILS ABSOLUTE AUTO 0.1 [facility] Basophils/100 WBC (Bld) 0.9 % 0.2 - 2.0 % [facility] Eosinophils/100 WBC (Bld) 3.9 % 0.9 - 7.0 % [facility] Erythrocyte distribution width (RBC) [Ratio] 15.2 % High 11.0 - 15.0 % [facility] Hematocrit (Bld) [Volume fraction] 45.4 % 36.0 - 48.0 % [facility] Hemoglobin (Bld) [Mass/Vol] 15 g/dL 12.0 - 16.0 g/dL [facility] IMMATURE GRANULOCYTES ABS AUTO 0.02 [facility] Immature granulocytes/100 WBC (Bld) 0.3 % 0.0 - 0.5 % [facility] Interpretation and review of laboratory results Abnormal [facility] LYMPHOCYTES ABSOLUTE AUTO 1.1 Low [facility] Lymphocytes/100 WBC (Bld) 15.6 % Low 20.5 - 60.0 % [facility] MCH (RBC) [Entitic mass] 29.6 pg 26.7 - 34.0 pg [facility] MCHC (RBC) [Mass/Vol] 33 g/dL 29.9 - 35.2 g/dL [facility] MCV (RBC) [Entitic vol] 89.5 fL 81.0 - 99.0 fL [facility] MONOCYTES ABSOLUTE AUTO 0.4 [facility] Monocytes/100 WBC (Bld) 6.5 % 1.7 - 12.0 % [facility] NEUTROPHILS ABSOLUTE AUTO 4.9 [facility] Neutrophils/100 WBC (Bld) 72.8 % 43.0 - 75.0 % [facility] Platelet mean volume (Bld) [Entitic vol] 9.4 fL Low 9.5 - 13.5 fL [facility] TBH EO # 0.3 [facility] PLT 209 [facility] RBC 5.07 [facility] WBC 6.8 [facility] ALL CBC WITH AUTO DIFFon BASOPHILS ABSOLUTE AUTO 0 [facility] Basophils/100 WBC (Bld) 0.3 % 0.2 - 2.0 % [facility] Eosinophils/100 WBC (Bld) 1.8 % 0.9 - 7.0 % [facility] Erythrocyte distribution width (RBC) [Ratio] 14.4 % 11.0 - 15.0 % [facility] Hematocrit (Bld) [Volume fraction] 43.8 % 36.0 - 48.0 % [facility] Hemoglobin (Bld) [Mass/Vol] 14.4 g/dL 12.0 - 16.0 g/dL [facility] IMMATURE GRANULOCYTES ABS AUTO 0.04 High [facility] Immature granulocytes/100 WBC (Bld) 0.4 % 0.0 - 0.5 % [facility] Interpretation and review of laboratory results Abnormal [facility] LYMPHOCYTES ABSOLUTE AUTO 1.3 [facility] Lymphocytes/100 WBC (Bld) 12.9 % Low 20.5 - 60.0 % [facility] MCH (RBC) [Entitic mass] 29.2 pg 26.7 - 34.0 pg [facility] MCHC (RBC) [Mass/Vol] 32.9 g/dL 29.9 - 35.2 g/dL [facility] MCV (RBC) [Entitic vol] 88.8 fL 81.0 - 99.0 fL [facility] Mon[facility] WBC (Bld) 4.2 % 1.7 - 12.0 % [facility] NEUTROPHILS ABSOLUTE AUTO 7.9 High [facility] Neutrophils/100 WBC (Bld) 80.4 % High 43.0 - 75.0 % [facility] Platelet mean volume (Bld) [Entitic vol] 9.8 fL 9.5 - 13.5 fL [facility] TBH EO # 0.2 [facility]H PLT 214 [facility] TB RBC 4.93 [facility] TB WBC 9.8 [facility] Office Visiton 04-09-2024 Follow-up visit [id number] Cayetano Weeks 1950 F Date Provider Department Center 04/09/2024 KOBY WILLAMS [facility]TH[facility] No family history on file Level of Service:77582 [place] OFFICE/OUTPATIENT NEW LOW MDM 30 MINUTES (25) Reason for Visit and Comments: Pain [136] Normal [facility] 36on 01-11-2024 36 Patient called to schedule a new patient appointment with our office. 03/05/24 Patient wants to be seen for: Right hand Patient had EMG done at Dr. Smith @ [facility] Patient has Not had any surgery or procedures on this body part Patient saw Dr. Brandon for this issues. They were referred to us from this provider. This appointment is not a second opionion This appointment IS NOT related to a work related injury Normal [facility] ALL CBC WITH AUTO DIFFon BASOPHILS ABSOLUTE AUTO 0.1 [facility] Basophils/100 WBC (Bld) 1.3 % 0.2 - 2.0 % [facility] Eosinophils/100 WBC (Bld) 8 % High 0.9 - 7.0 % [facility] Erythrocyte distribution width (RBC) [Ratio] 15.3 % High 11.0 - 15.0 % [facility] Hematocrit (Bld) [Volume fraction] 41.8 % 36.0 - 48.0 % [facility] Hemoglobin (Bld) [Mass/Vol] 13.5 g/dL 12.0 - 16.0 g/dL [facility] IMMATURE GRANULOCYTES ABS AUTO 0.02 [facility] Immature granulocytes/100 WBC (Bld) 0.3 % 0.0 - 0.5 % [facility] Interpretation and review of laboratory results Abnormal [facility] LYMPHOCYTES ABSOLUTE AUTO 1.2 [facility] Lymphocytes/100 WBC (Bld) 18.7 % Low 20.5 - 60.0 % [facility] MCH (RBC) [Entitic mass] 29 pg 26.7 - 34.0 pg [facility] MCHC (RBC) [Mass/Vol] 32.3 g/dL 29.9 - 35.2 g/dL [facility] MCV (RBC) [Entitic vol] 89.7 fL 81.0 - 99.0 fL [facility] MONOCYTES ABSOLUTE AUTO 0.8 [facility] Monocytes/100 WBC (Bld) 12.1 % High 1.7 - 12.0 % [facility] NEUTROPHILS ABSOLUTE AUTO 3.8 [facility] Neutrophils/100 WBC (Bld) 59.6 % 43.0 - 75.0 % [facility] Platelet mean volume (Bld) [Entitic vol] 9.7 fL 9.5 - 13.5 fL [facility] TBH EO # 0.5 [facility] TB PLT 210 [facility] RBC 4.66 [facility] WBC 6.4 [facility] MAMM SCREENING BILATERAL W C special certificate dictator 11-27-2023 MAMM SCREENING BILATERAL W CAD MAMM SCREENING BILATERAL W CAD CAYETANO DIAZSHAWNA 1950 [id number] EXAM: MAMM SCREENING BILATERAL W CAD, 11/27/2023 [...] AM 1 b MAMM 1 YR Normal [facility] GLUCOSE, BLOOD (POC)on 10-04 Glucose [Mass/Vol] 110 mg/dL Abnormal 74 - 99 mg/dL [facility] Comment on above: Location:[facility], [address] [place] [address] , [place], [place], [facility] The Accu-Chek Inform II glucose [...] Interpretation and review of laboratory results Abnormal [facility] NM PET/CT SKULL-THIGH INITon 10-04-2022 NM [...] any questions regarding this interpretation, please call [phone]. If you are unable to reach us at the number above, please feel free to contact [facility]Radiology at [phone]. [id number] Normal [facility] PET+CT Guidance for localiza tion of [...] any questions regarding this interpretation, please call [phone]. If you are unable to reach us at the number above, please feel free to [facility] at [phone]. DIVISION OF RADIOLOGY * * *Final Report* [...] Degenerative arthritic change. DIVISION OF RADIOLOGY Provider, [facility] - 10/04/2022 * * *Final Report* * [...] any questions regarding this interpretation, please call [phone]. If you are unable to reach us at the number above, please feel free to contact [facility] at [phone]. [facility] Radiology Study observation (narrative) [facility] PET+CT Guidance for localiza tion of tumor of Skull base to mid-thigh-- W [id number] IVOrdered By: Ccf Provider on 10-04-2022 [facility] CBC AUTO DIFFon 06-30-2022 BASO # 0.1 103/ul Normal 0.0-0.1 [facility] Comment on above: Performed By: #### C BC #### [facility] [address] [place], [place] [address] Dr. Norm Melendrez Basophils/100 WBC (Bld) 0.7 % Normal 0.2-2.0 [facility] Comment on above: Performed By: #### C BC #### [facility] [address] [place], [place] [address] Dr. Norm Melendrez EO # 0.4 103/ul Normal 0.0-0.7 [facility] Comment on above: Performed By: #### C BC #### [facility] [address] [place] [address] Dr. Norm Melendrez Eosinophils/100 WBC (Bld) 4.4 % Normal 0.9-7.0 [facility] Comment on above: Performed By: #### C BC #### [facility] [address] [place] [address] Dr. Norm Melendrez Erythrocyte distribution width (RBC) [Ratio] 15.0 % Normal 11.0-15.[address] [facility] Comment on above: Performed By: #### C BC #### [facility] [address] [place] [address] Dr. Norm Melendrez Hematocrit (Bld) [Volume fraction] 45.0 % Normal 36.0-48.[address] [facility] Comment on above: Performed By: #### C BC #### [facility] [address] [place] [address] Dr. Norm Melendrez Hemoglobin (Bld) [Mass/Vol] 14.5 g/dL Normal 12.0-16.[address] [facility] Comment on above: Performed By: #### C BC #### [facility] [address] [place] [address] Dr. Norm Melendrez IG # 0.03 10e3/ul Normal 0.00-0.[address] [facility] Comment on above: Performed By: #### C BC #### [facility] [address] [place] [address] Dr. Norm Melendrez IG % 0.4 % Normal 0.0-0.5 [facility] Comment on above: Performed By: #### C BC #### [facility] [address] [place] [address] Dr. Norm Melendrez LYMPH # 1.4 103/ul Normal 1.2-3.8 [facility] Comment on above: Performed By: #### C BC #### [facility] [address] [place] [address] Dr. Norm Melendrez Lymphocytes/100 WBC (Bld) 17.2 % Critically low 20.5-60.0 [facility] Comment on above: Performed By: #### C BC #### [facility] [address] [place] [address] Dr. Norm Melendrez MANUAL DIFF REQ NO Normal [facility] Comment on above: Performed By: #### C BC #### [facility] [address] [place] [address] Dr. Norm Melendrez MCH (RBC) [Entitic mass] 28.0 pg Normal 26.7-34.[address] [facility] Comment on above: Performed By: #### C BC #### [facility] [address] [place] [address] Dr. Norm Melendrez MCHC (RBC) [Mass/Vol] 32.2 g/dL Normal 29.9-35.2 [facility] Comment on above: Performed By: #### C BC #### [facility] [address] [place] [address] Dr. Norm Melendrez MCV (RBC) [Entitic vol] 86.9 fL Normal 81.0-99.[address] [facility] Comment on above: Performed By: #### C BC #### [facility] [address] [place] [address] Dr. Norm Melendrez MONO # 0.5 103/ul Normal 0.3-0.[address] [facility] Comment on above: Performed By: #### C BC #### [facility] [address] [place] [address] Dr. Norm Melendrez Monocytes/100 WBC (Bld) 6.6 % Normal 1.7-12.[address] [facility] Comment on above: Performed By: #### C BC #### [facility] [address] [place] [address] Dr. Norm Melendrez NEUT # 5.8 103/ul Normal 1.4-6.5 [facility] Comment on above: Performed By: #### C BC #### [facility] [address] [place] [address] Dr. Norm Melendrez Neutrophils/100 WBC (Bld) 70.7 % Normal 43.0-75.[address] [facility] Comment on above: Performed By: #### C BC #### [facility] [address] [place] [address] Dr. Norm Melendrez Platelet mean volume (Bld) [Entitic vol] 9.2 fL Critically low 9.5-13.[address] [facility] Comment on above: Performed By: #### C BC #### [facility] [address] [place] [address] Dr. Norm Melendrez PLT 231 103/ul Normal 150-450 [facility] Comment on above: Performed By: #### C BC #### [facility] [address] [place] [address] [address] Norm Melendrez RBC 5.18 106/ul Normal 4.20-5.40 [facility] Comment on above: Performed By: #### C BC #### [facility] [address] [place] [address] Dr. Norm Melendrez WBC 8.2 103/ul Normal 4.0-11.0 [facility] Comment on above: Performed By: #### C BC #### [facility] [address] [place] [address] Dr. Norm Melendrez PROF 14(COMP METB)on 023 Albumin [Mass/Vol] 3.4 g/dL Normal 3.4-5.0 [facility] Comment on above: Performed By: #### C MP #### [facility] [address] [place] [address] Dr. Norm Melendrez Albumin/Globulin [Mass ratio] 0.9 {ratio} Normal [facility] Comment on above: Performed By: #### C MP #### [facility] [address] [place] [address] Dr. Norm Melendrez ALP [Catalytic activity/Vol] 105 U/L Normal 46-116 [facility] Comment on above: Performed By: #### C MP #### [facility] [address] [place] [address] Dr. Norm Melendrez ALT [Catalytic activity/Vol] 48 U/L Normal 14-[address] [facility] Comment on above: Performed By: #### C MP #### [facility] [address] [place] [address] Dr. Norm Melendrez Anion gap [Moles/Vol] 7.9 mmol/L Normal [facility] Comment on above: Performed By: #### C MP #### [facility] [address] [place] [address] Dr. Norm Melendrez AST [Catalytic activity/Vol] 22 U/L Normal 15-[address] [facility] Comment on above: Performed By: #### C MP #### [facility] [address] [place] [address] [address] Norm Melendrez Bilirubin [Mass/Vol] 0.4 mg/dL Normal 0.2-1.[address] [facility] Comment on above: Performed By: #### C MP #### [facility] [address] [place] [address] Dr. Norm Melendrez Calcium [Mass/Vol] 8.9 mg/dL Normal 8.5-10.1 [facility] Comment on above: Performed By: #### C MP #### [facility] [address] [place] [address] Dr. Norm Melendrez Chloride [Moles/Vol] 108 mmol/L Critically high 98-[address] [facility] Comment on above: Performed By: #### C MP #### [facility] [address] [place] [address] Dr. Norm Melendrez CO2 [Moles/Vol] 31.1 mmol/L Normal 21.0-32.[address] [facility] Comment on above: Performed By: #### C MP #### [facility] [address] [place] [address] Dr. Norm Melendrez Creatinine [Mass/Vol] 0.88 mg/dL Normal 0.55-1.[address] [facility] Comment on above: Performed By: #### C MP #### [facility] [address] [place] [address] Dr. Norm Melendrez EGFR-AF SURINAMESE >60 Normal >=[address] [facility] Comment on above: Performed By: #### C MP #### [facility] [address] [place] [address] Dr. Norm Melendrez EGFR-NON AF SURINAMESE >60 Normal >=[address] [facility] Comment on above: Performed By: #### C MP #### [facility] [address] [place] [address] [address] Norm Melendrez Globulin (S) [Mass/Vol] 3.8 g/dL Normal [facility] Comment on above: Performed By: #### C MP #### [facility] [address] [place] [address] [address] Norm Melendrez Glucose [Mass/Vol] 109 mg/dL Critically high 74-106 [facility] Comment on above: Performed By: #### C MP #### [facility] [address] [place] [address] [address] Norm Melendrez Potassium [Moles/Vol] 4.0 mmol/L Normal 3.5-5.[address] [facility] Comment on above: Performed By: #### C MP #### [facility] [address] [place] [address] Dr. Norm Melendrez Protein [Mass/Vol] 7.2 g/dL Normal 6.4-8.2 [facility] Comment on above: Performed By: #### C MP #### [facility] [address] [place] [address] Dr. Norm Melendrez Sodium [Moles/Vol] 143 mmol/L Normal 136-145 [facility] Comment on above: Performed By: #### C MP #### [facility] [address] [place] [address] Dr. Norm Melendrez Urea nitrogen [Mass/Vol] 16.0 mg/dL Normal 7.0-18.[address] [facility] Comment on above: Performed By: #### C MP #### [facility] [address] [place] [address] Dr. Norm Melendrez Urea nitrogen/Creatinine [Mass ratio] 18.2 mg/mg Normal [facility] Comment on above: Performed By: #### C MP #### [facility] [address] [place] [address] Dr. Norm Melendrez [facility] 17 mm/hr Normal <=[address] [facility] Comment on above: Performed By: #### S EDR #### [facility] [address] [address] [address] Norm Melendrez CBC AUTO DIFFon 03-31-2022 BASO # 0.1 103/ul Normal 0.0-0.[address] [facility] Comment on above: Performed By: #### C BC #### [facility] [address] [place] [address] Dr. Norm Melendrez Basophils/100 WBC (Bld) 0.7 % Normal 0.2-2.[address] [facility] Comment on above: Performed By: #### C BC #### [facility] [address] [place] [address] Dr. Norm Melendrez EO # 0.2 103/ul Normal 0.0-0.[address] [facility] Comment on above: Performed By: #### C BC #### [facility] [address] [place] [address] Dr. Norm Melendrez Eosinophils/100 WBC (Bld) 3.0 % Normal 0.9-7.[address] [facility] Comment on above: Performed By: #### C BC #### [facility] [address] [place] [address] Dr. Norm Melendrez Erythrocyte distribution width (RBC) [Ratio] 15.4 % Critically high 11.0-15.[address] [facility] Comment on above: Performed By: #### C BC #### [facility] [address] [place] [address] Dr. Norm Melendrez Hematocrit (Bld) [Volume fraction] 44.8 % Normal 36.0-48.[address] [facility] Comment on above: Performed By: #### C BC #### [facility] [address] [place] [address] Dr. Norm Melendrez Hemoglobin (Bld) [Mass/Vol] 14.6 g/dL Normal 12.0-16.[address] [facility] Comment on above: Performed By: #### C BC #### [facility] [address] [place] [address] Dr. Norm Melendrez IG # 0.02 10e3/ul Normal 0.00-0.[address] [facility] Comment on above: Performed By: #### C BC #### [facility] [address] [place] [address] Dr. Norm Melendrez IG % 0.3 % Normal 0.0-0.[address] [facility] Comment on above: Performed By: #### C BC #### [facility] [address] [place] [address] Dr. Norm Melendrez LYMPH # 1.2 103/ul Normal 1.2-3.8 [facility] Comment on above: Performed By: #### C BC #### [facility] [address] [place] [address] Dr. Norm Melendrez Lymphocytes/100 WBC (Bld) 16.8 % Critically low 20.5-60.[address] [facility] Comment on above: Performed By: #### C BC #### [facility] [address] [place] [address] Dr. Norm Melendrez MANUAL DIFF REQ NO Normal [facility] Comment on above: Performed By: #### C BC #### [facility] [address] [place] [address] Dr. Norm Melendrez MCH (RBC) [Entitic mass] 27.6 pg Normal 26.7-34.[address] [facility] Comment on above: Performed By: #### C BC #### [facility] [address] [place] [address] Dr. Norm Melendrez MCHC (RBC) [Mass/Vol] 32.6 g/dL Normal 29.9-35.2 [facility] Comment on above: Performed By: #### C BC #### [facility] [address] [place] [address] Dr. Norm Melendrez MCV (RBC) [Entitic vol] 84.7 fL Normal 81.0-99.0 [facility] Comment on above: Performed By: #### C BC #### [facility] [address] [place] [address] Dr. Norm Melendrez MONO # 0.6 103/ul Normal 0.3-0.8 [facility] Comment on above: Performed By: #### C BC #### [facility] [address] [place] [address] Dr. Norm Melendrez Monocytes/100 WBC (Bld) 8.0 % Normal 1.7-12.[address] [facility] Comment on above: Performed By: #### C BC #### [facility] [address] [place] [address] Dr. Norm Melendrez NEUT # 5.2 103/ul Normal 1.4-6.[address] [facility] Comment on above: Performed By: #### C BC #### [facility] [address] [place] [address] Dr. Norm Melendrez Neutrophils/100 WBC (Bld) 71.2 % Normal 43.0-75.[address] [facility] Comment on above: Performed By: #### C BC #### [facility] [address] [place] [address] Dr. Norm Melendrez Platelet mean volume (Bld) [Entitic vol] 9.2 fL Critically low 9.5-13.[address] [facility] Comment on above: Performed By: #### C BC #### [facility] [address] [place] [address] Dr. Norm Melendrez PLT 231 103/ul Normal 150-[address] [facility] Comment on above: Performed By: #### C BC #### [facility] [address] [place] [address] Dr. Norm Melendrez RBC 5.29 106/ul Normal 4.20-5.[address] [facility] Comment on above: Performed By: #### C BC #### [facility] [address] [place] [address] Dr. Norm Melendrez WBC 7.3 103/ul Normal 4.0-11.[address] [facility] Comment on above: Performed By: #### C BC #### [facility] [address] [place] [address] Dr. Norm Melendrez PROF 14(COMP METB)on 023 Albumin [Mass/Vol] 3.5 g/dL Normal 3.4-5.0 [facility] Comment on above: Performed By: #### C MP #### [facility] [address] [place] [address] Dr. Norm Melendrez Albumin/Globulin [Mass ratio] 0.9 {ratio} Normal [facility] Comment on above: Performed By: #### C MP #### [facility] [address] [place] [address] Dr. Norm Melendrez ALP [Catalytic activity/Vol] 98 U/L Normal 46-[address] [facility] Comment on above: Performed By: #### C MP #### [facility] [address] [place] [address] Dr. Norm Melendrez ALT [Catalytic activity/Vol] 33 U/L Normal 14-[address] [facility] Comment on above: Performed By: #### C MP #### [facility] [address] [place] [address] Dr. Norm Melendrez Anion gap [Moles/Vol] 12.4 mmol/L Normal [facility] Comment on above: Performed By: #### C MP #### [facility] [address] [place] [address] Dr. Norm Melendrez AST [Catalytic activity/Vol] 29 U/L Normal 15-[address] [facility] Comment on above: Performed By: #### C MP #### [facility] [address] [place] [address] Dr. Norm Melendrez Bilirubin [Mass/Vol] 0.4 mg/dL Normal 0.2-1.[address] [facility] Comment on above: Performed By: #### C MP #### [facility] [address] [place] [address] Dr. Norm Melendrez Calcium [Mass/Vol] 9.5 mg/dL Normal 8.5-10.1 [facility] Comment on above: Performed By: #### C MP #### [facility] [address] [place] [address] Dr. Norm Melendrez Chloride [Moles/Vol] 103 mmol/L Normal 98-[address] [facility] Comment on above: Performed By: #### C MP #### [facility] [address] [place] [address] Dr. Norm Melendrez CO2 [Moles/Vol] 28.6 mmol/L Normal 21.0-32.0 [facility] Comment on above: Performed By: #### C MP #### [facility] [address] [address] [address] Norm Melendrez Creatinine [Mass/Vol] 0.77 mg/dL Normal 0.55-1.[address] [facility] Comment on above: Performed By: #### C MP #### [facility] [address] [address] [address] Norm Melendrez EGFR-AF SURINAMESE >60 Normal >=60 [facility] Comment on above: Performed By: #### C MP #### [facility] [address] [address] [address] Norm Melendrez EGFR-NON AF SURINAMESE >60 Normal >=[address] [facility] Comment on above: Performed By: #### C MP #### [facility] [address] [place] [address] Dr. Norm Melendrez Globulin (S) [Mass/Vol] 3.7 g/dL Normal [facility] Comment on above: Performed By: #### C MP #### [facility] [address] [address] [address] Norm Melendrez Glucose [Mass/Vol] 97 mg/dL Normal 74-106 [facility] Comment on above: Performed By: #### C MP #### [facility] [address] [place] [address] Dr. Norm Melendrez Potassium [Moles/Vol] 4.0 mmol/L Normal 3.5-5.1 [facility] Comment on above: Performed By: #### C MP #### [facility] [address] [place] [address] Dr. Norm Melendrez Protein [Mass/Vol] 7.2 g/dL Normal 6.4-8.[address] [facility] Comment on above: Performed By: #### C MP #### [facility] [address] [place] [address] Dr. Norm Melendrez Sodium [Moles/Vol] 140 mmol/L Normal 136-[address] [facility] Comment on above: Performed By: #### C MP #### [facility] [address] [place] [address] Dr. Norm Melendrez Urea nitrogen [Mass/Vol] 11.0 mg/dL Normal 7.0-18.[address] [facility] Comment on above: Performed By: #### C MP #### [facility] [address] [place] [address] Dr. Norm Melendrez Urea nitrogen/Creatinine [Mass ratio] 14.3 mg/mg Normal [facility] Comment on above: Performed By: #### C MP #### [facility] [address] [place] [address] Dr. [facility] mm/hr Critically high <=30 [facility] Comment on above: Performed By: #### C MP #### [facility] [address] [place] [address] Dr. Norm Melendrez CBC AUTO DIFFon 11-23-2021 BASO # 0.1 103/ul Normal 0.0-0.[address] [facility] Comment on above: Performed By: #### C BC #### [facility] [address] [place] [address] Dr. Norm Melendrez Basophils/100 WBC (Bld) 0.9 % Normal 0.2-2.[address] [facility] Comment on above: Performed By: #### C BC #### [facility] [address] [place] [address] Dr. Norm Melendrez EO # 0.3 103/ul Normal 0.0-0.7 [facility] Comment on above: Performed By: #### C BC #### [facility] [address] [place] [address] Dr. Norm Melendrez Eosinophils/100 WBC (Bld) 4.1 % Normal 0.9-7.[address] [facility] Comment on above: Performed By: #### C BC #### [facility] [address] [place] [address] Dr. Norm Melendrez Erythrocyte distribution width (RBC) [Ratio] 15.9 % Critically high 11.0-15.[address] [facility] Comment on above: Performed By: #### C BC #### [facility] [address] [address] [address] Norm Melendrez Hematocrit (Bld) [Volume fraction] 44.9 % Normal 36.0-48.[address] [facility] Comment on above: Performed By: #### C BC #### [facility] [address] [address] [address] Norm Melendrez Hemoglobin (Bld) [Mass/Vol] 14.2 g/dL Normal 12.0-16.[address] [facility] Comment on above: Performed By: #### C BC #### [facility] [address] [place] [address] Dr. Norm Melendrez IG # 0.04 10e3/ul Critically high 0.00-0.03 [facility] Comment on above: Performed By: #### C BC #### [facility] [address] [place] [address] Dr. Norm Melendrez IG % 0.6 % Critically high 0.0-0.5 [facility] Comment on above: Performed By: #### C BC #### [facility] [address] [place] [address] Dr. Norm Melendrez LYMPH # 1.6 103/ul Normal 1.2-3.[address] [facility] Comment on above: Performed By: #### C BC #### [facility] [address] [place] [address] Dr. Norm Melendrez Lymphocytes/100 WBC (Bld) 22.0 % Normal 20.5-60.[address] [facility] Comment on above: Performed By: #### C BC #### [facility] [address] [address] [address] Norm Melendrez MANUAL DIFF REQ NO Normal [facility] Comment on above: Performed By: #### C BC #### [facility] [address] [place] [address] Dr. Norm Melendrez MCH (RBC) [Entitic mass] 27.5 pg Normal 26.7-34.[address] [facility] Comment on above: Performed By: #### C BC #### [facility] [address] [address] [address] Norm Melendrez MCHC (RBC) [Mass/Vol] 31.6 g/dL Normal 29.9-35.2 [facility] Comment on above: Performed By: #### C BC #### [facility] [address] [place] [address] Dr. Norm Melendrez MCV (RBC) [Entitic vol] 86.8 fL Normal 81.0-99.[address] [facility] Comment on above: Performed By: #### C BC #### [facility] [address] [place] [address] Dr. Norm Melendrez MONO # 0.5 103/ul Normal 0.3-0.[address] [facility] Comment on above: Performed By: #### C BC #### [facility] [address] [place] [address] Dr. Norm Melendrez Monocytes/100 WBC (Bld) 7.4 % Normal 1.7-12.[address] [facility] Comment on above: Performed By: #### C BC #### [facility] [address] [place] [address] Dr. Norm Melendrez NEUT # 4.6 103/ul Normal 1.4-6.[address] [facility] Comment on above: Performed By: #### C BC #### [facility] [address] [place] [address] Dr. Norm Melendrez Neutrophils/100 WBC (Bld) 65.0 % Normal 43.0-75.0 [facility] Comment on above: Performed By: #### C BC #### [facility] [address] [place] [address] Dr. Norm eMlendrez Platelet mean volume (Bld) [Entitic vol] 9.6 fL Normal 9.5-13.5 [facility] Comment on above: Performed By: #### C BC #### [facility] [address] [place] [address] Dr. Norm Melendrez PLT 237 103/ul Normal 150-450 [facility] Comment on above: Performed By: #### C BC #### [facility] [address] [place] [address] Dr. Norm Melendrez RBC 5.17 106/ul Normal 4.20-5.[address] [facility] Comment on above: Performed By: #### C BC #### [facility] [address] [place] [address] Dr. Norm Melendrez WBC 7.0 103/ul Normal 4.0-11.[address] [facility] Comment on above: Performed By: #### C BC #### [facility] [address] [place] [address] Dr. Norm Melendrez PROF 14(COMP METB)on 022 Albumin [Mass/Vol] 3.4 g/dL Normal 3.4-5.0 [facility] Comment on above: Performed By: #### C MP #### [facility] [address] [place] [address] Dr. Norm Melendrez Albumin/Globulin [Mass ratio] 0.9 {ratio} Normal [facility] Comment on above: Performed By: #### C MP #### [facility] [address] [place] [address] Dr. Norm Melendrez ALP [Catalytic activity/Vol] 101 U/L Normal 46-[address] [facility] Comment on above: Performed By: #### C MP #### [facility] [address] [place] [address] Dr. Norm Melendrez ALT [Catalytic activity/Vol] 28 U/L Normal 14-[address] [facility] Comment on above: Performed By: #### C MP #### [facility] [address] [place] [address] Dr. Norm Melendrez Anion gap [Moles/Vol] 12.9 mmol/L Normal [facility] Comment on above: Performed By: #### C MP #### [facility] [address] [place] [address] Dr. Norm Melendrez AST [Catalytic activity/Vol] 17 U/L Normal 15-[address] [facility] Comment on above: Performed By: #### C MP #### [facility] [address] [place] [address] Dr. Norm Melendrez Bilirubin [Mass/Vol] 0.4 mg/dL Normal 0.2-1.[address] [facility] Comment on above: Performed By: #### C MP #### [facility] [address] [address] [address] Norm Melendrez Calcium [Mass/Vol] 8.9 mg/dL Normal 8.5-10.1 [facility] Comment on above: Performed By: #### C MP #### [facility] [address] [address] [address] Norm Melendrez Chloride [Moles/Vol] 104 mmol/L Normal 98-[address] [facility] Comment on above: Performed By: #### C MP #### [facility] [address] [address] [address] Norm Melendrez CO2 [Moles/Vol] 27.1 mmol/L Normal 21.0-32.[address] [facility] Comment on above: Performed By: #### C MP #### [facility] [address] [place] [address] Dr. Norm Melendrez Creatinine [Mass/Vol] 0.86 mg/dL Normal 0.55-1.[address] [facility] Comment on above: Performed By: #### C MP #### [facility] [address] [place] [address] Dr. Norm Melendrez EGFR-AF SURINAMESE >60 Normal >=60 [facility] Comment on above: Performed By: #### C MP #### [facility] [address] [address] [address] Norm Melendrez EGFR-NON AF SURINAMESE >60 Normal >=[address] [facility] Comment on above: Performed By: #### C MP #### [facility] [address] [address] [address] Norm Melendrez Globulin (S) [Mass/Vol] 3.7 g/dL Normal [facility] Comment on above: Performed By: #### C MP #### [facility] [address] [address] [address] Norm Melendrez Glucose [Mass/Vol] 114 mg/dL Critically high 74-106 [facility] Comment on above: Performed By: #### C MP #### [facility] [address] [address] [address] Norm Melendrez Potassium [Moles/Vol] 4.0 mmol/L Normal 3.5-5.[address] [facility] Comment on above: Performed By: #### C MP #### [facility] [address] [address] [address] Norm Melendrez Protein [Mass/Vol] 7.1 g/dL Normal 6.4-8.2 [facility] Comment on above: Performed By: #### C MP #### [facility] [address] [address] [address] Norm Melendrez Sodium [Moles/Vol] 140 mmol/L Normal 136-145 [facility] Comment on above: Performed By: #### C MP #### [facility] [address] [address] [address] Norm Melendrez Urea nitrogen [Mass/Vol] 13.0 mg/dL Normal 7.0-18.[address] [facility] Comment on above: Performed By: #### C MP #### [facility] [address] [address] [address] Norm Melendrez Urea nitrogen/Creatinine [Mass ratio] 15.1 mg/mg Normal [facility] Comment on above: Performed By: #### C MP #### [facility] [address] [address] [address] [facility]end[facility] 44 mm/hr Critically high <=30 [facility] Comment on above: Performed By: #### S EDR #### [facility] [address] [address] [address] Norm Melendrez CBC AUTO DIFFon 09-13-2021 BASO # 0.1 103/ul Normal 0.0-0.[address] [facility] Comment on above: Performed By: #### C BC #### [facility] [address] [address] [address] Norm Melendrez Basophils/100 WBC (Bld) 0.8 % Normal 0.2-2.[address] [facility] Comment on above: Performed By: #### C BC #### [facility] [address] [place] [address] Dr. Norm Melendrez EO # 0.2 103/ul Normal 0.0-0.[address] [facility] Comment on above: Performed By: #### C BC #### [facility] [address] [place] [address] Dr. Norm Melendrez Eosinophils/100 WBC (Bld) 2.6 % Normal 0.9-7.[address] [facility] Comment on above: Performed By: #### C BC #### [facility] [address] [place] [address] Dr. Norm Melendrez Erythrocyte distribution width (RBC) [Ratio] 16.6 % Critically high 11.0-15.[address] [facility] Comment on above: Performed By: #### C BC #### [facility] [address] [place] [address] Dr. Norm Melendrez Hematocrit (Bld) [Volume fraction] 44.1 % Normal 36.0-48.[address] [facility] Comment on above: Performed By: #### C BC #### [facility] [address] [place] [address] Dr. Norm Melendrez Hemoglobin (Bld) [Mass/Vol] 14.3 g/dL Normal 12.0-16.[address] [facility] Comment on above: Performed By: #### C BC #### [facility] [address] [place] [address] Dr. Norm Melendrez IG # 0.04 10e3/ul Critically high 0.00-0.03 [facility] Comment on above: Performed By: #### C BC #### [facility] [address] [place] [address] Dr. Norm Melendrez IG % 0.5 % Normal 0.0-0.[address] [facility] Comment on above: Performed By: #### C BC #### [facility] [address] [place] [address] Dr. Norm Melendrez LYMPH # 1.5 103/ul Normal 1.2-3.[address] [facility] Comment on above: Performed By: #### C BC #### [facility] [address] [place] [address] Dr. Norm Melendrez Lymphocytes/100 WBC (Bld) 17.2 % Critically low 20.5-60.[address] [facility] Comment on above: Performed By: #### C BC #### [facility] [address] [place] [address] Dr. Norm Melendrez MANUAL DIFF REQ NO Normal [facility] Comment on above: Performed By: #### C BC #### [facility] [address] [place] [address] Dr. Norm Melendrez MCH (RBC) [Entitic mass] 27.0 pg Normal 26.7-34.[address] [facility] Comment on above: Performed By: #### C BC #### [facility] [address] [place] [address] Dr. Norm Melendrez MCHC (RBC) [Mass/Vol] 32.4 g/dL Normal 29.9-35.[address] [facility] Comment on above: Performed By: #### C BC #### [facility] [address] [place] [address] Dr. Norm Melendrez MCV (RBC) [Entitic vol] 83.4 fL Normal 81.0-99.[address] [facility] Comment on above: Performed By: #### C BC #### [facility] [address] [place] [address] Dr. Norm Melendrez MONO # 0.6 103/ul Normal 0.3-0.[address] [facility] Comment on above: Performed By: #### C BC #### [facility] [address] [place] [address] Dr. Norm Melendrez Monocytes/100 WBC (Bld) 7.0 % Normal 1.7-12.0 [facility] Comment on above: Performed By: #### C BC #### [facility] [address] [place] [address] Dr. Norm Melendrez NEUT # 6.1 103/ul Normal 1.4-6.5 [facility] Comment on above: Performed By: #### C BC #### [facility] [address] [address] [address] Norm Melendrez Neutrophils/100 WBC (Bld) 71.9 % Normal 43.0-75.[address] [facility] Comment on above: Performed By: #### C BC #### [facility] [address] [place] [address] Dr. Norm Melendrez Platelet mean volume (Bld) [Entitic vol] 9.3 fL Critically low 9.5-13.[address] [facility] Comment on above: Performed By: #### C BC #### [facility] [address] [place] [address] Dr. Norm Melendrez PLT 239 103/ul Normal 150-[address] [facility] Comment on above: Performed By: #### C BC #### [facility] [address] [place] [address] Dr. Norm Melendrez RBC 5.29 106/ul Normal 4.20-5.[address] [facility] Comment on above: Performed By: #### C BC #### [facility] [address] [place] [address] Dr. Norm Melendrez WBC 8.5 103/ul Normal 4.0-11.[address] [facility] Comment on above: Performed By: #### C BC #### [facility] [address] [place] [address] Dr. Norm Melendrez PROF 14(COMP METB)on 022 Albumin [Mass/Vol] 3.4 g/dL Normal 3.4-5.0 [facility] Comment on above: Performed By: #### C MP #### [facility] [address] [place] [address] Dr. Norm Melendrez Albumin/Globulin [Mass ratio] 0.9 {ratio} Normal [facility] Comment on above: Performed By: #### C MP #### [facility] [address] [place] [address] Dr. Norm Melendrez ALP [Catalytic activity/Vol] 90 U/L Normal 46-[address] [facility] Comment on above: Performed By: #### C MP #### [facility] [address] [address] [address] Norm Melendrez ALT [Catalytic activity/Vol] 25 U/L Normal 14-[address] [facility] Comment on above: Performed By: #### C MP #### [facility] [address] [address] [address] Norm Melendrez Anion gap [Moles/Vol] 11.4 mmol/L Normal [facility] Comment on above: Performed By: #### C MP #### [facility] [address] [address] [address] Norm Melendrez AST [Catalytic activity/Vol] 17 U/L Normal 15-[address] [facility] Comment on above: Performed By: #### C MP #### [facility] [address] [place] [address] Dr. Norm Melendrez Bilirubin [Mass/Vol] 0.4 mg/dL Normal 0.2-1.[address] [facility] Comment on above: Performed By: #### C MP #### [facility] [address] [place] [address] Dr. Norm Melendrez Calcium [Mass/Vol] 9.1 mg/dL Normal 8.5-10.1 [facility] Comment on above: Performed By: #### C MP #### [facility] [address] [place] [address] Dr. Norm Melendrez Chloride [Moles/Vol] 106 mmol/L Normal 98-[address] [facility] Comment on above: Performed By: #### C MP #### [facility] [address] [address] [address] Norm Melendrez CO2 [Moles/Vol] 26.8 mmol/L Normal 21.0-32.[address] [facility] Comment on above: Performed By: #### C MP #### [facility] [address] [place] [address] Dr. Norm Melendrez Creatinine [Mass/Vol] 0.80 mg/dL Normal 0.55-1.[address] [facility] Comment on above: Performed By: #### C MP #### [facility] [address] [address] [address] Norm Melendrez EGFR-AF SURINAMESE >60 Normal >=[address] [facility] Comment on above: Performed By: #### C MP #### [facility] [address] [address] [address] Norm Melendrez EGFR-NON AF SURINAMESE >60 Normal >=[address] [facility] Comment on above: Performed By: #### C MP #### [facility] [address] [address] [address] Norm Melendrez Globulin (S) [Mass/Vol] 3.7 g/dL Normal [facility] Comment on above: Performed By: #### C MP #### [facility] [address] [address] [address] Norm Melendrez Glucose [Mass/Vol] 110 mg/dL Critically high 74-106 [facility] Comment on above: Performed By: #### C MP #### [facility] [address] [address] [address] Norm Melendrez Potassium [Moles/Vol] 4.2 mmol/L Normal 3.5-5.[address] [facility] Comment on above: Performed By: #### C MP #### [facility] [address] [place] [address] Dr. Norm Melendrez Protein [Mass/Vol] 7.1 g/dL Normal 6.4-8.[address] [facility] Comment on above: Performed By: #### C MP #### [facility] [address] [address] [address] Norm Melendrez Sodium [Moles/Vol] 140 mmol/L Normal 136-[address] [facility] Comment on above: Performed By: #### C MP #### [facility] [address] [address] [address] Norm Melendrez Urea nitrogen [Mass/Vol] 14.0 mg/dL Normal 7.0-18.[address] [facility] Comment on above: Performed By: #### C MP #### [facility] [address] [address] [address] Norm Melendrez Urea nitrogen/Creatinine [Mass ratio] 17.5 mg/mg Normal [facility] Comment on above: Performed By: #### C MP #### [facility] [address] [address] [address] Norm Melendrez SED RATE WESTERGRENon 2021 SED RATE 31 mm/hr Critically high <=30 [facility] Comment on above: Performed By: #### C MP #### [facility] [address] [address] [address] Norm Melendrez LINO Antinuclear Antibodieson 05-31-2021 Antinuclear Abs, IFA Negative Normal . [facility] Comment on above: Result Comment: Nega tive <1:80 Borderline 1:80 Positive >1:80 ICAP nomenclature: AC-[id number] For more information about Hep-2 cell patterns use ANApatterns.org, the official website for the International Consensus on Antinuclear Antibody (LINO) Patterns (ICAP). Performed at: [facility] [address] [id number] Lining Layer: Alin Negron PhD, Phone: [phone] PERFORMED BY: [place] [address] [employer] TYRONE HOOPER M.D. Performed By: #### T 4F, CRP, TSH3, URIC, CBC, ESR, CMP, CK #### [address] #### LINO #### [facility] , Albumin [Mass/volume] in Ser um or PlasmaOrdered By: Alphonse Mcneal on 05-31-2021 Albumin [Mass/Vol] 3.5 g/dL 3.2-5.5 [facility] Aldolaseon 05-31-2021 Aldolase 2.6 U/L Low 3.3-10.3 [facility] Comment on above: Result Comment: Perf ormed at: [facility] [address] [id number] Lining Layer: Alin Negron PhD, Phone: [phone] PERFORMED BY: [address] [place] [address] [employer] TYRONE HOOPER M.D. Performed By: #### T 4F, CRP, TSH3, URIC, CBC, ESR, CMP, CK #### [facility] [address] [place] [address] [place] #### LINO #### [facility] , Basophils Auto (Bld) [#/Vol] Ordered By: Alphonse Mcneal on 05-31-2021 Basophils (Bld) [#/Vol] 0.1 10*3/uL 0.0-0.2 [facility] Basophils/100 WBC Auto (Bld) Ordered By: Alphonse Mcneal on 05-31-2021 Basophils/100 WBC (Bld) 1.1 % [facility] Blood hemoglobin measurement (mass/volume)Ordered By: Alphonse Mcneal on 05-31-2021 Hemoglobin (Bld) [Mass/Vol] 13.7 g/dL 11.8-15.4 [facility] Blood leukocytes automated c ount (number/volume)Ordered By: Alphonse Mcneal on 05-31-2021 WBC (Bld) [#/Vol] 7.9 10*3/uL 4.5-11.0 [facility] C-Reactive Proteinon 022 C-Reactive Protein 1.4 mg/dL High 0.0-1.0 [facility] Comment on above: Performed By: #### T 4F, CRP, TSH3, URIC, CBC, ESR, CMP, CK #### [facility] [address] [place] [address] [place] #### LINO #### [facility] , Complete Blood Count Auto Di ffon 05-31-2021 Basophils (Bld) [#/Vol] 0.1 10*3/uL Normal 0.0-0.2 [facility] Comment on above: Performed By: #### T 4F, CRP, TSH3, URIC, CBC, ESR, CMP, CK #### [facility] [address] [place] [address] [place] #### LINO #### [facility] , Basophils/100 WBC (Bld) 1.1 % Normal . [facility] Comment on above: Performed By: #### T 4F, CRP, TSH3, URIC, CBC, ESR, CMP, CK #### [address] #### LINO #### [facility] , Eosinophils (Bld) [#/Vol] 0.6 10*3/uL High 0.0-0.45 [facility] Comment on above: Performed By: #### T 4F, CRP, TSH3, URIC, CBC, ESR, CMP, CK #### [address] #### LINO #### [facility] , Eosinophils/100 WBC (Bld) 7.9 % Normal . [facility] Comment on above: Performed By: #### T 4F, CRP, TSH3, URIC, CBC, ESR, CMP, CK #### [address] #### LINO #### [facility] , Erythrocyte distribution width (RBC) [Ratio] 16.0 % High 11.9-15.3 [facility] Comment on above: Performed By: #### T 4F, CRP, TSH3, URIC, CBC, ESR, CMP, CK #### [place] [address] [place] #### LINO #### [facility] , Hematocrit (Bld) [Volume fraction] 42.1 % Normal 34.0-46.4 [facility] Comment on above: Performed By: #### T 4F, CRP, TSH3, URIC, CBC, ESR, CMP, CK #### [place] [address] [place] #### LINO #### [facility] , Hemoglobin (Bld) [Mass/Vol] 13.7 g/dL Normal 11.8-15.4 [facility] Comment on above: Performed By: #### T 4F, CRP, TSH3, URIC, CBC, ESR, CMP, CK #### [facility] [address] [place] [address] [place] #### LINO #### [facility] , Lymphocytes (Bld) [#/Vol] 1.1 10*3/uL Normal 1.00-4.8 [facility] Comment on above: Performed By: #### T 4F, CRP, TSH3, URIC, CBC, ESR, CMP, CK #### [address] #### LINO #### [facility] , Lymphocytes/100 WBC (Bld) 14.3 % Normal . [facility] Comment on above: Performed By: #### T 4F, CRP, TSH3, URIC, CBC, ESR, CMP, CK #### [address] #### LINO #### [facility] , MCH (RBC) [Entitic mass] 25.7 pg Normal 24.7-34.3 [facility] Comment on above: Performed By: #### T 4F, CRP, TSH3, URIC, CBC, ESR, CMP, CK #### [address] #### LINO #### [facility] , MCV (RBC) [Entitic vol] 79.2 fL Low 80-100 [facility] Comment on above: Performed By: #### T 4F, CRP, TSH3, URIC, CBC, ESR, CMP, CK #### [place] [address] [place] #### LINO #### [facility] , Mean Corpuscular HGB Conc 32.4 g/dL Normal 32.0-35.0 [facility] Comment on above: Performed By: #### T 4F, CRP, TSH3, URIC, CBC, ESR, CMP, CK #### [address] #### LINO #### [facility] , Monocytes (Bld) [#/Vol] 0.5 10*3/uL Normal 0.0-0.8 [facility] Comment on above: Performed By: #### T 4F, CRP, TSH3, URIC, CBC, ESR, CMP, CK #### [place] [address] [place] #### LINO #### [facility] , Monocytes/100 WBC (Bld) 6.2 % Normal . [facility] Comment on above: Performed By: #### T 4F, CRP, TSH3, URIC, CBC, ESR, CMP, CK #### [address] #### LINO #### [facility] , Neutrophils (Bld) [#/Vol] 5.6 10*3/uL Normal 1.8-7.7 [facility] Comment on above: Performed By: #### T 4F, CRP, TSH3, URIC, CBC, ESR, CMP, CK #### [place] [address] [place] #### LINO #### [facility] , Neutrophils/100 WBC (Bld) 70.5 % Normal . [facility] Comment on above: Performed By: #### T 4F, CRP, TSH3, URIC, CBC, ESR, CMP, CK #### [place] [address] [place] #### LINO #### [facility] , Nucleated RBC/100 WBC (Bld) [Ratio] 0.1 % Normal 0-0.5 [facility] Comment on above: Performed By: #### T 4F, CRP, TSH3, URIC, CBC, ESR, CMP, CK #### [place] [address] [place] #### LINO #### [facility] , Platelet mean volume (Bld) [Entitic vol] 7.6 fL Normal 6.3-10.7 [facility] Comment on above: Performed By: #### T 4F, CRP, TSH3, URIC, CBC, ESR, CMP, CK #### [facility] [address] [place] [address] #### LINO #### [facility] , Platelets (Bld) [#/Vol] 283 10*3/uL Normal 150-450 [facility] Comment on above: Performed By: #### T 4F, CRP, TSH3, URIC, CBC, ESR, CMP, CK #### [facility] [address] [place] [address] #### LINO #### [facility] , RBC (Bld) [#/Vol] 5.32 10*6/uL High 3.60-5.00 [facility] Comment on above: Performed By: #### T 4F, CRP, TSH3, URIC, CBC, ESR, CMP, CK #### [address] #### LINO #### [facility] , WBC (Bld) [#/Vol] 7.9 10*3/uL Normal 4.5-11.0 [facility] Comment on above: Performed By: #### T 4F, CRP, TSH3, URIC, CBC, ESR, CMP, CK #### [facility] [address] [place] [address] [place] #### LINO #### [facility] , Comprehensive Metabolic Pane bianca 05-31-2021 Albumin [Mass/Vol] 3.5 g/dL Normal 3.2-5.5 [facility] Comment on above: Performed By: #### T 4F, CRP, TSH3, URIC, CBC, ESR, CMP, CK #### [place] [address] [place] #### LINO #### [facility] , Albumin/Globulin [Mass ratio] 1.1 {ratio} Normal [facility] Comment on above: Performed By: #### T 4F, CRP, TSH3, URIC, CBC, ESR, CMP, CK #### [facility] [address] [place] [address] #### LINO #### [facility] , ALP [Catalytic activity/Vol] 92 U/L Normal 32-92 [facility] Comment on above: Performed By: #### T 4F, CRP, TSH3, URIC, CBC, ESR, CMP, CK #### [facility] [address] [place] [address] #### LINO #### [facility] , ALT [Catalytic activity/Vol] 22 U/L Normal 10-60 [facility] Comment on above: Performed By: #### T 4F, CRP, TSH3, URIC, CBC, ESR, CMP, CK #### [facility] [address] [place] [address] #### LINO #### [facility] , AST [Catalytic activity/Vol] 19 U/L Normal 10-42 [facility] Comment on above: Performed By: #### T 4F, CRP, TSH3, URIC, CBC, ESR, CMP, CK #### [facility] [address] [place] [address] #### LINO #### [facility] , Bilirubin [Mass/Vol] 0.3 mg/dL Normal 0.3-1.2 [facility] Comment on above: Performed By: #### T 4F, CRP, TSH3, URIC, CBC, ESR, CMP, CK #### [facility] [address] [place] [address] [place] #### LINO #### [facility] , Calcium [Mass/Vol] 9.1 mg/dL Normal 8.2-10.2 [facility] Comment on above: Performed By: #### T 4F, CRP, TSH3, URIC, CBC, ESR, CMP, CK #### [facility] [address] [place] [address] [place] #### LINO #### [facility] , Chloride [Moles/Vol] 104 mmol/L Normal 95-114 [facility] Comment on above: Performed By: #### T 4F, CRP, TSH3, URIC, CBC, ESR, CMP, CK #### [facility] [address] [place] [address] [place] #### LINO #### [facility] , CO2 [Moles/Vol] 25.8 mmol/L Normal 22.0-30.0 [facility] Comment on above: Performed By: #### T 4F, CRP, TSH3, URIC, CBC, ESR, CMP, CK #### [address] #### LINO #### [facility] , Creatinine [Mass/Vol] 0.69 mg/dL Normal 0.44-1.03 [facility] Comment on above: Performed By: #### T 4F, CRP, TSH3, URIC, CBC, ESR, CMP, CK #### [facility] [address] [place] [address] [place] #### LINO #### [facility] , Estimated GFR ( Kaylee > 60 [facility] Comment on above: Result Comment: GFR estimated reference range: According to KDOQI guidelines, <60 ml/min/1.73m2 is sufficient to diagnose a patient with chronic kidney disease. Performed By: #### T 4F, CRP, TSH3, URIC, CBC, ESR, CMP, CK #### [facility] [address] [place] [address] [place] #### LINO #### [facility] , Estimated GFR (Non- Am > 60 [facility] Comment on above: Performed By: #### T 4F, CRP, TSH3, URIC, CBC, ESR, CMP, CK #### [facility] [address] [place] [address] [place] #### LINO #### [facility] , Globulin (S) [Mass/Vol] 3.2 g/dL Normal [facility] Comment on above: Performed By: #### T 4F, CRP, TSH3, URIC, CBC, ESR, CMP, CK #### [address] #### LINO #### [facility] , Glucose [Mass/Vol] 91 mg/dL Normal 70-100 [facility] Comment on above: Result Comment: [facility] Glucose Reference Range is dependent on time and content of last meal. Glucose of more than 200 mg/dL in a nonstressed, ambulatory subject supports the diagnosis of Diabetes Mellitus. ADA recommended reference range Performed By: #### T 4F, CRP, TSH3, URIC, CBC, ESR, CMP, CK #### [address] #### LINO #### [facility] , Potassium [Moles/Vol] 4.4 mmol/L Normal 3.5-5.1 [facility] Comment on above: Performed By: #### T 4F, CRP, TSH3, URIC, CBC, ESR, CMP, CK #### [place] [address] [place] #### LINO #### [facility] , Protein [Mass/Vol] 6.7 g/dL Normal 6.1-7.9 [facility] Comment on above: Performed By: #### T 4F, CRP, TSH3, URIC, CBC, ESR, CMP, CK #### [place] [address] [place] #### LINO #### [facility] , Sodium [Moles/Vol] 138 mmol/L Normal 136-146 [facility] Comment on above: Performed By: #### T 4F, CRP, TSH3, URIC, CBC, ESR, CMP, CK #### [place] [address] [place] #### LINO #### [facility] , Urea nitrogen [Mass/Vol] 20 mg/dL Normal 9-23 [facility] Comment on above: Performed By: #### T 4F, CRP, TSH3, URIC, CBC, ESR, CMP, CK #### [facility] [address] [place] [address] [place] #### LINO #### [facility] , Creatine Kinaseon 05-31-2021 CK [Catalytic activity/Vol] 42 U/L Normal [facility] Comment on above: Result Comment: PERF ORMED BY: [place] [address] [employer] TYRONE HOOPER M.D. Performed By: #### T 4F, CRP, TSH3, URIC, CBC, ESR, CMP, CK #### [facility] [address] [place] [address] [place] #### LINO #### [facility] , Creatine kinase [Enzymatic a ctivity/volume] in Serum or PlasmaOrdered By: Alphonse Mcneal on 05-31-2021 CK [Catalytic activity/Vol] 42 U/L [facility] Creatinine and Glomerular fi ltration rate.predicted panel (S/P/Bld)Ordered By: Alphonse Mcneal on 05-31-2021 Creatinine [Mass/Vol] 0.69 mg/dL 0.44-1.03 [facility] Eosinophils Auto (Bld) [#/Vo l]Ordered By: Alphonse Mcneal on 05-31-2021 Eosinophils (Bld) [#/Vol] 0.6 10*3/uL 0.0-0.45 [facility] Eosinophils/100 WBC Auto (Bl d)Ordered By: Alphonse Mcneal on 05-31-2021 Eosinophils/100 WBC (Bld) 7.9 % [facility] Erythrocyte Sedimentation Ra lakshmi 05-31-2021 ESR (Bld) [Velocity] 53 mm/h High 0-29 [facility] Comment on above: Result Comment: PERF ORMED BY: [address] [place] [address] [employer] TYRONE HOOPER M.D. Performed By: #### T 4F, CRP, TSH3, URIC, CBC, ESR, CMP, CK #### [address] #### LINO #### [facility] , Erythrocyte distribution wid th Auto (RBC) [Ratio]Ordered By: Alphonse Mcneal on 05-31-2021 Erythrocyte distribution width (RBC) [Ratio] 16.0 % 11.9-15.3 [facility] Erythrocyte sedimentation ra te by Photometric methodOrdered By: Alphonse Mcneal on 05-31-2021 ESR Photometric method (Bld) [Velocity] 53 mm/hr 0-29 [facility] Estimated glomerular filtrat ion rate (GFR) non- AmericanOrdered By: Alphonse Mcneal on 05-31-2021 GFR/1.73 sq M.predicted among non-blacks MDRD (S/P/Bld) [Vol rate/Area] > 60 mL/Min [facility] Free T4 (Free Thyroxine)on 0 05-31-2021 Free T4 [Mass/Vol] 1.02 ng/dL Normal 0.61-1.12 [facility] Comment on above: Performed By: #### T 4F, CRP, TSH3, URIC, CBC, ESR, CMP, CK #### [address] #### LINO #### [facility] , Globulin Calc (S) [Mass/Vol] Ordered By: Alphonse Mcneal on 05-31-2021 Globulin (S) [Mass/Vol] 3.2 g/dL [facility] Hematocrit Auto (Bld) [Volum e fraction]Ordered By: Alphonse Mcneal on 05-31-2021 Hematocrit (Bld) [Volume fraction] 42.1 % 34.0-46.4 [facility] - Hematology and Cell countsOrdered By: Alphonse Mcenal on 05-31-2021 Nucleated RBC/100 WBC (Bld) [Ratio] 0.1 % 0-0.5 [facility] Lymphocytes Auto (Bld) [#/Vo l]Ordered By: Alphonse Mcneal on 05-31-2021 Lymphocytes (Bld) [#/Vol] 1.1 10*3/uL 1.00-4.8 [facility] Lymphocytes/100 WBC Auto (Bl d)Ordered By: Alphonse Mcneal on 05-31-2021 Lymphocytes/100 WBC (Bld) 14.3 % [facility] MCH Auto (RBC) [Entitic mass ]Ordered By: Alphonse Mcneal on 05-31-2021 MCH (RBC) [Entitic mass] 25.7 pg 24.7-34.3 [facility] MCHC Auto (RBC) [Mass/Vol]Or dered By: Alphonse Mcneal on 05-31-2021 MCHC (RBC) [Mass/Vol] 32.4 g/dL 32.0-35.0 [facility] MCV Auto (RBC) [Entitic vol] Ordered By: Alphonse Mcneal on 05-31-2021 MCV (RBC) [Entitic vol] 79.2 fL 80-100 [facility] Monocytes Auto (Bld) [#/Vol] Ordered By: Alphonse Mcneal on 05-31-2021 Monocytes (Bld) [#/Vol] 0.5 10*3/uL 0.0-0.8 [facility] Monocytes/100 WBC Auto (Bld) Ordered By: Alphonse Mcneal on 05-31-2021 Monocytes/100 WBC (Bld) 6.2 % [facility] Neutrophils Auto (Bld) [#/Vo l]Ordered By: Alphonse Mcneal on 05-31-2021 Neutrophils (Bld) [#/Vol] 5.6 10*3/uL 1.8-7.7 [facility] Neutrophils/100 WBC Auto (Bl d)Ordered By: Alphonse Mcneal on 05-31-2021 Neutrophils/100 WBC (Bld) 70.5 % [facility] No Panel InformationOrdered By: Alphonse Mcneal on 05-31-2021 Estimated GFR () > 60 mL/Min [facility] Comment on above: GFR estimated refere nce range: According to KDOQI guidelines, <60 ml/min/1.73m2 is sufficient to diagnose a patient with chronic kidney disease. Pharmacy Creatinine Clearance (Chem N/A [facility] Platelet mean volume Auto (B ld) [Entitic vol]Ordered By: Alphonse Mcneal on 05-31-2021 Platelet mean volume (Bld) [Entitic vol] 7.6 fL 6.3-10.7 [facility] Platelets Auto (Bld) [#/Vol] Ordered By: Alphonse Mcneal on 05-31-2021 Platelets (Bld) [#/Vol] 283 10*3/uL 150-450 [facility] Protein [Mass/volume] in Ser um or PlasmaOrdered By: Alphonse Mcneal on 05-31-2021 Protein [Mass/Vol] 6.7 g/dL 6.1-7.9 [facility] RBC Auto (Bld) [#/Vol]Ordere d By: Alphonse Mcneal on 05-31-2021 RBC (Bld) [#/Vol] 5.32 10*6/uL 3.60-5.00 [facility] Serum or plasma C reactive p rotein measurement (mass/volume)Ordered By: Alphonse Mcneal on 05-31-2021 CRP [Mass/Vol] 1.4 mg/dL 0.0-1.0 [facility] Serum or plasma alanine kwan otransferase measurement without P-5'-P (enzymatic activiOrdered By: Alphonse Mcneal on 05-31-2021 ALT No additional P-5'-P [Catalytic activity/Vol] 22 U/L 10-60 [facility] Serum or plasma albumin/glob ulin mass ratioOrdered By: Alphonse Mcneal on 05-31-2021 Albumin/Globulin [Mass ratio] 1.1 {ratio} [facility] Serum or plasma alkaline lisa sphatase measurement (enzymatic activity/volume)Ordered By: Alphonse Mcneal on 05-31-2021 ALP [Catalytic activity/Vol] 92 U/L 32-92 [facility] Serum or plasma aspartate am inotransferase measurement (enzymatic activity/volume)Ordered By: Alphonse Mcneal on 05-31-2021 AST [Catalytic activity/Vol] 19 U/L 10-42 [facility] Serum or plasma calcium sharad urement (mass/volume)Ordered By: Alphonse Mcneal on 05-31-2021 Calcium [Mass/Vol] 9.1 mg/dL 8.2-10.2 [facility] Serum or plasma chloride sonya surement (moles/volume)Ordered By: Alphonse Mcneal on 05-31-2021 Chloride [Moles/Vol] 104 mmol/L 95-114 [facility] Serum or plasma glucose sharad urement (mass/volume)Ordered By: Alphonse Mcneal on 05-31-2021 Glucose [Mass/Vol] 91 mg/dL 70-100 [facility] Comment on above: ADA recommended refe rence rangeRandom Glucose Reference Range is dependent on time and content of last meal. Glucose of more than 200 mg/dL in a nonstressed, ambulatory subject supports the diagnosis of Diabetes Mellitus. Serum or plasma potassium me asurement (moles/volume)Ordered By: Alphonse Mcneal on 05-31-2021 Potassium [Moles/Vol] 4.4 mmol/L 3.5-5.1 [facility] Serum or plasma sodium measu rement (moles/volume)Ordered By: Alphonse Mcneal on 05-31-2021 Sodium [Moles/Vol] 138 mmol/L 136-146 [facility] Serum or plasma total biliru bin measurement (mass/volume)Ordered By: Alphonse Mcneal on 05-31-2021 Bilirubin [Mass/Vol] 0.3 mg/dL 0.3-1.2 [facility] Serum or plasma total carbon dioxide measurement (moles/volume)Ordered By: Alphonse Mcneal on 05-31-2021 CO2 [Moles/Vol] 25.8 mmol/L 22.0-30.0 [facility] Serum or plasma urea nitroge n measurement (mass/volume)Ordered By: Alphonse Mcneal on 05-31-2021 Urea nitrogen [Mass/Vol] 20 mg/dL 9-23 [facility] Serum or plasma uric acid me asurement (mass/volume)Ordered By: Alphonse Mcneal on 05-31-2021 Urate [Mass/Vol] 4.6 mg/dL 2.6-7.2 [facility] TSH DL <= 0.005 mIU/L QnOrde red By: Alphonse Mcneal on 05-31-2021 TSH Qn 1.44 m[IU]/L 0.45-5.33 [facility] Thyroid Stimulating Hormoneo n 05-31-2021 TSH Qn 1.44 m[IU]/L Normal 0.45-5.33 [facility] Comment on above: Result Comment: PERF ORMED BY: [place] [address] [employer] COUNSEL TYRONE HOOPER M.D. Performed By: #### T 4F, CRP, TSH3, URIC, CBC, ESR, CMP, CK #### [facility] [address] [place] [address] #### LINO #### [facility] , Thyroxine (T4) free [Mass/vo lume] in Serum or PlasmaOrdered By: Alphonse Grijalvarow on 05-31-2021 Free T4 [Mass/Vol] 1.02 ng/dL 0.61-1.12 [facility] Uric Acidon 05-31-2021 Urate [Mass/Vol] 4.6 mg/dL Normal 2.6-7.2 [facility] Comment on above: Performed By: #### T 4F, CRP, TSH3, URIC, CBC, ESR, CMP, CK #### [place] [address] [place] #### LINO #### [facility] , XR hand BI 2Von 05-31-2021 XR hand BI 2V [facility] Main [facility] [address] [place] [address] XRay Report Signed Patient: Cayetano Weeks MR#: [id number] : 1950 Acct:[id number] Age/Sex: 70 / F ADM Date: 05/31/21 Loc: ICXD Room: Type: [facility] Attending Dr: Gonzalez Mcneal MD Ordering Provider: Alphonse Mcneal MD Date of Service: 05/31/21 XR/XR hand BI 2V: POLYARTHRITIS,MEDS ([id number]) XR/XR wrist BI 2V: POLYARTHRITIS,MEDS ([id number]) XR/XR ankle BI 2V: POLYARTHRITIS,MEDS ([id number]) XR/XR chest 2V*: POLYARTHRITIS,MEDS Copies to: Alphonse [...] Fenton Jr., M.D.05/31/2021 2:44 PM Dictation Location: [place] [address] Transcribed By: [facility] 05/31/21 1449 Dictated By: Fox Fenton Jr, MD 05/31/21 1439 Signed By: 05/31/21 1442 [facility] OR [facility] 06-11-2020 OR Nursing CO SA OR Nursing Record Summary Primary Physician: Chato Stafford MD Finalized Date/Time: 06/11/20 12:29:23 Pt. Name: CAYETANO WEEKS Lenora/Sex: 1950 Female Med Rec #: [id number] Physician: Financial #: [id number] Pt. Type: A Room/Bed: / Admit/Disch: 06/10/20 [...] Tristin Baeza Role Performed Primary Surgeon Anesthesiologist Child Care Lead Teacher Time In 06/10/20 07:27:00 06/10/20 07:27:00 06/10/20 07:27:00 Time Out 06/10/20 08:15:00 06/10/20 08:15:00 06/10/20 08:15:00 Procedure D and C Hysteroscopy(N/A) D and C Hysteroscopy(N/A) D and C Hysteroscopy(N/A) Attendee Comment Relief Reason Last Modified By: Dwight RN Dottie RN , Dottie Shannon RN 06/10/20 08:20:42 06/10/20 08:20:42 06/10/20 08:20:42 Entry 4 Entry 5 Entry 6 Case Attendee Dwight BERNARD , Carson Finch Meagen B Role Performed bristle machine operator First Scrub Assistive Personnel Time In [...] 06/10/20 08:20:42 CO SA OR General Case Boat Patcher Plastic 1 OR CO SA 12 ASA Class 2 Case Wound Class Clean Contaminated Specialty Gynecology Surgery Case Level Lead Machinist Major Diagnosis Preop Diagnosis N95.0 N85.00 N84 Postop Same As Preop Yes POSTMENOPAUSAL BLEEDING THICKENED ENDOMETRIUM ENDOMETRIAL POLYP Postop Diagnosis N95.0 N85.00 N84 POSTMENOPAUSAL BLEEDING THICKENED ENDOMETRIUM ENDOMETRIAL POLYP This is a down time No record. Last Modified By: Shannan Mayes RN 06/11/20 12:28:48 General Comments: specialty reflects procedure performed.fernandez elias se traveling auditor. CO SA OR Surgical Procedures Entry [...] and C Hysteroscopy(N/A) Tristin Hurley Stiles MD, [facility] Last Modified By: Dottie Quintanilla RN 06/10/20 08:20:02 CO SA OR Antithrombolytic Devices Entry 1 IPC Intermittent Right, Left IPC Size Knee Pneumatic Compression Unit ID Number [id number] JOSE DANIEL Hose Foot Pump Last Modified [...] - mi (more content not included)... Normal [facility] Glucose POCT (Uploaded)on Glucose [Mass/Vol] 127 mg/dL High 70-99 [facility] Comment on above: Result Comment: Suzanne tment ranges and critical values established by Patient Care Services. All follow-up actions were taken by Patient Care Services. Performed By: #### 2 430-8 #### [facility] PACU I Nursingon 06-10-2020 PACU I Nursing CO SA PACU I Nursing Record Summary Primary Physician: Chato Stafford MD Finalized Date/Time: 06/10/20 09:20:44 Pt. Name: DESI TYRELLJENNIE Cooley/Sex: 1950 Female Med Rec #: [id number] Physician: #: [id number] Pt. Type: A Room/Bed: / Admit/Disch: 06/10/20 05:45:00 - Institution: [facility] OR Main PACU I Case Times Entry 1 In PACU I 06/10/20 08:16:00 Ready for PACU I 06/10/20 09:00:00 Discharge Discharge from PACU 06/10/20 09:10:00 PACU I Discharge NA I Delay Reason Last Modified By: Willow Rain RN 06/10/20 09:20:42 [facility] OR Main PACU I Case Attendees Entry 1 Case Attendee Willow Rain RN Role Performed RN Last Modified By: Willow Rain RN 06/10/20 08:35:44 Finalized By: Willow Rain RN Document Signatures Signed By: Willow Rain RN 06/10/20 09:20 Normal [facility] Patient Summaryon 06-10-2020 Patient Summary PATIENT DISCHARGE INSTRUCTIONS If you are having an emergency and are not able to reach your physician, CALL 911 or go to the nearest emergency room and take this document with you. [facility] 06/10/20 08:38 [address] [place]. [address] PATIENT INFORMATION Name: DESITYRELLJENNIE Address: [address] [place] [id number] Age: 69 Years Phone: [phone] : 1950 12:00 MRN: [id number] Sex: Female Race: White Ethnicity: Not Hispan/Lat Admitted From: Clinic or [facility] Medical Service: Obstetric Nurse Unit/Bed: (PA) [facility] N/A Admit Date: 06/10/2020 05:45 PCP: Physician, PCP Unknown PHYSICIANS INVOLVED WITH CARE -------- Attending Physicians: Rivera CHURCHILL , Chato Mckeon - Obstetrics, Gynecology Admitting Physician: None found Primary Care Physician:Physician, PCP Unknown,Family Practice,,, - Consults: None found YOU WERE TREATED IN THE HOSPITAL FOR: Endometrial polyp; Postmenopausal vaginal bleeding FOLLOW-UP APPOINTMENTS: Provider: Specialty: Address: Date: Chato Stafford MD Gynecology; Obstetrics [address] [id number] (1) Two Weeks Provider: Specialty: Address: Date: [...] doses are changed, or new medications (including djum-bkz-yqxsvsg products) are added. Ask your doctor if [...] those changes are shown below: [id number], [address], [place] [id number], [phone] ibuprofen (ibuprofen 600 mg oral tablet) 1 [...] Decisions Type: Living Will, Medical Power of Toy Designer Copy of Advance Directive/Health Care Decisions on Chart: Patient/Family asked to provide copy SUICIDE HOTLINE: Your mental and emotional well-being are important. If you are in a mental health crisis, or having thoughts of suicide, please call the nationwide suicide hotline, anytime day or night, at 4-275-030-WZKR. It's easy to sign up for [employer]: 1. Visit [facility] /[employer] 2. Click on [place] for [employer] 3. Verify your identity by entering your [...] your account, you'll be redirected to the [employer] login page. Login and check to see your results Questions? For help with account enrollment, call [employer] Customer Support at [phone] (toll-free) PATIENT EDUCATI (more content not included)... Normal [facility] Post PACU Nursingon 06-11-19 Post PACU Nursing CO SA PACU II Nursing Record Summary Primary Physician: Chato Stafford MD Finalized Date/Time: 06/10/20 09:40:04 Pt. Name: CAYETANO WEEKS/Sex: 1950 Female Med Rec #: [id number] Physician: Financial #: [id number] Pt. Type: A Room/Bed: / Admit/Disch: 06/10/20 [...] By: Juliane Mcduffie RN 06/10/20 09:40 Normal [facility] PreOp Nursingon 06-10-2020 PreOp Nursing CO SA PreOp Nursing Record Summary Primary Physician: Chato Stafford MD Finalized Date/Time: 06/10/20 07:30:51 Pt. Name: CAYETANO WEEKS /Sex: 1950 Female Med Rec #: [id number] Physician: Financial #: [id number] Pt. Type: A Room/Bed: / Admit/Disch: 06/10/20 05:45:00 - Institution: [facility] OR PreOp Case Times Entry 1 PreOp Case Times In Room Time 06/10/20 05:40:00 Out Room Time 06/10/20 07:26:00 Last Modified By: Dottie Quintanilla RN 06/10/20 07:30:44 CO SA OR PreOp Case Attendees Entry 1 Case Attendee Melinda Alexander RN RN Last Modified By: Melinda Alexander RN 06/10/20 06:56:11 Finalized By: Dottie Quintanilla RN Document Signatures Signed By: Dottie Quintanilla RN 06/10/20 07:30 Normal [facility] Surgical Pathology Final Rep [facility] 06-10-2020 Pathology study CAYETANO WEEKS [id number] YRS F [id number] / [id number] 01 ORDERING PHYSICIAN: CHATO STAFFORD [...] was performed at [facility], [address] [place] [address]. Microscopic examination was performed. Case resulted at [facility]. DIAGNOSIS: (A) Endometrial polyp, polypectomy: -- BENIGN ENDOMETRIAL POLYP. -- NEGATIVE FOR ATYPICAL HYPERPLASIA AND MALIGNANCY. (B) Endometrium, curettage: -- FRAGMENTS OF ENDOMETRIAL POLYP AND FOCAL SIMPLE ENDOMETRIAL HYPERPLASIA WITHOUT ATYPIA/BENIGN HYPERPLASIA. -- NEGATIVE FOR ATYPICAL HYPERPLASIA AND MALIGNANCY. JH2:JH2:JH204/ END OF REPORT END OF REPORT [facility] Coronavirus (COVID-19/SARS-C oV-2) [facility] 06-08-2020 Device Identifier Kelly Fusion SARS-CoV-2 assay_[facility]. [facility] Comment on above: Performed By: #### 9 4532-9x6 #### [facility] [address] [place] [address] Employed in healthcare N [facility] Comment on above: Performed By: #### 9 4532-9x6 #### [facility] [address] [place] [address] First test Y [facility] Comment on above: Performed By: #### 9 453-9x6 #### [facility] [address] [place] [address] ICU N [facility] Comment on above: Performed By: #### 9 4532-9x6 #### [facility] [address] [place] [address] Illness or injury onset date and time N [facility] Comment on above: Performed By: #### 9 4532-9x6 #### [facility] [address] [place] [address] Patient was hospitalized because of this condition N [facility] Comment on above: Performed By: #### 9 4532-9x6 #### [facility] [address] [place] [address] status N [facility] Comment on above: Performed By: #### 9 4532-9x6 #### [facility] [address] [place] [address] Resides in congregate care setting N Normal [facility] Comment on above: Performed By: #### 9 4532-9x6 #### [address] [address] SARS-CoV-2 (COVID-19) RNA CLEMENTINE+probe Ql (Resp) Not detected Normal NOTDET [facility] Comment on above: Result Comment: This test was performed via the Eachbaby SARS-CoV-2 Assay ([employer]), a Nucleic Acid Amplification Test (NAAT), and has been authorized by the FDA under an Emergency Use Authorization (EUA). The assay is validated for nasopharyngeal (GLASS SETTER), nasal, and oropharyngeal (OP) swab specimens. The [...] www.cdc.gov/coronavirus. Performed By: #### 9 4532-9x6 #### [address] [address] Symptomatic as defined by CDC N Normal [facility] Comment on above: Performed By: #### 9 4532-9x6 #### [address] [address] Basic metabolic 2000 panelon 05-27-2020 Anion gap [Moles/Vol] 6.0 mmol/L Normal 6.0-18.0 [facility] Comment on above: Performed By: #### 2 4321-2, 97407-5, 06328-7m3 ####[facility], [address] [place], [place]. Calcium [Mass/Vol] 9.0 mg/dL Normal 8.9-10.3 [facility] Comment on above: Performed By: #### 2 4321-2, 15993-5, 98922-5w2 ####[facility], [address] [place]. Chloride [Moles/Vol] 105 mmol/L Normal 98-107 [facility] Comment on above: Performed By: #### 2 4321-2, 55740-1, 25299-4x5 ####[facility], [address], [place]. CO2 [Moles/Vol] 27 mmol/L Normal 22-32 [facility] Comment on above: Performed By: #### 2 4321-2, 08510-8, 94491-4y0 ####[facility], [address] [place]. Creatinine [Mass/Vol] 0.74 mg/dL Normal 0.66-1.30 [facility] Comment on above: Performed By: #### 2 4321-2, 39161-5, 54463-5x4 ####[facility], [address]. Glucose [Mass/Vol] 106 mg/dL High 70-99 [facility] Comment on above: Result Comment: U pdated ADA Reference Range A normal fasting glucose concentration is less than 100 mg/dL. An impaired fasting glucose concentration is 100-125 mg/dL. A provisional diagnosis of diabetes mellitus can be made when a fasting glucose concentration is greater than 125 mg/dL. Performed By: #### 2 4321-2, 81641-9, 95767-6f9 ####[facility], [address]. Potassium [Moles/Vol] 3.9 mmol/L Normal 3.6-5.1 [facility] Comment on above: Performed By: #### 2 4321-2, 58036-6, 73278-1k0 ####[facility], [address] [place] [address]. Sodium [Moles/Vol] 138 mmol/L Normal 136-145 [facility] Comment on above: Performed By: #### 2 4321-2, 73640-3, 55052-8a3 ####[facility], [address] [place] [address]. Urea nitrogen (BldV) [Mass/Vol] 13 mg/dL Normal 8-20 [facility] Comment on above: Performed By: #### 2 4321-2, 69961-3, 09859-9h5 ####[facility], [address] [place] [address]. GFR/1.73 sq M.predicted (S/P /Bld) [Vol rate/Area]on 05-27-2020 GFR/1.73 sq M.predicted among blacks MDRD (S/P/Bld) [Vol rate/Area] mL/min/{1.73_m2} Normal [facility] Comment on above: Result Comment: The MDRD equation has not been validated for those over 70 years, women, patients with serious co-morbid conditions, or with extremes of body size, muscle mass of nutritional status. Performed By: #### 2 4321-2, 79069-5, 26149-3i4 #### [facility], [address] [place] [address]. GFRbbon 05-27-2020 GFR/1.73 sq M.predicted among non-blacks MDRD (S/P/Bld) [Vol rate/Area] mL/min/{1.73_m2} Normal [facility] Comment on above: Performed By: #### 2 4321-2, 39660-1, 19441-2o6 #### [facility], [address] [place] [address]. Hemogram and platelets WO di fferential panel (Bld)on 05-27-2020 Erythrocyte distribution width (RBC) [Entitic vol] 14.6 % Normal 11.0-14.8 [facility] Comment on above: Performed By: #### 2 4317-0 #### [facility], [address], [place]. Hematocrit (Bld) [Volume fraction] 46.5 % High 35.0-45.0 [facility] Comment on above: Performed By: #### 2 7-0 #### [facility], [address], [place]. Hemoglobin (Bld) [Mass/Vol] 15.4 g/dL Normal 12.0-16.0 [facility] Comment on above: Performed By: #### 2 4316-0 #### [facility], [address], [place]. MCH (RBC) [Entitic mass] 27.4 Picograms Normal 27.0-34.0 [facility] Comment on above: Performed By: #### 2 4316-0 #### [facility], [facility] [address], [place]. MCHC (RBC) [Mass/Vol] 33.0 g/dL Normal 32.0-36.0 [facility] Comment on above: Performed By: #### 2 7-0 #### [facility], [address], [place]. MCV (RBC) [Entitic vol] 82.9 fL Normal 80.0-97.0 [facility] Comment on above: Performed By: #### 2 4316-0 #### [facility], [address], [place]. Platelet mean volume (Bld) [Entitic vol] 7.5 fL Normal 6.2-12.1 [facility] Comment on above: Performed By: #### 2 7-0 #### [facility], [address], [place]. Platelets (Bld) [#/Vol] 218 thou/mcL Normal 142-424 [facility] Comment on above: Performed By: #### 2 4317-0 #### [facility], [address] [place], [place]. RBC (Bld) [#/Vol] 5.61 million/mcL High 3.80-5.10 M [facility] Comment on above: Performed By: #### 2 4317-0 #### [facility], [address] [place], [place]. WBC (Bld) [#/Vol] 7.5 thou/mcL Normal 4.6-10.2 [facility] Comment on above: Performed By: #### 2 4317-0 #### [facility], [address] [place], [place]. PT Coag (PPP) [Time]on 05-27 INR Coag (Bld) [Relative time] 1.08 {INR} Normal [facility] Comment on above: Result Comment: The recommended therapeutic INR range for most cardiac indications is 2.0-3.0. For high intensity therapy(ie.mechanical heart valves), the recommended range is 2.5-3.5. Performed By: #### 3 173-2, 5902-2 ####[facility], [address], [place]. Prothrombin Timeon PT Coag (PPP) [Time] 14.3 s Normal 11.9-14.7 [facility] Comment on above: Performed By: #### 3 173-2, 5902-2 ####[facility], [address], [place]. aPTT Coag (Bld) [Time]on aPTT Coag (PPP) [Time] 31.9 s Normal 23.3-35.3 [facility] Comment on above: Performed By: #### 3 173-2, 5902-2 ####[facility], [address], [place]. Vital Signs Date Time Vital Sign Value Performing Clinician Gurpreeti shericey 08-20-2024 09:10-0400 Body height 154.9 cm Tyrell Bowens MD Work Phone: [facility] 08-20-2024 09:10-0400 Body mass index (BMI) [Ratio] 38.17 kg/m2 Tyrell Bowens MD Work Phone: [facility] 08-20-2024 09:10-0400 Body temperature 97.3 [degF] Tyrell Bowens MD Work Phone: [facility] 08-20-2024 09:10-0400 Body weight 91.63 kg Tyrell Bowens MD Work Phone: [facility] 08-20-2024 09:10-0400 Diastolic blood pressure 84 mm[Hg] Tyrell Bowens MD Work Phone: [facility] 08-20-2024 09:10-0400 Heart rate 77 /min Tyrell Bowens MD Work Phone: [facility] 08-20-2024 09:10-0400 Respiratory rate 20 /min Tyrell Bowens MD Work Phone: [facility] 08-20-2024 09:10-0400 SaO2% (BldA) [Mass fraction] 95 % Tyrell Bowens MD Work Phone: [facility] 08-20-2024 09:10-0400 Systolic blood pressure 140 mm[Hg] Tyrell Bowens MD Work Phone: [facility] 01-25-2024 10:37-0500 Body height 154.9 cm Tyrell Bowens MD Work Phone: [facility] 01-25-2024 10:37-0500 Body mass index (BMI) [Ratio] 37.98 kg/m2 Tyrell Bowens MD Work Phone: [facility] 01-25-2024 10:37-0500 Body temperature 97.5 [degF] Tyrell Bowens MD Work Phone: [facility] 01-25-2024 10:37-0500 Body weight 91.17 kg Tyrell Bowens MD Work Phone: [facility] 01-25-2024 10:37-0500 Diastolic blood pressure 72 mm[Hg] Tyrell Bowens MD Work Phone: [facility] 01-25-2024 10:37-0500 Heart rate 74 /min Tyrell Bowens MD Work Phone: [facility] 01-25-2024 10:37-0500 Respiratory rate 22 /min Tyrell Bowens MD Work Phone: [facility] 01-25-2024 10:37-0500 SaO2% (BldA) [Mass fraction] 95 % Tyrell Bowens MD Work Phone: [facility] 01-25-2024 10:37-0500 Systolic blood pressure 126 mm[Hg] Tyrell Bowens MD Work Phone: [facility] 04-05-2023 08:24-0500 Body height 154.9 cm Tyrell Bowens MD Work Phone: [facility] 04-05-2023 08:24-0500 Body mass index (BMI) [Ratio] 37.98 kg/m2 Tyrell Bowens MD Work Phone: [facility] 04-05-2023 08:24-0500 Body temperature 97.11 [degF] Tyrell Bowens MD Work Phone: [facility] 04-05-2023 08:24-0500 Body weight 91.17 kg Tyrell Bowens MD Work Phone: [facility] 04-05-2023 08:24-0500 Diastolic blood pressure 80 mm[Hg] Tyrell Bowens MD Work Phone: [facility] 04-05-2023 08:24-0500 Heart rate 86 /min Tyrell Bowens MD Work Phone: [facility] 04-05-2023 08:24-0500 SaO2% (BldA) [Mass fraction] 96 % Tyrell Bowens MD Work Phone: [facility] 04-05-2023 08:24-0500 Systolic blood pressure 130 mm[Hg] Tyrell Bowens MD Work Phone: [facility] Encounters Encounter Date Encounter Type Care Provider Facility Start: 08-20-2024 End: 08-20-2024 Bamboo flowsheet Tyrell Bowens MD Work Phone: [facility] Start: 08-20-2024 End: 08-20-2024 Bamboo flowsheet Tyrell Bowens MD Work Phone: [facility] Start: 08-20-2024 End: 08-20-2024 Office outpatient visit 15 minutes Tyrell Bowens MD Work Phone: [facility] Comment on above: Essential hypertensi on, benign (Primary Dx); Rheumatoid arthritis involving both hands with positive rheumatoid factor (HCC); Intrinsic eczema; Class 2 severe obesity due to excess calories with serious comorbidity and body mass index (BMI) of 38.0 to 38.9 in adult ([facility]-H[facility]); Prediabetes Start: 08-20-2024 End: 08-20-2024 ambulatory TYRELL BOWENS Not Available Start: 07-17-2024 End: 07-17-2024 Clinisync Result Encounter Generic External Data Provider [facility] Unsolicited Start: 07-17-2024 End: 07-17-2024 Clinisync Result Encounter Generic External Data Provider [facility] Unsolicited Start: 04-11-2024 End: 04-11-2024 Clinisync Result Encounter Generic External Data Provider [facility] Unsolicited Start: 04-11-2024 End: 04-11-2024 Clinisync Result Encounter Generic External Data Provider [facility] Unsolicited Start: 04-09-2024 ambulatory [facility] Start: 01-25-2024 End: 01-25-2024 Bamboo flowsheet Tyrell Bowens MD Work Phone: [facility] Start: 01-25-2024 End: 01-25-2024 Bamboo flowsheet Tyrell Bowens MD Work Phone: [facility] Start: 01-25-2024 End: 01-25-2024 Patient encounter procedure Tyrell Bowens MD Work Phone: [facility] Work Phone: Start: 01-25-2024 End: 01-25-2024 Postop follow up visit related to original px Tyrell Bowens MD Work Phone: [facility] Comment on above: Medicare annual well ness visit, subsequent (Primary Dx) Start: 01-25-2024 End: 01-25-2024 ambulatory TYRELL BOWENS Not Available Start: 01-01-2024 End: 01-01-2024 Bambotorri flowsjoanna Brandon DO Work Phone: [facility] Start: 01-01-2024 End: 01-01-2024 Bambotorri Brandon DO Work Phone: [facility] Start: 01-01-2024 End: 01-01-2024 Office outpatient visit 25 minutes Jr. Zackary Brandon DO Work Phone: [facility] Comment on above: Carpal tunnel syndro me of right wrist (Primary Dx) Start: 01-01-2024 End: 01-01-2024 ambulatory ZACKARY GRAY Not Available Start: 12-26-2023 End: 12-26-2023 Clinisync Result Encounter Generic External Data Provider [facility] External Department Unsolicited Start: 12-26-2023 End: 12-26-2023 Clinisync Result Encounter Generic External Data Provider [facility] External Department Unsolicited Start: 11-27-2023 End: 11-27-2023 ambulatory TYRELL BOWENS [facility] Start: 10-30-2023 End: 10-30-2023 Jaybotorri Brandon DO Work Phone: [facility] Start: 10-30-2023 End: 09-09-2024 Bamboo flowsheet Jr. Zackary Brandon DO Work Phone: [facility] Start: 10-30-2023 End: 10-30-2023 Office outpatient visit 25 minutes Jr. Zackary Brandon DO Work Phone: [facility] Comment on above: Carpal tunnel syndro me of right wrist (Primary Dx) Start: 10-30-2023 End: 10-30-2023 ambulatory SariZACKARY Dariel BRANDON Not Available Start: 10-04-2023 End: 10-04-2023 ambulatory TYRELL BOWENS Not Available Start: 10-02-2023 End: 10-02-2023 ambulatory Sari ZACKARY Dariel BRANDON Not Available Start: 04-05-2023 Bamboo flowsheet Tyrell Bowens MD Work Phone: [facility] Start: 04-05-2023 SeatGeekheet Tyrell Bowens MD Work Phone: [facility] [...] of medications; Prediabetes; Obesity (BMI 30-39.9) Start: 10-04-2022 End: 10-04-2022 ambulatory TYRELL BOWENS Facility:[facility] Start: 10-04-2022 End: 10-04-2022 Subsequent hospital [...] encounter procedure MD Gonzalez Mcneal Work Phone: [facility] Procedures Date Procedure Procedure Detail Performing Clinician Start: 07-17-2024 ALL CBC WITH AUTO DIFF Generic External Data Provider Start: 04-11-2024 ALL CBC WITH AUTO DIFF [...] Screening for malign ant neoplasm of colon [facility] Start: 02-25-2025 End: 02-25-2025 Patient encounter procedure 02/25/2025 9:00 AM EST Office Visit [facility] [address] [place] [phone] Tyrell Bowens MD [address] [place] [phone] [facility] Start: 01-24-2025 Medicare Annual Wellness (AWV) Medicare Annual Wellness (AWV) [facility] Start: 10-21-2024 Influenza vaccination Influenza Vacc ine (#1) [facility] Start: 08-20-2024 End: 08-20-2024 Patient encounter procedure [facility] Comment on above: Arrived Start: 08-12-2024 End: 08-12-2024 Patient encounter procedure 08/12/2024 8:00 AM EDT Office Visit [facility] [address] [place] [address] Tyrell Bowens MD [address] [place] [address] [facility] Start: 01-25-2024 End: 01-25-2024 Patient encounter procedure [facility] Comment on above: Arrived Start: 01-01-2024 End: 01-01-2024 Patient encounter procedure 01/01/2024 1:30 PM EST Office Visit [facility] [address] [place] [phone] Jr. Zackary Brandon, DO [address] [facility] [address] [place] [address] [facility] Start: 10-30-2023 End: 10-30-2023 Patient encounter procedure 10/30/2023 1:15 PM EDT Office Visit [facility] [address] [place] [phone] Jr. Zackary Brandon, DO [address] [facility] [address] [place] [address] Arrived [facility] Comment on above: Arrived Start: 10-22-2023 Covid-19 Vaccine ( season) Covid-19 Vaccine ( season) [facility] Start: 10-22-2023 Influenza vaccination Influenza Vacc ine (#1) [facility] Start: 10-04-2023 End: 10-04-2023 Patient encounter procedure 10/04/2023 8:15 AM EDT Office Visit [facility] [address] [place] [address] Tyrell Bowens MD [address] [place] [address] [facility] Start: 08-02-2023 End: 08-02-2023 Patient encounter procedure 08/02/2023 9:10 AM EDT Office Visit [facility] [address] [place] [address] Hien Ngo MD [address] [place] [address] [facility] Start: 04-05-2023 End: 04-05-2024 Basic metabolic 1998 panel - Serum or Plasma Basic metabolic panel Lab Routine Essential hypertension, benign (CMS/HCC) Expected: 04/05/2023 (Approximate), Expires: 04/05/2024 [facility] Comment on above: Expected: 04/05/2023 (Approximate), Expires: 04/05/2024 Start: 04-05-2023 End: 04-05-2024 CBC W Auto Differential panel - Blood CBC and differential Lab Routine Encounter for long-term (current) use of medications Expected: 04/05/2023 (Approximate), Expires: 04/05/2024 [facility] Comment on above: Expected: 04/05/2023 (Approximate), Expires: 04/05/2024 Start: 04-05-2023 End: 04-05-2024 Hemoglobin A1c measurement Hemoglobin A1c Lab Routine Prediabetes Expected: 04/05/2023 (Approximate), Expires: 04/05/2024 [facility] Work Phone: Comment on above: Expected: 04/05/2023 (Approximate), Expires: 04/05/2024 Start: 04-05-2023 End: 04-05-2024 Hepatic function 2000 panel - Serum or Plasma Hepatic function panel Lab Routine Encounter for long-term (current) use of medications Expected: 04/05/2023 (Approximate), Expires: 04/05/2024 [facility] Comment on above: Expected: 04/05/2023 (Approximate), Expires: 04/05/2024 Start: 04-05-2023 End: 04-05-2024 Lipid 1996 panel - Serum or Plasma Lipid panel Lab Routine Encounter for long-term (current) use of medications Expected: 04/05/2023 (Approximate), Expires: 04/05/2024 [facility] Comment on above: Expected: 04/05/2023 (Approximate), Expires: 04/05/2024 Start: 04-05-2023 End: 04-05-2024 Thyrotropin [Units/volume] in Serum or Plasma TSH Lab Routine Obesity (BMI 30-39.9) Expected: 04/05/2023 (Approximate), Expires: 04/05/2024 [facility] Comment on above: Expected: 04/05/2023 (Approximate), Expires: 04/05/2024 Start: 04-05-2023 End: 04-05-2023 Patient encounter procedure 04/05/2023 8:15 AM EST Office Visit [facility] [address] [place] [address] Tyrell Bowens MD [address] [place] [address] Arrived [facility] Comment on above: Arrived Start: 02-20-2023 Advance Directive Discussion Advance Directive Discussion [facility] Start: 07-11-2021 Urine microalbumin profile DTaP,Tdap,Td Vaccine (2 - Td or Tdap) [facility] Start: 12-26-2018 Screening for malign ant neoplasm of breast Mammogram [facility] Start: 2013 Screening for osteoporosis Bone Density Screening [facility] Start: 2008 RSV Vaccine (1 - 1-d ose 60+ series) RSV Vaccine (1 - 1-dose 60+ series) [facility] Start: 1993 Diabetes Screening Diabetes Screenin g [facility] Start: 1993 Lipid panel Lipid Screening [facility] Start: 1993 Screening for malign ant neoplasm of colon [facility] Start: 1988 Screening for malign ant neoplasm of breast Mammogram Screening [facility] Start: 1966 Anxiety Screening Anxiety Screening [facility] Start: 1966 Depression Screening Depression Scre ening [facility] Start: 1966 Hepatitis C screening Hepatitis C Sc rachelle [facility] Start: 1948 Medicare Annual Wellness (AWV) Medicare Annual Wellness (AWV) [facility] Start: 1948 Screening for malign ant neoplasm of colon [facility] Aldolase measurement [facility] Work Phone: Homogenous nuclear A b pattern [Titer] in Serum [facility] Work Phone: Nuclear Ab [Titer] i n Serum [facility] Work Phone: Immunizations Immunization Date Immunization Notes Care Provider Fa cility 10-27-2023 influenza virus vacc ine, unspecified formulation Jr. Stepanic DO Work Phone: [facility] 11-13-2021 influenza virus vacc ine, unspecified formulation [facility] Work Phone: [facility] Payers Date Payer Category Payer Private Health Insurance [employer] [id number] 2021 Unknown [id number] 2013 Medicare [id number] 1959 Medicare [id number] 1959 Unknown [id number] 1948 Unknown [id number] [id number]. 593 1948 Unknown [id number] [id number]. 593 1948 Unknown [id number] [id number]. 593 1948 Unknown [id number] [id number]. 593 1948 Unknown [id number] [id number]. 1286 1948 Unknown [id number] 2.16.840.1.976655.3.579.2. 1259 1948 Unknown [id number] 2.16.840.1.854055.3.579.2. 1259 1948 Unknown [id number] 2.16.840.1.864117.3.579.2. 1259 1948 Unknown [id number] [id number]. 1259 1948 Unknown [id number] 2.16.840.1.484881.3.579.2. 1259 1948 Unknown [id number] [id number]. 1259 Self-pay Self Pay [id number] Social History Date Type Detail Facility Tobacco smoking stat us RUST Unknown if ever smoked [facility] Work Phone: Start: 1950 Sex [facility] At [facility] Start: 08-09-2022 Tobacco smoking status CAIS Never smoked tobacco [facility] Start: 08-09-2022 Tobacco use and exposure Smokeless tobacco non-user [facility] Start: 03-14-2023 End: 08-20-2024 Alcohol intake Ex-drinker (finding) [facility] Start: 03-29-2023 End: 08-15-2024 History of Social function [facility] Start: 03-29-2023 End: 08-15-2024 Humiliation, Afraid, Rape, and Kick questionnaire [HARK] [facility] Within the last year , have you been afraid of your partner or ex-partner? No [facility] Do you belong to any clubs or organizations such as sikh groups, unions, fraternal or athletic groups, or [...] gender (finding) [facility] consumption unknown [facility] Start: 1950 Sex assigned at Not on file [facility] How often to you hav e a drink containing alcohol? 2-3 time sa week [facility] Do you feel stress - tense, restless, nervous, or anxious, or unable to sleep at night because your mind is troubled all the time - these days [OSQ] Only a little [facility] Clinical Notes 06-10-2020 to 08-20-2024 Tyrell Bowens MD - 08/20/2024 9:53 AM Yeison Bowens MD - 08/20/2024 9:52 AM Yeison Bowens MD - 08/20/2024 9:51 AM Yeison Bowens MD - 08/20/2024 9:51 AM EDT Note Date & Type Note Facility 08-20-2024 History of Presen t illness Narrative Associated Problem(s): Prediabetes Monitor labs. Associated Problem(s): Class 2 severe obesity due to excess calories with serious comorbidity and body mass index (BMI) of 38.0 to 38.9 in adult ([facility]) Weight loss indicated. Associated Problem(s): Rheumatoid arthritis involving both hands with positive rheumatoid factor ([facility]) Occasional flares and use prednisone PRN. Follow up with rheumatology. Associated Problem(s): Intrinsic eczema Skin clear with dupixent and follow with dermatology. Associated Problem(s): Essential hypertension, benign BP controlled and monitor PRN. Images from the original note were not included. Subjective Patient ID: Sherry Weeks is a 73 y.o. female who presents for Follow-up (6 m f/up). Follow up HTN, arthritis, and eczema. Patient feels well today. Checking BP PRN and typically controlled. BP normal today. Taking medication daily and tolerating without side effects. Allergies controlled with medication. No congestion or rhinorrhea. No DILLON or sinus pressure. Ears not plugged or popping. Eczema stable. Following with dermatology and on dupixent which works well to clear skin. Uses steroid cream PRN which helps. RA stable. Occasional stiffness and pain in multiple joints. Taking methotrexate and much less pain. Following with rheumatology. Reviewed recent labs. Review of Systems Respiratory: Negative for [...] Items Addressed This Visit Essential hypertension, benign - Primary BP controlled and monitor PRN. Rheumatoid arthritis involving both hands with positive rheumatoid factor (HCC) Occasional flares and use prednisone PRN. Follow up with rheumatology. Intrinsic eczema Skin clear with dupixent and follow with dermatology. documented in this encounter [facility] 04-09-2024 Note Orthopedic Surgery Subjective Chief complaint: Chief Complaint Patient presents with ??? Right Hand - Pain Cayetano Weeks is a 73 y.o. year old female presenting for evaluation of carpal tunnel syndrome in her right hand. She is a [id number] female who has a history of rheumatoid [...] back as needed if her symptoms recur. [facility] 04-09-2024 Note Patient ID: Sherry sanchez [...] to verify the correct patient, procedure, equipment, support architect and site/side marked as required. [facility] 01-25-2024 History of Presen t illness [...] not to smoke. documented in this encounter [facility] 01-01-2024 History of Presen t illness [...] is normal. Strength additional comments: 5/5 EQUAL NEON SIGN ERECTOR STRENGTH Neurovascular Right Right neurovascular exam is [...] Zackary Brandon D.O. documented in this encounter [facility] 10-30-2023 History of Presen t illness [...] is normal. Strength additional comments: 5/5 EQUAL NEON SIGN ERECTOR STRENGTH Neurovascular Right Right neurovascular exam is [...] Zackary Brandon D.O. documented in this encounter [facility] 04-05-2023 History of Presen t illness [...] Relevant Orders TSH documented in this encounter [facility] 10-04-2022 Note HNO ID: [id number] Author: Nory Slade RN Service: ? Author [...] DATE: October 04, 2022 TIME: 9:13 AM [facility] 10-04-2022 Note HNO ID: [id number] Author: Rimma Rey RT(R) Service: ? Author [...] 911 PATIENT DISCHARGED TO: Ambulatory patient, left [place] department area. A Diagnostic radioactive procedure has taken place, with no further precautions necessary other than routine body substance precautions. More information regarding radiation safety can be found using this link: [email or web address]%20 [email or web address] SIGNATURE: RT Bo(R) PATIENT NAME: Cayetano Weeks DATE: October 04, 2022 TIME: 9:38 AM PAGER/CONTACT #: [facility] 10-04-2022 History of Presen t illness [...] 0912 PATIENT DISCHARGED TO: Ambulatory patient, left [place] department area. A Diagnostic radioactive procedure has taken place, with no further precautions necessary other than routine body substance precautions. More information regarding radiation safety can be found using this link: [email or web address] ic%20Nuclear%[email or web address] [email or web address] SIGNATURE: RT Bo([place]) PATIENT NAME: Cayetano Weeks DATE: October 04, 2022 TIME: 9:38 AM PAGER/CONTACT #: documented in this encounter [facility] 06-10-2020 Surgery Surgical operation note DICTATED BY:CHATO STAFFORD MD SERVICE DATE:06/10/2020 PREOPERATIVE DIAGNOSES: 1. Postmenopausal bleeding. 2. Endometrial polyp. POSTOPERATIVE DIAGNOSES: 1. Postmenopausal bleeding. 2. Endometrial polyp. PROCEDURES: 1. Dilatation and curettage, hysteroscopy. 2. Polypectomy with MyoSure. SURGEON: Chato Stafford MD ANESTHESIA: General per LMA. STRUCTURAL MILL SUPERVISOR: Nayeli Sosa MD ESTIMATED BLOOD LOSS: 5 [...] were correct. CAYETANO WEEKS Birthdate: 1950 #: [id number] D/06/10/2020 08:23:39 T/06/10/2020 09:15:53 VOICE JOB ID:[id number] [place] thanks you for the opportunity to care for your patient. DID: [id number] [facility] 06-10-2020 Physician Hospita l Discharge summary CLINICAL SUMMARY Please take this summary document to your follow up appointments. [facility]. [facility] 06/10/20 08:38 [address] [place]. [address] PATIENT INFORMATION Name: CAYETANO WEEKS Address: [address] [facility] [address] Age: 69 Years Phone: [phone] : 1950 12:00 MRN: [id number] Sex: Female Race: White Ethnicity: Not Hispan/Lat Admitted From: Clinic or [facility] Medical Service: Obstetric Nurse Unit/Bed: (PA) [facility] N/A Admit Date: 06/10/2020 05:45 PCP: Physician, [...] ORDERED / RECOMMENDED TO BE CONTINUED for: PATRICIA WEEKSBelinda bisoprolol-hydroCHLOROthiazide (Bisoprolol/hydroCHLOROthiazid e 5 mg/6.25 mg) 1 Tab(s) By Mouth once a day. ibuprofen (ibuprofen 600 mg oral tablet) 1 Tab(s) By Mouth One Time Only as needed Pain - Mild. Refills: 0. loratadine (Claritin 24 Hour Allergy 10 mg oral tablet) 1 Tab(s) By Mouth once a day. multivitamin 1 Tab(s) By Mouth once a day. MEDICATION CHANGE DETAILS NEW MEDICATIONS [id number], [address], [place] [id number], [phone] ibuprofen (ibuprofen 600 mg oral tablet) 1 [...] (vasopressin) 20 Unit = 1 mL, Vag, Food Checker, x 30 Day(s) COMMENTS and SPECIAL INSTRUCTIONS: [...] (Zofran GEq) (Zofran (more content not included)... [facility] 06-10-2020 Surgery Postoperative evaluation and management note Patient: CAYETANO WEEKS MRN: [id number] Age: 69 years Sex: Female : 1950 [...] Surgeon: Primary Surgeon: Chato Stafford MD . Net Repairer(s): Nayeli Sosa MD , . Type of Anesthesia: Anesthesia Type: General . Estimated Blood Loss: Minimal less than 10mL. Procedure Findings: intrauterine polyp. Drain(s): Collection Device: RED RUBBER . Specimen(s) Removed: Specimen: 1. ENDOMETRIAL POLYP - PERMANENT - 2. ENDOMETRIAL CURETTINGS - PERMANENT . [facility] 06-10-2020 Anesthesiology Preoperative evaluation and management note Patient: CAYETANO WEEKS MRN: [id number] Age: 69 years Sex: Female : 1950 Associated Diagnoses: None Author: William Freire MD Preoperative Information Diagnosis No diagnoses charted Planned Procedure Hysteroscopy Histories Past Medical History: Active Eczema HTN (hypertension) Social History: Smoking Status: Never smoked E-Cig/Vaped Last 90 Day..: No Surgical/Procedure History: Surgical/Procedure Hx Polypectomy ([id number]). Comments: 05/27/2020 09:32 NATHANIEL Ziegler RN , [...] Vasopressin 20 Unit = 1 mL, Vag, Food Checker x 30 Day(s) , Comment: Send to [...] N 06/07/20 13:25, Device Identifier = Ross Chang SARS-CoV-2 assay_[employer] EUA Point Of Care Tests Blood 06/10/20 [...] Laryngeal Mask Airway. Monitoring/Anesthesia Considerations: Standard monitoring. [facility] Evaluation note No assessment inform [facility] Work Phone: Evaluation note Diagnosis Essential [...] encounter [facility] Diagnosis Essential hypertension, benign- Primary Essential hypertension, benign Rheumatoid arthritis involving both hands with positive rheumatoid factor (HCC) Intrinsic eczema Seasonal allergic rhinitis due to pollen Dyslipidemia Other and unspecified hyperlipidemia Encounter for long-term (current) use of medications Encounter for long-term (current) use of other medications Prediabetes Other abnormal glucose Obesity (BMI 30-39.9) Breast cancer screening by mammogram- Primary Essential hypertension, benign Essential hypertension, benign Seasonal allergic rhinitis due to pollen Intrinsic eczema Rheumatoid arthritis involving both hands with positive rheumatoid factor (HCC) Colon cancer screening Special screening for malignant neoplasms, colon Hyperlipidemia, unspecified Body mass index (BMI) 36.0-36.9, adult Medicare annual wellness visit, subsequent- Primary Essential hypertension, benign- Primary Essential hypertension, benign Rheumatoid arthritis involving both hands with positive rheumatoid factor (HCC) Intrinsic eczema Class 2 severe obesity due to excess calories with serious comorbidity and body mass index (BMI) of 38.0 to 38.9 in adult (CMS-HCC) Prediabetes Other abnormal glucose documented in this encounter [facility] Summary Purpose Family History No [...] Directives Records Found Procedure Findings Note Patient: EMILYCAYETANO MATOS RN: ([facility][id number] [facility]: [id number] Age: 69 years Sex: Female : 1950 [...] section and content) DATE CREATED AUTHOR 06/13/2020 [facility] DATE CREATED AUTHOR AUTHOR'S ORGANIZ ATION 06/17/2021 [facility] DATE CREATED AUTHOR AUTHOR'S ORGANIZ ATION 07/04/2022 [facility] DATE CREATED AUTHOR AUTHOR'S ORGANIZ ATION 10/05/2022 [facility] DATE CREATED AUTHOR AUTHOR'S ORGANIZ ATION 11/29/2023 [facility] DATE CREATED AUTHOR AUTHOR'S ORGANIZ ATION 04/15/2024 [facility] DATE CREATED AUTHOR AUTHOR'S ORGANIZ ATION 08/21/2024 [facility] EPIC Care Teams (unrecognized sec tion and content) Team Status: Inactive Member Role Status Dates Gonzalez Mcneal MD Attending Provider Active [employer]il [employer] Technical Officer Relationship Specialty Start Date End Date Tyrell Bowens MD [address] [place] [address] PCP - General Family Medicine 03/13/23 Soil Science Technical Officer Relationship Specialty Start Date End Date Tyrell Bowens MD [address] [place] [address] PCP - General Family Medicine 03/13/23 Soil Science Technical Officer Relationship Specialty Start Date End Date Tyrell Bowens [address] [place] [address] PCP - General Family Medicine 09/15/22 Soil Science Technical Officer Relationship Specialty Start Date End Date Tyrell Bowens MD [address] [place] [address] PCP - General Family Medicine 03/13/23 Soil Science Technical Officer Relationship Specialty Start Date End Date Tyrell Bowens MD [address] [place] [address] PCP - General Family Medicine 03/13/23 Soil Science Technical Officer Relationship Specialty Start Date End Date Tyrell Bowens MD [address] [place] [address] PCP - General Family Medicine 03/13/23 Soil Science Technical Officer Relationship Specialty Start Date End Date Tyrell Bowens MD [address] [place] [address] PCP - General Family Medicine 03/13/23 Soil Science Technical Officer Relationship Specialty Start Date End Date Tyrell Bowens MD [address] [place] [address] PCP - General Family Medicine 03/13/23 Soil Science Technical Officer Relationship Specialty Start Date End Date Tyrell Bowens MD [address] [place] [address] PCP - General Family Medicine 03/13/23 Soil Science Technical Officer Relationship Specialty Start Date End Date Tyrell Bowens MD [address] [place] [address] PCP - General Family Medicine 03/13/23 Soil Science Technical Officer Relationship Specialty Start Date End Date Tyrell Bowens MD [address] [place] [address] PCP - General Family Medicine 03/13/23 Soil Science Technical Officer Relationship Specialty Start Date End Date Tyrell Bowens MD [address] [place] [address] PCP - General Family Medicine 03/13/23 Goals (unrecognized section and content) Goals may be documented in a n alternate section Reason for Visit (unrecogniz ed section and content) Reason Comments Follow-up 6 m Reason Comments Radiology NM Reason Comments Pain Reason Comments Medicare Annual Wellness Visit Subsequen t Wellness Reason Comments Follow-up 6 m f/up Source Comments (unrecognize d section and content) In the event this informatio n is protected by the Federal Confidentiality of Alcohol and Drug Abuse Patient Records regulations: The Federal rules restrict any use of the information to criminally investigate or prosecute any alcohol or drug abuse patient.[facility] FOR RECORDS PERTAINING TO PATIENTS WHO ARE [...] BE BASED ON THE PRIMARY CLINICAL RECORDS. [facility]. provides no warranty or guarantee of the accuracy or completeness of information in this document.
[2024-11-01 11:37] LABS: Hematocrit 43.6 % (36.0-48.0); Hemoglobin 14.6 g/dL (12.0-16.0); Immature Granulocytes Abs Auto 0.01 10^3/uL (0.00-0.03); Immature Granulocytes Pct Auto 0.2 % (0.0-0.5); Lymphocytes Absolute Auto 1.0 10^3/uL (1.2-3.8); Mean Corpuscular HGB Conc 33.5 g/dL (29.9-35.2); Mean Corpuscular Hemoglobin 29.3 pg (26.7-34.0); Mean Corpuscular Volume 87.4 fL (81.0-99.0); Platelet Count 196 10^3/uL (150-450); Red Blood Count 4.99 10^6/uL (4.20-5.40); White Blood Count 4.7 10^3/uL (4.0-11.0)
[2024-11-01 11:52] LABS: Alanine Aminotransferase 36 U/L (14-59); Albumin Globulin Ratio 0.9; Albumin Level 3.4 g/dL (3.4-5.0); Alkaline Phosphatase 105 U/L (46-116); Anion Gap 11.2; Aspartate Amino Transferase 17 U/L (15-37); Blood Urea Nitrogen 17.0 mg/dL (7.0-18.0); Calcium 8.4 mg/dL (8.5-10.1); Carbon Dioxide 25.6 mmol/L (21.0-32.0); Chloride 106 mmol/L (98-107); Estimated GFR (African America >60 (>=60 mL/min/1.73m^2); Estimated GFR (Non-African Ame >60 (>=60 mL/min/1.73m^2); Globulin 3.6 g/dL; Glucose 144 mg/dL (74-106); Potassium 3.8 mmol/L (3.5-5.1); Sodium 139 mmol/L (136-145); Total Protein 7.0 g/dL (6.4-8.2)
== END 2024-11-01 11:05 | disposition home or self-care (01) ==
PROVIDERS: PCP Family Medicine; Visit Provider Internal Medicine Rheumatology
DX: M05.79 Rheumatoid arthritis with rheumatoid factor 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 (principal); M15.0 Primary generalized (osteo)arthritis; Z79.899 Other long term (current) drug therapy
CPT/HCPCS: 36415; 80053; 85025; 85652

== ENCOUNTER 2025-02-18 10:25 | Outpatient (OUT) | payer MEDICARE, OTHER, SELFPAY ==
--- OUTSIDE RECORDS SUMMARY | 2025-02-18 10:30 | XMS_ITS | Clinical Summary ---
Author Organization [facility] Address [address] [place] [address] Care Team Providers Care Vegetable Harvest Machine Operator Name Role Phone Tyrell Spring MD Primary Care Provider [phone] Allergies No known active allergies Medications No known medications Active Problems No known active problems Social History Tobacco UseTypesPacks/DayYears UsedDateSmoking Tobacco: Unknown Tobacco Cessation:Counseling Given: Not Answered CommentsUnknownSex and Gender InformationValueDate RecordedSex Assigned at ZqfifTtimjo78/18/2025 3:59 PM ESTLegal GnoDpwztj28/21/2024 9:24 AM ESTGender JuvjacrrDeqeyy96/18/2025 3:59 PM ESTSexual OrientationHeterosexual or Straight 04/09/2024 3:59 PM EST Last Filed Vital Signs Vital SignReadingTime TakenCommentsBlood Pressure--Pulse--Temperature-- Respiratory Rate--Oxygen Saturation--Inhaled Oxygen Concentration--Fqwqxf97.2 kg (201 lb)04/09/2024 4:19 PM XJCEqvlkd082.9 cm (5' 1 )04/09/2024 4:19 PM ESTBody Mass Index37.98004/09/2024 4:19 PM EST Plan of Treatment Health MaintenanceDue DateLast DoneCommentsMedicare Annual Wellness (AWV) 1950Depression Srtsweszs72/30/1961Fall Risk Ummtwduri18/30/2014dult Bjlkvdw09COVID-19 Vaccine ( season)2024 10/27/2023, 05/01/2023, 11/25/2022, Additional history existsInfluenza Vaccine (#1)509/07/2023, 10/05/2022, 11/13/2021, Additional history exists Pneumococcal Vaccine: 50+ GzdooBughztwwz18/23/2016, 10/08/2014Zoster Vaccines Ubqyhuuom86/30/2019, 11/15/2018, 10/25/2012Colorectal Cancer Screening DiscontinuedFIT-ZKYSqnspvtintaq56/27/2656YWOToljuneabjvy16/27/2024CT ColonographyDiscontinuedColonoscopyDiscontinuedFOBTDiscontinuedHIB VaccinesAged OutNo longer eligible based on patient's age to complete this topicHPV Vaccines Aged OutNo longer eligible based on patient's age to complete this topicIPV VaccinesAged OutNo longer eligible based on patient's age to complete this topic Meningococcal B VaccineAged OutNo longer eligible based on patient's age to complete this topicMeningococcal VaccineAged OutNo longer eligible based on patient's age to complete this topicRotavirus VaccinesAged OutNo longer eligible based on patient's age to complete this topicSigmoidoscopyDiscontinued Insurance Care Teams Team MemberRelationshipSpecialtyStart DateEnd Date Tyrell Spring MD [address] [place] [id number] [facility] Pljhugbi[facility]
--- OUTSIDE RECORDS SUMMARY | 2025-02-18 10:30 | XMS_ITS | Clinical Summary ---
Author Organization [facility] Address [address] [place] [address] Care Team Providers Care Hall Tender Name Role Phone Tyrell Spring MD Primary Care Provider [phone] Allergies Active AllergyReactionsCriticalityNoted DateCommentsAmoxicillinDiarrhea 08/09/2022 Medications MedicationSigDispense QuantityRefillsLast FilledStart DateEnd DateStatus diclofenac (Voltaren) 75 MG EC tablet Take 75 mg by mouth every 12 (twelve) hours.Active folic acid (Folvite) 1 MG tablet Take 1 mg by mouth 1 (one) time each day at the same time.Active methotrexate 2.5 MG tablet Take 2.5 mg by mouth 1 (one) time per week.Active predniSONE (Deltasone) 5 MG tablet Take 5 mg by mouth 1 (one) time each day at the same time.Active dupilumab (Dupixent) 300 MG/2ML injection Inject 300 mg under the skin every 14 (fourteen) days. For eczemaActive bisoprolol-hydroCHLOROthiazide (Ziac) 5-6.25 MG tablet Indications:Benign essential hypertension,Essential (primary) hypertensionTAKE 1 TABLET BY MOUTH EVERY DAY 90 tablet ctive Active Problems ProblemNoted DateDiagnosed DateMedicare annual wellness visit, subsequent 01/25/2024 Assessment & Plan (01/25/2024 11:40 AM EST): Reviewed labs. Discussed proper diet and regular aerobic exercise. Need aerobic exercise 5-6 days aweek for 30 minutes at a time. Smaller portions and limit total calories. Cologuard normal in September 2023. Tetanus every 10 years. Advised not to smoke. Essential hypertension, unpqmd2904/05/2023 Assessment & Plan (08/20/2024 9:51 AM EDT): BP controlled and monitor PRN. Assessment & Plan (10/04/2023 9:08 AM EDT): BP controlled and monitor PRN. Assessment & Plan (04/05/2023 9:14 AM EST): BP controlled and monitor PRN. Hbdgakkwsaco12/14/2024heumatoid arthritis involving both hands with positive rheumatoid ymlnfs8904/05/2023 Assessment & Plan (08/20/2024 9:51 AM EDT): Occasional flares and use prednisone PRN. Follow up with rheumatology. Assessment & Plan (10/04/2023 9:08 AM EDT): Occasional flares and use prednisone PRN. Follow up with rheumatology. Assessment & Plan (04/05/2023 9:14 AM EST): Occasional flares and use prednisone PRN. Follow up with rheumatology. Allergic rhinitis due to fydgnv1704/05/2023 Assessment & Plan (10/04/2023 9:08 AM EDT): Symptoms controlled with medication and continue. Assessment & Plan (04/05/2023 9:14 AM EST): Symptoms controlled with medication and continue. Keratosis, xigddjptkc16/14/2024Intrinsic fnmtux2504/05/2023 Assessment & Plan (08/20/2024 9:51 AM EDT): Skin clear with dupixent and follow with dermatology. Assessment & Plan (10/04/2023 9:08 AM EDT): Skin clear with dupixent and follow with dermatology. Assessment & Plan (04/05/2023 9:14 AM EST): Skin clear with dupixent and follow with dermatology. Bzjuoufjdzo80/14/2024 Assessment & Plan (08/20/2024 9:53 AM EDT): Monitor labs. Encounter for long-term (current) use of fdcilmpixpt48/14/2024lass 2 severe obesity due to excess calories with serious comorbidity and body mass index (BMI) of38.0 to 38.9 in adult04/05/2023 Assessment & Plan (08/20/2024 9:52 AM EDT): Weight loss indicated. Tonsillar inuewyhw59/26/2023 Resolved Problems ProblemNoted DateDiagnosed DateResolved DateTonsil jfyfctddf42 Internal nasal trqmwt13Gastrocnemius equinus of right lower kxvenomcv62es valgus of right foot Recurrent mnfmwhifm79 Family History Medical HistoryRelationNameCommentsNo Known ProblemsDaughterHypertensionFather Luis CarlieProstate cancerFatherStan CarlieRashes / Skin problemsFather Luis CarlieAlzheimer's diseaseMotherLouAsthmaMotherLouDementiaMotherLou HypertensionMotherLouMental illnessMotherLouMigrainesMotherLouRashes / Skin spcxdrcmIewifnBpiArotammyEnbgOtrdpjQpdheienRdibqrprt6BaznwmCcjs Carlie DeceasedMotherLouDeceased Social History Tobacco UseTypesPacks/DayYears UsedDateSmoking Tobacco: NeverSmokeless Tobacco: Never Tobacco Cessation:Counseling Given: Not Answered Alcohol UseStandard Drinks/WeekCommentsNot Currently0 (1 standard drink = 0.6 oz pure alcohol)B1300 Health LiteracyAnswerDate RecordedHow often do you need to have someone help you when you read instructions, pamphlets, or other written material from your doctor or pharmacy?Never08/15/2024Humiliation, Afraid, Rape, and Kick questionnaireAnswerDate RecordedWithin the last year, have you been afraid of your partner or ex-partner?No08/15/2024Within the last year, have you been humiliated or emotionally abused in other ways by your partner or ex-partner?No08/15/2024Within the last year, have you been kicked, hit, slapped, or otherwise physically hurt by your partner or ex-partner?No08/15/2024Within the last year, have you been raped or forced to have any kind of sexual activity by your partner or ex-partner?No08/15/2024Social Connection and Isolation Panel AnswerDate RecordedIn a typical week, how many times do you talk on the phone with family, friends, or neighbors?More than three times a week08/15/2024How often do you get together with friends or relatives?Three times a week08/15/2024 How often do you attend mosque or druze services?More than 4 times per year 08/15/2024Do you belong to any clubs or organizations such as mosque groups, unions, fraternal or athletic groups, or school groups?Yes08/15/2024How often do you attend meetings of the clubs or organizations you belong to?More than 4 times per year08/15/2024re you , , , , never , or living with a partner?Lanovra1808/15/2024UDIT-CAnswerDate RecordedQ1: How often do you have a drink containing alcohol?2-3 times a week08/15/2024Q2: How many drinks containing alcohol do you have on a typical day when you are drinking?Patient gqracaer72/26/2025Q3: How often do you have six or more drinks on one occasion?Never08/15/2024Overall Financial Resource Strain (CARDIA)Answer Date RecordedHow hard is it for you to pay for the very basics like food, housing, medical care, and heating?Not hard at all08/15/2024PHQ-2AnswerDate RecordedPatient Health Questionnaire-2 Xcmli412[facility] [place] of Occupational Health - Occupational Stress QuestionnaireAnswerDate RecordedDo you feel stress - tense, restless, nervous, or anxious, or unable to sleep at night because yourmind is troubled all the time - these days?Only a hlcraq1608/15/2024 Exercise Vital SignAnswerDate RecordedOn average, how many days per week do you engage in moderate to strenuous exercise (like a brisk walk)?1 day08/15/2024On average, how many minutes do you engage in exercise at this level?10 min 08/15/2024Hunger Vital SignAnswerDate RecordedWithin the past 12 months, you worried that your food would run out before you got the money to buymore.Never true08/15/2024Within the past 12 months, the food you bought just didn't last and you didn't have money to get more.Never true08/15/2024PRAPARE - TransportationAnswerDate RecordedIn the past 12 months, has lack of transportation kept you from medical appointments or from getting medications?No 08/15/2024In the past 12 months, has lack of transportation kept you from meetings, work, or from getting things needed for daily living?No08/15/2024 Housing Stability Vital SignAnswerDate RecordedIn the last 12 months, was there a time when you were not able to pay the mortgage or rent on time?No03/29/2023In the last 12 months, how many places have you lived?In the last 12 months, was there a time when you did not have a steady place to sleep or slept in [facility] (including now)?No03/29/2023Housing Stability Vital SignAnswerDate RecordedIn the last 12 months, was there a time when you were not able to pay the mortgage or rent on time?No08/15/2024Number of Times Moved in the Last Year Not on file08/15/2024t any time in the past 12 months, were you homeless or living in a senior care (including now)?No08/15/2024CommentsUnknownSex and Gender InformationValueDate RecordedSex Assigned at KvcpgRraeuc35/19/2023 3:35 PM EDTLegal QxvEsdefi12/15/2023 11:52 PM EDTGender FzpljxbhXmmdwt50/19/2023 3:35 PM EDTSexual OrientationNot on file Last Filed Vital Signs Vital SignReadingTime TakenCommentsBlood Iwjmrykr006/8408/20/2024 9:10 AM EDT Biqnn488508/20/2024 9:10 AM KJPVnudriuhkqp57.3 ??C (97.3 ??F)08/20/2024 9:10 AM EDTRespiratory Wikb127308/20/2024 9:10 AM EDTOxygen Gcliudjayx51%08/20/2024 9:10 AM EDTInhaled Oxygen Concentration--Juvprr49.6 kg (202 lb)08/20/2024 9:10 AM EDT Wmjazf315.9 cm (5' 1 )08/20/2024 9:10 AM EDTBody Mass Index38.17008/20/2024 9:10 AM EDT Plan of Treatment Health MaintenanceDue DateLast DoneCommentsInfluenza Vaccine (#1)10/21/2024 10/27/2023, 10/05/2022, 11/13/2021, Additional history existsPneumococcal Vaccine: 65+ BgpbtFqsdukziy11/23/2016, 10/08/2014Colorectal Cancer Screening DiscontinuedFIT-PTLVcjrznvsygpk91/27/3331AfcdybeupJzghvqkfbtsn86/07/2024, 11/27/2023, 12/26/2017, Additional history existsCT ColonographyDiscontinued ColonoscopyDiscontinuedFITDiscontinuedFOBTDiscontinuedSigmoidoscopyDiscontinued Procedures Procedure NamePriorityDate/TimeAssociated DiagnosisCommentsBI MAMMOGRAM SCREENING TOMOSYNTHESIS VXYLVGWLC38/07/2024 11:26 AM EDT LAB COLOGUARD?? COLON CANCER BZYHLUKvcpoxh62/27/2024 8:05 AM EDT Colon cancer screening from Last 3 Months or Most Recently Relevant to Health Maintenance Results * Bilateral screening mammogram with tomosynthesis (11/27/2023 11:26 AM EDT) Anatomical RegionLateralityModalityBreastBilateralMammographySpecimen (Source) Anatomical Location / LateralityCollection Method / VolumeCollection Time Received Time11/27/2023 11:26 AM EDT Narrative 11/27/2023 11:25 AM EDT THIS EXAM WAS PERFORMED AT [facility] ??1950 [id number] EXAM: MAMM SCREENING BILATERAL W CAD, 11/27/2023 [...] malignancy. BI-RADS: BI-RADS 1 - Negative Recommendation: ??Routine screening mammogram in 1 year. Finalized by Dawna Awad MD on 11/27/2023 11:25 AM 1 b MAMM 1 YR FDA Accredited Performing Facility: [facility] - Mammography/DEXA Imaging [address] [address] Procedure Note Radiology, Radiologist, MD - 11/27/2023 THIS EXAM WAS PERFORMED AT [facility] 1950 [id number] EXAM: MAMM SCREENING BILATERAL W CAD, 11/27/2023 [...] MAMM 1 YR FDA Accredited Performing Facility: [facility] - [facility]ammography[facility] [address] [facility] [address] Authorizing ProviderResult TypeResult StatusMarc Clementine [place] BI PROCEDURES Final Result * Cologuard?? colon cancer screening (10/17/2023 8:05 AM EDT)ComponentValueRef RangeTest MethodAnalysis TimePerformed AtPathologist SignatureNONINV COLON CA DNA+OCC BLD SCRN STL-VLQOmwyrjhgSxqyrkgr78/01/2024 8:10 AM EDTEXBlue Palace Enterprise (CLIA #:[id number])Comment: NEGATIVE TEST RESULT. A negative Cologuard result indicates a low likelihood that a colorectal cancer (CRC) or advanced adenoma (adenomatous polyps with more advanced pre-malignant features) ??is present. The chance that a person with a negative Cologuard test has a colorectal cancer is less than 1in 1500 (negative predictive value >99.9%) or has an advanced adenoma is less than 5.3% (negative predictive value 94.7%). These data are based on a prospective cross-sectional study of 10,000individuals at average risk for colorectal cancer who were screened with both Cologuard and colonoscopy. (Michaelaialmarques T. et al, N Engl J Med 2014;370(14):3726-4814) The normal value (reference range) for this assay is negative. COLOGUARD RE-SCREENING RECOMMENDATION: Periodic colorectal cancer screening is an important part ofpreventive healthcare for asymptomatic individuals at average risk for colorectal cancer. ??Following a negative Cologuard result, the [place] [employer] and U.S. Multi-Society Task Force screening guidelines recommend a Cologuard re-screening interval of 3 years. References: [place] [employer] Guideline for Colorectal Cancer Screening: https://www.cancer.or g/cancer/vwgig-cxlleh-ntnymn/vbpmjpszv-sxzguxjmn-cykiygx/acs-recommendations.htm deb; Sarmad REDDY, Madeleine RICHEY, Bill ChunK, Colorectal Cancer Screening: Recommendations for Physicians and Patients from the U.S. Multi-Society Task Force on Colorectal Cancer Screening , Am J Gastroenterology 2017; 112:6194-3157. TEST DESCRIPTION: Composite algorithmic analysis of stool DNA-biomarkers with hemoglobin immunoassay. ?? Quantitative values of individual biomarkers are not reportable and are not associated with individual biomarker result reference ranges. Cologuard is intended for colorectal cancer screening ofadults of either sex, 45 years or older, [...] Rowan et al, N Engl J Med 2014;370(14):9946-6993.) Cologuard may produce a false negative or false positive result (no colorectal cancer or precancerous polyp present at colonoscopy follow up). A negative Cologuard test result does not guarantee the absence of CRC or advanced adenoma (pre-cancer). The current Cologuard screening interval is every 3 years. ([place] [employer] Society and U.S. Multi-Society Task Force). Cologuard performance data in a 10,000 patient pivotal study using colonoscopy as the reference method can be accessed at the following location: www.Badongo.com.[employer]/results. Additional description of the Cologuard test process, warnings and precautions can be found at www.BrandpotionogdeltaDNArd.com. Specimen (Source)Anatomical Location / LateralityCollection Method / Volume Collection TimeReceived TimeStool specimen (specimen)10/17/2023 8:05 AM EDT 10/18/2023 4:04 PM EDT Narrative Authorizing ProviderResult TypeResult StatusMarc Clementine [facility] ORDERABLESFinal ResultPerforming OrganizationAddressCity/State/ZIP CodePhone Number [facility] (CLIA #:[id number]) [place] [address], from Last 3 Months or Most Recently Relevant to Health Maintenance Insurance Care Teams Team MemberRelationshipSpecialtyStart DateEnd Date Tyrell Spring MD PCP - GeneralFamily Medicine03/13/23
--- OUTSIDE RECORDS SUMMARY | 2025-02-18 10:30 | XMS_ITS | Clinical Summary ---
Author Organization [facility] Address [address] [place], [place] [id number] Care Team Providers Care In Flight Refueling Manager Name Role Phone Tyrell Spring MD Primary Care Provider [phone] Social History Tobacco UseTypesPacks/DayYears UsedDateSmoking Tobacco: Never Assessed CommentsUnknownSex and Gender InformationValueDate RecordedSex Assigned at Not on fileLegal LchBonhgy48/27/2023 1:08 PM EDTGender IdentityNot on fileSexual OrientationNot on file Plan of Treatment Health MaintenanceDue DateLast DoneCommentsAnxiety Wzuewzhip17/30/1967Depression Pwcvdwbiw43/30/1967Hepatitis C Bpozsevet50/30/1967Diabetes Qjytbdghn56/30/1994 Bone Density Gidzeglqy56/30/2014DTaP,Tdap,Td Vaccine (2 - Td or Tdap)07/11/2021 07/12/2011RSV Vaccine (1 - 1-dose 75+ series)10/20/2023dvance Directive Dllytetita05/01/2025ovid-19 Vaccine ( season)505/, 12/22/2021, 07/24/2021, Additional history existsInfluenza Vaccine (#1) 509/, 10/23/2020, 11/15/2018, Additional history exists Pneumococcal Vaccine: 50+Bnfbptbds74/23/2016, 10/08/2014Shingrix Vaccine Oaylpxmgx36/30/2019, 11/15/2018, 10/25/2012 Insurance Care Teams Team MemberRelationshipSpecialtyStart DateEnd Date Tyrell Spring MD [address] [place] [address] PCP - GeneralFamily Medicine09/15/22
--- OUTSIDE RECORDS SUMMARY | 2025-02-18 10:30 | XMS_ITS | Clinical Summary ---
Author Organization [facility] Address [id number] [address] [place] [address] Care Team Providers Care Kitchen Help Handyman Name Role Phone Tyrell Spring MD Primary Care Provider [phone] Family History Medical HistoryRelationNameCommentsBreast cancerNeg Hx Social History Tobacco UseTypesPacks/DayYears UsedDateSmoking Tobacco: Never AssessedChildcare AnswerDate GdiaaaqgNkwaxuucrGaapbjm18/12/2019EmploymentAnswerDate Recorded LclxvowfcpLxdnbbm04/12/2019Purpose - LifeAnswerDate RecordedPurpose and direction in htazAsocreq28/11/2021CommentsNoSex and Gender Information ValueDate RecordedSex Assigned at BirthNot on fileLegal VjgWmzrsf55/06/2015 11:40 AM EDTGender IdentityNot on fileSexual OrientationNot on file Last Filed Vital Signs Vital SignReadingTime TakenCommentsBlood Pressure--Pulse--Temperature-- Respiratory Rate--Oxygen Saturation--Inhaled Oxygen Concentration--Wnlmxm54.7 kg (200 lb)12/26/2017 1:29 PM CYBWdsfbp791.9 cm (5' 1 )12/26/2017 1:29 PM ESTBody Mass Index37.7912/26/2017 1:29 PM EST Plan of Treatment Health MaintenanceDue DateLast DoneCommentsDepression Dokxlatqk02/30/1961Tobacco Xjpceemtf97/30/1961Fall Risk Iysmnumog55/30/2014DTaP,Tdap and Td Vaccines (2 - Td or Tdap)COVID-19 Vaccine ( season)2024 10/27/2023, 05/01/2023, 11/25/2022, Additional history existsInfluenza Vaccine 5010/27/2023, 10/05/2022, 11/13/2021, Additional history existsZoster (Shingles) ZjkyuafXbyrrfaed80/30/2019, 11/15/2018, 10/25/2012RSV ( or age 60+ yrs)Sptrzhqmb62/06/2023 Medical Devices Not on file Insurance Care Teams Team MemberRelationshipSpecialtyStart DateEnd Date Tyrell Spring MD PCP - GeneralFamily Zeonfqou72/7/24
--- OUTSIDE RECORDS SUMMARY | 2025-02-18 10:31 | XMS_ITS | CCD ---
Author Organization [facility] Care Team Providers [facility] President Name Role Phone MD Gonzalez Mcneal Attending [...] Referring Unavailable TYRELL BOWENS Primary Care Unavailable KOBY MORALEZ Attending Unavailable STEPMISAEL, ZACKARY Referring Unavailable NADEREChula, TYRELL Attending Unavailable JR. BEATRIZ, ZACKARY Vieira Attending Unavaila TYRELL Echeverria Attending Unavailable JR. BEATRIZ, ZACKARY Vieira Attending Unavaila junior BRANDON JR., ZACKARY Vieira Attending Unavaila TYRELL Echeverria Attending Unavailable Allergies Allergy ClassificationReported Allergen(s)Allergy TypeDate of OnsetReaction(s) Facility (18 sources)AmoxicillinDrug Edqqhfz58-48-4554TrjlvhqaJHZB [facility] Work Phone: Medications Current Medications MedicationDrug Class(es)DatesSig (Normalized)Sig (Original)bisoprolol fumarate 5 mg / hydroCHLOROthiazide 6.25 mg oral tablet (18 sources)Thiazide Diuretic, beta-Adrenergic BlockerStart: 12-30-5705rncr 1 tablet by mouth once dailybisoprolol-hydroCHLOROthiazide (Ziac) 5-6.25 MG tablet Indications: Benign essential hypertension ,Essential (primary) hypertension TAKE 1 TABLET BY MOUTH EVERY DAY 90 tablet 3 01/08/2024 Active End: 28-03-4905edio 1 tablet by mouth in the morningbisoprolol- hydroCHLOROthiazide (Ziac) 5-6.25 MG tablet Take 1 tablet by mouth in the morning. 01/08/2024 Discontinueddiclofenac sodium 75 mg delayed release oral tablet (18 sources)Nonsteroidal Anti-inflammatory Drugtake 1 tablet by mouth every twelve hoursdiclofenac (Voltaren) 75 MG EC tablet Take 75 mg by mouth every 12 (twelve) hours. Active2 ml dupilumab 150 mg/ml prefilled syringe (18 sources)Interleukin-4 Receptor alpha Antagonistdupilumab (Dupixent) 300 MG/2ML injection Inject 300 mg under the skin every 14 (fourteen) days. For eczema Activefolic acid 1 mg oral tablet (18 sources)take 1 tablet by mouth once dailyfolic acid (Folvite) 1 MG tablet Take 1 mg by mouth 1 (one) time each day at the same time. Activemethotrexate 2.5 mg oral tablet (18 sources)Folate Analog Metabolic Inhibitortake 1 tablet by mouth every week methotrexate 2.5 MG tablet Take 2.5 mg by mouth 1 (one) time per week. Active predniSONE 5 mg oral tablet (18 sources)take 1 tablet by mouth once dailypredniSONE (Deltasone) 5 MG tablet Take 5 mg by mouth 1 (one) time each day at the same time. Active Problems Active Problems Problem ClassificationProblemDateDocumented DateEpisodic/ChronicAllergic reactions (20 sources)Atopic dermatitis; Translations: [Intrinsic (allergic) eczema]Onset: 909926-79-5005DoujeddVihjypfy mellitus without complication (20 sources)Prediabetes; Translations: [Prediabetes]Onset: EpisodicDisorders of lipid metabolism (20 sources)Hypertriglyceridemia; Translations: [Pure hyperglyceridemia]Onset: 712502-96-0659AlbyxexKlzzxydig hypertension (20 sources)Benign essential hypertension; Translations: [Essential (primary) hypertension]Onset: 753171-52-1406KdccoibKvshkfhxhpigwj (2 sources)Primary generalized (osteo)arthritis; Translations: [Unspecified osteoarthritis, unspecified site]Onset: 47-00-7538QyppdjxOtcts aftercare (1 source)Other assisted (current) drug therapy; Translations: [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]Onset: 71-48-6836ZhssnbzxRjgkl nervous system disorders (6 sources)Carpal tunnel syndrome of right wrist; Translations: [Carpal tunnel syndrome, right upper limb]24-65-0679OhmeziqHfvwa nervous system disorders (2 sources)Carpal tunnel syndrome, right upper limb; Translations: [Carpal tunnel syndrome, right upper limb]Onset: 49-01-4857HezeaucHxpaj nutritional; endocrine; and metabolic disorders (17 sources)Body mass index 30+ - obesity; Translations: [Obesity, unspecified] Onset: 699668-61-7701OzlifsxDnhyg nutritional; endocrine; and metabolic disorders (4 sources)Severe obesity; Translations: [Class 2 severe obesity due to excess calories with serious comorbidity and body mass index (BMI) of 38.0 to 38.9 in adult ([facility])]Onset: 015629-01-8366DgmiluhCoajv screening for suspected conditions (not mental disorders or infectious disease) (1 source)Encounter for screening mammogram for malignant neoplasm of breast; Translations: [Encounter for screening mammogram for malignant neoplasm of breast]Onset: 80-86-7320FbghnqsiOpydv upper respiratory disease (20 sources)Allergic rhinitis due to pollen; Translations: [Allergic rhinitis due to pollen]Onset: 409082-97-9040GdkwegcSwzawmhzfw arthritis and related disease (20 sources)Rheumatoid arthritis with rheumatoid factor 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;Translations: [Rheumatoid arthritis, unspecified]Onset: 32-99-5665Lbmeofr Past or Other Problems Problem ClassificationProblemDateDocumented DateEpisodic/ChronicAcute and chronic tonsillitis (18 sources)Tonsil asymmetry; Translations: [Other chronic diseases of tonsils and adenoids]Onset: 10-12-2022 Resolved: 605296-44-7063HdwscduOayg disorders (7 sources)Mood disordersOnset: 359528-71-2812Dvvqutyod of unspecified nature or uncertain behavior (18 sources)Neoplasm of lymphoid system structure; 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]Onset: 057291-48-5984HcbaofunQcngy aftercare (7 sources)Patient encounter status; Translations: [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]Onset: 745575-91-1424VmlnpiktZyifz aftercare (12 sources)Long-term current use of drug therapy; Translations: [Other assisted (current) drug therapy]Onset: 259175-27-4271AezdtlrwZirvt congenital anomalies (3 sources)Talipes valgus; 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]Onset: 08-09-2022 Resolved: 608025-76-3066AddktcwKuozs congenital anomalies (15 sources)Talipes valgus of right foot; 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]Onset: 08-09-2022 Resolved: 072446-99-9386HmyvifjRwuke connective tissue disease (18 sources)Deformity of lower limb; Translations: [Contracture of muscle, right lower leg]Onset: 08-09-2022 Resolved: 990583-07-2895VpdtsdxlKzpsd skin disorders (18 sources)Seborrheic keratosis; Translations: [Other seborrheic keratosis] Onset: 950241-54-8419TqfavwulOeatf upper respiratory disease (18 sources)Epistaxis; Translations: [Epistaxis]Onset: 08-09-2022 Resolved: 893636-79-2377GrnjoixhOwrow upper respiratory disease (18 sources)Lesion of nose; Translations: [Other specified disorders of nose and nasal sinuses]Onset: 08-15-2022 Resolved: 404373-78-0582Ussokltm Results Test NameValueInterpretationReference RangeFacilityALL CBC WITH AUTO DIFFon 47-48-1958RZMDPTBTQ ABSOLUTE AUTO0.1NOMS HealthcareBasophils/100 WBC (Bld)0.9 % 0.2 - 2.0 %[facility] HealthcareEosinophils/100 WBC (Bld)3.9 %0.9 - 7.0 %[facility]-SullivanErythrocyte distribution width (RBC) [Ratio]15.2 %High11.0 - 15.0 % [facility] HealthcareHematocrit (Bld) [Volume fraction]45.4 %36.0 - 48.0 %[facility]-SullivanHemoglobin (Bld) [Mass/Vol]15 g/dL12.0 - 16.0 g/dLMissouri Baptist Hospital-Sullivan IMMATURE GRANULOCYTES ABS AUTO0.02NOSaint Francis Hospital & Health ServicesImmature granulocytes/100 WBC (Bld)0.3 %0.0 - 0.5 %[facility]-SullivanInterpretation and review of laboratory resultsAbnormalMissouri Baptist Hospital-SullivanLYMPHOCYTES ABSOLUTE AUTO1.1LowNOzarks Medical Center Lymphocytes/100 WBC (Bld)15.6 %Low20.5 - 60.0 %[facility] HospitalH (RBC) [Entitic mass]29.6 pg26.7 - 34.0 pgHawthorn Children's Psychiatric HospitalHC (RBC) [Mass/Vol]33 g/dL29.9 - 35.2 g/dLHawthorn Children's Psychiatric HospitalV (RBC) [Entitic vol]89.5 fL81.0 - 99.0 fLMissouri Baptist Hospital-SullivanMONOCYTES ABSOLUTE AUTO0.4NOIN HealthcareMonocytes/100 WBC (Bld)6.5 % 1.7 - 12.0 %[facility]SullivanNEUTROPHILS ABSOLUTE AUTO4.9NOMS [facility] Neutrophils/100 WBC (Bld)72.8 %43.0 - 75.0 %[facility]-SullivanPlatelet mean volume (Bld) [Entitic vol]9.4 fLLow9.5 - 13.5 fLMissouri Baptist Hospital-SullivanTBH EO #0.3NOMS German HospitalTB ECE527DNVOCapital Region Medical Center RBC5.07NOMS [facility] WBC6.8NOSaint Francis Hospital & Health ServicesCLINISYNCNOzarks Medical CenterALL CBC WITH AUTO DIFFon 31-06-0837UYJVHLLUH ABSOLUTE LCRT0ZMUTSaint Francis Hospital & Health ServicesBasophils/100 WBC (Bld)0.3 %0.2 - 2.0 %NOM HealthcareEosinophils/100 WBC (Bld)1.8 %0.9 - 7.0 %[facility]SullivanErythrocyte distribution width (RBC) [Ratio]14.4 %11.0 - 15.0 %NOM HealthcareHematocrit (Bld) [Volume fraction]43.8 %36.0 - 48.0 %NOM HealthcareHemoglobin (Bld) [Mass/Vol]14.4 g/dL12.0 - 16.0 g/dLNOIN HealthcareIMMATURE GRANULOCYTES ABS AUTO 0.04HighNOIN HealthcareImmature granulocytes/100 WBC (Bld)0.4 %0.0 - 0.5 %NOM HealthcareInterpretation and review of laboratory resultsAbnormalNOIN Healthcare LYMPHOCYTES ABSOLUTE AUTO1.3NOIN HealthcareLymphocytes/100 WBC (Bld)12.9 %Low 20.5 - 60.0 %[facility]iatric HospitalH (RBC) [Entitic mass]29.2 pg26.7 - 34.0 pgNOSaint Francis Hospital & Health ServicesMCHC (RBC) [Mass/Vol]32.9 g/dL29.9 - 35.2 g/dLMissouri Baptist Hospital-SullivanMCV (RBC) [Entitic vol]88.8 fL81.0 - 99.0 fLSPANISH FORK HOSPITAL HealthcareMONOCYTES ABSOLUTE AUTO0.4NOIN HealthcareMonocytes/100 WBC (Bld)4.2 %1.7 - 12.0 %NOM HealthcareNEUTROPHILS ABSOLUTE AUTO7.9HighNOMS HealthcareNeutrophils/100 WBC (Bld)80.4 %High43.0 - 75.0 %[facility] HealthcarePlatelet mean volume (Bld) [Entitic vol]9.8 fL9.5 - 13.5 fL [facility]-SullivanTB EO #0.2NOMS HealthcareTB [id number] Francis Hospital & Health ServicesTB RBC4.93 [facility]-SullivanTB WBC9.8NOIN HealthcareCLINISYNCNOMS HealthcareOffice Visiton 06-67-5916Ymdnkr-up [id number] Cayetano Weeks 1950 F Date Provider Department Center 04/09/2024 KOBY WILLAMS ORTHO MPORTHO No family history on file Level of Service:97578 [place] OFFICE/OUTPATIENT NEW LOW MDM 30 MINUTES (25) Reason for Visit and Comments: Pain [136]NormalUnMemorial Health System [facility]36on [id number] called to schedule a new patient appointment with our office. 1/14/25 Patient wants to be seen for: Right hand Patient had EMG done at Dr. Smith @ [facility] Patient has Not had any surgery or procedures on this body part Patient saw Dr. Brandon for this issues. They were referred to us from this provider. This appointment is not a second opionion This appointment IS NOT related to a work related injuryNormalUniversity of Rio Grande Regional HospitalALL CBC WITH AUTO DIFFon 48-06-2433GRJPBZVMQ ABSOLUTE AUTO 0.1NOMS HealthcareBasophils/100 WBC (Bld)1.3 %0.2 - 2.0 %[facility] Eosinophils/100 WBC (Bld)8 %High0.9 - 7.0 %[facility] HealthcareErythrocyte distribution width (RBC) [Ratio]15.3 %High11.0 - 15.0 %NOM HealthcareHematocrit (Bld) [Volume fraction]41.8 %36.0 - 48.0 %[facility]-SullivanHemoglobin (Bld) [Mass/Vol]13.5 g/dL12.0 - 16.0 g/dLNOSaint Francis Hospital & Health ServicesIMMATURE GRANULOCYTES ABS AUTO 0.02NOMS HealthcareImmature granulocytes/100 WBC (Bld)0.3 %0.0 - 0.5 %[facility] HealthcareInterpretation and review of laboratory resultsAbnormalNOSaint Francis Hospital & Health Services LYMPHOCYTES ABSOLUTE AUTO1.2NOMS HealthcareLymphocytes/100 WBC (Bld)18.7 %Low 20.5 - 60.0 %[facility] HospitalH (RBC) [Entitic mass]29 pg26.7 - 34.0 pgNOSoutheast Missouri HospitalHC (RBC) [Mass/Vol]32.3 g/dL29.9 - 35.2 g/dLHawthorn Children's Psychiatric HospitalV (RBC) [Entitic vol]89.7 fL81.0 - 99.0 fLNOIN HealthcareMONOCYTES ABSOLUTE AUTO0.8NOMS HealthcareMonocytes/100 WBC (Bld)12.1 %High1.7 - 12.0 %[facility] Healthcare NEUTROPHILS ABSOLUTE AUTO3.8NOMS HealthcareNeutrophils/100 WBC (Bld)59.6 %43.0 - 75.0 %[facility]-SullivanPlatelet mean volume (Bld) [Entitic vol]9.7 fL9.5 - 13.5 fL [facility] EO #0.5NOMS [facility] [id number] [facility] RBC4.66 [facility] WBC6.4NOMS HealthcareCLINISYNCNOMS HealthcareMAMM SCREENING BILATERAL W CADon 49-04-5529UCWV SCREENING BILATERAL W CADMAMM SCREENING BILATERAL W CAD CAYETANO WEEKS 1950 [id number] EXAM: MAMM SCREENING BILATERAL W CAD, 11/27/2023 [...] 11/27/2023 11:25 AM 1 b MAMM 1 NoAccess [facility] DaytonGLUCOSE, BLOOD (POC)on 10-04-2022 Glucose [Mass/Vol]110 mg/xENoxhuqut46 - 99 mg/dLChildren'S Hospital Of ColumbusComment on above:Location:[facility], [address] [place] [address] , [place], [place], [facility] The Accu-Chek Inform II glucose [...] above situations. Interpretation and review of laboratory resultsAbnormalCleveland [facility] PET/CT SKULL-THIGH INITon 48-00-0091DS PET/CT SKULL-THIGH INIT* * *Final Report* * * DATE OF [...] not excluded. Recommend follow-up or MR scan.. Extremities/Skeleton: No evidence of focal uptake to suggest [...] Recommend follow-up or dedicated MR scan. 4. EXTREMITIES/SKELETON: No evidence of focal uptake to suggest [...] any questions regarding this interpretation, please call [phone]. If you are unable to reach us at the number above, please feel free to contact [facility] eRadiology at [phone]. 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 4. EXTREMITIES/SKELETON: No evidence of focal uptake to suggest [...] any questions regarding this interpretation, please call [phone]. If you are unable to reach us at the number above, please feel free to contact [facility] eRadiology at [phone].DIVISION OF RADIOLOGY* * *Final Report* * * DATE OF [...] not excluded. Recommend follow-up or MR scan.. Extremities/Skeleton: No evidence of focal uptake to suggest FDG avid neoplastic process. Degenerative arthritic change. DIVISION OF RADIOLOGYProvider, [facility] [place] - 10/04/2022 * * *Final Report* * [...] not excluded. Recommend follow-up or MR scan.. Extremities/Skeleton: No evidence of focal uptake to suggest [...] Recommend follow-up or dedicated MR scan. 4. EXTREMITIES/SKELETON: No evidence of focal uptake to suggest [...] any questions regarding this interpretation, please call [phone]. If you are unable to reach us at the number above, please feel free to contact [facility] eRadiology at [phone]. 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 Norm MelendrezBasophils/100 WBC (Bld)0.7 %Normal0.2-2.0[facility] Comment on above:Performed By: #### CBC #### [facility] [address] [address] [address] Norm Beth #0.4 103/ulNormal0.0-0.7The [facility] HospitalComment on above: Performed By: #### CBC #### [facility] [address] [place] [address] Dr. Norm Sharmaosinophils/100 WBC (Bld)4.4 %Normal0.9-7.0[facility] Comment on above:Performed By: #### CBC #### [facility] [address] [address] [address] Norm Sharmarythrocyte distribution width (RBC) [Ratio]15.0 %Jyetev62.0-15.0 The Wayne HospitalComment on above:Performed By: #### CBC #### [facility] [address] [place] [address] Dr. Norm MelendrezHematocrit (Bld) [Volume fraction]45.0 %Ftqfnu92.0-48.0The [facility] HospitalComment on above:Performed By: #### CBC #### [facility] [address] [place] [address] Dr. Norm MelendrezHemoglobin (Bld) [Mass/Vol]14.5 g/oNKctivd14.0-16.0The [facility] HospitalComment on above:Performed By: #### CBC #### [facility] [address] [place] [address] Dr. Norm Hector #0.03 10e3/ulNormal0.00-0.03The [facility] Lorain Hospitalment on above:Performed By: #### CBC #### [facility] [address] [address] [address] Norm Hector %0.4 %Normal0.0-0.5The [facility] HospitalComhenry ford [facility] on above: Performed By: #### CBC #### [facility] [address] [address] [address] Norm Castanon #1.4 103/ulNormal1.2-3.8The [facility] HospitalComment on above:Performed By: #### CBC #### [facility] [address] [place] [address] Dr. Norm Presleyhocytes/100 WBC (Bld)17.2 %Critically low20.5-60.0[facility] on above:Performed By: #### CBC #### [facility] [address] [place] [address] Dr. Norm Ramos DIFF REQNONormalThe Wayne HospitalComment on above: Performed By: #### CBC #### [facility] [address] [place] [address] Dr. Norm Hrenandez (RBC) [Entitic mass]28.0 ezMsymya86.7-34.0[facility] on above:Performed By: #### CBC #### [facility] [address] [place] [address] Dr. Norm Maldonado (RBC) [Mass/Vol]32.2 g/sSKsfspb88.9-35.2The [facility] Hospitalment on above:Performed By: #### CBC #### [facility] [address] [place] [address] Dr. Norm Maldonado (RBC) [Entitic vol]86.9 zBDiefhl27.0-99.0The [facility] on above:Performed By: #### CBC #### [facility] [address] [place] [address] Dr. Norm Booker #0.5 103/ulNormal0.3-0.8The [facility] HospitalComment on above:Performed By: #### CBC #### [facility] [address] [place] [address] Dr. Norm Lyocytes/100 WBC (Bld)6.6 %Normal1.7-12.0[facility] Comment on above:Performed By: #### CBC #### [facility] [address] [place] [address] Dr. Norm BrothersUT #5.8 103/ulNormal1.4-6.5The [facility] HospitalComment on above:Performed By: #### CBC #### [facility] [address] [place] [address] Dr. Norm Brothersutrophils/100 WBC (Bld)70.7 %Ombsma30.0-75.0The [facility] HospitalComment on above:Performed By: #### CBC #### [facility] [address] [place] [address] Dr. Norm Hidalgolet mean volume (Bld) [Entitic vol]9.2 fLCritically low 9.5-13.5The [facility] HospitalComment on above:Performed By: #### CBC #### [facility] [address] [place] [address] Dr. Norm MelendrezPLT231 103/rbDfhsqy022-894Erd Wayne HospitalComment on above: Performed By: #### CBC #### [facility] [address] [place] [address] Dr. Norm MelendrezRBC5.18 106/ulNormal4.20-5.40The [facility] HospitalComment on above:Performed By: #### CBC #### [facility] [address] [place] [address] Dr. Norm MelendrezWBC8.2 103/ulNormal4.0-11.0The [facility] HospitalComment on above: Performed By: #### CBC #### [facility] [address] [place] [address] Dr. Norm MelendrezPROF 14(COMP METB)on 73-36-0846Hwqgxro [Mass/Vol]3.4 g/dLNormal 3.4-5.0The [facility] HospitalComment on above:Performed By: #### CMP #### [facility] [address] [place] [address] Dr. Norm MelendrezAlbumin/Globulin [Mass ratio]0.9 {ratio}NormalThe Wayne HospitalComment on above:Performed By: #### CMP #### [facility] [address] [place] [address] Dr. Norm Abdullahi [Catalytic activity/Vol]105 U/GZxpeia84-779Kub Wayne HospitalComment on above:Performed By: #### CMP #### [facility] [address] [place] [address] Dr. Norm Aquino [Catalytic activity/Vol]48 U/ECckpig11-03Nrr [facility] HospitalComment on above:Performed By: #### CMP #### [facility] [address] [place] [address] Dr. Norm Granado gap [Moles/Vol]7.9 mmol/LNormalThe Wayne HospitalComment on above:Performed By: #### CMP #### [facility] [address] [place] [address] Dr. Norm MelendrezAST [Catalytic activity/Vol]22 U/KFonesj21-86Ljz [facility] HospitalComment on above:Performed By: #### CMP #### [facility] [address] [place] [address] Dr. Norm MelendrezBilirubin [Mass/Vol]0.4 mg/dLNormal0.2-1.0[facility] Comment on above:Performed By: #### CMP #### [facility] [address] [place] [address] Dr. Norm MelendrezCalcium [Mass/Vol]8.9 mg/dLNormal8.5-10.1[facility] Comment on above:Performed By: #### CMP #### [facility] [address] [place] [address] Dr. Norm MelendrezChloride [Moles/Vol]108 mmol/LCritically bqar26-304Yxf [facility] HospitalComment on above:Performed By: #### CMP #### [facility] [address] [address] [address] Norm MelendrezCO2 [Moles/Vol]31.1 mmol/GHzpahw75.0-32.0[facility] Comment on above:Performed By: #### CMP #### [facility] [address] [address] [address] Norm MelendrezCreatinine [Mass/Vol]0.88 mg/dLNormal0.55-1.02[facility] Medical CenterComment on above:Performed By: #### CMP #### [facility] [address] [address] [address] Norm SharmaGFR-AF TAJIK>60Normal>=60The [facility] HospitalComment on above:Performed By: #### CMP #### [facility] [address] [address] [address] Norm SharmaGFR-NON AF TAJIK>60Normal>=60The [facility] HospitalComment on above:Performed By: #### CMP #### [facility] [address] [address] [address] Norm MelendrezGlobulin (S) [Mass/Vol]3.8 g/dLNormalThe [facility] HospitalComment on above:Performed By: #### CMP #### [facility] [address] [address] [address] Norm MelendrezGlucose [Mass/Vol]109 mg/dLCritically nizl79-634Egu [facility] HospitalComment on above:Performed By: #### CMP #### [facility] [address] [address] [address] Norm MelendrezPotassium [Moles/Vol]4.0 mmol/LNormal3.5-5.1[facility] Comment on above:Performed By: #### CMP #### [facility] [address] [address] [address] Norm MelendrezProtein [Mass/Vol]7.2 g/dLNormal6.4-8.2[facility] Comment on above:Performed By: #### CMP #### [facility] [address] [address] [address] Norm MelendrezSodium [Moles/Vol]143 mmol/IDorcoy617-590Kvz [facility] Comment on above:Performed By: #### CMP #### [facility] [address] [place] [address] Dr. Norm MelendrezUrea nitrogen [Mass/Vol]16.0 mg/dLNormal7.0-18.0The [facility] HospitalComment on above:Performed By: #### CMP #### [facility] [address] [place] [address] Dr. Norm MelendrezUrea nitrogen/Creatinine [Mass ratio]18.2 mg/mgNormalThe Wayne HospitalComment on above:Performed By: #### CMP #### [facility] [address] [place] [address] Dr. Norm Adame RATE WESTERGRENon 29-92-9520MTE RATE17 mm/hrNormal<=30The [facility] HospitalComment on above:Performed By: #### SEDR #### [facility] [address] [place] [address] Dr. Norm Browne AUTO DIFFon 23-31-9617BKUD #0.1 103/ulNormal0.0-0.1The [facility] HospitalComment on above:Performed By: #### CBC #### [facility] [address] [place] [address] Dr. Norm MelendrezBasophils/100 WBC (Bld)0.7 %Normal0.2-2.0[facility] Comment on above:Performed By: #### CBC #### [facility] [address] [place] [address] Dr. Norm Beth #0.2 103/ulNormal0.0-0.7The [facility] HospitalComment on above: Performed By: #### CBC #### [facility] [address] [place] [address] Dr. Norm Sharmaosinophils/100 WBC (Bld)3.0 %Normal0.9-7.0[facility] Comment on above:Performed By: #### CBC #### [facility] [address] [place] [address] Dr. Norm Sharmarythrocyte distribution width (RBC) [Ratio]15.4 %Critically high 11.0-15.0The [facility] HospitalComment on above:Performed By: #### CBC #### [facility] [address] [place] [address] Dr. Norm MelendrezHematocrit (Bld) [Volume fraction]44.8 %Qjeqnz22.0-48.0The [facility] HospitalComment on above:Performed By: #### CBC #### [facility] [address] [place] [address] Dr. Norm MelendrezHemoglobin (Bld) [Mass/Vol]14.6 g/uRTanqwu28.0-16.0The [facility] HospitalComment on above:Performed By: #### CBC #### [facility] [address] [place] [address] Dr. Norm Hector #0.02 10e3/ulNormal0.00-0.03The Wayne HospitalComment on above:Performed By: #### CBC #### [facility] [address] [place] [address] Dr. Norm Hector %0.3 %Normal0.0-0.5The Wayne HospitalComment on above: Performed By: #### CBC #### [facility] [address] [place] [address] Dr. Norm PresleyH #1.2 103/ulNormal1.2-3.8The Wayne HospitalComment on above:Performed By: #### CBC #### [facility] [address] [place] [address] Dr. Norm Riveramphocytes/100 WBC (Bld)16.8 %Critically low20.5-60.0The Wayne HospitalComment on above:Performed By: #### CBC #### [facility] [address] [place] [address] Dr. Norm Ramos DIFF REQNONormalThe Wayne HospitalComment on above: Performed By: #### CBC #### [facility] [address] [place] [address] Dr. Norm Maldonado (RBC) [Entitic mass]27.6 znOthsbj37.7-34.0The Wayne HospitalComment on above:Performed By: #### CBC #### [facility] [address] [place] [address] Dr. Norm Maldonado (RBC) [Mass/Vol]32.6 g/vBBodiri20.9-35.2The Wayne HospitalComment on above:Performed By: #### CBC #### [facility] [address] [place] [address] Dr. Norm Maldonado (RBC) [Entitic vol]84.7 wPHoonfc06.0-99.0The Wayne HospitalComment on above:Performed By: #### CBC #### [facility] [address] [place] [address] Dr. Norm Booker #0.6 103/ulNormal0.3-0.8The Wayne HospitalComment on above:Performed By: #### CBC #### [facility] [address] [place] [address] Dr. Norm Lyocytes/100 WBC (Bld)8.0 %Normal1.7-12.0[facility] Comment on above:Performed By: #### CBC #### [facility] [address] [place] [address] Dr. Norm Hu #5.2 103/ulNormal1.4-6.5The Wayne HospitalComment on above:Performed By: #### CBC #### [facility] [address] [place] [address] Dr. Norm Brothersutrophils/100 WBC (Bld)71.2 %Swhewp95.0-75.0The Wayne HospitalComment on above:Performed By: #### CBC #### [facility] [address] [place] [address] Dr. Norm Adames mean volume (Bld) [Entitic vol]9.2 fLCritically low 9.5-13.5The Wayne HospitalComment on above:Performed By: #### CBC #### [facility] [address] [place] [address] Dr. Norm MelendrezPLT231 103/hjOvgbod317-527Gqg Wayne HospitalComment on above: Performed By: #### CBC #### [facility] [address] [place] [address] Dr. Norm MelendrezRBC5.29 106/ulNormal4.20-5.40The Wayne HospitalComment on above:Performed By: #### CBC #### [facility] [address] [place] [address] Dr. Norm MelendrezWBC7.3 103/ulNormal4.0-11.0The Wayne HospitalComment on above: Performed By: #### CBC #### [facility] [address] [place] [address] Dr. Norm MelendrezPROF 14(COMP METB)on 00-15-8453Ddgatun [Mass/Vol]3.5 g/dLNormal 3.4-5.0The [facility] HospitalComhen[facility] on above:Performed By: #### CMP #### [facility] [address] [place] [address] Dr. Norm MelendrezAlbumin/Globulin [Mass ratio]0.9 {ratio}NormalThe [facility] HospitalComhenry [facility]d [facility] on above:Performed By: #### CMP #### [facility] [address] [place] [address] Dr. Norm Abdullahi [Catalytic activity/Vol]98 U/SLwlrtk15-097Kqs [facility] HospitalComhen[facility] on above:Performed By: #### CMP #### [facility] [address] [place] [address] Dr. Norm Aquino [Catalytic activity/Vol]33 U/MHqntyr71-71Xbh Wayne HospitalComment on above:Performed By: #### CMP #### [facility] [address] [address] [address] Norm Granado gap [Moles/Vol]12.4 mmol/LNormalThe [facility] Comment on above:Performed By: #### CMP #### [facility] [address] [address] [address] Norm MelendrezAST [Catalytic activity/Vol]29 U/VKpdgyl75-16Ivy Wayne HospitalComment on above:Performed By: #### CMP #### [facility] [address] [address] [address] Norm MelendrezBilirubin [Mass/Vol]0.4 mg/dLNormal0.2-1.0[facility] Comment on above:Performed By: #### CMP #### [facility] [address] [place] [address] Dr. Norm MelendrezCalcium [Mass/Vol]9.5 mg/dLNormal8.5-10.1[facility] Comment on above:Performed By: #### CMP #### [facility] [address] [place] [address] Dr. Norm MelendrezChloride [Moles/Vol]103 mmol/EIwruvi91-535Xiu [facility] Comment on above:Performed By: #### CMP #### [facility] [address] [place] [address] Dr. Norm MelendrezCO2 [Moles/Vol]28.6 mmol/DBfvnqp36.0-32.0[facility] Comment on above:Performed By: #### CMP #### [facility] [address] [place] [address] Dr. Norm MelendrezCreatinine [Mass/Vol]0.77 mg/dLNormal0.55-1.02The Wayne HospitalComment on above:Performed By: #### CMP #### [facility] [address] [address] [address] Norm Gould-AF TAJIK>60Normal>=60The Wayne HospitalComment on above:Performed By: #### CMP #### [facility] [address] [place] [address] Dr. Yilan ChangEGFR-NON AF TAJIK>60Normal>=60The [facility] HospitalComment on above:Performed By: #### CMP #### [facility] [address] [place] [address] Dr. Norm MelendrezGlobulin (S) [Mass/Vol]3.7 g/dLNormMagruder Memorial HospitalComment on above:Performed By: #### CMP #### [facility] [address] [place] [address] Dr. Norm MelendrezGlucose [Mass/Vol]97 mg/zEKpdckc42-140Gib [facility] Comment on above:Performed By: #### CMP #### [facility] [address] [place] [address] Dr. Norm MelendrezPotassium [Moles/Vol]4.0 mmol/LNormal3.5-5.1[facility] Comment on above:Performed By: #### CMP #### [facility] [address] [place] [address] Dr. Norm MelendrezProtein [Mass/Vol]7.2 g/dLNormal6.4-8.2[facility] Comment on above:Performed By: #### CMP #### [facility] [address] [place] [address] Dr. Norm MelendrezSodium [Moles/Vol]140 mmol/ZWywzdv254-830IshKettering Health [facility] Center Comment on above:Performed By: #### CMP #### [facility] [address] [place] [address] Dr. Norm MelendrezUrea nitrogen [Mass/Vol]11.0 mg/dLNormal7.0-18.0The Wayne HospitalComment on above:Performed By: #### CMP #### [facility] [address] [place] [address] Dr. Norm Bush nitrogen/Creatinine [Mass ratio]14.3 mg/mgNormalThSelect Medical Specialty Hospital - TrumbullComment on above:Performed By: #### CMP #### [facility] [address] [place] [address] Dr. Norm Adame RATE WESTERGRENon 69-36-6744HRD RATE53 mm/hrCritically high <=30The Wayne HospitalComment on above:Performed By: #### CMP #### [facility] [address] [place] [address] Dr. Norm UmañaC AUTO DIFFon 88-43-8485RKBH #0.1 103/ulNormal0.0-0.1The Wayne HospitalComment on above:Performed By: #### CBC #### [facility] [address] [place] [address] Dr. Norm MelendrezBasophils/100 WBC (Bld)0.9 %Normal0.2-2.0[facility] Comment on above:Performed By: #### CBC #### [facility] [address] [place] [address] Dr. Zheng ChangEMike #0.3 103/ulNormal0.0-0.7The Wayne HospitalComment on above: Performed By: #### CBC #### [facility] [address] [place] [address] Dr. Norm Sharmaosinophils/100 WBC (Bld)4.1 %Normal0.9-7.0[facility] Comment on above:Performed By: #### CBC #### [facility] [address] [place] [address] Dr. Norm Sharmarythrocyte distribution width (RBC) [Ratio]15.9 %Critically high 11.0-15.0The Wayne HospitalComment on above:Performed By: #### CBC #### [facility] [address] [place] [address] Dr. Norm MelendrezHematocrit (Bld) [Volume fraction]44.9 %Vzhdjm75.0-48.0The Wayne HospitalComment on above:Performed By: #### CBC #### [facility] [address] [place] [address] Dr. Norm MelendrezHemoglobin (Bld) [Mass/Vol]14.2 g/hGEtwacy78.0-16.0The Wayne HospitalComment on above:Performed By: #### CBC #### [facility] [address] [address] [address] Norm Hector #0.04 10e3/ulCritically high0.00-0.03[facility] Comment on above:Performed By: #### CBC #### [facility] [address] [place] [address] Dr. Norm Hector %0.6 %Critically high0.0-0.5The Wayne HospitalComment on above:Performed By: #### CBC #### [facility] [address] [place] [address] Dr. Norm Castanon #1.6 103/ulNormal1.2-3.8The Wayne HospitalComment on above:Performed By: #### CBC #### [facility] [address] [place] [address] Dr. Norm Presleyhocytes/100 WBC (Bld)22.0 %Orbhbh56.5-60.0The Wayne HospitalComment on above:Performed By: #### CBC #### [facility] [address] [place] [address] Dr. Norm CraftUAL DIFF REQNONormalThe Wayne HospitalComment on above: Performed By: #### CBC #### [facility] [address] [place] [address] Dr. Norm Maldonado (RBC) [Entitic mass]27.5 xcIcokec28.7-34.0The [facility] HospitalComment on above:Performed By: #### CBC #### [facility] [address] [place] [address] Dr. Norm Maldonado (RBC) [Mass/Vol]31.6 g/wMAidtmc94.9-35.2The Wayne HospitalComment on above:Performed By: #### CBC #### [facility] [address] [place] [address] Dr. Norm Maldonado (RBC) [Entitic vol]86.8 iQDfufje55.0-99.0The Wayne HospitalComment on above:Performed By: #### CBC #### [facility] [address] [address] [address] Norm Booker #0.5 103/ulNormal0.3-0.8The Wayne HospitalComment on above:Performed By: #### CBC #### [facility] [address] [address] [address] Norm Lyocytes/100 WBC (Bld)7.4 %Normal1.7-12.0[facility] Comment on above:Performed By: #### CBC #### [facility] [address] [place] [address] Dr. Norm Hu #4.6 103/ulNormal1.4-6.5The [facility] HospitalComment on above:Performed By: #### CBC #### [facility] [address] [place] [address] Dr. Norm Brothersutrophils/100 WBC (Bld)65.0 %[place]04.0-75.0The Wayne HospitalComment on above:Performed By: #### CBC #### [facility] [address] [place] [address] Dr. Norm Adames mean volume (Bld) [Entitic vol]9.6 fLNormal9.5-13.5The [facility] HospitalComment on above:Performed By: #### CBC #### [facility] [address] [place] [address] Dr. Norm MelendrezPLT237 103/ocBwfsgf305-867Cyv Wayne HospitalComment on above: Performed By: #### CBC #### [facility] [address] [place] [address] Dr. Norm MelendrezRBC5.17 106/ulNormal4.20-5.40The [facility] HospitalComment on above:Performed By: #### CBC #### [facility] [address] [place] [address] Dr. Norm MelendrezWBC7.0 103/ulNormal4.0-11.0The [facility] HospitalComment on above: Performed By: #### CBC #### [facility] [address] [address] [address] Norm MelendrezPROF 14(COMP METB)on 90-90-6809Gujcjul [Mass/Vol]3.4 g/dLNormal 3.4-5.0The Wayne HospitalComment on above:Performed By: #### CMP #### [facility] [address] [place] [address] Dr. Norm MelendrezAlbumin/Globulin [Mass ratio]0.9 {ratio}NormalThe Wayne HospitalComment on above:Performed By: #### CMP #### [facility] [address] [place] [address] Dr. Norm AriasP [Catalytic activity/Vol]101 U/RDxpbfz12-110Ioy [facility] HospitalComment on above:Performed By: #### CMP #### [facility] [address] [place] [address] Dr. Norm AriasT [Catalytic activity/Vol]28 U/ICmjdxo29-12Ozx [facility] HospitalComment on above:Performed By: #### CMP #### [facility] [address] [place] [address] Dr. Norm Granado gap [Moles/Vol]12.9 mmol/LNormalThe [facility] Comment on above:Performed By: #### CMP #### [facility] [address] [place] [address] Dr. Norm MelendrezAST [Catalytic activity/Vol]17 U/YXnlqks43-15Cxo [facility] HospitalComment on above:Performed By: #### CMP #### [facility] [address] [place] [address] Dr. Norm MelendrezBilirubin [Mass/Vol]0.4 mg/dLNormal0.2-1.0[facility] Comment on above:Performed By: #### CMP #### [facility] [address] [place] [address] Dr. Norm MelendrezCalcium [Mass/Vol]8.9 mg/dLNormal8.5-10.1[facility] Comment on above:Performed By: #### CMP #### [facility] [address] [address] [address] Norm MelendrezChloride [Moles/Vol]104 mmol/RSyimed44-029Yuu [facility] Comment on above:Performed By: #### CMP #### [facility] [address] [address] [address] Norm MelendrezCO2 [Moles/Vol]27.1 mmol/OCvzukc95.0-32.0[facility] Comment on above:Performed By: #### CMP #### [facility] [address] [address] [address] Norm MelendrezCreatinine [Mass/Vol]0.86 mg/dLNormal0.55-1.02The Wayne HospitalComment on above:Performed By: #### CMP #### [facility] [address] [place] [address] Dr. Zheng ChangEGFR-AF TAJIK>60Normal>=60The Wayne HospitalComment on above:Performed By: #### CMP #### [facility] [address] [address] [address] Norm SharmaGFR-NON AF TAJIK>60Normal>=60The [facility] HospitalComment on above:Performed By: #### CMP #### [facility] [address] [address] [address] Norm MelendrezGlobulin (S) [Mass/Vol]3.7 g/dLNormalThe Wayne HospitalComment on above:Performed By: #### CMP #### [facility] [address] [address] [address] Norm MelendrezGlucose [Mass/Vol]114 mg/dLCritically svpd15-602Dij [facility] HospitalComment on above:Performed By: #### CMP #### [facility] [address] [address] [address] Norm MelendrezPotassium [Moles/Vol]4.0 mmol/LNormal3.5-5.1[facility] Comment on above:Performed By: #### CMP #### [facility] [address] [place] [address] Dr. Norm MelendrezProtein [Mass/Vol]7.1 g/dLNormal6.4-8.2[facility] Comment on above:Performed By: #### CMP #### [facility] [address] [place] [address] Dr. Norm MelendrezSodium [Moles/Vol]140 mmol/CWptdzt151-393Pov [facility] Comment on above:Performed By: #### CMP #### [facility] [address] [place] [address] Dr. Norm MelendrezUrea nitrogen [Mass/Vol]13.0 mg/dLNormal7.0-18.0The Wayne HospitalComment on above:Performed By: #### CMP #### [facility] [address] [place] [address] Dr. Norm Bush nitrogen/Creatinine [Mass ratio]15.1 mg/mgNormalThe Wayne HospitalComment on above:Performed By: #### CMP #### [facility] [address] [place] [address] Dr. Norm Adame RATE WESTERGRENon 49-91-7714AEP RATE44 mm/hrCritically high <=30The [facility] HospitalComment on above:Performed By: #### SEDR #### [facility] [address] [place] [address] Dr. Norm Browne AUTO DIFFon 05-07-4225UCON #0.1 103/ulNormal0.0-0.1The Wayne HospitalComment on above:Performed By: #### CBC #### [facility] [address] [place] [address] Dr. Norm MelendrezBachristianphils/100 WBC (Bld)0.8 %Normal0.2-2.0[facility] Comment on above:Performed By: #### CBC #### [facility] [address] [place] [address] Dr. Zheng ChangEO #0.2 103/ulNormal0.0-0.7The Wayne HospitalComment on above: Performed By: #### CBC #### [facility] [address] [address] [address] Norm Sharmaosinophils/100 WBC (Bld)2.6 %Normal0.9-7.0[facility] Comment on above:Performed By: #### CBC #### [facility] [address] [place] [address] Dr. Norm Sharmarythrocyte distribution width (RBC) [Ratio]16.6 %Critically high 11.0-15.0The Wayne HospitalComment on above:Performed By: #### CBC #### [facility] [address] [place] [address] Dr. Norm MelendrezHematocrit (Bld) [Volume fraction]44.1 %Kwtson45.0-48.0The [facility] HospitalComment on above:Performed By: #### CBC #### [facility] [address] [place] [address] Dr. Norm MelendrezHemoglobin (Bld) [Mass/Vol]14.3 g/zEUojhpd15.0-16.0The [facility] HospitalComment on above:Performed By: #### CBC #### [facility] [address] [place] [address] Dr. Norm Hector #0.04 10e3/ulCritically high0.00-0.03[facility] Comment on above:Performed By: #### CBC #### [facility] [address] [place] [address] Dr. Norm Hector %0.5 %Normal0.0-0.5The [facility] HospitalComment on above: Performed By: #### CBC #### [facility] [address] [place] [address] Dr. Norm PresleyH #1.5 103/ulNormal1.2-3.8The [facility] HospitalComment on above:Performed By: #### CBC #### [facility] [address] [place] [address] Dr. Norm Riveramphocytes/100 WBC (Bld)17.2 %Critically low20.5-60.0The [facility] HospitalComment on above:Performed By: #### CBC #### [facility] [address] [place] [address] Dr. Norm Ramos DIFF REQNONormalThe Wayne HospitalComment on above: Performed By: #### CBC #### [facility] [address] [place] [address] Dr. Norm Maldonado (RBC) [Entitic mass]27.0 niElgqgn27.7-34.0The [facility] HospitalComment on above:Performed By: #### CBC #### [facility] [address] [place] [address] Dr. Norm Maldonado (RBC) [Mass/Vol]32.4 g/dCDhspor62.9-35.2The [facility] HospitalComment on above:Performed By: #### CBC #### [facility] [address] [place] [address] Dr. Norm Maldonado (RBC) [Entitic vol]83.4 oTPvyfnu77.0-99.0The [facility] HospitalComment on above:Performed By: #### CBC #### [facility] [address] [place] [address] Dr. Norm Booker #0.6 103/ulNormal0.3-0.8The [facility] HospitalComment on above:Performed By: #### CBC #### [facility] [address] [place] [address] Dr. Norm Lyocytes/100 WBC (Bld)7.0 %Normal1.7-12.0[facility] Comment on above:Performed By: #### CBC #### [facility] [address] [place] [address] Dr. Norm Hu #6.1 103/ulNormal1.4-6.5The [facility] HospitalComment on above:Performed By: #### CBC #### [facility] [address] [place] [address] Dr. Norm Brothersutrophils/100 WBC (Bld)71.9 %Tegidm79.0-75.0The [facility] HospitalComment on above:Performed By: #### CBC #### [facility] [address] [place] [address] Dr. Norm Hidalgolet mean volume (Bld) [Entitic vol]9.3 fLCritically low 9.5-13.5The [facility] HospitalComment on above:Performed By: #### CBC #### [facility] [address] [place] [address] Dr. Norm MelnedrezPLT239 103/qkYezzwn720-437Bec [facility] HospitalComment on above: Performed By: #### CBC #### [facility] [address] [place] [address] Dr. Norm MelendrezRBC5.29 106/ulNormal4.20-5.40The [facility] HospitalComment on above:Performed By: #### CBC #### [facility] [address] [place] [address] Dr. Norm MelendrezWBC8.5 103/ulNormal4.0-11.0The [facility] HospitalComment on above: Performed By: #### CBC #### [facility] [address] [place] [address] Dr. Norm Charles 14(COMP METB)on 36-54-8933Xjigozm [Mass/Vol]3.4 g/dLNormal 3.4-5.0The [facility] HospitalComment on above:Performed By: #### CMP #### [facility] [address] [place] [address] Dr. Norm MelendrezAlbumin/Globulin [Mass ratio]0.9 {ratio}NormalThe Wayne HospitalComment on above:Performed By: #### CMP #### [facility] [address] [place] [address] Dr. Norm Abdullahi [Catalytic activity/Vol]90 U/HDymfno72-149Now Wayne HospitalComment on above:Performed By: #### CMP #### [facility] [address] [place] [address] Dr. Yilan ChangALT [Catalytic activity/Vol]25 U/AIizgfp66-20Ibk [facility] HospitalComment on above:Performed By: #### CMP #### [facility] [address] [place] [address] Dr. Norm Granado gap [Moles/Vol]11.4 mmol/LNormalKettering Health [facility] Comment on above:Performed By: #### CMP #### [facility] [address] [address] [address] Norm MelendrezAST [Catalytic activity/Vol]17 U/XXscdzk45-49Qss [facility] HospitalComment on above:Performed By: #### CMP #### [facility] [address] [place] [address] Dr. Norm MelendrezBilirubin [Mass/Vol]0.4 mg/dLNormal0.2-1.0[facility] Comment on above:Performed By: #### CMP #### [facility] [address] [place] [address] Dr. Norm MelendrezCalcium [Mass/Vol]9.1 mg/dLNormal8.5-10.1[facility] Comment on above:Performed By: #### CMP #### [facility] [address] [place] [address] Dr. Norm MelendrezChloride [Moles/Vol]106 mmol/TQjrpel29-992NmkKettering Health – [facility]in Medical Center Comment on above:Performed By: #### CMP #### [facility] [address] [place] [address] Dr. Norm MelendrezCO2 [Moles/Vol]26.8 mmol/OPynled76.0-32.0[facility] Comment on above:Performed By: #### CMP #### [facility] [address] [place] [address] Dr. Norm MelendrezCreatinine [Mass/Vol]0.80 mg/dLNormal0.55-1.02The [facility] Hospitalment on above:Performed By: #### CMP #### [facility] [address] [place] [address] Dr. Zheng ChangEGFR-AF TAJIK>60Normal>=60The Bhavya HospitalComment on above:Performed By: #### CMP #### [facility] [address] [address] [address] Norm Gould-NON AF TAJIK>60Normal>=60The [facility] HospitalComment on above:Performed By: #### CMP #### [facility] [address] [address] [address] Norm MelendrezGlobulin (S) [Mass/Vol]3.7 g/dLNormMagruder Memorial HospitalComment on above:Performed By: #### CMP #### [facility] [address] [address] [address] Norm MelendrezGlucose [Mass/Vol]110 mg/dLCritically vtsa46-168Bqj [facility] HospitalComment on above:Performed By: #### CMP #### [facility] [address] [address] [address] Norm MelendrezPotassium [Moles/Vol]4.2 mmol/LNormal3.5-5.1[facility] Comment on above:Performed By: #### CMP #### [facility] [address] [address] [address] Norm MelendrezProtein [Mass/Vol]7.1 g/dLNormal6.4-8.2[facility] Comment on above:Performed By: #### CMP #### [facility] [address] [address] [address] Norm MelendrezSodium [Moles/Vol]140 mmol/JLjoqhx447-149Sjv [facility] Comment on above:Performed By: #### CMP #### [facility] [address] [address] [address] Norm MelendrezUrea nitrogen [Mass/Vol]14.0 mg/dLNormal7.0-18.0The [facility] HospitalComment on above:Performed By: #### CMP #### [facility] [address] [address] [address] Norm MelendrezUrea nitrogen/Creatinine [Mass ratio]17.5 mg/mgNormalThSelect Medical Specialty Hospital - TrumbullComment on above:Performed By: #### CMP #### [facility] [address] [address] [address] Norm Adame RATE WESTERGRENon 58-72-6482XMC RATE31 mm/hrCritically high <=30The [facility] HospitalComment on above:Performed By: #### CMP #### [facility] [address] [address] [address] Norm Johansen Antinuclear Antibodieson 21-82-1711Rkvgicgskal Abs, IFA NegativeNormal.[facility]ide Methodist HospitalComment on above:Result Comment: Negative <1:80 Borderline 1:80 Positive >1:80 ICAP nomenclature: AC-0 For more information about Hep-2 cell patterns use ANApatterns.org, the official website for the International Consensus on Antinuclear Antibody (LINO) Patterns (ICAP). Performed at: [address] [id number] Crop Consultant: Alin Negron PhD, Phone: [phone] PERFORMED BY: [place] [address] PATHOLOGIST RN NEONATAL ICU TYRONE HOOPER M.D.Performed By: #### T4F, CRP, TSH3, URIC, CBC, ESR, CMP, CK #### [address] #### LINO #### [facility] ,Albumin [Mass/volume] in Serum or PlasmaOrdered By: Alphonse Mcneal on 19-02-0326Hauwvus [Mass/Vol]3.5 g/dL3.2-5.5FTrinity Health System East Campus Aldolaseon 52-15-1099Suwftiul3.6 U/LLow3.3-10.3FTrinity Health System East Campus Comment on above:Result Comment: Performed at: [address] [id number] Crop Consultant: Alin Negron PhD, Phone: [phone] PERFORMED BY: [place] [address] PATHOLOGIST RN NEONATAL ICU TYRONE HOOPER M.D.Performed By: #### T4F, CRP, TSH3, URIC, CBC, ESR, CMP, CK #### [place] [address] [place] #### LINO #### [facility] ,Basophils Auto (Bld) [#/Vol]Ordered By: Alphonse Grijalvarow on 92-89-5651Xedkiblda (Bld) [#/Vol]0.1 10*3/uL0.0-0.2FTrinity Health System East CampusBasophils/100 WBC Auto (Bld)Ordered By: Alphonse Grijalvarow on 63-62-1277Xybtumhqf/100 WBC (Bld)1.1 %[facility] HospitalBlwindom area hospital hemoglobin measurement (mass/volume) Ordered By: Alphonse Grijalvarow on 97-73-5496Vnrhmxfpgt (Bld) [Mass/Vol]13.7 g/dL 11.8-15.4FTrinity Health System East CampusBlwindom area hospital leukocytes automated count (number/volume)Ordered By: Alphonse Grijalvarow on 44-55-9471EPS (Bld) [#/Vol]7.9 10*3/uL4.5-11.0[facility] HospitalC-Reactive Proteinon 05-31-2021 C-Reactive Protein1.4 mg/dLHigh0.0-1.0[facility] HospitalComment on above:Performed By: #### T4F, CRP, TSH3, URIC, CBC, ESR, CMP, CK #### [place] [address] [place] #### LINO #### [facility] ,Complete Blood Count Auto Diffon 48-30-2529Hiqdbcrpl (Bld) [#/Vol]0.1 10*3/uL Normal0.0-0.2FTrinity Health System East CampusComment on above:Performed By: #### T4F, CRP, TSH3, URIC, CBC, ESR, CMP, CK #### [place] [address] [place] #### LINO #### [facility] ,Basophils/100 WBC (Bld)1.1 %Normal.[facility] HospitalComment on above:Performed By: #### T4F, CRP, TSH3, URIC, CBC, ESR, CMP, CK #### [place] [address] [place] #### LINO #### [facility] ,Eosinophils (Bld) [#/Vol]0.6 10*3/uLHigh0.0-0.45[facility] HospitalComment on above:Performed By: #### T4F, CRP, TSH3, URIC, CBC, ESR, CMP, CK #### [place] [address] [place] #### LINO #### [facility] ,Eosinophils/100 WBC (Bld)7.9 %Normal.[facility] HospitalComment on above:Performed By: #### T4F, CRP, TSH3, URIC, CBC, ESR, CMP, CK #### [address] #### LINO #### [facility] ,Erythrocyte distribution width (RBC) [Ratio]16.0 %High11.9-15.3FTrinity Health System East CampusComment on above:Performed By: #### T4F, CRP, TSH3, URIC, CBC, ESR, CMP, CK #### [place] [address] [place] #### LINO #### [facility] ,Hematocrit (Bld) [Volume fraction]42.1 %Scekoy71.0-46.4FTrinity Health System East CampusComment on above:Performed By: #### T4F, CRP, TSH3, URIC, CBC, ESR, CMP, CK #### [place] [address] [place] #### LINO #### [facility] ,Hemoglobin (Bld) [Mass/Vol]13.7 g/aLFkriop27.8-15.4FTrinity Health System East CampusComment on above:Performed By: #### T4F, CRP, TSH3, URIC, CBC, ESR, CMP, CK #### [facility] [address] [place] [address] [place] #### LINO #### [facility] ,Lymphocytes (Bld) [#/Vol]1.1 10*3/uLNormal1.00-4.8[facility] HospitalComment on above:Performed By: #### T4F, CRP, TSH3, URIC, CBC, ESR, CMP, CK #### [address] #### LINO #### [facility] ,Lymphocytes/100 WBC (Bld)14.3 %Normal.[facility] HospitalComment on above:Performed By: #### T4F, CRP, TSH3, URIC, CBC, ESR, CMP, CK #### [place] [address] [place] #### LINO #### [facility] ,MCH (RBC) [Entitic mass]25.7 jfGeerlc39.7-34.3FTrinity Health System East Campus Comment on above:Performed By: #### T4F, CRP, TSH3, URIC, CBC, ESR, CMP, CK #### [address] #### LINO #### [facility] ,MCV (RBC) [Entitic vol]79.2 rNZby28-484PqivmrjrhRiverside Methodist HospitalComment on above:Performed By: #### T4F, CRP, TSH3, URIC, CBC, ESR, CMP, CK #### [place] [address] [place] #### LINO #### [facility] ,Mean Corpuscular HGB Conc32.4 g/jUBfycsh22.0-35.0[facility] HospitalComment on above:Performed By: #### T4F, CRP, TSH3, URIC, CBC, ESR, CMP, CK #### [place] [address] [place] #### LINO #### [facility] ,Monocytes (Bld) [#/Vol]0.5 10*3/uLNormal0.0-0.8[facility] HospitalComment on above:Performed By: #### T4F, CRP, TSH3, URIC, CBC, ESR, CMP, CK #### [place] [address] [place] #### LINO #### [facility] ,Monocytes/100 WBC (Bld)6.2 %Normal.[facility] Methodist HospitalComment on above:Performed By: #### T4F, CRP, TSH3, URIC, CBC, ESR, CMP, CK #### [address] #### LINO #### [facility] ,Neutrophils (Bld) [#/Vol]5.6 10*3/uLNormal1.8-7.7FTrinity Health System East CampusComment on above:Performed By: #### T4F, CRP, TSH3, URIC, CBC, ESR, CMP, CK #### [address] #### LINO #### [facility] ,Neutrophils/100 WBC (Bld)70.5 %Normal.[facility] HospitalComment on above:Performed By: #### T4F, CRP, TSH3, URIC, CBC, ESR, CMP, CK #### [place] [address] [place] #### LINO #### [facility] ,Nucleated RBC/100 WBC (Bld) [Ratio]0.1 %Normal0-0.5FTrinity Health System East CampusComment on above:Performed By: #### T4F, CRP, TSH3, URIC, CBC, ESR, CMP, CK #### [place] [address] [place] #### LINO #### [facility] ,Platelet mean volume (Bld) [Entitic vol]7.6 fLNormal6.3-10.7FTrinity Health System East CampusComment on above:Performed By: #### T4F, CRP, TSH3, URIC, CBC, ESR, CMP, CK #### [facility] [address] [place] [address] #### LINO #### [facility] ,Platelets (Bld) [#/Vol]283 10*3/gHEefana944-001AiirzbaxbRiverside Methodist HospitalComment on above:Performed By: #### T4F, CRP, TSH3, URIC, CBC, ESR, CMP, CK #### [address] #### LINO #### [facility] ,RBC (Bld) [#/Vol]5.32 10*6/uLHigh3.60-5.00[facility] Comment on above:Performed By: #### T4F, CRP, TSH3, URIC, CBC, ESR, CMP, CK #### [facility] [address] [place] [address] [place] #### LINO #### [facility] ,WBC (Bld) [#/Vol]7.9 10*3/uLNormal4.5-11.0[facility] Comment on above:Performed By: #### T4F, CRP, TSH3, URIC, CBC, ESR, CMP, CK #### [place] [address] [place] #### LINO #### [facility] ,Comprehensive Metabolic Panelon 86-86-7910Znwofgt [Mass/Vol]3.5 g/dLNormal 3.2-5.5FTrinity Health System East CampusComment on above:Performed By: #### T4F, CRP, TSH3, URIC, CBC, ESR, CMP, CK #### [place] [address] [place] #### LINO #### [facility] ,Albumin/Globulin [Mass ratio]1.1 {ratio}[facility] Comment on above:Performed By: #### T4F, CRP, TSH3, URIC, CBC, ESR, CMP, CK #### [facility] [address] [place] [address] #### LINO #### [facility] ,ALP [Catalytic activity/Vol]92 U/KOsrbyx50-66RppnwysffRiverside Methodist Hospital Comment on above:Performed By: #### T4F, CRP, TSH3, URIC, CBC, ESR, CMP, CK #### [facility] [address] [place] [address] #### LINO #### [facility] ,ALT [Catalytic activity/Vol]22 U/VQwntuv81-05KufipspyqRiverside Methodist Hospital Comment on above:Performed By: #### T4F, CRP, TSH3, URIC, CBC, ESR, CMP, CK #### [facility] [address] [place] [address] #### LINO #### [facility] ,AST [Catalytic activity/Vol]19 U/PKiewof55-63OpptelazsRiverside Methodist Hospital Comment on above:Performed By: #### T4F, CRP, TSH3, URIC, CBC, ESR, CMP, CK #### [facility] [address] [place] [address] [place] #### LINO #### [facility] ,Bilirubin [Mass/Vol]0.3 mg/dLNormal0.3-1.2FTrinity Health System East Campus Comment on above:Performed By: #### T4F, CRP, TSH3, URIC, CBC, ESR, CMP, CK #### [facility] [address] [place] [address] [place] #### LINO #### [facility] ,Calcium [Mass/Vol]9.1 mg/dLNormal8.2-10.2FTrinity Health System East Campus Comment on above:Performed By: #### T4F, CRP, TSH3, URIC, CBC, ESR, CMP, CK #### [facility] [address] [place] [address] #### LINO #### [facility] ,Chloride [Moles/Vol]104 mmol/OYzngeh52-502FquajpnpkRiverside Methodist Hospital Comment on above:Performed By: #### T4F, CRP, TSH3, URIC, CBC, ESR, CMP, CK #### [address] #### LINO #### [facility] ,CO2 [Moles/Vol]25.8 mmol/WFtehee00.0-30.0[facility] Comment on above:Performed By: #### T4F, CRP, TSH3, URIC, CBC, ESR, CMP, CK #### [facility] [address] [place] [address] #### LINO #### [facility] ,Creatinine [Mass/Vol]0.69 mg/dLNormal0.44-1.03[facility] Comment on above:Performed By: #### T4F, CRP, TSH3, URIC, CBC, ESR, CMP, CK #### [address] #### LINO #### [facility] ,Estimated GFR ( Kaylee> 60NoDayton Osteopathic Hospital Comment on above:Result Comment: GFR estimated reference range: According to KDOQI guidelines, <60 ml/min/1.73m2 is sufficient to diagnose a patient with chronic kidney disease.Performed By: #### T4F, CRP, TSH3, URIC, CBC, ESR, CMP, CK #### [place] [address] [place] #### LINO #### [facility] ,Estimated GFR (Non- Am> 60NoDayton Osteopathic HospitalComment on above:Performed By: #### T4F, CRP, TSH3, URIC, CBC, ESR, CMP, CK #### [address] #### LINO #### [facility] ,Globulin (S) [Mass/Vol]3.2 g/dLNormalRiverside Methodist HospitalComment on above:Performed By: #### T4F, CRP, TSH3, URIC, CBC, ESR, CMP, CK #### [address] #### LINO #### [facility] ,Glucose [Mass/Vol]91 mg/cLHoxvzp61-618HooqwkalaRiverside Methodist HospitalComment on above:Result Comment: Random Glucose Reference Range is dependent on time and content of last meal. Glucose of more than 200 mg/dL in a nonstressed, ambulatory subject supports the diagnosis of Diabetes Mellitus. ADA recommended reference rangePerformed By: #### T4F, CRP, TSH3, URIC, CBC, ESR, CMP, CK #### [address] #### LINO #### [facility] ,Potassium [Moles/Vol]4.4 mmol/LNormal3.5-5.1FTrinity Health System East Campus Comment on above:Performed By: #### T4F, CRP, TSH3, URIC, CBC, ESR, CMP, CK #### [place] [address] [place] #### LINO #### [facility] ,Protein [Mass/Vol]6.7 g/dLNormal6.1-7.9[facility] HospitalComment on above:Performed By: #### T4F, CRP, TSH3, URIC, CBC, ESR, CMP, CK #### [place] [address] [place] #### LINO #### [facility] ,Sodium [Moles/Vol]138 mmol/BKyrrxu756-963IcaqtvvqqRiverside Methodist Hospital Comment on above:Performed By: #### T4F, CRP, TSH3, URIC, CBC, ESR, CMP, CK #### [facility] [address] [place] [address] [place] #### LINO #### [facility] ,Urea nitrogen [Mass/Vol]20 mg/dLNormal9-23[facility] Comment on above:Performed By: #### T4F, CRP, TSH3, URIC, CBC, ESR, CMP, CK #### [facility] [address] [place] [address] [place] #### LINO #### [facility] ,Creatine Kinaseon 07-54-9905YU [Catalytic activity/Vol]42 U/ZTabqka34-696 [facility] HospitalComment on above:Result Comment: PERFORMED BY: [place] [address] PATHOLOGIST RN NEONATAL ICU TYRONE HOOPER M.D.Performed By: #### T4F, CRP, TSH3, URIC, CBC, ESR, CMP, CK #### [place] [address] [place] #### LINO #### [facility] ,Creatine kinase [Enzymatic activity/volume] in Serum or PlasmaOrdered By: Alphonse Mcneal on 46-46-7946FX [Catalytic activity/Vol]42 U/X56-500DukdaueydRiverside Methodist HospitalCreatinine and Glomerular filtration rate.predicted panel (S/P/Bld)Ordered By: Alphonse Mcneal on 77-69-8012Pisoobzape [Mass/Vol]0.69 mg/dL 0.44-1.03[facility] HospitalEosinophils Auto (Bld) [#/Vol]Ordered By: Alphonse Mcneal on 30-68-8658Lrezoikygnq (Bld) [#/Vol]0.6 10*3/uL0.0-0.45 [facility] HospitalEosinophils/100 WBC Auto (Bld)Ordered By: Aplhonse Mcneal on 82-47-6935Fovmdaafjhc/100 WBC (Bld)7.9 %[facility] HospitalErythrocyte Sedimentation Rateon 43-19-8770EBH (Bld) [Velocity]53 mm/hHigh0[facility] HospitalComment on above:Result Comment: PERFORMED BY: [place] [address] PATHOLOGIST RN NEONATAL ICU TYRONE HOOPER M.D.Performed By: #### T4F, CRP, TSH3, URIC, CBC, ESR, CMP, CK #### [facility] [address] [place] [address] [place] #### LINO #### [facility] ,Erythrocyte distribution width Auto (RBC) [Ratio]Ordered By: Alphonse Mcneal on 75-93-5263Tmakiltmagd distribution width (RBC) [Ratio]16.0 %11.9-15.3FTrinity Health System East CampusErythrocyte sedimentation rate by Photometric method Ordered By: Alphonse Mcneal on 20-73-2952DUC Photometric method (Bld) [Velocity] 53 mm/hr0[facility] HospitalEstimated glomerular filtration rate (GFR) non- AmericanOrdered By: Alphonse Mcneal on 27-98-5772YPM/1.73 sq M.predicted among non-blacks MDRD (S/P/Bld) [Vol rate/Area]> 60 mL/Min [facility] HospitalFree T4 (Free Thyroxine)on 88-26-5543Mise T4 [Mass/Vol]1.02 ng/dLNormal0.61-1.12[facility] HospitalComment on above:Performed By: #### T4F, CRP, TSH3, URIC, CBC, ESR, CMP, CK #### [facility] [address] [place] [address] [place] #### LINO #### [facility] ,Globulin Calc (S) [Mass/Vol]Ordered By: Alphonse Mcneal on 04-37-1133Fwobqoel (S) [Mass/Vol]3.2 g/dLRiverside Methodist HospitalHematocrit Auto (Bld) [Volume fraction]Ordered By: Alphonse Mcneal on 63-20-9629Hmutcebzmi (Bld) [Volume fraction]42.1 %34.0-46.4FTrinity Health System East CampusLaboratory - Hematology and Cell countsOrdered By: Alphonse Mcneal on 52-25-5412Ybyjwpmjg RBC/100 WBC (Bld) [Ratio]0.1 %0-0.5FTrinity Health System East CampusLymphocytes Auto (Bld) [#/Vol]Ordered By: Alphonse Mcneal on 87-01-8556Qeqsotmhakb (Bld) [#/Vol]1.1 10*3/uL1.00-4.8[facility] HospitalLymphocytes/100 WBC Auto (Bld)Ordered By: Alphonse Mcneal on 58-78-7203Kpgtoaeexxd/100 WBC (Bld)14.3 %[facility] Auto (RBC) [Entitic mass]Ordered By: Alphonse Mcneal on 55-36-3847YZP (RBC) [Entitic mass]25.7 pg24.7-34.3FTrinity Health System East CampusMCHC Auto (RBC) [Mass/Vol]Ordered By: Alphonse Mcneal on 59-74-7198RHME (RBC) [Mass/Vol]32.4 g/dL32.0-35.0[facility] HospitalMCV Auto (RBC) [Entitic vol]Ordered By: Alphonse Mcneal on 98-91-3011HNJ (RBC) [Entitic vol]79.2 dK84-010ZejwjwhetRiverside Methodist HospitalMonocytes Auto (Bld) [#/Vol]Ordered By: Alphonse Mcneal on 49-31-9897Yzkvanarq (Bld) [#/Vol]0.5 10*3/uL0.0-0.8[facility] HospitalMonocytes/100 WBC Auto (Bld) Ordered By: Alphonse Mcneal on 70-69-7942Wdhneswko/100 WBC (Bld)6.2 %[facility] HospitalNeutrophils Auto (Bld) [#/Vol]Ordered By: Alphonse Mcneal on 45-73-2235Hmgyfqykqsl (Bld) [#/Vol]5.6 10*3/uL1.8-7.7FTrinity Health System East CampusNeutrophils/100 WBC Auto (Bld)Ordered By: Alphonse Mcneal on 10-80-3538Caxqrohjouy/100 WBC (Bld)70.5 %[facility] HospitalNo Panel InformationOrdered By: Alphonse Mcneal on 60-20-3388Dchtvljfm GFR ()> 60 mL/MinRiverside Methodist HospitalComment on above:GFR estimated reference range: According to KDOQI guidelines, <60 ml/min/1.73m2 is sufficient todiagnose a patient with chronic kidney disease.Pharmacy Creatinine Clearance (ChemN/AFTrinity Health System East CampusPlatelet mean volume Auto (Bld) [Entitic vol]Ordered By: Alphonse Mcneal on 96-45-9584Nhvyzjmt mean volume (Bld) [Entitic vol]7.6 fL6.3-10.7FTrinity Health System East CampusPlatelets Auto (Bld) [#/Vol]Ordered By: Alphonse Mcneal on 44-17-2476Mdymnbpqk (Bld) [#/Vol]283 10*3/hL183-064ZkumkrsgrRiverside Methodist HospitalProtein [Mass/volume] in Serum or PlasmaOrdered By: Alphonse Mcneal on 90-80-3504Brdluze [Mass/Vol]6.7 g/dL6.1-7.9 [facility] HospitalRBC Auto (Bld) [#/Vol]Ordered By: Alphonse Mcneal on 49-22-5334RNY (Bld) [#/Vol]5.32 10*6/uL3.60-5.00[facility] Southerum or plasma C reactive protein measurement (mass/volume) Ordered By: Alphonse Mcneal on 62-81-0248YXZ [Mass/Vol]1.4 mg/dL0.0-1.0[facility] Southerum or plasma alanine aminotransferase measurement without P-5'-P (enzymatic activiOrdered By: Alphonse Mcneal on 34-77-6138FSF No additional P-5'-P [Catalytic activity/Vol]22 U/Q80-79LuwjxqmvbPremier Health Miami Valley Hospital Southerum or plasma albumin/globulin mass ratioOrdered By: Alpohnse Mcneal on 14-40-5615Cvunutp/Globulin [Mass ratio]1.1 {ratio}[facility] Southerum or plasma alkaline phosphatase measurement (enzymatic activity/volume)Ordered By: Alphonse Mcneal on 91-23-8143GHM [Catalytic activity/Vol]92 U/S47-31WliwkhdlrPremier Health Miami [facility] Hospital Southerum or plasma aspartate aminotransferase measurement (enzymatic activity/volume)Ordered By: Alphonse Mcneal on 67-22-6156KSJ [Catalytic activity/Vol]19 U/O34-83UtfdizrdbPremier Health [facility] Hospital Southerum or plasma calcium measurement (mass/volume)Ordered By: Alphonse Mcneal on 37-46-9475Owsrvga [Mass/Vol]9.1 mg/dL8.2-10.2FSt. Rita's Hospitalerum or plasma chloride measurement (moles/volume) Ordered By: Alphonse Mcneal on 78-87-2385Wtldnrjx [Moles/Vol]104 mmol/L95-114 [facility] Southerum or plasma glucose measurement (mass/volume)Ordered By: Alphonse Mcneal on 43-22-3971Gsuqnfp [Mass/Vol]91 mg/dL 70-100R[facility] HospitalComment on above:ADA recommended reference rangeRandom Glucose Reference Range is dependent on time and content of last meal. Glucose of more than 200 mg/dL in a nonstressed, ambulatory subject supports the diagnosisof Diabetes Mellitus.Serum or plasma potassium measurement (moles/volume)Ordered By: Alphonse Mcneal on 02-57-6428Sahqmagtg [Moles/Vol]4.4 mmol/L3.5-5.1FSt. Rita's Hospitalerum or plasma sodium measurement (moles/volume)Ordered By: Alphonse Mcneal on 18-98-7843Lglzkb [Moles/Vol]138 mmol/N326-795FtymbotctPremier Health Miami [facility] Hospital Southerum or plasma total bilirubin measurement (mass/volume)Ordered By: Alphonse Mcneal on 08-79-6339Ponclcwfv [Mass/Vol]0.3 mg/dL0.3-1.2FTrinity Health System East Campus Serum or plasma total carbon dioxide measurement (moles/volume)Ordered By: Alphonse Mcneal on 90-35-2512SB6 [Moles/Vol]25.8 mmol/L22.0-30.0[facility] Southerum or plasma urea nitrogen measurement (mass/volume) Ordered By: Alphonse Mcneal on 81-60-6157Mwel nitrogen [Mass/Vol]20 mg/dL9-23 [facility] Southerum or plasma uric acid measurement (mass/volume)Ordered By: Alphonse Mcneal on 11-12-1172Ohbgb [Mass/Vol]4.6 mg/dL 2.6-7.2FTrinity Health System East CampusTSH DL <= 0.005 mIU/L QnOrdered By: Alphonse Mcneal on 92-22-4977YPB Qn1.44 m[IU]/L0.45-5.33[facility] HospitalThyroid Stimulating Hormoneon 35-70-3769FCT Qn1.44 m[IU]/LNormal 0.45-5.33[facility] HospitalComment on above:Result Comment: PERFORMED BY: [place] [address] PATHOLOGIST RN NEONATAL ICU TYRONE HOOPER M.D.Performed By: #### T4F, CRP, TSH3, URIC, CBC, ESR, CMP, CK #### [address] #### LINO #### [facility] ,Thyroxine (T4) free [Mass/volume] in Serum or PlasmaOrdered By: Alphonse Mcneal on 82-49-2495Mfnn T4 [Mass/Vol]1.02 ng/dL0.61-1.12[facility] HospitalUric Acidon 42-10-1351Vxhfh [Mass/Vol]4.6 mg/dLNormal2.6-7.2FTrinity Health System East CampusComment on above:Performed By: #### T4F, CRP, TSH3, URIC, CBC, ESR, CMP, CK #### [facility] [address] [place] [address] [place] #### LINO #### [facility] ,XR hand BI 2Von 46-29-8173BN hand BI 2VSELECT [facility] [place] [address] [place] [address] XRay Report Signed Patient: Cayetano Weeks MR#: [id number] : 1950 Acct:[id number] Age/Sex: 70 / F ADM Date: 05/31/21 Loc: ICXD Room: Type: [facility] CLI Attending Dr: Gonzalez Mcneal MD Ordering Provider: Alphonse Mcneal MD Date of Service: 05/31/21 XR/XR hand BI 2V: POLYARTHRITIS,MEDS ([id number]) XR/XR wrist BI 2V: POLYARTHRITIS,MEDS ([id number]) XR/XR ankle BI 2V: POLYARTHRITIS,MEDS ([id number]) XR/XR chest 2V*: POLYARTHRITIS,MEDS Copies to: Alphonse [...] Fenton Jr., M.D.05/31/2021 2:44 PM Dictation Location: [place] [address] Transcribed By: [facility] 05/31/21 1444 Dictated By: Fox Fenton Jr, MD 05/31/21 1433 Signed By: 05/31/21 1444[facility] HospitalOR Nursingon 91-67-5089KR NursingCO SA OR Nursing Record Summary Primary Physician: Chato Garcia MD Finalized Date/Time: 06/11/20 12:29:23 Pt. Name: PATRICIA WEEKSBelinda Cooley/Sex: 1950 Female Med Rec #: [id number] Physician: Financial #: [id number] Pt. Type: A Room/Bed: / Admit/Disch: 06/10/20 [...] Entry 2 Entry 3 Case Attendee Chato Garcia MD, MD , Tristin Baeza Role Performed Primary Surgeon Anesthesiologist Cartoon Animator Time In 06/10/20 07:27:00 06/10/20 07:27:00 06/10/20 [...] RN, Sarkees Thomas, Meagen B Role Performed classroom technology technician First Scrub Assistive Personnel Time In 06/10/20 [...] 06/10/20 08:20:42 CO SA OR General Case Scada Technician 1 OR CO SA 12 ASA Class 2 Case Wound Class Clean Contaminated Specialty Gynecology Surgery Case Level Tobacco Educator Major Diagnosis Preop Diagnosis N95.0 N85.00 N84 Postop Same As Preop Yes POSTMENOPAUSAL BLEEDING THICKENED ENDOMETRIUM ENDOMETRIAL POLYP Postop Diagnosis N95.0 N85.00 N84 POSTMENOPAUSAL BLEEDING THICKENED ENDOMETRIUM ENDOMETRIAL POLYP This is a down time No record. Last Modified By: Shannan Mayes RN 06/11/20 12:28:48 General Comments: specialty reflects procedure performed.jada,nurse auditor medical claims. CO SA OR Surgical Procedures Entry 1 [...] Size Knee Pneumatic Compression Unit ID Number [id number] JOSE DANIEL Hose Foot Pump Last Modified [...] drying time - mi (more content not included)...NormalMount Promedica Defiance Regional HospitalGlucose POCT (Uploaded) on 59-29-2108Vuticzq [Mass/Vol]127 mg/dFPuum27-69Hflea [facility] Comment on above:Result Comment: Treatment ranges and critical values established by Patient Care Services. All follow-up actions were taken by Patient Care Services.Performed By: #### 2430-8 #### [facility]EL[facility] POINT OF CAREPACU I Nursingon 90-48-8729ADKG I NursingCO SA PACU I Nursing Record Summary Primary Physician: Chato Garcia MD Finalized Date/Time: 06/10/20 09:20:44 Pt. Name: CAYETANO WEEKS./Sex: 1950 Female Med Rec #: [id number] Physician: Financial #: [id number] Pt. Type: A Room/Bed: / Admit/Disch: 06/10/20 [...] Signatures Signed By: Willow Rain RN 06/10/20 09:20NormalMoHighland District HospitalPatient Summaryon 83-58-2683Tjvuczl SummaryPATIENT DISCHARGE INSTRUCTIONS If you are having an emergency and are not able to reach your physician, CALL 911 or go to the nearest emergency room and take this document with you. [facility] 06/10/20 08:38 [address] [place]. [address] PATIENT INFORMATION Name: CAYETANO WEEKS Address: [address] [place] [id number] Age: 69 Years Phone: [phone] : 1950 12:00 Sex: Female Race: White Ethnicity: Not Hispan/Lat Admitted From: Clinic or [facility] Medical Service: Obstetric Nurse Unit/Bed: (OK) [facility] N/A Admit Date: 06/10/2020 05:45 PCP: Physician, PCP Unknown PHYSICIANS INVOLVED WITH CARE Attending Physicians: Rivera CHURCHILL , Chato Mckeon - Obstetrics, Gynecology Admitting Physician: None found Primary Care Physician:Physician, PCP Unknown,Family Practice,,, - Consults: None found YOU WERE TREATED IN THE HOSPITAL FOR: Endometrial polyp; Postmenopausal vaginal bleeding FOLLOW-UP APPOINTMENTS: Provider: Specialty: Address: Date: Chato Garcia MD Gynecology; Obstetrics [address] [place], [place] [id number] (8) Two Weeks Provider: Specialty: Address: Date: PCP [...] doses are changed, or new medications (including gzvj-ybk-drrrvjm products) are added. Ask your doctor if you have any questions. THESE ARE THE MEDICATIONS YOU SHOULD BE TAKING bisoprolol-hydroCHLOROthiazide (Bisoprolol/hydroCHLOROthiazide 5 mg/6.25 mg) 1 Tab(s) By Mouth oncea day. ibuprofen (ibuprofen 600 mg oral tablet) [...] changes are shown below: NEW MEDICATIONS [id number], [address], [place] [id number], [phone] ibuprofen (ibuprofen 600 mg oral tablet) 1 Tab(s) By Mouth One Time Only as needed Pain - Mild. Refills: 0. Comment UPDATED MEDICATIONS None UNCHANGED MEDICATIONS Other Medications bisoprolol-hydroCHLOROthiazide (Bisoprolol/hydroCHLOROthiazide 5 mg/6.25 mg) 1 Tab(s) By Mouth oncea day. Comment loratadine (Claritin 24 Hour Allergy [...] Decisions Type: Living Will, Medical Power of Lens Polisher Copy of Advance Directive/Health Care Decisions on Chart: Patient/Family asked to provide copy SUICIDE HOTLINE: Your mental and emotional well-being are important. If you are in a mental health crisis, or havingthoughts of suicide, please call the nationwide suicide hotline, anytime day or night, at 9-789-113-NGCL. It's easy to sign up for [employer]: 1. Visit [email or web address] 2. Click on Frederic for [employer] 3. Verify your identity by entering your [...] ) matches what we have on file, we'llthen send a PIN to your phone that you will be asked to enter. 7. When your Identity is verified, you'll be able to access your patient record 8. Once all of this is complete and you've successfully activated your account, you'll be redirected to the [employer] login page. Login and check to see your results Questions? For help with account enrollment, call [employer] Customer Support at [phone] (toll-free) PATIENT EDUCATI (more content not included)...NormalMer[facility] PACU Nursingon 90-74-4516Soks PACU NursingCO SA PACU II Nursing Record Summary Primary Physician: Chato Garcia MD Finalized Date/Time: 06/10/20 09:40:04 Pt. Name: DESICAYETANO/Sex: 1950 Female Med Rec #: [id number] Physician: Financial #: [id number] Pt. Type: A Room/Bed: / Admit/Disch: 06/10/20 [...] Signatures Signed By: Juliane Mcduffie RN 06/10/20 09:40NormalMercy HospitalPreOp Nursingon 18-64-8733MdcCr NursingCO SA PreOp Nursing Record Summary Primary Physician: Chato Garcia MD Finalized Date/Time: 06/10/20 07:30:51 Pt. Name: CAYETANO WEEKS /Sex: 1950 Female Med Rec #: [id number] Physician: Financial #: [id number] Pt. Type: A Room/Bed: / Admit/Disch: 06/10/20 05:45:00 - Institution: [facility] OR PreOp Case Times Entry 1 PreOp [...] Signatures Signed By: Dottie Quintanilla RN 06/10/20 07:30NormCincinnati VA Medical Centerurgical Pathology Final Reporton 57-76-7221Fkroliwul [place] [id number] YRS F [id number] / SD93 01 ORDERING PHYSICIAN: CHATO GARCIA RESULT TRANSMITTED: 06/11/20 1505 S U R [...] was performed at [facility], [address] [place] [address]. Microscopic examination was performed. Case resulted at [facility]. DIAGNOSIS: (A) Endometrial polyp, polypectomy: -- BENIGN ENDOMETRIAL POLYP. -- NEGATIVE FOR ATYPICAL HYPERPLASIA AND MALIGNANCY. (B) Endometrium, curettage: -- FRAGMENTS OF ENDOMETRIAL POLYP AND FOCAL SIMPLE ENDOMETRIAL HYPERPLASIA WITHOUT ATYPIA/BENIGN HYPERPLASIA. -- NEGATIVE FOR ATYPICAL HYPERPLASIA AND MALIGNANCY. JH2:JH2:JH204 END OF REPORT END OF REPORTNormalMercy HospitalCoronavirus (COVID-19/SARS-CoV-2) [facility] 96-30-8274Opoiej IdentifierPanther Fusion SARS-CoV-2 assay_[employer] EUANormalMercy HospitalComment on above:Performed By: #### 18409-8g1 #### [facility] [address] [place] [address] 18316Wqihyzkj in healthcareNNormalMercy HospitalComment on above:Performed By: #### 43845-5c9 #### [facility] [address] [place] [address] 84148Cgmwi testY NormalMercy HospitalComment on above:Performed By: #### 87377-2l7 #### [facility] [address] [place] [address] 87442LJBADwqsko Mercy HospitalComment on above:Performed By: #### 45497-1k3 #### [facility] [address] [place] [address] 70120Nnexwne or injury onset date and timeNNormalMercy HospitalComment on above: Performed By: #### 79603-4z0 #### [facility] [address] [place] [address] 60949Tfromen was hospitalized because of this conditionNNNorwalk Memorial HospitalComment on above:Performed By: #### 14236-0s6 #### [facility] [address] [place] [address] 05332Uoynakuqv statusNNNorwalk Memorial HospitalComment on above:Performed By: #### 80069-8a5 #### [facility] [address] [place] [address] 85826Pgiohev in congrega care settingNNNorwalk Memorial HospitalComment on above: Performed By: #### 41985-7l3 #### [facility] [address] [place] [address] 96259EMVW-CkD-9 (COVID-19) RNA CLEMENTINE+probe Ql (Resp)Not detectedNormalNOTDEUC HealthComment on above:Result Comment: This test was performed via the Retargetlyima SARS-CoV-2 Assay ([employer]ways), a Nucleic Acid Amplification Test (NAAT), and has been authorized by the FDA under an Emergency Use Authorization (EUA). The assay is validated for nasopharyngeal (MAIL SORTING SUPERVISOR), nasal, and oropharyngeal (OP) swab specimens. The [...] to the Center for Disease Control website: www.cdc.gov/coronavirus.Performed By: #### 74093-2v3 #### [facility] [address] [place] [address] 08088Dzbkkkpdywo as defined by [facility] WAUWATOSANNNorwalk Memorial HospitalComment on above:Performed By: #### 67620-6n9 #### [facility] [address] [place] [address] 23389Irenz metabolic 2000 panelon 48-94-3363Usxxt gap [Moles/Vol]6.0 mmol/LNormal6.0-18.0 [facility] on above:Performed By: #### 66278-4, 79882-2, 37146-5h7 ####[facility], [address] [place], [place]. Calcium [Mass/Vol]9.0 mg/dLNormal8.9-10.3MHarrison [facility] Hospital on above:Performed By: #### 61677-5, 61276-2, 09633-2p4 ####[facility], [address] [place] [address].Chloride [Moles/Vol]105 mmol/LNormal 98-107MoAdena Pike Medical [facility] on above:Performed By: #### 04367-5, 57112-3, 76315-4k5 ####[facility], [facility].CO2 [Moles/Vol]27 mmol/KIpzwsa76-93QkpjjAdena Pike Medical Center on above:Performed By: #### 17908-1, 18124-2, 47151-0p5 ####[facility], [address] [place], [place] [address], [place].Creatinine [Mass/Vol]0.74 mg/dLNormal 0.66-1.30MoAdena Pike Medical Center on above:Performed By: #### 75059-3, 07818-9, 84392-1t9 ####[facility], [address] [facility].Glucose [Mass/Vol]106 mg/nWVmlh65-74LtgoyHarrison Community Hospital on above:Result Comment: Updated ADA Reference Range A normal fasting glucose concentration is less than 100 mg/dL. An impaired fasting glucose concentration is 100-125 mg/dL. A provisional diagnosis of diabetes mellitus can be made when a fasting glucose concentration is greater than 125 mg/dL.Performed By: #### 11188-1, 33704-1, 22276-8b5 ####[facility], [address] [place], [place].Potassium [Moles/Vol]3.9 mmol/LNormal3.6-5.1[facility] HospitalComment on above:Performed By: #### 77479-0, 40208-6, 43506-0t4 ####[facility], [address] [place] [address].Sodium [Moles/Vol]138 mmol/WEwejve810-803Yluhe [facility] on above: Performed By: #### 36962-3, 21319-7, 59104-2u6 ####[facility], [address] [place] [address].Urea nitrogen (BldV) [Mass/Vol]13 mg/dLNormal 8-20Mount [facility] Regional HospitalComhenry ford [facility] on above:Performed By: #### 03096-9, 44652-3, 09416-0u0 ####[facility], [address] [place] [address].GFR/1.73 sq M.predicted (S/P/Bld) [Vol rate/Area]on 61-58-4720RMN/1.73 sq M.predicted among blacks MDRD (S/P/Bld) [Vol rate/Area]mL/min/{1.73_m2}Normal Mercy HospitalComment on above:Result Comment: The MDRD equation has not been validated for those over 70 years, women, patients with serious co-morbid conditions, or with extremes of body size, muscle mass of nutritional status.Performed By: #### 61535-0, 35199-3, 13082-8k0 #### [facility], [address] [place], [place].GFRbbon 05-27-2020 GFR/1.73 sq M.predicted among non-blacks MDRD (S/P/Bld) [Vol rate/Area] mL/min/{1.73_m2}NormalMount Christian Hospital SystemComment on above:Performed By: #### 73052-7, 13224-2, 40705-2a1 #### [facility], [address] [place] [address].Hemogram and platelets WO differential panel (Bld)on 43-64-4476Hsuktmwyiqv distribution width (RBC) [Entitic vol]14.6 %Ndxiqk25.0-14.8[facility] Hospital SystemComment on above:Performed By: #### 63286-5 #### [facility], [address] [place] [address].Hematocrit (Bld) [Volume fraction]46.5 %High35.0-45.0[facility] Hospital SystemComment on above: Performed By: #### 77255-4 #### [facility], [address] [place] [address].Hemoglobin (Bld) [Mass/Vol]15.4 g/uLDheadw38.0-16.0[facility] HospitalComment on above: Performed By: #### 83536-1 #### [facility], [address] [place] [address].MCH (RBC) [Entitic mass]27.4 NlxklbcboKhuzka70.0-34.0[facility] SystemComment on above: Performed By: #### 44366-6 #### [facility], [address] [place], [place].MCHC (RBC) [Mass/Vol]33.0 g/zYEidvef45.0-36.0[facility] SystemComment on above: Performed By: #### 32588-2 #### [facility], [address] [place] [address].MCV (RBC) [Entitic vol]82.9 bEEmuakr76.0-97.0[facility] SystemComment on above:Performed By: #### 60881-8 #### [facility], [address] [place], [place].Platelet mean volume (Bld) [Entitic vol]7.5 fLNormal6.2-12.1MHarrison [facility] on above:Performed By: #### 57571-8 #### [facility], [address] [facility] [place].Platelets (Bld) [#/Vol]218 thou/kcIYpujlv272-403ZipllAdena Pike Medical Center on above: Performed By: #### 43774-6 #### [facility], [address] [place], [place] [address], [place].RBC (Bld) [#/Vol] 5.61 million/mcLHigh3.80-5.10MoAdena Pike Medical Center on above: Performed By: #### 82259-6 #### [facility], [address] [place], [place] [address], [place].WBC (Bld) [#/Vol] 7.5 thou/mcLNormal4.6-10.2MH[facility] on above:Performed By: #### 19967-8 #### [facility], [address] [place], [place] [address], [place].PT Coag (PPP) [Time]on 44-79-1360AXK Coag (Bld) [Relative time]1.08 {INR}NormalMoAdena Pike Medical Center on above:Result Comment: The recommended therapeutic INR range for most cardiac indications is 2.0-3.0. For high intensity therapy(ie.mechanical heart valves), the recommended range is 2.5-3.5.Performed By: #### 3173-2, 5902-2 ####[facility], [address] [facility] [facility].Prothrombin Timeon 67-69-7491BC Coag (PPP) [Time]14.3 bUvhevg52.9-14.7[facility] Regional HospitalComment on above:Performed By: #### 3173-2, 5902-2 ####[facility], [address] [place], [place].aPTT Coag (Bld) [Time]on 70-98-4637dOXX Coag (PPP) [Time]31.9 s Vqfnmy90.3-35.3[facility] HospitalComment on above:Performed By: #### 3173-2, 5902-2 ####[facility], [address] [place], [place]. Vital Signs Date TimeVital SignValuePerforming ArfiyyadfVgrqyzzq48-98-0453 09:10-0400Body liofbr136.9 cmTyrell Bowens MD Work Phone: [facility]-SullivanWawujqilun80-66-7300 09:10-0400Body mass index (BMI) [Ratio]38.17 kg/m2Tyrell Bowens MD Work Phone: [facility]-SullivanLyyhcgyfnw64-60-1067 09:10-0400Body temperature 97.3 [degF]Tyrell Bowens MD Work Phone: [facility]-SullivanWxxecazauq77-04-0540 09:10-0400Body webftv47.63 kgTyrell Bowens MD Work Phone: [facility]-SullivanGfjkzwxhuo59-93-7071 09:10-0400Diastolic blood lbmlvyxc00 mm[Hg]Tyrell Bowens MD Work Phone: [facility]-SullivanOljcyddtyk29-35-6620 09:10-0400Heart rate77 /min Tyrell Bowens MD Work Phone: [facility]-SullivanKhaqndkdyp62-82-7015 09:10-0400Respiratory rate20 /minTyrell Bowens MD Work Phone: [facility]-SullivanCmtpimkaql76-39-6288 09:10-0879LeC4% (BldA) [Mass fraction]95 %Tyrell Bowens MD Work Phone: [facility]-SullivanUiupadogxw71-98-0662 09:10-0400Systolic blood mm[Hg]Tyrell Bowens MD Work Phone: [facility]-SullivanJcsbszkmvx06-55-6943 10:37-0500Body jbldgu743.9 cmTyrell Bowens MD Work Phone: [facility]-SullivanPijadejqnj2126 10:37-0500Body mass index (BMI) [Ratio]37.98 kg/m2Tyrell Bowens MD Work Phone: [facility]-SullivanAocvxgelbw32-86-6307 10:37-0500Body temperature 97.5 [degF]Tyrell Bowens MD Work Phone: [facility]-SullivanSwxsbsdiat04-54-8402 10:37-0500Body eeolcg52.17 kgTyrell Bowens MD Work Phone: [facility]-SullivanVkoamtdovm26-60-7527 10:37-0500Diastolic blood xrecckle76 mm[Hg]Tyrell Bowens MD Work Phone: [facility]-SullivanZwagnwpbmf90-04-8429 10:37-0500Heart rate74 /min Tyrell Bowens MD Work Phone: [facility]SullivanKbvrfvubqr35-36-6361 10:37-0500Respiratory rate22 /minTyrell Bowens MD Work Phone: [facility]-SullivanHtpljrzyfw43-77-4053 10:37-5301DtI3% (BldA) [Mass fraction]95 %Tyrell Bowens MD Work Phone: [facility]-SullivanQghtrlnwag74-19-1277 10:37-0500Systolic blood mm[Hg]Tyrell Bowens MD Work Phone: [phone] [place], [place] [address]Rkpfuioacf59-98-9677 08:24-0500Body uezkcd866.9 cmTyrell Bowens MD Work Phone: [facility]-SullivanXxbiejgxqp46-13-1258 08:24-0500Body mass index (BMI) [Ratio]37.98 kg/m2Tyrell Bowens MD Work Phone: [phone] [place], [place] [address]Edibwrblbt91-26-4334 08:24-0500Body temperature 97.11 [degF]Tyrell Bowens MD Work Phone: noSaint [facility] ServicesWuvuyhrmmz52-79-4291 08:24-0500Body ibszol09.17 kgTyrell Bowens MD Work Phone: noSaint [facility] ServicesQbycaqtari67-33-2895 08:24-0500Diastolic blood ahaesdaf76 mm[Hg]Tyrell Bowens MD Work Phone: noSaint [facility] Health ServicesCucetzmzfq69-42-6717 08:24-0500Heart rate86 /min Tyrell Bowens MD Work Phone: noSaint [facility] Health ServicesSkxcjgrcbw23-80-6525 08:24-8217CrS7% (BldA) [Mass fraction]96 %Tyrell Bowens MD Work Phone: noSaint [facility] Health ServicesDzcatbjjob55-63-2347 08:24-0500Systolic blood spwezjtk065 mm[Hg]Tyrell Bowens MD Work Phone: noIN Healthcare Encounters Encounter DateEncounter TypeCare ProviderFacilityStart: 08-20-2024 End: 05-22-0714Baylxp flowsheetTyrell Bowens MD Work Phone: noms [facility] FMStart: 08-20-2024 End: 29-74-0493Yzatxc flowsheetTyrell Bowens MD Work Phone: [facility] FMStart: 08-20-2024 End: 79-94-4141Rnidjv outpatient visit 15 minutesTyrell Bowens MD Work Phone: noms CW FMComment on above:Essential hypertension, benign (Primary Dx); Rheumatoid arthritis involving both hands with positive rheumatoid factor (HCC); Intrinsic eczema; Class 2 severe obesity due to excess calories with serious comorbidity and body mass index (BMI) of38.0 to 38.9 in adult ([facility]-HCC); PrediabetesStart: 08-20-2024 End: 31-58-0234yfzdghwfkdDVGF NADERERNot AvailableStart: 07-17-2024 End: 26-59-6518Twjkrckjc Result EncounterGeneric External Data ProviderNOMS External Department UnsolicitedStart: 07-17-2024 End: 13-71-6495Igkwfutha Result EncounterGeneric External Data ProviderNOMS External Department UnsolicitedStart: 04-11-2024 End: 11-97-0967Qpriuginy Result EncounterGeneric External Data ProviderNOMS External Department UnsolicitedStart: 04-11-2024 End: 95-85-0568Hlunzjvnf Result EncounterGeneric External Data ProviderNOMS External Department UnsolicitedStart: 46-23-6253bccrzwdumsEORCXY NAVOS HEALTHEUniKettering Health Miamisburgtart: 01-25-2024 End: 40-12-7330Vronhl Spencer Bowens MD Work Phone: noms [facility] FMStart: 01-25-2024 End: 62-29-0998Aixwbm Spencer Bowens MD Work Phone: noms [facility] FMStart: 01-25-2024 End: 16-08-8279Iertppm encounter procedureTyrell Bowens MD Work Phone: noms [facility] Work Phone: Start: 01-25-2024 End: 35-25-9337Mhocdh follow up visit related to original Candie Bowens MD Work Phone: noms CWM FMComment on above:Medicare annual wellness visit, subsequent (Primary Dx)Start: 01-25-2024 End: 98-96-1996lkanfigjuiHSJS NADERERNot AvailableStart: 01-01-2024 End: 73-62-8534Sxckmh flowsheetJr. Zackary Brandon DO Work Phone: noms [facility]OPAEDICSStart: 01-01-2024 End: 99-74-1204Qlbuwj flowsheetJольга Brandon DO Work Phone: noms FB ORTHOPAEDICSStart: 01-01-2024 End: 32-18-9032Tkywsf outpatient visit 25 minutesJr. Zackary Brandon DO Work Phone: noms FB ORTHOPAEDICSComment on above:Carpal tunnel syndrome of right wrist (Primary Dx)Start: 01-01-2024 End: 06-21-6595qkktrmpynlMF., ZACKARY Lemus AvailableStart: 12-26-2023 End: 40-31-2073Yenraghua Result EncounterGeneric External Data ProviderNOMS External Department UnsolicitedStart: 12-26-2023 End: 22-41-3743Nvwdcuwhg Result EncounterGeneric External Data ProviderNOMS External Department UnsolicitedStart: 11-27-2023 End: 14-54-9268tmopngtjvkLUIDUNC Health Johnston Clayton HospitalStart: 10-30-2023 End: 88-17-8960Fevnyu flowsheetJr. Zackary Dariel Brandon DO Work Phone: NOCB FB ORTHOPAEDICSStart: 10-30-2023 End: 28-84-6502Dckbof flowsheetJr. Zackary Brandon DO Work Phone: NOYK FB ORTHOPAEDICSStart: 10-30-2023 End: 40-93-4884Vaapeo outpatient visit 25 minutesJr. Zackary Brandon DO Work Phone: noms FB ORTHOPAEDICSComment on above:Carpal tunnel syndrome of right wrist (Primary Dx)Start: 10-30-2023 End: 61-60-0267yfqzphjjloVU., ZACKARY Lemus AvailableStart: 10-04-2023 End: 02-88-7594foxbesugtmJKHD NADERERNot AvailableStart: 10-02-2023 End: 56-85-0261rpnyqllclrCH., ZACKARY Lemus AvailableStart: 04-05-2023 Sandra Bowens MD Work Phone: NOMS C[facility] FMStart: 48-08-2036Kzlugbadriana Bowens MD Work Phone: NOM[facility] FMStart: 04-05-2023 End: 68-00-9894Ociqxo outpatient visit 25 minutesTyrell Bowens MD Work Phone: NOVD CWM FMComment on above:Essential hypertension, benign (CMS/HCC) (Primary Dx); Rheumatoid arthritis involving both hands with positive rheumatoid factor (CMS/HCC); Intrinsic eczema; Seasonal allergic rhinitis due to pollen; Dyslipidemia (CMS/HCC); Encounter for long-term (current) use of medications; Prediabetes; Obesity (BMI 30-39.9)Start: 10-04-2022 End: 12-78-5906susivsmxhwWQTB A NADERERFacility:[facility] Centertart: 10-04-2022 End: 82-90-3559Wrjxauayjy hospital visit by physicianArrival Time Radiology Work Phone: Radiology Pet CTStart: 06-30-2022 End: 63-50-9140kfoguuhgzkHI DOCTOR MISCFacility:Y0Edzbd: 03-31-2022 End: 63-49-0720szzayyaxlqRC DOCTOR MISCFacility:B9Vzzpi: 11-23-2021 End: 33-61-3630tsdvssxafyGJ ALPHONSE MCNEALFacility:Q5Ijeyk: 09-13-2021 End: 01-91-5357vodbcylirjXK ALPHONSE MCNEALFacility:L3Jdywa: 05-31-2021 End: 75-34-2296Tiipogc encounter procedureMD Gonzalez Elizabet Work Phone: [facility] [address] Procedures DateProcedureProcedure DetailPerforming ClinicianStart: 46-46-7348IBD CBC WITH AUTO DIFFGeneric External Data ProviderStart: 20-09-0076GZQ CBC WITH AUTO DIFF Generic External Data ProviderStart: 00-85-3488BXR CBC WITH AUTO DIFFGeneric External Data ProviderStart: 18-93-3607Nqy imaging ct attenuation skull base mid-thighCcf ProviderStart: 46-02-6433Odwh bld gluc mntr dev cleared fda spec home useCcf ProviderStart: 22-69-9948Udmul X-ray of bilateral wristsMD Gonzalez Mcneal Work Phone: Start: 05-50-8460M-ray of both anklesMD Gonzalez Mcneal Work Phone: Start: 59-13-3097Ahthz chest X-rayMD Gonzalez Mcneal Work Phone: Start: 68-42-1832Aymkt X-ray of bilateral handsMD Gonzalez Mcneal Work Phone: Start: 35-77-1167HoldhnukqjcMgtq Clementine CHURCHILL Work Phone: Plan of Treatment DateCare ActivityDetailAuthorStart: 03-40-7329Colqlmkpc for malignant neoplasm of colonNOMS HealthcareStart: 02-25-2025 End: 83-29-7850Gpebpud encounter pkcegtpjc08/06/2026 9:00 AM EST Office Visit [facility] [address] [place] [address] Tyrell Bowens MD [address] [place] [address] N[facility] C[facility] FMStart: 12-05-2025Medicare Annual Wellness (AWV)Medicare Annual Wellness (AWV)NOMS HealthcareStart: 61-02-8733Frlecvtqx vaccinationInfluenza Vaccine (#1)NOMS HealthcareStart: 08-20-2024 End: 37-85-8774Daqbmdy encounter procedureNOMS CWM FMComment on above:Arrived Start: 08-12-2024 End: 86-95-3573Djsmfsq encounter mbbiddjrb60/23/2025 8:00 AM EDT Office Visit [facility] [address] [place] [address] Tyrell Bowens MD [address] [place] [address] [facility] FMStart: 01-25-2024 End: 78-49-3907Sjceszr encounter procedureNOMS CWM FMComment on above:Arrived Start: 01-01-2024 End: 38-29-0321Pbanbdy encounter icnadgtkn81/11/2024 1:30 PM EST Office Visit [facility] [address] [place] [address] Jr. Zackary Brandon, DO [address] [facility] [address] [place] [address] NOMS FB ORTHOPAEDICSStart: 10-30-2023 End: 03-88-8045Abdkdqe encounter nmsbowttq94/09/2024 1:15 PM EDT Office Visit [facility] [address] [place] [phone] Jr. Zackary Brandon, DO [address] [facility] [address] [place] [address] ArrivedNOMS FB ORTHOPAEDICSComment on above:ArrivedStart: 85-56-8441Jbqtd-19 Vaccine ()Covid-19 Vaccine ()[facility]: 41-64-0665Ujmuiebmd vaccinationInfluenza Vaccine (#1)[facility] Hospitaltart: 10-04-2023 End: 81-56-4292Zvxhizf encounter qqslehbsu91/14/2024 8:15 AM EDT Office Visit [facility] [address] [place] [address] Tyrell Bowens MD [address] [place] [address] [facility] FMStart: 08-02-2023 End: 22-22-9097Kvebpjt encounter iylhciqtc39/12/2024 9:10 AM EDT Office Visit [facility] [address] [place] [address] Hien Ngo MD [address] [place] [address] NOMS CI ENTStart: 04-05-2023 End: 02-21-2751Lxaqs metabolic 1998 panel - Serum or PlasmaBasic metabolic panel Lab Routine Essential hypertension, benign (CMS/HCC) Expected: 04/05/2023 (Christopher roximate), Expires: 04/05/2024[facility] HealthcareComment on above:Expected: 04/05/2023 (Approximate), Expires: 04/05/2024Start: 04-05-2023 End: 35-67-5915LVN W Auto Differential panel - BloodCBC and differential Lab Routine Encounter for long-term (current) use of medications Expected: 03/23 (Approximate), Expires: 04/05/2024[facility] HealthcareComment on above: Expected: 04/05/2023 (Approximate), Expires: 04/05/2024Start: 04-05-2023 End: 14-75-6560Vuyhetivsx A1c measurementHemoglobin A1c Lab Routine Prediabetes Expected: 04/05/2023 (Approximate), Expires: 04/05/2024[facility] Healthcare Work Phone: Comment on above:Expected: 04/05/2023 (Approximate), Expires: 04/05/2024Start: 04-05-2023 End: 79-90-4425Mzqjrbw function 2000 panel - Serum or PlasmaHepatic function panel Lab Routine Encounter for long-term (current) use of medications Expected: 04/05/2023 (Approximate), Expires: 04/05/2024[facility] HealthcareComment on above: Expected: 04/05/2023 (Approximate), Expires: 04/05/2024Start: 04-05-2023 End: 09-61-1972Txkod 1996 panel - Serum or PlasmaLipid panel Lab Routine Encounter for long-term (current) use of medications Expected: 04/05/2023 (A pproximate), Expires: 04/05/2024[facility] HealthcareComment on above:Expected: 04/05/2023 (Approximate), Expires: 04/05/2024Start: 04-05-2023 End: 58-82-3873Aqcqhacqmeq [Units/volume] in Serum or PlasmaTSH Lab Routine Obesity (BMI 30-39.9) Expected: 04/05/2023 (Approximate), Expires: 04/05/2024 NOMS HealthcareComment on above:Expected: 04/05/2023 (Approximate), Expires: 04/05/2024Start: 04-05-2023 End: 78-18-6363Izrldxy encounter rhpjazrts00/14/2024 8:15 AM EST Office Visit [facility] [address] [place] [phone] Tyrell Bowens MD [address] [place] [phone] ArrivedNOMS CWM FMComment on above:ArrivedStart: 73-83-6425Cejgjol Directive DiscussionAdvance Directive DiscussionCleveland Clinic Lutheran Hospitaltart: 22-52-7933Rqdyi microalbumin profileDTaP,Tdap,Td Vaccine (2 - Td or Tdap) [facility]: 51-66-1443Yalzpqfwk for malignant neoplasm of breast MammogramNOIN HealthcareStart: 11-11-8053Ylwnhgrmc for osteoporosisBone Density ScreeningCleveland Clinic Lutheran Hospitaltart: 90-77-2448SBS Vaccine (1 - 1-dose 60+ series)RSV Vaccine (1 - 1-dose 60+ series)[facility]: 09-57-7343Xgewbeaw ScreeningDiabetes ScreeningC[facility] Clinic [facility]: 88-86-4690Jfngt panelLipid ScreeningC[facility] Clinic Luther[facility] Hospitalt[facility]: 97-59-6872Arlvvcoik for malignant neoplasm of colonC[facility] Clinic [facility]art: 20-72-6964Eqgtodtdo for malignant neoplasm of breast Mammogram ScreeningC[facility] Hospital[facility]: 05-18-2329Azmddkf ScreeningAnxiety ScreeningC[facility] Clinic [facility]: 93-41-6617Mvasersurm ScreeningDepression ScreeningC[facility]: 89-74-6718Iyjpyoefy C screeningHepatitis C ScreeningCleveland Clinic Luther[facility] Hospitaltart: 08-30-1951Medicare Annual Wellness (AWV)Medicare Annual Wellness (AWV)[facility] HealthcareStart: 94-47-1061Qgcsnhqdw for malignant neoplasm of colonNOMS HealthcareAldolase measurementHocking Valley Community Hospital Work Phone: Homogenous nuclear Ab pattern [Titer] in Serum [facility] Work Phone: Nuclear Ab [Titer] in SerumMercy [facility] Work Phone: Immunizations Immunization DateImmunizationNotesCare XbojujepZdodchgw69-27-0978hjkthfuol virus vaccine, unspecified formulationJr. Stepanic DO Work Phone: [facility]OS[facility] Health [id number] virus vaccine, unspecified formulationArrival Radiology Work Phone: [facility] Payers DatePayer CategoryPayerPolicy [id number] Health InsuranceMEDICAL MUTUAL Member Subscriber Plan / Payer (Effective 2021-Present) Name: Cayetano Weeks Relation to Subscriber: Self Name: Cayetano Weeks Payer ID: Not on file Type: Not on file Address: [place] [id number] [id number] 2014Medicare [id number] [id number] 1960 [id number] 2.16840.1.670945.3.579.2.593 [id number] 2.16840.1.198487.3.57[id number] 2.840.1.428522.3.57[id number] 2.16.840.1.327733.3.57[id number] 2.16.840.1.587233.3.57[id number] 2.16.840.1.336729.3.57[id number] 2.16.840.1.508562.3.57[id number] 2.16.840.1.965093.3.57[id number] 2.16.840.1.450629.3.57[id number] 2..840.1.818291.3.57[id number] 2.16.840.1.322973.3.579.2.1259Self-paySelf Pay [id number] Social History DateTypeDetailFacilityTobacco smoking status NHISUnknown if ever smokedHocking Valley Community Hospital Work Phone: Start: 51-49-0916Lds Assigned At [facility] Youngstowntart: 72-53-5147Bfsyytl smoking status NHISNever smoked tobaccoNOMS HealthcareStart: 28-08-6372Dawibhq use and exposureSmokeless tobacco non-userNOMS HealthcareStart: 03-14-2023 End: 16-67-2076Uldljcf intakeEx-drinker (finding)NOMS HealthcareStart: 03-29-2023 End: 68-19-5325Pzmsqlh of Social functionNOMS HealthcareStart: 03-29-2023 End: 80-18-7870Giukhcrwfea, Afraid, Rape, and Kick questionnaire [HARK]NOMS HealthcareWithin the last year, have you been afraid of your partner or ex-partner?NoNOMS HealthcareDo you belong to any clubs or organizations such as restoration groups, unions, fraternal or athletic groups, or school groups?YesNOMS HealthcareAre you now , , , , never or living with a partner?MarriedNOMS HealthcareHow often to you have a drink containing alcohol?2-4 times a monthNOMS HealthcareHow many standard drinks containing alcohol do you have on a typical day?1 or 2NOMS HealthcareHow often do you have 6 or more drinks on 1 occasion?NeverNOMS HealthcareHow hard is it for you to pay for the very basics like food, housing, medical care, and heating Not hard at allNOIN HealthcareDo you feel stress - tense, restless, nervous, or anxious, or unable to sleep at night because yourmind is troubled all the time - these days [OSQ]Not at allNOIN Healthcare(I/We) worried whether (my/our) food would run out before (I/we) got money to buy more.Never trueNOIN Healthcare Start: 34-72-6277Hwtgdj identityIdentifies as female gender (finding)NOMS German HospitalTobacc smoking status NHISTobacco smoking consumption unknown [facility] Hospitaltart: 55-30-2888Hqf assigned at birthNot on fileChildren'S Hospital Of [facility]How often to you have a drink containing alcohol?2-3 time sa weekNOMS HealthcareDo you feel stress - tense, restless, nervous, or anxious, or unable to sleep at night because yourmind is troubled all the time - these days [OSQ] Only a littleNOIN Healthcare Clinical Notes 06-10-2020 to 08-20-2024 Note Date & MqhdUbbmUjicwgag86-68-9818 History of Present illness Narrative* Tyrell Bowens MD - 08/20/2024 9:53 AM EDTAssociated Problem(s): Prediabetes Monitor labs. * Tyrell Bowens MD - 08/20/2024 9:52 AM EDTAssociated Problem(s): Class 2 severe obesity due to excess calories with serious comorbidity and body mass index (BMI) of 38.0 to 38.9 in adult ([facility]) Weight loss indicated. * Tyrell Bowens MD - 08/20/2024 9:51 AM EDTAssociated Problem(s): Rheumatoid arthritis involving both hands with positive rheumatoid factor (HCC) Occasional flares and use prednisone PRN. Follow up with rheumatology. * Tyrell Bowens MD - 08/20/2024 9:51 AM EDTAssociated Problem(s): Intrinsic eczema Skin clear with dupixent and follow with dermatology. * Tyrell Bowens MD - 08/20/2024 9:51 AM EDTAssociated Problem(s): Essential hypertension, benign BP controlled and monitor PRN. * Tyrell Bowens MD - 08/20/2024 9:00 AM EDT Images from the original note were not [...] dupixent which works well to clear skin. Usessteroid cream PRN which helps. RA stable. Occasional [...] and follow with dermatology. documented in this encounterMissouri Baptist Hospital-SullivanJyktehbbbm94-84-0094 NoteOrthopedic Surgery Subjective Chief complaint: Chief Complaint Patient presents with ??? Right Hand - Pain Cayetano Weeks is a 73 y.o. year old female presenting for evaluation of carpal tunnel syndrome in her right hand. She is a vtrna-zbej-majtxezk female who has a history of rheumatoid [...] her back as needed if her symptoms recur.[facility]02-18-2025 NotePatient ID: Sherry Weeks is a 73 y.o. female. Steroid Injections [...] to verify the correct patient, procedure, equipment, product support rep and site/side marked as required.[facility] 01-25-2024 History of Present illness Narrative* Tyrell Bowens MD - 01/25/2024 11:39 AM ESTAssociated Problem(s): Medicare annual wellness visit, subsequent Reviewed labs. Discussed proper diet and regular aerobic exercise. Need aerobic exercise 5-6 days aweek for 30 minutes at a time. Smaller portions and limit total calories. Cologuard normal in September 2023. Tetanus every 10 years. Advised not to smoke. * Tyrell Bowens MD - 01/25/2024 10:15 AM EST Images from the original note were not [...] portions and limits snacking. Tries to limit totaldaily calories. Reviewed labs. Review of Systems Respiratory: [...] Advised not to smoke. documented in this encounterMissouri Baptist Hospital-SullivanKgayxzzfmv67-09-9724 History of Present illness Narrative* Jr. Zackary Brandon, - 01/01/2024 1:30 PM EST Images from the original note were not [...] is normal. Strength additional comments: 5/5 EQUAL COMMERCIAL ADMINISTRATOR STRENGTH Neurovascular Right Right neurovascular exam is [...] I am acting as scribe for Dr. Brandon/shae, PLAN: We have reviewed prior (R) UE [...] basis. Zackary Brandon D.O. documented in this encounterMissouri Baptist Hospital-SullivanCbiiqrnlhy93-26-9442 History of Present illness Narrative* Jr. Zackary Brandon, DO - 10/30/2023 1:15 PM EDT Images from the original note were not [...] is normal. 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 Zackary Brandon D.O. documented in this encounterMissouri Baptist Hospital-SullivanIvzokxlviy88-29-1022 History of Present illness Narrative* Tyrell Bowens MD - 04/05/2023 9:14 AM ESTAssociated Problem(s): Rheumatoid arthritis involving both hands with positive rheumatoid factor (CM S/HCC) Occasional flares and use prednisone PRN. Follow up with rheumatology. * Tyrell Bowens MD - 04/05/2023 9:14 AM ESTAssociated Problem(s): Intrinsic eczema Skin clear with dupixent and follow with dermatology. * Tyrell Bowens MD - 04/05/2023 9:14 AM ESTAssociated Problem(s): Essential hypertension, benign (CMS/HCC) BP controlled and monitor PRN. * Tyrell Bowens MD - 04/05/2023 9:14 AM ESTAssociated Problem(s): Allergic rhinitis due to pollen Symptoms controlled with medication and continue. * Tyrell Bowens MD - 04/05/2023 8:15 AM EST Subjective Patient ID: Sherry Weeks is a [...] on dupixent which works well to clear skin.Occasional rashes and flares but mild. Uses steroid [...] 30-39.9) Relevant Orders TSH documented in this encounterMissouri Baptist Hospital-SullivanDadudjkbhq12-47-1807 NoteHNO ID: [id number] Author: Nory Slade RN Service: ? Author [...] Weeks DATE: October 04, 2022 TIME: 9:13 [facility]08-15-2023 NoteHNO ID: [id number] Author: Rimma Rey RT(R) Service: ? Author [...] 911 PATIENT DISCHARGED TO: Ambulatory patient, left [place] department area. A Diagnostic radioactive procedure has taken place, with no further precautions necessary other than routine body substance precautions. More information regarding radiation safety can be found using this link: [email or web address]%20Nuclear%20Medicine%20Procedures.pdf SIGNATURE: RT Bo(R) PATIENT NAME: Cayetano Weeks DATE: October 04, 2022 TIME: 9:38 AM PAGER/CONTACT #:[facility]08-15-2023 History of Present illness Narrative* Nory Slade RN - 10/04/2022 9:15 AM EDT Radiology Service Progress Note DATE OF SERVICE: [...] DATE: October 04, 2022 TIME: 9:13 AM * Rimma Rey, RT(R) - 10/04/2022 9:15 AM EDT RADIOLOGY SERVICE PROGRESS NOTE SERVICE DATE: 10/04/2022 SERVICE TIME: 9:38 AM PATIENT IDENTITY VERIFICATION COMPLETED USING TWO (2) STANDARD IDENTIFIERS: Name and Date of confirmed by patient verbally POST EXAM PIV STATUS: Discontinued PROCEDURE TYPE: NM INJECT: PET/CT BODY SCAN. 10.8 mCi F18 FDG. No other medications given.. ADMINISTRATION TIME: 911 PATIENT DISCHARGED TO: Ambulatory patient, left [place] department area. A Diagnostic radioactive procedure has taken place, with no further precautions necessary other than routine body substance precautions. More information regarding radiation safety can be found usingthis link: [email or web address]-% 20Diagnostic%20Nuclear%20Medicine%20Procedures.pdf SIGNATURE: RT Bo(R) PATIENT NAME: Cayetano Weeks DATE: October 04, 2022 TIME: 9:38 AM PAGER/CONTACT #: documented in this encounterChildren[facility]S [facility]04-[facility]-2021 Surgery Surgical operation noteDICTATED BY:CHATO GARCIA MD SERVICE DATE:06/10/2020 PREOPERATIVE DIAGNOSES: 1. Postmenopausal bleeding. 2. Endometrial polyp. POSTOPERATIVE DIAGNOSES: 1. Postmenopausal bleeding. 2. Endometrial polyp. PROCEDURES: 1. Dilatation and curettage, hysteroscopy. 2. Polypectomy with MyoSure. SURGEON: Chato Garcia MD ANESTHESIA: General per LMA. BELT DRESSER: Nayeli Sosa MD ESTIMATED BLOOD LOSS: 5 mL INTRAVENOUS FLUIDS: 500 LR. FINDINGS: Endometrial polyp at the left cornua of the uterus. Otherwise, normal-appearing uterine cavity. Theuterus sounded to approximately 8.5 cm. COMPLICATIONS: None. [...] of the vagina and the cervix visualized. Theanterior lip of the cervix was grasped with [...] was then inserted into the operative channel alexis polypectomy was performed. This specimen was sent for permanent pathology. The hysteroscope was then withdrawn and a sharp curettage was performed and this specimen was sent for permanent pathologyas endometrial curettings. The hysteroscope was then inserted one additional time and the uterine cavity appeared normal. The hysteroscope was withdrawn and the tenaculum was removed under direct visualization. Tenaculum siteswere hemostatic. All instruments were removed from the vagina. The patient tolerated the procedure well. Sponge, lapand needle counts were correct. CAYETANO WEEKS Birthdate: 1950 #: [id number] D/06/10/2020 08:23:39 T/06/10/2020 09:15:53 VOICE JOB ID:[id number] Luis Earl thanks you for the opportunity to care for your patient. DID: [id number] Discharge summaryCLINICAL SUMMARY Please take this summary document to your follow up appointments. [facility] 08[facility]38 [address] [place]. [address] PATIENT INFORMATION Name: CAYETANO WEEKS Address: [address] [place] [id number] Age: 69 Years Phone: [phone] : 1950 12:00 MRN: ([id number] Sex: Female Race: White Ethnicity: Not Hispan/Lat Admitted From: Clinic or [facility] Medical Service: Obstetric Nurse Unit/Bed: ([facility] N/A Admit Date: 06/10/2020 05:45 PCP: Physician, PCP Unknown PHYSICIANS INVOLVED WITH CARE Attending Physicians: Rivera CHURCHILL , Chato Mckeon [...] to have an endometrial polyp. She underwent Dand C/hysteroscopy and polypectomy with Myosure without complications. EBL 5. DC home from PACU in good condition. MEDICATIONS ORDERED / RECOMMENDED TO BE CONTINUED for: CAYETANO WEEKS bisoprolol-hydroCHLOROthiazide (Bisoprolol/hydroCHLOROthiazide 5 mg/6.25 mg) 1 Tab(s) By Mouth oncea day. ibuprofen (ibuprofen 600 mg oral tablet) 1 Tab(s) By Mouth One Time Only as needed Pain - Mild. Refills: 0. loratadine (Claritin 24 Hour Allergy 10 mg oral tablet) 1 Tab(s) By Mouth once a day. multivitamin 1 Tab(s) By Mouth once a day. MEDICATION CHANGE DETAILS NEW MEDICATIONS [id number], [address], [place] [id number], [phone] ibuprofen (ibuprofen 600 mg oral tablet) 1 Tab(s) By Mouth One Time Only as needed Pain - Mild. Refills: 0. Comment UPDATED MEDICATIONS None UNCHANGED MEDICATIONS Other Medications bisoprolol-hydroCHLOROthiazide (Bisoprolol/hydroCHLOROthiazide 5 mg/6.25 mg) 1 Tab(s) By Mouth oncea day. Comment loratadine (Claritin 24 Hour Allergy [...] (vasopressin) 20 Unit = 1 mL, Vag, Pharmacy Cashier, x 30 Day(s) COMMENTS and SPECIAL INSTRUCTIONS: [...] (Zofran GEq) (Zofran (more content not included)... [facility] Surgery Postoperative evaluation and management notePatient: CAYETANO WEEKS MRN: ([id number] Age: 69 years Sex: Female : 1950 [...] AND CURETTAGE . Surgeon: Primary Surgeon: Chato Garcia MD Communications Writer(s): Nayeli Sosa MD , . Type of Anesthesia: Anesthesia Type: General . Estimated Blood Loss: Minimal less than 10mL. Procedure Findings: intrauterine polyp. Drain(s): Collection Device: RED RUBBER . Specimen(s) Removed: Specimen: 1. ENDOMETRIAL POLYP - PERMANENT - 2. ENDOMETRIAL CURETTINGS - PERMANENT .[facility]04-21-2021 Anesthesiology Preoperative evaluation and management notePatient: CAYETANO WEEKS MRN: ([id number] Age: 69 years Sex: Female : 1950 Associated Diagnoses: None Author: Mouna CHURCHILL , William Mckeon Preoperative Information Diagnosis No diagnoses charted Planned Procedure Hysteroscopy Histories Past Medical History: Active Eczema HTN (hypertension) Social History: Smoking Status: Never smoked E-Cig/Vaped Last 90 Day..: No Surgical/Procedure History: Surgical/Procedure Hx Polypectomy ([id number]). Comments: 05/27/2020 09:32 NATHANIEL Ziegler RN , [...] Vasopressin 20 Unit = 1 mL, Vag, Pharmacy Cashier x 30 Day(s) , Comment: Send to [...] = N 06/07/20 13:25, Device Identifier = [place] Fusion SARS-CoV-2 assay_[employer]. [facility] Point Of Care Tests Blood 06/10/20 [...] with Laryngeal Mask Airway. Monitoring/Anesthesia Considerations: Standard monitoring.[facility] SystemEvaluation noteNo assessment information availableMercy Health Cl[facility] Ctr Work Phone: Evaluation note* Diagnosis Essential hypertension, benign (CMS/HCC)- Primary [...] mass index (BMI) of38.0 to 38.9 in adult ([facility]) Prediabetes Other abnormal glucose documented in this encounter [facility] Summary [...] Findings Note Patient: PATRICIA WEEKSBelinda Viveros RN: ([facility])-[id number] Age: 69 years Sex: Female : 1950 [...] section and content) DATE CREATED AUTHOR 06/13/2020 [facility] DATE CREATED AUTHOR AUTHOR'S YADIEL GIFFORD 06/17/2021 [facility] DATE CREATED AUTHOR AUTHOR'S ORGANIZ ATION 07/04/2022 [facility] DATE CREATED AUTHOR AUTHOR'S ORGANIZ ATION 10/05/2022 [facility] DATE CREATED AUTHOR AUTHOR'S ORGANIZ ATION 11/29/2023 [facility] DATE CREATED AUTHOR AUTHOR'S ORGANIZ ATION 04/15/2024 [facility] DATE CREATED AUTHOR AUTHOR'S ORGANIZ ATION 08/21/2024 [facility] EPIC Care Teams (unrecognized sec tion and content) Team Status: Inactive Member Role Status Dates Gonzalez Mcneal MD Attending Provider Active Team MemberRelationshipSpecialtyStart DateEnd Date Tyrell Bowens MD [address] [place] [phone] PCP - GeneralFamily Medicine03/13/23Team MemberRelationshipSpecialtyStart DateEnd Date Tyrell Bowens MD [address] [place] [phone] PCP - GeneralFamily Medicine03/13/23Team MemberRelationshipSpecialtyStart DateEnd Date Tyrell Bowens [address] [place] [address] PCP - GeneralFamily Medicine09/15/22Team MemberRelationshipSpecialtyStart DateEnd Date Tyrell Bowens MD [address] [place] [address] PCP - GeneralFamily Medicine03/13/23Team MemberRelationshipSpecialtyStart DateEnd Date Tyrell Bowens MD [address] [place] [address] PCP - GeneralFamily Medicine03/13/23Team MemberRelationshipSpecialtyStart DateEnd Date Tyrell Bowens MD [address] [place] [address] PCP - GeneralFamily Medicine03/13/23Team MemberRelationshipSpecialtyStart DateEnd Date Tyrell Bowens MD [address] [place] [address] PCP - GeneralFamily Medicine03/13/23Team MemberRelationshipSpecialtyStart DateEnd Date Tyrell Bowens MD [address] [place] [address] PCP - GeneralFamily Medicine03/13/23Team MemberRelationshipSpecialtyStart DateEnd Date Tyrell Bowens MD [address] [place] [address] PCP - GeneralFamily Medicine03/13/23Team MemberRelationshipSpecialtyStart DateEnd Date Tyrell Bowens MD [address] [place] [address] PCP - GeneralFamily Medicine03/13/23Team MemberRelationshipSpecialtyStart DateEnd Date Tyrell Bowens MD [address] [place] [address] PCP - GeneralFamily Medicine03/13/23Team MemberRelationshipSpecialtyStart DateEnd Date Tyrell Bowens MD [address] [place] [address] PCP - GeneralFamily Medicine03/13/23 Goals (unrecognized section and content) Goals may be documented in a n alternate section Reason for Visit (unrecogniz ed section and content) ReasonCommentsFollow-up6 mReasonCommentsRadiology NMReasonCommentsPainReason CommentsMedicare Annual Wellness Visit SubsequentWellnessReasonCommentsFollow-up 6 m f/up Source Comments (unrecognize d section and content) In the event this informatio n is protected by the Federal Confidentiality of Alcohol and Drug Abuse Patient Records regulations: The Federal rules restrict any use of the information to criminally investigate or prosecute any alcohol or drug abuse patient.[facility] FOR RECORDS PERTAINING TO PATIENTS WHO ARE [...] BE BASED ON THE PRIMARY CLINICAL RECORDS. [employer] [facility]. provides no warranty or guarantee of the accuracy or completeness of information in this document.
[2025-02-18 11:18] LABS: Hematocrit 45.4 % (36.0-48.0); Hemoglobin 15.0 g/dL (12.0-16.0); Immature Granulocytes Abs Auto 0.01 10^3/uL (0.00-0.03); Immature Granulocytes Pct Auto 0.1 % (0.0-0.5); Lymphocytes Absolute Auto 1.1 10^3/uL (1.2-3.8); Mean Corpuscular HGB Conc 33.0 g/dL (29.9-35.2); Mean Corpuscular Hemoglobin 29.4 pg (26.7-34.0); Mean Corpuscular Volume 88.8 fL (81.0-99.0); Platelet Count 224 10^3/uL (150-450); Red Blood Count 5.11 10^6/uL (4.20-5.40); White Blood Count 6.9 10^3/uL (4.0-11.0)
[2025-02-18 11:36] LABS: Alanine Aminotransferase 32 U/L (14-59); Albumin Globulin Ratio 1.0; Albumin Level 3.4 g/dL (3.4-5.0); Alkaline Phosphatase 100 U/L (46-116); Anion Gap 11.3; Aspartate Amino Transferase 35 U/L (15-37); Blood Urea Nitrogen 22.0 mg/dL (7.0-18.0); Calcium 8.8 mg/dL (8.5-10.1); Carbon Dioxide 27.9 mmol/L (21.0-32.0); Chloride 106 mmol/L (98-107); Estimated GFR (African America >60 (>=60 mL/min/1.73m^2); Estimated GFR (Non-African Ame >60 (>=60 mL/min/1.73m^2); Globulin 3.5 g/dL; Glucose 98 mg/dL (74-106); Potassium 4.2 mmol/L (3.5-5.1); Sodium 141 mmol/L (136-145); Total Protein 6.9 g/dL (6.4-8.2)
== END 2025-02-18 10:26 | disposition home or self-care (01) ==
LOC: LAB 10:27
PROVIDERS: PCP Family Medicine; Visit Provider Internal Medicine Rheumatology
DX: M05.79 Rheumatoid arthritis with rheumatoid factor 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 (principal); M15.0 Primary generalized (osteo)arthritis; Z79.899 Other long term (current) drug therapy
CPT/HCPCS: 36415; 80053; 85025; 85652